=== PATIENT | female | born 2000 | race Caucasian/White ===

== ENCOUNTER 2022-07-30 12:46 | Outpatient (CLI) | payer OTHER, SELFPAY ==
--- OUTSIDE RECORDS SUMMARY | 2022-08-12 09:07 | XMS_ITS | Encounter Summary ---
:2002 Author Organization [facility] Address [address] [place] [address] Care Team Providers Name Role Phone Addis Kirk PA-C Primary Care Provider Reason for Visit Reason Onset Date Comments Phone Visit Med check Phone Visit 01/27/2022 Encounter Details Date Type Department Care Team Description 01/27/2022 Phone Visit [place] Addis Kirk, Acne vulgaris; Medicine PA-Tae Oral contraceptive pill surveillance; [address] bertha without aura and without status migrainosus, not intractable [place] [address] [place], [place] [phone] [address] Social History Tobacco Use Types Packs/Day Years Used Date Smoking Tobacco: Never Smokeless Tobacco: Never Alcohol Use Standard Drinks/Week Comments Never 0 (1 standard drink = 0.6 oz pure alcoho l) Alcohol Habits Answer Date Recorded How often do you have a drink containing alcohol? Never 11/17/2020 How many drinks containing alcohol do you have on a typical Not asked day when you are drinking? How often do you have six or more drinks on one occasion? No t asked Comment: Not asked Sex Assigned at Date Recorded Not on file documented as of this encounter Last Filed Vital Signs Vital Sign Reading Time Taken Comments Blood Pressure - - Pulse - - Temperature 36.7 ??C (98 ??F) 01/27/2022 12:58 PM patient re ported CDT Respiratory Rate - - Oxygen Saturation - - Inhaled Oxygen Concentration - - Weight 62.6 kg (138 lb) 01/27/2022 12:58 PM patient rep orted CDT Height 175.3 cm (5' 9) 01/27/2022 12:58 PM patient rep orted CDT Body Mass Index 20.38 01/27/2022 12:58 PM CDT documented in this encounter Progress Notes Addis Kirk PA-C - 01/27/2022 1:00 PM CDT Subjective: Today's visit with Sunni was conducted as a scheduled telephone visit for a medication check. Currently taking Ortho-Cyclen OCP consistently everyday, no missed doses, has helped to improve her skincomplexion/acne since starting, and her headaches related to her menstrual cycle have also become less frequent. Sexually active with her boyfriend of 1 year, also uses condoms. Never a regular smoker.Her menstrual cycle has improved, regular, not overly heavy or painful. Patient's last menstrual period was 01/11/2022 (approximate). No current concerns. Objective: Health Maintenance Due Topic Date Due ??? HIV Screening (Preventive Services) Never done ??? COVID-19 Vaccine (3 - Booster for Moderna series) 08/23/2021 BP Readings from Last 1 Encounters: 06/29/21 133/77 Vital Signs: Reviewed. Temp 98 ??F (36.7 ??C) Comment: patient reported Ht 5' 9 (1.753 m) Comment: patient reported Wt 138 lb (62.6 kg) Comment: patient reported LMP 01/11/2022 (Approximate) BMI 20.38 kg/m?? Assessment/Plan: ICD-10-CM 1. Acne vulgaris L70.0 clindamycin-benzoyl peroxide (BENZACLIN) 1-5 % gel Norgestimate-Eth Estradiol (ORTHO-CYCLEN) 0.25-35 MG-MCG tablet 2. Oral contraceptive pill surveillance Z30.41 Norgestimate-Eth Estradiol (ORTHO-CYCLEN) 0.25-35 MG-MCG tablet 3. Migraine without aura and without status migrainosus, not intractable G43.009 SUMAtriptan (IMITREX) 50 MG tablet Refilled medications at their current doses, see above/EMR for more details. Follow-up in 1 year for her annual preventative exam or sooner with any concerns/changes. Clinician located at the clinic Patient located at home Billing based on complexity Total time for the visit was 11 minutes including, but not limited to, gaw-tpgt-rl-face time spent reviewing records, counseling, and coordination of care. Addis Kirk PA-C documented in this encounter Plan of Treatment Not on filedocumented as of this encounter Visit Diagnoses Diagnosis Acne vulgaris Other acne Oral contraceptive pill surveillance Surveillance of previously prescribed co ntraceptive pill Migraine without aura and without status migrainosus, not intractable Migraine without aura, without mention o f intractable migraine without mention of status migrainosus documented in this encounter Care Teams Communications Officer Relationship Specialty Start Date End Date Addis Kirk PA-C PCP - General Physician Microfilm Clerk 06/29/21 [address] [place] [address] documented as of this encounter
--- OUTSIDE RECORDS SUMMARY | 2022-08-12 09:07 | XMS_ITS | Encounter Summary ---
:2002 Author Organization [email or web address] Address [address], [place] [address] Care Team Providers Name Role Phone Marlena Choudhury MD Primary Care Provider Encounter Details Date Type Department Care Team Description 06/18/2020 Lab Visit [facility] Routine screening for STI [address] ([place] [address] infection) [phone] Social History Tobacco Use Types Packs/Day Years [...] on file documented as of this encounter Plan of Treatment Not on filedocumented as of this encounter Procedures Procedure Name Priority Date/Time Associated Diagnosis Comme nts CHLAMYDIA/NEISSERIA Routine 06/18/2020 10:53 Routine screening Results for this GONORRHOEAE RNA, AM CDT for STI (sexually proced ure are in TMA, UROGENITAL transmitted the results infection) section. CHLAMYDIA & GC, Routine 06/18/2020 10:53 Routine screening Res ults for this URINE (14 YEARS AND AM CDT for STI (sexually pro cedure are in OLDER) transmitted the results infection) section. documented in this encounter Results Chlamydia/Neisseria gonorrhoeae RNA, TMA, Urogenital (06/18/2020 10:53 AM CDT) [facility] Method Time Signature Chlamydia NOT NOT 06/20/2020 [facility] Trachomat[facility] DETECTED DETECTED 7:00 PM CDT DIAGNOSTICS - RNA, TMA, NIKKY HAAS Urogenital Neisseria NOT NOT 06/20/2020 [facility] gonorrhoeae DETECTED DETECTED 7:00 PM CDT DIAGNOSTICS - RNA, TMA, NIKKY HAAS Urogenital [facility] See Note SEE NOTE 06/20/2020 [facility] 7:00 PM CDT DIAGNOSTICS - NIKKY HAAS Comment: The analytical performance characteristi cs of this assay, when used to test SurePath(TM) sp ecimens have been determined by [facility]. The mod ifications have not been cleared or approved by the FDA. This assay has been validated pursuant to the CLIA regu lations and is used for clinical purposes. For additional information, please refer to https://education.OSOYOU.com.BALALIKEA/f [email or web address]/HVM786 (This link is being provided for informa tion/ educational purposes only.) [place], [place] [address], [address], VASHTI CELIS MD Specimen Anatomical Collection Method Collection Time Receive d Time (Source) Location / / Volume Laterality Urine STD (Urine Non-blood 06/18/2020 10:53 020 for STD) Collection / AM CDT 10:53 AM CDT Unknown Addis Kirk PA-C LAB_1 Performing Organization Address City/State/ZIP Code Phon e Number [place] [facility] [address] [facility]. [place], [place] [address] Chlamydia & GC, Urine (14 Years and Older) (06/18/2020 10:53 AM CDT) Component Value Ref Test Analysis Performed At [facility] Method Time Signature Chlamydia Due to current 06/18/2020 [facility] Trachomatis laboratory 6:25 PM CDT [facility] and N. situations gonorrhoeae this test is (Sendout) temporarily being sent out. See the new test in chart review. Specimen Anatomical Collection Method Collection Time Receive d Time (Source) Location / / Volume Laterality Urine STD (Urine Non-blood 06/18/2020 10:53 020 for STD) Collection / AM CDT 10:53 AM CDT Unknown Addis Kirk PA-C LAB_1 Performing Organization Address City/State/ZIP Code Phon e Number [facility] [address] [place] [address] documented in this encounter Visit Diagnoses Diagnosis Routine screening for STI (sexually garcía smitted infection) Screening examination for venereal disea se documented in this encounter Care Teams [employer] Targeting Supervisor Relationship Specialty Start Date End Date Marlena Choudhury MD PCP - General 02/13/11 06/28/21 [address] [address] [place] [address] documented as of this encounter
--- OUTSIDE RECORDS SUMMARY | 2022-08-12 09:07 | XMS_ITS | Encounter Summary ---
:2002 Author Organization [facility] Address [address] [place] [address] Care Team Providers Name Role Phone Addis Kirk PA-C Primary Care Provider Reason for Visit Reason Comments Video Visit Sleep issues Encounter Details Date Type Department Care Team Description 07/21/2022 Telemedicine [place] [facility] Addis Kirk, Sleep disturbances (Primary Dx); Medicine MARY Anxiety [address] [place] [address] [place], [place] [phone] [address] Social History Tobacco Use Types Packs/Day Years [...] on file documented as of this encounter Progress Notes Addis Kirk, MARY - 07/21/2022 12:30 PM CDT Subjective: Today's visit with Sunni was conducted as a scheduled video visit for sleep disturbance concerns.Reports my anxiety keeps me up at night seems to worsen when away at college. Lays in bed for hours due to mind racing and can't seem to quiet her mind down. Has tried melatonin in the past. Would prefer not to start on a daily anti-anxiety med at this time as she seems to be doing well throughout the day. Will be restarting school at [employer] next week, plays basketball. Additional concerns: None Patient's medications, allergies, past medical, surgical, social and family histories were reviewed and updated as appropriate. Objective: BP Readings from Last 1 Encounters: 06/29/21 133/77 PHQ-9 07/21/2022 06/29/2021 05/12/2020 PHQ-9 Score Total - 1 - Q1: Loss of Int/Pleas 0 0 0 Q2: Depressed mood 0 0 0 Q3: Sleep problems - 1 - Q4: Tired/Low Energy - 0 - Q5: Appetite change - 0 - Q6: Feelings of failure - 0 - Q7: Concentration Prob - 0 - Q8: Slow or Restless - 0 - Q9: Thought Self Harm - 0 - Date PHQ9 was completed - 06/29/2021 - LAST GAD7 SCORE DATE 07/21/2022 FAHAD-7 TOTAL SCORE 7 Some recent data might be hidden General: Alert, well and comfortable -appearing female, NAD. Psych: Alert and orientated. Maintains good eye contact. Does not appear overtly depressed, not tearful. Does not appear overtly anxious, appropriately talkative, open to sharing her feelings. No pressured speech or jittery movements. Denies having thoughts of hurting herself or others. Assessment/Plan: Sunni was seen today for video visit. Diagnoses and all orders for this visit: Sleep disturbances - hydrOXYzine HCl (ATARAX) 25 MG tablet; Take 1 Tablet (25 mg) by mouth at bedtime as needed. Anxiety (HRC) - hydrOXYzine HCl (ATARAX) 25 MG tablet; Take 1 Tablet (25 mg) by mouth at bedtime as needed. Rx: Hydroxyzine 25 mg taken before bedtime. Reviewed medication profile. Supportive measures were discussed including good sleep hygiene techniques. Follow-up in about 3-4 weeks for a recheck, sooner with any changes/concerns. Clinician located at home office Patient located at home Billing based on complexity Addis Kirk PA-C documented in this encounter Plan of Treatment Not on filedocumented as of this encounter Visit Diagnoses Diagnosis Sleep disturbances - Primary Sleep disturbance, unspecified Anxiety (HRC) Anxiety state, unspecified documented in this encounter Care Teams Structural Analyst Relationship Specialty Start Date End Date Addis Kirk PA-C PCP - General Physician Drive Man 06/29/21 [address] [place] [address] documented as of this encounter
--- OUTSIDE RECORDS SUMMARY | 2022-08-12 09:07 | XMS_ITS | Encounter Summary ---
:2002 Author Organization [facility] Address [address] [place] [address] Care Team Providers Name Role Phone Yovana iKrk-C Primary Care Provider Reason for Visit Reason Comments Refill DUY 0.25-35 MG-MCG tablet [ Pharmacy Med Name: DUY TABLETS 28S] Encounter Details Date Type Department Care Team Description 01/24/2022 Refill [facility] Yovana Kirk, Shelia l (DUY 0.25-35 Medicine PA-C MG-MCG tablet [Ph[address] Med Name: [address] [place] [address] [place], [place] [id number] (Wo rk) Social History Tobacco Use Types Packs/Day Years [...] on file documented as of this encounter Nursing Notes Interface, Out Surescripts Prov Query - 01/24/2022 8:32 PM CDT DUY 0.25-35 MG-MCG tablet [Pharmacy Med Name: DUY TABLETS 28S] Medication started: 11/17/2020 Last ordered by YOVANA KIRK N: 06/29/2021 (209 days ago) QTY: 84, Refills: 3, Sig: take 1 tablet by mouth daily. (changed but equivalent) -> The patient is requesting refills too soon, the current prescription is due to run out on 05/31/2022. -> Refill x 6 months, qty: 90, refills: 1 (until due for an office visit) Last qualifying visit: 06/29/2021 (with YOVANA KIRK) Next scheduled visit: None Powered by [employer], Reference: [id number], 01/24/2022 8:32:37 PM CDT, Pool:EMERY WEBSTER ([id number]) documented in this encounter Plan of Treatment Not on filedocumented as of this encounter Visit Diagnoses Diagnosis Oral contraceptive pill surveillance Surveillance of previously prescribed co ntraceptive pill Acne vulgaris Other acne Migraine without aura and without status migrainosus, not intractable Migraine without aura, without mention o f intractable migraine without mention of status migrainosus documented in this encounter Care Teams Lead Customer Service Representative Relationship Specialty Start Date End Date Yovana Kirk PA-C PCP - General Physician Screw Cutter 06/29/21 [address] [place] [address] documented as of this encounter
--- OUTSIDE RECORDS SUMMARY | 2022-08-12 09:07 | XMS_ITS | Clinical Summary ---
:2002 Author Organization [facility] Address [address] [place] [address] Care Team Providers Name Role Phone Addis Krik PA-C Primary Care Provider Source Comments You are receiving this document as you are listed as the primary care provider,follow-up provider, or the patient has been referred to you for consultation.This is in compliance with the Medicare and Medicaid EHR Incentive Program,which states Providers who transition their patient to another setting of careor provider of care or refers their patient to another provider of care shouldprovide summarycare record for each transition of care or referral. [facility] Allergies No known active allergies Medications Medication Sig Dispensed Refills Start Date End Date Status Multiple Vitamin Take by mouth. 0 12/03/2012 Active (MULTI-VITAMIN OR) clindamycin-benzoyl Apply topically 50 g 3 01/27/2022 Active peroxide (BENZACLIN) two times a day. 1-5 % gelIndications: Acne vulgaris Norgestimate-Eth Take 1 Tablet by 84 Tablet 3 01/27/202201/27 Active Estradiol mouth daily. (ORTHO-CYCLEN) 0.25-35 MG-MCG tabletIndications: Acne vulgaris, Oral contraceptive pill surveillance SUMAtriptan (IMITREX) Take 0.5-1 27 Tablet 3 01/27/2022 Active 50 MG Tablets (25-50 tabletIndications: mg) by mouth as Migraine without aura needed for and without status Migraine. at migrainosus, not onset of intractable headache; may repeat one time in 2 hours if headache recurs. hydrOXYzine HCl Take 1 Tablet (25 30 Tablet 3 07/21/2022 Active (ATARAX) 25 MG mg) by mouth at tabletIndications: bedtime as Sleep disturbances, needed. Anxiety (HRC) Active Problems Problem Noted Date Acne vulgaris 05/12/2020 Migraine without aura and without status migrainosus, not intractable 05/12/2020 Resolved Problems Problem Noted Date Resolved Date Vision impairment 07/13/2012 05/12/2020 Viral warts 12/07/2011 07/13/2012 Overview: Viral warts, unspecified Encounters Date Type Specialty Care Team Description 07/21/2022 Telemedicine Family Medicine Addis Kirk Sleep d isturbances (Primary Dx); PATylreC Anxiety from Last 3 Months Immunizations Name Administration Dates Next Due 4vHPV (Gardasil) 11/26/2014, 07/02/2014, 05/21/2014 DTaP 05/09/2007, 2002, 2002, 2002 DTaP/Hib 05/29/2003 Flu Vac Preserv Free (3+yrs) 08/31/2011, 08/25/2010, 009, 08/27/2008, 09/10/2007, 09/06/2006, 10/07/2005, 09/06/2005 L1P4-[id number] 10/23/2009 H1n1 Miv Sanofi 3+ Yr (Injected) 09/12/2009 HepA Ped/Adol (1-18 yrs) 11/07/2007, 05/09/2007 HepB Ped/Adol (0-18 yrs) 03/12/2003 HepB, Unspecified Formulation 2002, 2002 Hib (ActHIB) 2002, 2002, 2002 IPV (Polio) 05/09/2007, 2002, 2002, 2002 Influenza IIV4 (Quadrivalent) 0.5mL 09/13/2019, 07/28/2018, 09/02/2016, ([id number]) 09/23/2015, 08/27/2013 Influenza LAIV (Nasal, 2-49 yrs) 07/13/2012 Influenza Vaccine Q/LAIV Intranasal 10/08/2014 2-49 yrs ([facility]) MCV4 (Menactra) 05/21/2014 MCV4 (Menveo) 06/18/2020 MMR 03/12/2003 MMRV (ProQuad) 05/09/2007 Moderna (Spikevax) COVID-19, 12+ Yrs 03/23/2021, 02/25/2021 Pneumococcal 7, PED 05/29/2003, 2002, 2002, 2002 TDAP (BOOSTRIX) 05/21/2014 Varicella 03/12/2003 Family History Medical History Relation Name Comments Migraines Mother Migraines Maternal Aunt Cataract Maternal Grandfather Relation Name Status Comments Father Alive Mother Alive Maternal Aunt Alive Maternal Grandfather Sister 1 Blanca-Twin Alive Sister 2 Alive Social History Tobacco Use Types Packs/Day Years [...] Assigned at Date Recorded Not on file Last Filed Vital Signs Vital Sign Reading Time Taken Comments Blood Pressure 133/77 06/29/2021 10:55 AM CDT Pulse 65 06/29/2021 10:55 AM CDT Temperature 36.7 ??C (98 ??F) 01/27/2022 12:58 PM patient re ported CDT Respiratory Rate 16 11/04/2019 1:22 PM SWITCHBOARD WIRER Oxygen Saturation 100% 09/27/2019 8:45 AM SWITCHBOARD WIRER Inhaled Oxygen Concentration - - Weight 62.6 kg (138 lb) 01/27/2022 12:58 PM patient rep orted CDT Height 175.3 cm (5' 9) 01/27/2022 12:58 PM patient rep orted CDT Body Mass Index 20.38 01/27/2022 12:58 PM CDT Plan of Treatment Health Maintenance Due Date Last Done Comments Hep C Screening (Preventive 2002 Services) HIV Screening (Preventive 2018 Services) COVID-19 Vaccine (3 - 05/18/2021 03/23/2021, 02/25/2021 Booster for Moderna series) Adult Preventive Visit 06/29/2022 06/29/2021, 06/18/2020, 06/23/2017 Chlamydia 06/29/2022 06/29/2021, 06/18/2020 Influenza (#1) 2022 08/24/2021, 09/13/2019, 07/28/2018, Additional history exists DTaP/Tdap/Td (7 - Tdap) 05/21/2024 05/21/2014, 05/09/2007, 05/29/2003, Additional history exists Zoster/Shingles (1 of 2) 02/28/2052 HepB Completed 03/12/2003, 2002, 2002 Hib Completed 05/29/2003, 2002, 2002, Additional history exists Pneumococcal Aged Out 05/29/2003, 2002, No longe r eligible 2002, Additional based on patient's age history exists to complete this topic IPV (Polio) Completed 05/09/2007, 2002, 2002, Additional history exists Varicella Completed 05/09/2007, 03/12/2003 HepA Completed 11/07/2007, 05/09/2007 HPV Vaccine Completed 11/26/2014, 07/02/2014, 05/21/2014 MCV4 Completed 06/18/2020, 05/21/2014 Insurance Payer Benefit Plan / Subscriber ID Effective Phone Address T ype Group Dates PREFERREDONE PREFERREDONE [id number] 2020-Pres [phone] OPEN ACCESS ent [id number] [place] [phone] Autumn Serna Personal/Famil Self 06/16/1969 [id number] (Home) [place] [phone] [place], [place] (Work) [address] Care Teams Transportation Lead Relationship Specialty Start Date End Date Addis Kirk PA-C PCP - General Physician Strike Planning Applications 06/29/[address] [place] [address]
--- OUTSIDE RECORDS SUMMARY | 2022-08-12 09:07 | XMS_ITS | Encounter Summary ---
:2002 Author Organization [facility] Address [address], [place] [address] Care Team Providers Name Role Phone Addis Kirk PA-C Primary Care Provider Encounter Details Date Type Department Care Team Description 06/29/2021 Lab Visit [place] [facility] Routine screening for STI [address] ([place] [address] infection) [phone] Social History Tobacco Use Types Packs/Day Years [...] as of this encounter Progress Notes Addis Kirk PA-C - 06/29/2021 11:30 AM CDT Your STD screening for gonorrhea and chlamydia are both negative. documented in this encounter Plan of Treatment Not on filedocumented as of this encounter Procedures Procedure Name Priority Date/Time Associated Diagnosis Comme nts CHLAMYDIA & GC, Routine 06/29/2021 11:25 AM Routine screening Results for this URINE (14 YEARS AND CDT for STI (sexually pro cedure are in OLDER) transmitted the results infection) section. documented in this encounter Results Chlamydia & GC, Urine (14 Years and Older) (06/29/2021 11:25 AM CDT) [facility] gist Method Time Signature Chlamydia Not Not 06/30/2021 [facility] Trachomatis Detected Detected 12:57 AM [facility] STD CDT N. gonorrhoeae Not Not 06/30/2021 [facility] STD Detected Detected 12:57 AM [facility] CDT Specimen Anatomical Collection Method Collection Time Receive d Time (Source) Location / / Volume Laterality Urine STD (Urine Non-blood 06/29/2021 11:25 021 for STD) Collection / AM CDT 11:25 AM CDT Unknown Narrative [facility] - 06/30/2021 12:57 AM CDT Test performed by Manager Pe Mediated Amplification (TMA). Addis Kirk PA-C LAB_1 Performing Organization Address City/State/ZIP Code Phon e Number [facility] [address] [phone] documented in this encounter Visit Diagnoses Diagnosis Routine screening for STI (sexually garcía smitted infection) Screening examination for venereal disea se documented in this encounter Care Teams Loader Technician Relationship Specialty Start Date End Date Addis Kirk PA-C PCP - General Physician Geology Associate 06/29/21 [address] [place] [address] documented as of this encounter
--- OUTSIDE RECORDS SUMMARY | 2022-08-12 09:07 | XMS_ITS | Encounter Summary ---
:2002 Author Organization [facility] Address [address] [place] [address] Care Team Providers Name Role Phone Addis Kirk PA-C Primary Care Provider Reason for Visit Reason Comments Annual Exam Encounter Details Date Type Department Care Team Description 06/29/2021 Office Visit [place] [facility] Addis Kirk, Bobby stoddard physical examination (Primary Dx); Medicine PA-Tae Oral contraceptive pill surveillance; [address] Acn e vulgaris; [address] Migraine without aura and without status migrainosus, not intractable; [place] [address] [place], [place] Routine screening for STI (s exually transmitted infection) [phone] [id number] Social History Tobacco Use Types Packs/Day Years [...] Pulse 65 06/29/2021 10:55 AM CDT Temperature - - Respiratory Rate - - Oxygen Saturation - - Inhaled Oxygen Concentration - - Weight 63 kg (139 lb) 06/29/2021 10:55 AM CDT Height 170.2 cm (5' 7) 06/29/2021 10:55 AM CDT Body Mass Index 21.77 06/29/2021 10:55 AM CDT documented in this encounter Progress Notes Addis Kirk PA-C - 06/29/2021 11:00 AM CDT Preventive Exam SUBJECTIVE: Sunni is a 21 y.o. female who is presenting to clinic for a routine preventive physical exam. Patient voices no concerns. Past Medical History: Diagnosis Date ??? Acne vulgaris 05/12/2020 ??? Migraine without aura and without status migrainosus, not intractable 05/12/2020 Past Surgical History: Procedure Laterality Date ??? ADENOIDECTOMY 2005 [place] ??? 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 Para: 0. Pap History: She has never had a pap smear. Menstrual History: Patient's last menstrual period was 06/06/2021 (within days). Regular cycles, notoverly heavy or painful. Type of Contraception: Ortho-Cyclen OCp, satisfied with current method. STD History: No Hx of STDs. No current concerns. Would like G/C screening. Outpatient Medications Prior to Visit Medication Sig Dispense Refill ??? Multiple Vitamin (MULTI-VITAMIN OR) Take by mouth. ??? SUMAtriptan (IMITREX) 50 MG tablet TAKE 1 TABLET BY MOUTH NEEDED FOR MIGRAINE, MAY REPEAT AFTER 2 HOURS NEEDED*MAX 4 TABLETS IN 24 HOURS AND 9 DAYS PER MONTH 27 Tablet 2 ??? clindamycin-benzoyl peroxide (BENZACLIN) 1-5 % gel Apply topically two times a day. 50 g 3 ??? fluticasone propionate (FLONASE) 50 MCG/ACT nasal solution Place 2 Sprays into both nostrils daily. (Patient not taking: Reported on 06/29/2021) 16 g 11 ??? Norgestimate-Eth Estradiol (ORTHO-CYCLEN) 0.25-35 MG-MCG tablet Take 1 Tablet by mouth daily. (Patient not taking: Reported on 06/29/2021) 84 Tablet 3 No facility-administered medications prior to visit. No Known Allergies Family History Problem Relation Age of Onset ??? Cataract Maternal Grandfather ??? Migraines Mother ??? Migraines Maternal Aunt Social History Socioeconomic History ??? Marital status: Single Spouse name: Not on file ??? Number of children: 0 ??? Years of education: Not on file ??? Highest education level: Not on file Occupational History ??? 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 Occupation: Works Comment: [employer] Tobacco Use ??? Smoking status: Never Smoker ??? Smokeless tobacco: Never Used Vaping Use ??? Vaping Use: Never used Substance and Sexual Activity ??? Alcohol use: Never ??? Drug use: Never ??? Sexual activity: Yes Partners: Male control/protection: OCP Other Topics Concern ??? Bike Helmet No ??? City Water No ??? Exercise Not Asked ??? Guns in home No Comment: locekd ??? Seat Belt No ??? Special Diet Not Asked ??? Weight Concern Not Asked Social History Narrative Lives with mother, father, twin sister-Blanca (2001), and younger sister (2005). 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 Boyfriend, he lives in [place]. Social Determinants of Health Financial Resource Strain: ??? Difficulty of Paying Living Expenses: Food Insecurity: ??? Worried About Running Out of Food in the Last Year: ??? Ran Out of Food in the Last Year: Transportation Needs: ??? Lack of Transportation (Medical): ??? Lack of Transportation (Non-Medical): Physical Activity: ??? Days of Exercise per Week: ??? Minutes of Exercise per Session: Intimate Partner Violence: ??? Fear of Current or Ex-Partner: ??? Emotionally Abused: ??? Physically Abused: ??? Sexually Abused: Preventive Health Assessment: Does perform monthly breast self-exams. Regular dilated eye exams and dental exams. Diet & calcium intake adequate. Exercise adequate. Lipid & glucose screen is not needed. Tetanus immunization is up to date. OBJECTIVE: Vital Signs: Reviewed. BP 133/77 (BP Location: Right Arm, BP Cuff Size: Regular) Pulse 65 Ht 5' 7 (1.702 m) Wt 139 lb (63 kg) LMP 06/06/2021 (Within Days) BMI 21.77 kg/m?? General: Alert, pleasant female, in NAD. HEENT: PERRL, EOMI. Bilateral TM's, external canals, oropharynx normal. Neck: Supple, without thyromegaly or mass. Normal swallow. Upper extremities: FROM with good strength, no lesions or deformities. CV: RRR without murmurs, rubs or gallops. Resp: Clear to auscultation without crackles, wheezes or distress. Abdomen: Soft, non-tender, without hepatosplenomegaly, masses, or hernias. Breasts: Nontender, without masses, nipple discharge, erythema, or axillary adenopathy. Lymphatic: No neck, supraclavicular, or axillary lymphadenopathy. Lower extremities: FROM, normal gait without edema, lesions, or deformity. Skin: No rashes or lesions. Neuro: CN II-XII, motor & sensory function all intact. 2+ symmetric patellar reflexes. Psychiatric: Alert & oriented with normal affect and insight, does not appear depressed or anxious. No SI or HI. PHQ-9: 1. FAHAD-7: 2. ASSESSMENT: ICD-10-CM 1. Routine physical examination Z00.00 2. Oral contraceptive pill surveillance Z30.41 Norgestimate-Eth Estradiol (ORTHO-CYCLEN) 0.25-35 MG-MCG tablet 3. Acne vulgaris L70.0 Norgestimate-Eth Estradiol (ORTHO-CYCLEN) 0.25-35 MG-MCG tablet clindamycin-benzoyl peroxide (BENZACLIN) 1-5 % gel 4. Migraine without aura and without status migrainosus, not intractable G43.009 Norgestimate-Eth Estradiol (ORTHO-CYCLEN) 0.25-35 MG-MCG tablet 5. Routine screening for STI (sexually transmitted infection) Z11.3 Chlamydia & GC, Urine (14 Years and Older) PLAN: Follow-up in 1 year. No pap smear. Low risk. Reviewed current ACOG guidelines. Will begin at age 21. G/C (urine) screen. Will post results to [facility] when available. Refilled medications, see above/EMR for more details. Immunizations reviewed and patient's immunizations are up-to-date. Last Tdap: 05/21/14. Already completed COVID-19 vaccine series. Discussed with patient: Instructed on breast self-exam. Recommended adequate diet and calcium intake/osteoporosis prevention. Benefits of regular exercise. documented in this encounter Plan of Treatment Not on filedocumented as of this encounter Results Chlamydia & GC, Urine (14 Years and Older) (06/29/2021 11:25 AM CDT) [facility] gist Method Time Signature Chlamydia Not Not 06/30/2021 [facility] Trachomatis Detected Detected 12:57 AM CENTRAL LAB STD CDT N. gonorrhoeae Not Not 06/30/2021 [facility] STD Detected Detected 12:57 AM CENTRAL LAB CDT Specimen Anatomical Collection Method Collection Time Receive d Time (Source) Location / / Volume Laterality Urine STD (Urine Non-blood 06/29/2021 11:25 021 for STD) Collection / AM CDT 11:25 AM CDT Unknown Narrative [facility] C[facility]AL [facility] - 06/30/2021 12:57 AM CDT Test performed by Technical Advisor Mediated Amplification (TMA). Addis Kirk PA-C LAB_1 Performing Organization Address City/State/ZIP Code Phon e Number [facility]AL [facility] [address] [address] documented in this encounter Visit Diagnoses Diagnosis Routine physical examination - Primary Routine general medical examination at a health care facility Oral contraceptive pill surveillance Surveillance of previously prescribed co ntraceptive pill Acne vulgaris Other acne Migraine without aura and without status migrainosus, not intractable Migraine without aura, without mention o f intractable migraine without mention of status migrainosus Routine screening for STI (sexually garcía smitted infection) Screening examination for venereal disea se documented in this encounter Care Teams Oxygraph Operator Relationship Specialty Start Date End Date Addis Kirk PA-C PCP - General Physician Kiln Maintenance 06/29/21 [address] [place] [address] documented as of this encounter
--- OUTSIDE RECORDS SUMMARY | 2022-08-12 09:07 | XMS_ITS | Encounter Summary ---
:2002 Author Organization [facility] Address [address], [place] [address] Care Team Providers Name Role Phone Addis Kirk PA-C Primary Care Provider Encounter Details Date Type Department Care Team Description 03/04/2022 Telemedicine [facility] Josep Lara APRN, Ivette lynn sports Medicine ORGAN INSTALLER physical exam (Primary [address] [facility] [address] [place] [address] [phone] Social History Tobacco Use Types Packs/Day Years [...] documented as of this encounter Progress Notes Josep Lara APRN, ORGAN INSTALLER - 03/04/2022 10:00 AM CDT Scheduled Video Appointment Subjective The patient is a 22 y.o. female who is evaluated via a scheduled video appointment for a return to sports physical. 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 She tested positive for COVID on 01/25/2022.Symptoms started several day prior. Symptoms were that of a common cold: infrequent cough, runny nose, fatigue. No shortness or breath, chest pain, and fever s/p immediate diagnosis of COVID. Today shefeels 100% back to her normal self. Has been sprinting. Objective Physical Exam Constitutional: Appearance: Normal appearance. Neurological: General: No focal deficit present. Mental Status: She is alert and oriented to person, place, and time. Psychiatric: Mood and Affect: Mood normal. Behavior: Behavior normal. Pt asked to perform jumping jacks for 1 min. She was able to without difficulty, chest pain, or normal shortness a breath related to physical activity. Assessment/Plan Diagnoses and all orders for this visit: Routine sports physical exam Cleared to return to sport. Forms faxed over to patient and college. Josep Lara DNP, CERTIFIED HEARING INSTRUMENT DISPENSER, CRYSTAL GAZER-C documented in this encounter Plan of Treatment Not on filedocumented as of this encounter Visit Diagnoses Diagnosis Routine sports physical exam - Primary Other general medical examination for ad ministrative purposes documented in this encounter Care Teams Financial Services Director Relationship Specialty Start Date End Date Addis Kirk PA-C PCP - General Physician Pocket And Pulley Machine Operator 06/29/21 [address] [place] [address] documented as of this encounter
--- OUTSIDE RECORDS SUMMARY | 2022-08-12 09:07 | XMS_ITS | Encounter Summary ---
:2002 Author Organization [facility] Address [address] [place] [address] Care Team Providers Name Role Phone Addis Kirk PA-C Primary Care Provider Reason for Visit Reason Comments Forms Encounter Details Date Type Department Care Team Description 02/28/2022 Telephone [facility] Addis Quintero PA-C Forms [address] [place] [address] [place], [place] [id number] (Wo rk) Social History Tobacco Use Types [...] file documented as of this encounter Nursing Majo Edge - 03/04/2022 10:45 AM CDT Faxed to [facility], and notified patient that it was done. Josep Lara APRN, CNP - 03/04/2022 10:32 AM CDT The forms are filled out and can be faxed over. Majo Cueva - 03/03/2022 10:18 AM CDT Forms & Letters What form/letter are you requesting? Letter/Other What form/letter are you requesting? 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 Fax Return to: Patient Return method: labor utilization superintendent (daytime phone #) [phone] If other than the patient, who may pickler helper this form? Additional comments (related to the above concern): Form is in green folder at nurse station. Is it okay to leave a detailed message on your voicemail? Yes Umberto Green - 02/28/2022 1:16 PM CDT Forms & Letters What form/letter are you requesting? Letter/Other What form/letter are you requesting? The patient needs to have a form completed stating that she is fit to return to basketball practice after having COVID19 around 01/28/2022. The patient will fax the form to the clinic. This form/letter is needed from: Addis Kirk PA-C How will you be submitting this form/letter to us? FAX: patient was given fax number Return to: Patient Return method: Instructions on form for fax Additional comments (related to the above concern): Is it okay to leave a detailed message on your voicemail? Yes documented in this encounter Plan of Treatment Not on filedocumented as of this encounter Visit Diagnoses Not on filedocumented in this encounter Care Teams Cpo Relationship Specialty Start Date End Date Addis Kirk PA-C PCP - General Physician Sky Line Yarder 06/29/21 [address] [place] [address] documented as of this encounter
--- OUTSIDE RECORDS SUMMARY | 2022-08-12 09:07 | XMS_ITS | Encounter Summary ---
:2002 Author Organization [facility] Address [address] [place] [address] Care Team Providers Name Role Phone Marlena Choudhury MD Primary Care Provider Reason for Visit Reason Comments Refill SUMAtriptan (IMITREX) 50 MG tablet [Pharmacy Med Name: SUMATRIPTAN 50MG TABLETS] Encounter Details Date Type Department Care Team Description 04/28/2021 Refill Yovana Lewis, Refill (SUMAtriptan Medicine PA-C (IMITREX) 50 MG tablet [address] [Pharmacy Med Name: [facility]al[facility] [address] SUMATRIPTAN 50MG [phone] [place], [place] [address] TABLETS]) [phone] (Wo rk) Social History Tobacco Use Types [...] documented as of this encounter Nursing Notes Nicole Sneed, RN - 05/01/2021 4:34 PM CDT Renewed medication per medication refill protocol. Requested Prescriptions Pending Prescriptions Disp Refills ??? SUMAtriptan (IMITREX) 50 MG tablet [Pharmacy Med Name: SUMATRIPTAN 50MG TABLETS] 27 Tablet 2 Sig: TAKE 1 TABLET BY MOUTH NEEDED FOR MIGRAINE, MAY REPEAT AFTER 2 HOURS NEEDED*MAX 4 TABLETS IN 24 HOURS AND 9 DAYS PER MONTH Interface, Out Surescripts Prov Query - 04/28/2021 4:10 PM CDT SUMAtriptan (IMITREX) 50 MG tablet [Pharmacy Med Name: SUMATRIPTAN 50MG TABLETS] Medication started: 09/13/2019 Last ordered by YOVANA LEWIS N: 05/12/2020 (351 days ago) QTY: 9, Refills: 3, Sig: take 1 tablet by mouth as needed for migraine. may repeat one tablet after 2 hours if needed. maximum 4 tabs/24 hours and 9 days/month (changed) -> Unable to determine if sig has changed, review required. -> Refill x 9 months (until due for an office visit) -> Calculate the quantity and number of refills manually. Last qualifying visit: 11/17/2020 (with YOVANA LEWIS) Next scheduled visit: None Powered by [employer], Reference: [id number], 04/28/2021 4:10:06 PM CDT, Pool:LANA WEBSTER ([id number]) documented in this encounter Plan of Treatment Not on filedocumented as of this encounter Visit Diagnoses Diagnosis Migraine without aura and without status migrainosus, not intractable Migraine without aura, without mention o f intractable migraine without mention of status migrainosus documented in this encounter Care Teams Instructor Substitute Cosmetology Relationship Specialty Start Date End Date Marlena Choudhury MD PCP - General 02/13/11 06/28/[address] [place] [address] documented as of this encounter
--- OUTSIDE RECORDS SUMMARY | 2022-08-12 09:07 | XMS_ITS | Clinical Summary ---
:2002 Author Organization [facility] [place] [address] Care Team Providers Name Role Phone Marlena Choudhury MD Primary Care Provider Allergies No known active allergies Medications Medication Sig Dispensed Refills Start Date End Date Status clindamycin-benzoyl JEAN-CLAUDE EXT AA BID 0 09/07/2020 Active peroxide 1-5 % glwp DUY 0.25-35 mg-mcg Take 1 tablet by 0 11/17/2020 Active tablet mouth once daily. SUMAtriptan (IMITREX) 0 11/07/2020 Active 50 mg tablet Active Problems No known active problems Social History Tobacco Use Types Packs/Day Years Used Date Never Smoker Smokeless Tobacco: Never Used Tobacco Cessation: Counseling Given: Yes Alcohol Use Standard Drinks/Week Comments Not Currently 0 (1 standard drink = 0.6 oz pure alcoho l) Sex Assigned at Date Recorded Not on file Obstetrics History Last Filed Vital Signs Vital Sign Reading Time Taken Comments Blood Pressure 130/68 12/03/2021 2:00 PM FISH TENDER manual Pulse 60 12/03/2021 2:00 PM FISH TENDER Temperature 36.3 ??C (97.3 ??F) 12/03/2021 2:00 PM FISH TENDER Respiratory Rate 20 10/08/2010 12:54 PM FISH TENDER Oxygen Saturation 99% 12/03/2021 2:00 PM FISH TENDER Inhaled Oxygen Concentration - - Weight 64 kg (141 lb) 12/03/2021 2:00 PM FISH TENDER Height 171 cm (5' 7.32) 12/24/2020 3:51 PM FISH TENDER Body Mass Index - - Plan of Treatment Health Maintenance Due Date Last Done Comments Well Child Check for age 3-20 01/27/2005 HPV series for age 9-26 (1 - 2013 2-dose series) Tdap 2013 Depression screening for age 0402/27/2014 12+ Chlamydia for age 16-24 2018 Hepatitis C screening for age 0402/28/2020 18-79 BMI (ht and wt on same day) 12/24/2021 12/24/2020 for age 18+ Tetanus booster 2022 Influenza for age 9-49 07/14/2022 COVID-19 vaccine series Completed 10/08/2021, 03/23/2021, 02/25/2021 Meningococcal series for age Aged Out No longer eligible based 10-03 on patient's age to complete this to pic Results Not on filefrom Last 3 Months Insurance Payer Benefit Plan / Subscriber ID Effective Dates Phone Addre ss Type Group PREFERRED ONE PREFERRED ONE [id number] 2020-Present [address] [place] [address] PREFERRED ONE PREFERRED ONE [id number] 2020-Present [address] [place] [address] Care Teams Category Development Analyst Relationship Specialty Start Date End Date Marlena Choudhury MD PCP - General 10/08/10
--- OUTSIDE RECORDS SUMMARY | 2022-08-12 09:07 | XMS_ITS | Encounter Summary ---
:2002 Author Organization [facility] Address [address] [place] [address] Care Team Providers Name Role Phone Marlena Choudhury MD Primary Care Provider Reason for Visit Reason Comments MEDICATION CHECK contraception Encounter Details Date Type Department Care Team Description 11/17/2020 Telemedicine [facility] Addis Kirk, Oral contraceptive pill surveillance (Primary Dx); Medicine PA-C Acne vulgaris; [address] Vaughn bertha without aura and without status migrainosus, not intractable [place] [address] [place], [place] [phone] Social History Tobacco Use Types Packs/Day Years [...] Pressure - - Pulse - - Temperature - - Respiratory Rate - - Oxygen Saturation - - Inhaled Oxygen Concentration - - Weight 61.2 kg (135 lb) 11/17/2020 1:24 PM HEMSTITCHER pt repor alonzo Height - - Body Mass Index 20.53 06/18/2020 9:35 AM CDT Body Mass Index Percentile 37.44 % 11/17/2020 1:24 PM CS T Growth Chart: [facility] (Girls, 2-20 Years) documented in this encounter Progress Notes Addis Kirk PA-C - 11/17/2020 1:30 PM CST Subjective: Today's visit with Sunni was conducted as a scheduled video visit for a medication check. She wasstarted on Alesse OCP in June 2020 to help with her headaches realated to her menstrual cycle and reports she no longer experiences headaches since starting on this OCP. She was hoping it would help improve her skin complexion in regards to facial acne which is hasn't, feels her acne along her jawline and around her mouth is worse-may be attributed to mask-wearing. Also over the last 5-6 months shehas noticed that she is more emotional, cries easily, and is more irritable/angry. Sexually active, also uses condoms. Never a regular smoker. Her menstrual cycle has improved, it is regular, cycles last 5 days on average (this past cycle lasted 10 days), light in flow and not overly painful. Patient's last menstrual period was 11/02/2020 (approximate). Objective: Vital Signs: Reviewed. Wt 135 lb (61.2 kg) Comment: pt reported LMP 11/02/2020 (Approximate) BMI20.53 kg/m?? General Appearance: Well-appearing, alert, pleasant female, NAD. Psych: Alert and orientated. Does not appear depressed or anxious. Assessment/Plan: ICD-10-CM 1. Oral contraceptive pill surveillance Z30.41 Norgestimate-Eth Estradiol (ORTHO-CYCLEN) 0.25-35 MG-MCG tablet 2. Acne vulgaris L70.0 Norgestimate-Eth Estradiol (ORTHO-CYCLEN) 0.25-35 MG-MCG tablet 3. Migraine without aura and without status migrainosus, not intractable G43.009 Norgestimate-Eth Estradiol (ORTHO-CYCLEN) 0.25-35 MG-MCG tablet Discontinue current Alesse OCP. Rx: Initiated different OCP Ortho-Cyclen. Reviewed medication profile including potential side effects. Use back-up contraception for the next 30 days. Safe sex encouraged. Follow-up in 3-4 months if no significant improvement, sooner with any concerns. Clinician located at the clinic Patient located at home Billing based on complexity Addis Kirk PA-C TITCHER documented in this encounter Plan of Treatment Not on filedocumented as of this encounter Visit Diagnoses Diagnosis Oral contraceptive pill surveillance - P rimary Surveillance of previously prescribed co ntraceptive pill Acne vulgaris Other acne Migraine without aura and without status migrainosus, not intractable Migraine without aura, without mention o f intractable migraine without mention of status migrainosus documented in this encounter Care Teams Wildlife Control Agent Relationship Specialty Start Date End Date Marlena Choudhury MD PCP - General 02/13/11 06/28/21 [address] [place] [id number] documented as of this encounter
--- OUTSIDE RECORDS SUMMARY | 2022-08-12 09:07 | XMS_ITS | Encounter Summary ---
:2000 Author Organization [facility] Address [address] [place] [address] Care Team Providers Name Role Phone Marlena Choudhury MD Primary Care Provider Reason for Visit Reason Comments Annual Exam Encounter Details Date Type Department Care Team Description 06/18/2020 Office Visit [facility] [address] Addis Kirk, Routine physical examination (Primary Dx); Family Medicine PA-C Routine sports physical exam; [address] [place] Oral contraceptive pill surv eillance; [facility] Menorrhagia with regular cycle; [id number] [place], [place] Acne vulgaris; [phone] [id number] Routine screening for STI (sexually garcía smitted infection) Social History Tobacco Use Types Packs/Day Years [...] Sign Reading Time Taken Comments Blood Pressure 127/71 06/18/2020 9:35 AM CDT Pulse 79 06/18/2020 9:35 AM CDT Temperature - - Respiratory Rate - - Oxygen Saturation - - Inhaled Oxygen Concentration - - Weight 58.4 kg (128 lb 11.2 oz) 06/18/2020 9:35 AM CDT Height 172.7 cm (5' 8) 06/18/2020 9:35 AM CDT Body Mass Index 19.57 06/18/2020 9:35 AM CDT Body Mass Index Percentile 25.55 % 06/18/2020 9:35 AM CD T Growth Chart: CDC (Girls, 2-20 Years) documented in this encounter Patient Instructions Patient InstructionsPooja Araujo, BENNIE - 06/18/2020 9:20 AM CDT 18 to 21 Years: Well Exam for Young Adults Guidelines for healthy growth and development For help after hours: ??? [facility] patients contact the Nurse Line at [phone]. ??? [facility] and [facility] patients should contact the Careline at [phone] or [phone]. Xths-aam-hvziijl medicine Aspirin: DO NOT USE Acetaminophen (Tylenol or Tempra) dose: Please see approved dosing tables or confirm dose with your clinic. Ibuprofen (Advil or Motrin) dose: Please see approved dosing tables or confirm dose with your clinic. Measurements Weight: Height: Blood Pressure: Blood pressure percentiles are not available for patients who are 18 years or older. Body Mass Index: Estimated body mass index is 18.38 kg/m?? as calculated from the following: Height as of 11/01/19: 5' 7.75 (172.1 cm). Weight as of 11/04/19: 120 lb (97750 g). Nutrition ??? Eat 3 nutritious meals a day, including breakfast. Healthy food choices include low-fat or skim (fat free) milk, yogurt, fruits, vegetables, whole grains, lean meats and beans. ??? Choose water instead of soda, sports drinks or coffee. ??? Limit foods high in fat or sugar, such as candy, chips and soda. Physical activity ??? Get at least 60 minutes of physical activity a day. You do not have to do the 60 minutes of activity all at once. Break activity up into several shorter times throughout the day. ??? Drink plenty of water during physical activity to help prevent cramps, exhaustion and heat stroke. ??? Limit screen time to no more than 2 hours a day, including TV, DVDs, video games, texting and computer time other than for work or school. Social and emotional health ??? Staying connected with family is important. Family can help you solve problems and support you during difficult situations. ??? If you feel depressed or alone, or are having difficulty solving a problem, reach out for help and support. ??? Making and maintaining friendships is an important life skill. Knowing when a friendship is no longer good for you also is important. As you leave high school and pursue new goals and interests, you may interact less with some friends. Changing friendships is a normal part of growing up and becoming an adult. ??? Support friends who choose not to use tobacco, alcohol, drugs, steroids or diet pills. Avoid situations where drugs or alcohol are available. ??? Stay involved in activities that allow you to express yourself and to learn--to be you and enjoylife. ??? Experiencing alternating periods of good and bad times, or feeling up and down in daily life, isnormal as you get older and take on more responsibility. Identify positive coping skills to deal with stress. ??? Find nonviolent ways to handle your anger or fear. Walk away if necessary. Fighting and carryingweapons can be dangerous. School performance ??? Get 9 hours of sleep every night. Not getting enough sleep can affect your ability to learn, listen, concentrate and solve problems. ?? Go to bed and get up at the same time each day, even on weekends. ?? Turn off cell phones and other electronic devices at least an hour before bed. ?? Use the bedroom only for sleep. Keep your room quiet and dark. ??? Set a regular time and place to do homework. The room should be quiet and free from distractions, such as TV, cell phones, music or videos. ??? Take responsibility for getting to a job or school and getting your homework done on time. Regular attendance at school is important. ??? Start sharing and discussing your future plans and goals for college and work with your family, teachers and school guidance counselor. Sexuality ??? Abstaining from vaginal, anal and oral sex is the safest way to prevent and sexually transmitted diseases (STD). ?? If sexually active, reduce the risk of infection with an STD by using a condom with vaginal, analand oral sex every time. ?? Using a condom and another type of prescription control with sexual intercourse is important to prevent . Talk to your clinician. ??? Healthy dating relationships are built on respect, concern and enjoying activities together. ??? When dating, or in any sexual situations, ???No?? means NO. Listen to and respect what another person is telling you. Saying ???No?? is OK. ??? Plan how you can avoid risky places and relationships. For example, using drugs or alcohol can raise the risk of unwanted sex or other risky behaviors. Safety ??? Make healthy decision about sex, tobacco, alcohol and other drugs. ??? Take a self-defense class to learn how to protect yourself. ??? Do not get in a car with someone you do not know or who has been drinking alcohol or using drugs. ??? Have a plan for how to get help if you are feeling unsafe. Call for help if a situation gets dangerous. ??? If you drink alcohol, do not drink when driving, swimming, boating, riding a bike or motorcycle or when responsible for younger children. ??? Do not text or talk on a cell phone while driving. ?? Silence your phone and put it where you cannot reach or see it to avoid using while driving. ?? If you need to use your phone, drive to a safe place and come to a complete stop first. ??? Wear protective gear and use safety equipment when playing sports, including a mouth guard. ??? Always wear a helmet when skateboarding, snowboarding, skiing and riding a bike, motorcycle or ATV. ??? Always wear your seat belt. ??? Wear earplugs or other ear protection when you are exposed to loud noises, such as music concerts, lawn equipment or other loud working conditions. ??? Put on sunscreen with SPF 30 or higher 30 minutes before you go outside. Reapply sunscreen every2 to 4 hours or after you have been in the water or sweating. Dental health ??? Hess[place] your teeth 2 times a day and floss at least 1 time a day. ??? Visit the dentist every 6 months. Healthcare decisions ??? You have the right to have all medical information kept private, including from your parents, unless you are in a special guardianship. You will need to give your doctor and healthcare team permission to talk to your parents, even about making appointments. ??? Take responsibility with your healthcare. ?? Schedule your own appointments. ?? Talk honestly and openly with your clinician about your symptoms, medical history and lifestyle. ?? Understand your medical condition, if you have one. ?? Know what medications you need to take and how to get prescriptions refilled. ?? Understand your healthcare insurance benefits. Websites ??? [employer] [place]: www.[employer] ??? [employer]: [employer] ??? [facility]: www.Meetings.[facility], incEnsogo.[place] [employer] ??? [place] [employer]: www.healthychildren.org [facility] Participates in the [place] Vaccines for Children Program (MsVFC) Children 18 years of age and younger are eligible for free vaccines through the MsVFC program if they: 1. Are enrolled in a [place] Healthcare Program ([place] Medical Assistance, [facility], or a prepaid Medical Assistance program) 2. Do not have health insurance 3. Are of or [place] heritage The [facility] program covers the cost of routine vaccines. There is a fee to cover the cost of giving the vaccine. If you have insurance through a [place] Healthcare Program, you are not billed for this fee. Other patients are billed for it. If you receive a bill for the cost of the vaccine or if you are unable to pay the administration fee, please contact Customer Service at: ??? Joyce Costa: [phone] ??? [employer]: [phone] ??? [employer]: [phone] Children who have health insurance but the insurance does not pay for immunizations can get low costimmunizations at [facility]. For more information, see Can My Child Get Free or Low Cost Shots? On the [facility]'s web site. For next Well Child Check, return in 1 year. documented in this encounter Progress Notes Addis Kirk PA-C - 06/18/2020 9:20 AM CDT Subjective: Sunni Serna is a 20 y.o. female presenting for a well adult visit and sports physical exam. Shewill be playing basketball at [employer] and is requesting forms to be completed. Concerns: None. Nutrition: Nutrition: Well balanced diet appropriate for age Sleep: No sleep concerns Activity: Activity: Appropriate physical activity Objective: Vitals: BP 127/71 (BP Location: Left Arm, BP Cuff Size: Regular) Pulse 79 Ht 5' 8 (1.727 m) Wt 128 lb 11.2 oz (58.4 kg) LMP 06/03/2020 (Exact Date) BMI 19.57 kg/m?? General: General Appearance: alert, well appearing, in no apparent distress HEENT: lids normal, sclera clear and conjunctiva normal and oropharynx clear, ear canals clear and TMs normal Neck: no lymphadenopathy and no thyromegaly or nodules Heart: regular rate and rhythm and no murmurs, gallops or rubs Lungs: clear to ausculation and no wheezes, rales or rhonchi Abdomen: soft, nondistended, nontender, no palpable masses and no organomegaly Back: no tenderness or deformities Breast: Deferred Pelvic (Female): Deferred Genitourinary (Male): N/A Extremities: no edema Musculoskeletal: Extremities normal Assessment: Sunni was seen today for annual exam. Diagnoses and all orders for this visit: Routine physical examination - TOMERO (MCV4) - PHQ-9: Brief Emotional/Behav Assmt - Visual Acuity - Scr Test Visual Acuity Gigi Bharath - Hearing - Pure Tone Hearing Test, Air Routine sports physical exam Oral contraceptive pill surveillance Menorrhagia with regular cycle - levonorgestrel-ethinyl estrad (ALESSE) 0.1-20 MG-MCG tablet; Take 1 Tablet by mouth daily. Acne vulgaris - levonorgestrel-ethinyl estrad (ALESSE) 0.1-20 MG-MCG tablet; Take 1 Tablet by mouth daily. Routine screening for STI (sexually transmitted infection) - Chlamydia & GC, Urine (14 Years and Older); Future Completed requested college sports participation forms, no restrictions Nutrition counseling provided, Activity counseling provided Social and environmental risks assessed and concerns addressed. PHQ-9 results: Normal, concerns addressed Immunizations: Immunizations up to date Dental: Dental hygiene discussed and verbal referral for dental visit provided. Teen Questionnaire reviewed and discussed as appropriate. Routine anticipatory guidance discussed with caregiver and concerns addressed. documented in this encounter Plan of Treatment Not on filedocumented as of this encounter Results Chlamydia & GC, Urine (14 Years and Older) (06/18/2020 10:53 AM CDT) Component Value Ref Test Analysis [facility] Range Method Time Signature Chlamydia Due to current 06/18/2020 [facility] 6:25 PM CDT C[facility]TRAL [facility] [...] Organization Address City/State/ZIP Code Phon e Number [facility] [address] [address] documented in this encounter Visit Diagnoses Diagnosis Routine physical examination - Primary Routine general medical examination at a health care facility Routine sports physical exam Other general medical examination for ad ministrative purposes Oral contraceptive pill surveillance Surveillance of previously prescribed co ntraceptive pill Menorrhagia with regular cycle Excessive or frequent menstruation Acne vulgaris Other acne Routine screening for STI (sexually garcía smitted infection) Screening examination for venereal disea se documented in this encounter Care Teams Grocery Bagger Relationship Specialty Start Date End Date Marlena Choudhury MD PCP - General 02/13/11 06/28/21 [address] [address] [place] [address] documented as of this encounter
--- OUTSIDE RECORDS SUMMARY | 2022-08-12 09:07 | XMS_ITS | Encounter Summary ---
:2000 Author Organization [facility] [facility] Address [address] [address] Care Team Providers Name Role Phone Addis Kirk PA-C Primary Care Provider Reason for Visit Reason Comments Concussion DOI: 11/27/21 Encounter Details Date Type Department Care Team Description 11/28/2021 Office Visit [facility] Tyrone Rodriguez MD Concussion without Urgent Care [address] loss of [address] [place], [place] consciousness, [place], [place] [id number] initial encounter [phone] (Wo rk) (Primary Dx) Social History Tobacco Use Types Packs/Day Years [...] Pressure - - Pulse - - Temperature 36.6 ??C (97.8 ??F) 11/28/2021 4:45 PM STORE C[facility]IER Respiratory Rate - - Oxygen Saturation - - Inhaled Oxygen Concentration - - Weight 61.2 kg (135 lb) 11/28/2021 4:45 PM STORE C[facility]IER Height 175.3 cm (5' 9) 11/28/2021 4:45 PM STORE CASHIER Body Mass Index 19.94 11/28/2021 4:45 PM STORE CASHIER documented in this encounter Patient Instructions Patient InstructionsChelsea Austin ATC - 11/28/2021 4:[address] Tyrone Rodriguez MD Sports & Orthopaedic Medicine [facility] Nurse Line: [phone] Please contact Orthopedic Urgent Care line for all requests and questions. Medication Requests: Prescriptions are not filled on Weekends or on Weekdays after 3:00PM For all medication refills: Request a refill using MyChart or contact your Pharmacy To schedule appointments: [phone] Paperwork Requests: FMLA or disability paperwork can be faxed to: [phone] Medical records: [phone] (option 4) [employer] E-mail Address: [email or web address] Follow up in concussion clinic/ Dr. Melara Rest No sports Return to school as tolerated E CASHIER documented in this encounter Progress Notes Tyrone Rodriguez MD - 11/28/2021 12:00 AM CST NAME: SUNNI SERNA CSN: [id number] CLINIC NOTE DATE OF SERVICE: 11/28/2021 : 2002 The patient is a 21-year-old here from the [place] who yesterday was playing basketball and collided with another player's shoulder and hit her head very hard. She had pain and discomfort in her head with a headache and some mild jaw pain as well as dizziness and multiple other concussion symptoms. Due to the fact that she has continued to have headaches and some mild nausea, she wanted to come in for further evaluation and treatment option. She feels like she is having trouble processing information at this point as well. PHYSICAL EXAM: The SCAT5 test shows cognitively she is doing reasonably well with 5/5, 15/15, and 2/4 and she had delayed recall today of 5. She had 18 balance exam errors. She had no visual abnormalities. Her symptom evaluation showed a significant amount of some findings of 18/22 symptom severity score and 57/132 score as well. His Romberg's test was positive as well as pupils responsive to light and accommodation. There are no abnormalities with nystagmus testing. She is afebrile. She will do a full squat with no significant pain other than some regular mild chronic back pain that she has been having in the past. ASSESSMENT AND PLAN: Acute concussion with no loss of consciousness at this time. I gave her handoutfor her school and her report for her monkey trainer. She is going to follow up with concussion clinic hereor with the [facility] physician to work on the concussion as well. She is not to do basketball or other activities until cleared. She may go to school as symptoms allow. I gave her a handouton concussions as well. TYRONE RODRIGUEZ MD Staff: TYRONE RODRIGUEZ MD RTJ/AQS /[id number] E CASHIER documented in this encounter Plan of Treatment Not on filedocumented as of this encounter Visit Diagnoses Diagnosis Concussion without loss of consciousness , initial encounter - Primary documented in this encounter Care Teams Hiv/Aids Care Nurse Relationship Specialty Start Date End Date Addis Kirk PA-C PCP - General Physician Group President 06/29/21 [address] [place] [address] documented as of this encounter
--- OUTSIDE RECORDS SUMMARY | 2022-08-12 09:07 | XMS_ITS | Encounter Summary ---
:2000 Author [facility] Address [address] [place] [address] Care Team Providers Name Role Phone Marlena Choudhury MD Primary Care Provider Reason for Visit Reason Comments IMMUNIZATION QUESTIONS Encounter Details Date Type Department Care Team Description 06/09/2020 Telephone [facility] Marlena Choudhury, IMMUNIZATION QUESTIONS [address] [facility] [place] [address] [facility] [phone] [place] [address] (Wo rk) Social History Tobacco Use Types [...] documented as of this encounter Nursing Notes Promise Torrez LPN - 06/09/2020 2:04 PM CDT Spoke with mom and stated both patient & twin sister are due for their second menveo vaccine andboth are due for their physical but it's up to them when they would like to do this. Mom did schedule an appt. at [facility] for their vaccine update but I did tell mom that I only sibling scheduled and not patient. Advised to call back at the clinic to make sure they schedule patient with sibling. Mom verbalized understanding. Charisma Rios - 06/09/2020 12:30 PM CDT Immunizations/Vaccines Questions: Which immunization do you have a question about? Mom requesting to speak to a nurse regarding daughter's immunizations. Is it okay to leave a detailed message on your voicemail? Yes (Advise caller that the PN call back number will end with [phone] or unknown) Please route to: [place] Nurse Padilla documented in this encounter Plan of Treatment Not on filedocumented as of this encounter Visit Diagnoses Not on filedocumented in this encounter Care Teams Lathe Operator Relationship Specialty Start Date End Date Marlena Choudhury MD PCP - General 02/13/11 06/28/21 [address] [address] [place] [address] documented as of this encounter
--- OUTSIDE RECORDS SUMMARY | 2022-08-12 09:08 | XMS_ITS | Encounter Summary ---
:2000 Author Organization [facility] Address [address] [address] Care Team Providers Name Role Phone Marlena Choudhury MD Primary Care Provider Reason for Visit Procedure/Equipment (Routine) - Incomplete Specialty Diagnoses / Procedures Referred By Contact Refer red To Contact Diagnoses Upper abdominal pain Maria Isabel Thompson MD Procedures US Abd RUQ Organs [address] [place], [place] [address] Referral ID Status Reason Start Date Expiration Date Visits V isits Requested Authorized [id number] Incomplete 04/03/2018 07/03/2019 1 1 Encounter Details Date Type Department Care Team Description 04/03/2018 [facility] [address] [place], [place] [id number] Social History Tobacco Use Types Packs/Day Years Used Date Smoking Tobacco: Never Smokeless Tobacco: Never Alcohol Habits Answer Date Recorded How often [...] Name Priority Date/Time Associated Diagnosis Comme nts US ABD RUQ ORGANS Routine 04/03/2018 8:08 PM Upper abdominal p ain Results for this CDT procedure are i n the results section. documented in this encounter Results US Abd RUQ Organs (04/03/2018 8:08 PM CDT) Anatomical Region Laterality Modality Abdomen Ultrasound Specimen (Source) Anatomical Collection Method Collection Time Re ceived Time Location / / Volume Laterality 04/03/2018 7:48 PM CDT Impressions 04/03/2018 8:14 PM CDT IMPRESSION: Unremarkable right upper evelio drant ultrasound. Narrative 04/03/2018 8:14 PM CDT COMPARISON: ??None. FINDINGS: ?? Pancreas: Partially obscured by bowel ga s; visualized portions WNL. Liver: Contour appears unremarkable. Par enchyma appears unremarkable. Gallbladder: No stones, sludge, or peric holecystic fluid. Sonographic Grimes's Sign: No. CBD: 0.3 cm. Right Kidney: Measures 12.5 x 3.1 x 5.7 cm. Appears unremarkable. Ascites: None. Procedure Note Dony Bernstein MD - 04/03/2018Fo rmatting of this note might be different from the original. COMPARISON: None. FINDINGS: Pancreas: Partially obscured by bowel ga s; visualized portions WNL. Liver: Contour appears unremarkable. Par enchyma appears unremarkable. Gallbladder: No stones, sludge, or peric holecystic fluid. Sonographic Grimes's Sign: No. CBD: 0.3 cm. Right Kidney: Measures 12.5 x 3.1 x 5.7 cm. Appears unremarkable. Ascites: None. IMPRESSION IMPRESSION: Unremarkable right upper evelio drant ultrasound. Maria Isabel Thompson MD RAD US documented in this encounter Visit Diagnoses Not on filedocumented in this encounter Care Teams Admin Dir Relationship Specialty Start Date End Date Marlena Choudhury MD PCP - General 02/13/11 06/28/21 [address] [place] [address] documented as of this encounter
--- OUTSIDE RECORDS SUMMARY | 2022-08-12 09:08 | XMS_ITS | Encounter Summary ---
:2002 Author Organization [facility] Address [address] [place] [address] Care Team Providers Name Role Phone Marlena Choudhury MD Primary Care Provider Reason for Visit Reason Comments WELL CHILD EXAM Encounter Details Date Type Department Care Team Description 05/21/2014 Office Visit Marlena Bishop Routine chi ld health exam (Primary Dx); Pediatrics MD Sandi Need for HPV vaccination; [address] [address] [facility] Need for meningococcus vaccine; [place] [address] [place], [place] Need for Tdap vaccination; [phone] Screening for other and unspecified defi ciency anemia; [phone] Screening for l ipoid disorders; (Work) Screening for developmental handicaps in core stacker; Examinati on of eyes and vision; Other examinati on of ears and hearing Social History Tobacco Use Types Packs/Day Years Used Date Smoking Tobacco: Never Assessed Alcohol Habits Answer Date Recorded How often [...] Sign Reading Time Taken Comments Blood Pressure 114/64 05/21/2014 1:10 PM CDT Pulse - - Temperature - - Respiratory Rate - - Oxygen Saturation - - Inhaled Oxygen Concentration - - Weight 48.6 kg (107 lb 4 oz) 05/21/2014 1:10 PM CDT Height 164.5 cm (5' 4.75) 05/21/2014 1:10 PM CDT Body Mass Index 17.99 05/21/2014 1:10 PM CDT Body Mass Index Percentile 46.56 % 05/21/2014 1:10 PM CD T Growth Chart: CDC (Girls, 2-20 Years) documented in this encounter Patient Instructions Patient InstructionsJanice García LPN - 05/21/2014 1:13 PM CDT 11 to 14 Years: Well-Child Exam Guidelines for healthy growth and development For help after clinic hours, call your clinic and ask for pediatric urgent care or a nurse. Jfvi-bkc-zvcbwbl medicine Aspirin: DO NOT USE Acetaminophen (Tylenol or Tempra) dose: Please see approved dosing tables or confirm dose with your clinic. Ibuprofen (Advil or Motrin) dose: Please see approved dosing tables or confirm dose with your clinic. Measurements Weight: 107 lb 4 oz (06802 g) (73.22 %) Height: 5' 4.75 (164.5 cm) (94.83 %) Blood Pressure: 114/64 66.4% systolic and 46.7% diastolic of BP percentile by age, sex, and height. Body Mass Index: Body mass index is 17.98 kg/(m^2). Nutrition ??? Join your family for meals together as often as possible. ??? Eat healthy snacks between meals. Snacks should include at least 2 food groups. Enjoy low-fat milk, yogurt, fruits, vegetables, whole grains, lean meats and beans. ??? Limit foods high in fat or sugar, such as candy, chips and soda. ??? Eat breakfast every day. Physical activity ??? Get at least 60 [...] to no more than 2 hours a day. Screen time includes watching TV or DVDs, playing video games, talking on the phone, texting and using the computer for activities other than homework. Social and emotional health ??? Be proud of yourself when you do something well. ??? Stay connected with your mom or dad. You might not always agree on everything, but your mom or dad can help you solve problems and support you during difficult situations. ??? If you feel depressed or alone, or are having difficulty solving a problem, reach out for help and support. Ideally, turn to a parent or an adult you trust. Talking about your troubles with a trusted adult can help you feel better and find the support and appropriate resources you may need to dealwith a problem. ??? Support friends who choose not to use tobacco, alcohol, drugs, steroids or diet pills. Avoid situations where drugs or alcohol are available. ??? Explore different activities that interest you, such as art, drama, volunteering, gardening and individual and team sports. ??? Consider learning skills to help friends, family and community, such as first aid, lifesaving, CPR (cardiopulmonary resuscitation) or peer mentoring. ??? Be sensitive to others. Do not accept behavior that is hurtful or harmful to others. Trustworthyfriends will respect you and your choices. ??? If you are being bullied, harassed or teased in a hurtful way--or know someone who is--tell a trusted adult. Reporting a bully can be scary or feel embarrassing. But bullying is not acceptable. ??? Feeling good about yourself comes with self-respect, self-care and self- acceptance. Developing strong self-esteem comes from within, not by meeting others??? expectations about how you should look. ??? Identify positive coping skills to deal with stress. For example, if you need help on something,ask a trusted adult. ?? Get a good night???s sleep. ?? Learn to relax. ?? Be positive. ?? Be realistic. Start with small goals and then go from there. ??? Find nonviolent ways to handle your anger or fear. Walk away if necessary. Fighting and carryingweapons can be dangerous. School performance ??? Get 9 hours of sleep every night. Not getting enough sleep can affect your ability to learn, listen, concentrate and solve problems, make you irritable, cause acne or lead to weight gain. Follow bedtime guidelines: ?? Go to bed and get up [...] and free from distractions, such as TV, music, videos or cell phones. ??? Take responsibility for getting to school and getting your homework done on time. Regular attendance at school is important. Sexuality ??? Changes in how your body looks and works are a normal part of growing up. Everyone develops differently and at different times. Stop comparing. Comparing yourself can create competition, not connection, with others, especially friends. ??? You may feel embarrassed, uncomfortable or anxious when talking about sex, menstruation, wet dreams and sexual feelings and responses. However, having all the right information is important. Talk to your mom, dad or another trusted adult and get all your questions answered. ??? Abstaining from vaginal, anal and oral [...] is telling you. Saying ???No?? is OK. Safety ??? Follow family rules and city and state laws, such as for curfews and riding in a car. Do not getin a car with someone you do not know or who has been drinking alcohol or using drugs. ??? Give your mom or dad a chance to meet your friends and their families. ??? Have a plan for how to get help if you are feeling unsafe. Call for help if a situation gets dangerous. ??? Wear protective gear and use safety equipment when playing sports, including a mouth guard. ??? Always wear a helmet when riding a bike, rollerblading, skateboarding, snowboarding, skiing and riding a scooter. ??? Always wear your seatbelt. If you are 4 feet 9 inches tall, you can use the vehicle seat belt alone. All children under 5 feet and 100 pounds should sit in the rear seats of vehicles. ??? Avoid playing outdoors during dusk. If you do go outside at dusk, wear light-colored clothing toprevent mosquito bites. Use insect repellents with 30 percent or less DEET. Avoid using on your faceand hands. ??? Put sunscreen with SPF 30 or higher on 30 minutes before you go outside. Reapply sunscreen every2 to 4 hours or after you have been in the water or sweating. Dental health ??? [place] your teeth 2 times a day and floss at least 1 time a day. ??? Visit the dentist every 6 months. Websites ??? [facility]: Www.TM/pediatrics ??? [place] [employer]: www.healthychildren.org documented in this encounter Progress Notes Marlena Choudhury MD - 06/05/2014 2:00 AM CDT Sunni Serna is a 14 y.o. female who is here for physical exam. She has been doing well. Just got her first period two weeks ago. Complete 10 system review of systems is negative. Medications reviewed and updated. Review of patient's allergies indicates no known allergies. tobacco exposure : None Is aware of bike and car safety Vision: right 20/20 left 20/20 Hearing: passed Objective: BP 114/64 Ht 5' 4.75 (164.5 cm) Wt 107 lb 4 oz (20122 g) BMI 17.98 kg/m2 Body mass index is 17.98 kg/(m^2). Alert well-hydrated in no acute distress. HEENT: Atraumatic, normocephalic. TMs clear and mobile bilaterally. PERRLA extraocular movement is intact. Nasomucosal surface clear. Posterior oropharynx is clear Neck: The neck was supple, without masses, lymphadenopathy or tenderness. Respiratory: Normal respiratory effort. Lungs are clear with good breath sounds. Heart: RR S1S2 without murmurs, rubs, or gallops. Abdomen: The abdomen was flat, soft and nontender without guarding rebound or masses. Genitalia : Normal female genitalia. Danny stage 3 Extremities: Full ROM without limitation, deformity or edema. Neuro: Normal Spine staight. Neuro; normal Skin:Normal Assessment: [age] year-old with normal growth and development Plan: Risks and benefits of immunizations discussed. TdaP, MCV4 and HPV #1 given. Counseling completed for all immunization components that were given to the patient today. Immunization History Administered Date(s) Administered ??? DTaP 2002, 2002, 2002, 05/09/2007 ??? DTaP-HiB 05/29/2003 ??? H1N1 Influenza Virus 0.5ml 09/12/2009 ??? HPV 05/21/2014 ??? Hep A Ped/adol (1-18 yrs) 05/09/2007, 11/07/2007 ??? Hep B ped/adol vaccine 10mcg 03/12/2003 ??? Hepatitis B Virus Vacc Recom/Medic Con 2002, 2002 ??? Hib (ActHIB) 2002, 2002, 2002 ??? IPV 2002, 2002, 2002, 05/09/2007 ??? Influenza LAIV (2-49 yrs) 07/13/2012 ??? Influenza TIV 0.5ml (36+ mos) 09/06/2005, 10/07/2005, 09/06/2006, 09/10/2007, 08/27/2008, 08/27/2009, 08/25/2010 ??? Influenza TIV 36+ mos 08/31/2011 ??? MCV4 (Menactra) 05/21/2014 ??? MMR 03/12/2003 ??? MMRV (ProQuad) 05/09/2007 ??? PCV7 2002, 2002, 2002, 05/29/2003 ??? Tdap (Boostrix) 05/21/2014 ??? Varicella 03/12/2003 Hemoglobin, cholesterol, are pending. Anticipatory guidance given. Preventative health, dental recommendations and developmental issues discussed. Next physical in one to two years. documented in this encounter Plan of Treatment Not on filedocumented as of this encounter Visit Diagnoses Diagnosis Screening for other and unspecified defi ciency anemia Need for HPV vaccination Need for prophylactic vaccination and in oculation against other viral diseases Need for meningococcus vaccine Need for other specified prophylactic va ccination against single bacterial disease Need for Tdap vaccination Need for prophylactic vaccination with c ombined vdhasbdhky-sudizuy-qsqoiaabh (DTP) vaccine Screening for lipoid disorders Screening for developmental handicaps in core stacker Examination of eyes and vision Other examination of ears and hearing documented in this encounter Care Teams Barrelhead Inspector Relationship Specialty Start Date End Date Marlena Choudhury MD PCP - General 02/13/11 06/28/21 [address] [place] [id number] documented as of this encounter
--- OUTSIDE RECORDS SUMMARY | 2022-08-12 09:08 | XMS_ITS | Encounter Summary ---
:2002 [facility] Address [address], [place] [address] Care Team Providers Name Role Phone Marlena Choudhury MD Primary Care Provider Reason for Visit Procedure/Equipment (Routine) - Incomplete Specialty Diagnoses / Procedures Referred By Contact Refer red To Contact Diagnoses Upper abdominal pain Maria Isabel Thompson MD Procedures XR Abd Flat And Upright [address] [place], [place] [address] Referral ID Status Reason Start Date Expiration Date Visits V isits Requested Authorized [id number] Incomplete 04/03/2018 07/03/2019 1 1 Encounter Details Date Type Department Care Team Description 04/03/2018 Imaging [facility] [address] [place], [place] [address] Social History Tobacco Use Types Packs/Day Years [...] Name Priority Date/Time Associated Diagnosis Comme nts XR ABD FLAT AND Routine 04/03/2018 6:37 PM Upper abdominal giorgio n Results for this UPRIGHT CDT procedure are i n the results section. documented in this encounter Results XR Abd Flat And Upright (04/03/2018 6:37 PM CDT) Anatomical Region Laterality Modality Abdomen Computed Radiography Specimen (Source) Anatomical Collection Method Collection Time Re ceived Time Location / / Volume Laterality 04/03/2018 6:37 PM CDT Narrative 04/03/2018 6:44 PM CDT COMPARISON: ??12/01/2010 FINDINGS: ??Two views were obtained. ??A bdominal gas pattern is unremarkable. ??No suspicious calcifications are identified. ??No gross free intraabdominal gas is seen. ??There are no abnormal gas-fluid levels. ??No abnormal soft tissue mass or organomegaly is noted. Procedure Note Toni Franklin MD - 04/03/2018Forma tting of this note might be different from the original. COMPARISON: 12/01/2010 FINDINGS: Two views were obtained. Abdom inal gas pattern is unremarkable. No suspicious calcifications are identified. No gross free intraabdominal gas is seen. There are no abnormal gas-fluid levels. No abnormal soft tissue mass or organomegal y is noted. Maria Isabel Thompson MD RAD GD documented in this encounter Visit Diagnoses Not on filedocumented in this encounter Care Teams Photovoltaic Installer Relationship Specialty Start Date End Date Marlena Choudhury MD PCP - General 02/13/11 06/28/21 [address] [place] [id number] documented as of this encounter
--- OUTSIDE RECORDS SUMMARY | 2022-08-12 09:08 | XMS_ITS | Encounter Summary ---
:2002 Author Organization [facility] Address [address], [place] [address] Care Team Providers Name Role Phone Marlena Choudhury MD Primary Care Provider Reason for Visit Reason Comments Annual Exam Encounter Details Date Type Department Care Team Description 12/03/2012 Office Visit Wes Henderson Examinati on of eyes and vision; Ophthalmology OD Hyperopia; [address] STEIN (ocular hypertension) [place] [address] [place], [place] [phone] (Wo rk) Social History Tobacco Use Types [...] on file documented as of this encounter Patient Instructions Patient InstructionsWes Wallace, OD - 12/03/2012 11:31 AM CST No significant refractive error requiring eyeglass prescription for objects 20 feet away or further.+1.00 or +0.75 OTC readers adequate for near visual demands. In general, watch for and report any changes in your vision. Routine comprehensive eye exam every 2 years recommended, or sooner should conditions change. 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 Higher than average corneal thickness in each eye has been demonstrated to potentially reduce the risk of developing glaucoma. Otherwise normal appearance to disc, cup, and nerve fiber layer. Watch ~ Normal eye health overall, both eyes. Discussed findings with patient. Routine comprehensive eye exam recommended ~ Mildly significant refractive error of hyperopia. Correction for distance actually demonstrated reduced acuity. Due to symptoms, a low power reading glasses seems prudent. OTC readers acceptable: +1.00 or +0.75 recommended. 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 Reading at the end of the day can get blurry. Current eye medications - no Significant Ocular History - no E BUYER documented in this encounter Plan of Treatment Not on filedocumented as of this encounter Visit Diagnoses Diagnosis Examination of eyes and vision Hyperopia Hypermetropia OHT (ocular hypertension) Borderline glaucoma with ocular hyperten christ documented in this encounter Care Teams Floor Trader Relationship Specialty Start Date End Date Marlena Choudhury MD PCP - General 02/13/11 06/28/21 [address] [address] [place] [id number] documented as of this encounter
--- OUTSIDE RECORDS SUMMARY | 2022-08-12 09:08 | XMS_ITS | Encounter Summary ---
:2002 Author Organization [facility] Address [address], [place] [address] Care Team Providers Name Role Phone Marlena Choudhury MD Primary Care Provider Encounter Details Date Type Department Care Team Description 06/23/2017 Lab Visit [facility] Screening for deficiency ane lazaro; [address] [facility] Encounter for vitamin [place] [address] Social History Tobacco Use Types Packs/Day Years [...] encounter Procedures Procedure Name Priority Date/Time Associated Comments Diagnosis VITAMIN D 25-HYDROXY, Routine 06/23/2017 10:58 Encounter for R esults for this TOTAL AM CDT vitamin deficiency procedure are in screening the results section. COMPLETE BLOOD Routine 06/23/2017 10:58 Screening for Results for this COUNT-W/DIFF AM CDT deficiency anemia procedure are in the results section. DIFFERENTIAL Routine 06/23/2017 10:58 Results for this AM CDT procedure are i n the results section. IRON PROFILE Routine 06/23/2017 10:58 Screening for Results fo r this (IRON,TIBC,%SAT.(CALC AM CDT deficiency anemia p rocedure are in )) the results section. documented in this encounter Results Differential (06/23/2017 10:58 AM CDT) athologist Signature Absolute 3.2 1.8 - 8.0 PN SOFT Neutrophils k/cmm Absolute 2.4 1.1 - 4.0 PN SOFT Lymphocytes k/cmm Absolute 0.3 0.2 - 0.8 PN SOFT Monocytes k/cmm Absolute 0.0 0.0 - 0.5 PN SOFT Eosinophils k/cmm Absolute 0.1 0.0 - 0.2 PN SOFT Basophils k/cmm Immature 0.2 0.0 - 0.5 PN SOFT Granulocytes % Specimen Anatomical Collection Method Collection Time Receive d Time (Source) Location / / Volume Laterality 06/23/2017 10:58 06/23/2017 AM CDT 10:57 AM CDT Narrative PN SOFT - 06/23/2017 11:12 AM CDT Performed at [facility], [address] [place] [address] CLIA number [id number] Marlena Choudhury MD LAB_1 Performing Organization Address [facility] Phon e Number PN SOFT [address] [place] [address] Vitamin D (In house) (06/23/2017 10:58 AM CDT) athologist Signature Vitamin D 25 Oh 32 20 - 80 PN SOFT ng/mL Comment: Deficiency = <20 Adequate ??= 20-29 Preferred = 30-50 Uncertain safety = 51-80 High = >80 Specimen Anatomical Collection Method Collection Time Receive d Time (Source) Location / / Volume Laterality 06/23/2017 10:58 06/23/2017 3:36 AM CDT PM CDT Narrative PN SOFT - 06/23/2017 5:04 PM CDT Performed at [facility] [address] [place] [address] CLIA number [id number] Marlena Choudhury MD LAB_1 Performing Organization Address [facility] Phon e Number PN SOFT [address] [place] [address] Total Iron and Iron Binding Capacity (06/23/2017 10:58 AM CDT) athologist Signature Iron, Serum 109 50 - 170 PN SOFT ug/dL Transferrin 323 180 - 382 PN SOFT mg/dL Iron Binding 404 250 - 450 PN SOFT Capacity, ug/dL Calculated Iron Saturation 27 20 - 55 % PN SOFT Specimen Anatomical Collection Method Collection Time Receive d Time (Source) Location / / Volume Laterality 06/23/2017 10:58 06/23/2017 3:40 AM CDT PM CDT Narrative PN SOFT - 06/23/2017 4:19 PM CDT Performed at [facility] [address] [place] [address] CLIA number [id number] Marlena Choudhury MD LAB_1 Performing Organization Address [facility] Phon e Number PN SOFT [address] [place] [address] CBC - Complete Blood Count W/Diff (06/23/2017 10:58 AM CDT) athologist Signature White Blood Cell 6.0 4.5 - 13.0 PN SOFT Count k/cmm Red Blood Cell 4.50 4.10 - PN SOFT Count 5.10 m/cmm Hemoglobin 13.5 12.0 - PN SOFT 16.0 g/dL Hematocrit 41.0 36.0 - PN SOFT 46.0 % Mean Corpuscular 91.1 78.0 - PN SOFT Volume 100.0 fL RDW 12.1 11.0 - PN SOFT 15.0 % Platelet Count 256 150 - 450 PN SOFT k/cmm Specimen Anatomical Collection Method Collection Time Receive d Time (Source) Location / / Volume Laterality 06/23/2017 10:58 06/23/2017 AM CDT 10:57 AM CDT Narrative PN SOFT - 06/23/2017 11:12 AM CDT Performed at [facility], [address] [place] [address] CLIA number [id number] Marlena Choudhury MD LAB_1 Performing Organization Address [facility] Phon e Number PN SOFT [address] [place] [address] [phone] documented in this encounter Visit Diagnoses Diagnosis Screening for deficiency anemia Screening for other and unspecified defi ciency anemia Encounter for vitamin deficiency screeni ng documented in this encounter Care Teams Spinneret Cleaner Relationship Specialty Start Date End Date Mralena Choudhury MD PCP - General 02/13/11 06/28/21 [address] [place] [address] documented as of this encounter
--- OUTSIDE RECORDS SUMMARY | 2022-08-12 09:08 | XMS_ITS | Encounter Summary ---
:2000 Author Organization [facility] Address [address], [place] [address] Care Team Providers Name Role Phone Marlena Choudhury MD Primary Care Provider Reason for Referral Procedure/Equipment (Routine) - Incomplete Specialty Diagnoses / Procedures Referred By Contact Refer red To Contact Diagnoses Upper abdominal pain Maria Isabel Thompson MD Procedures US Abd RUQ Organs [address] [place], [place] [address] Referral ID Status Reason Start Date Expiration Date Visits V isits Requested Authorized [id number] Incomplete 04/03/2018 07/03/2019 1 1 Procedure/Equipment (Routine) - Incomplete Specialty Diagnoses / Procedures Referred By Contact Refer red To Contact Diagnoses Upper abdominal pain Maria Isabel Thompson MD Procedures XR Abd Flat And Upright [address] [place], [place] [address] Referral ID Status Reason Start Date Expiration Date Visits V isits Requested Authorized [id number] Incomplete 04/03/2018 07/03/2019 1 1 Reason for Visit Reason Comments Abdominal Pain Encounter Details Date Type Department Care Team Description 04/03/2018 Hospital Encounter [facility] Maria Isabel Thompson, Upper abdominal pain Care [id number] [facility] [place] [address] [phone] Social History Tobacco Use Types Packs/Day Years [...] Sign Reading Time Taken Comments Blood Pressure 129/69 04/03/2018 5:56 PM CDT Pulse 73 04/03/2018 5:56 PM CDT Temperature 37.1 ??C (98.7 ??F) 04/03/2018 5:56 PM CDT Respiratory Rate 16 04/03/2018 5:56 PM CDT Oxygen Saturation 100% 04/03/2018 5:56 PM CDT Inhaled Oxygen Concentration - - Weight - - Height - - Body Mass Index - - documented in this encounter Discharge Instructions Discharge InstructionsMaria Isabel Thompson MD - 04/03/2018 8:12 PM CDT Images from the original note were not included. Abdominal Pain in Children: Care Instructions Your Care Instructions Abdominal pain has many possible causes. Some are not serious and get better on their own in a few days. Others need more testing and treatment. If your child's belly pain continues or gets worse, he or she may need more tests to find out what is wrong. Most cases of abdominal pain in children are caused by minor problems, such as stomach flu or constipation. Home treatment often is all that is needed to relieve them. Your doctor may have recommended a follow-up visit in the next 8 to 12 hours. Do not ignore new symptoms, such as fever, nausea and vomiting, urination problems, or pain that gets worse. These may be signs of a more serious problem. The doctor has checked your child carefully, but problems can develop later. If you notice any problems or new symptoms, get medical treatment right away. Follow-up care is a wilson part of your child's treatment and safety. Be sure to make and go to all appointments, and call your doctor if your child is having problems. It's also a good idea to know your child's test results and keep a list of the medicines your child takes. How can you care for your child at home? ?? Your child should rest until he or she feels better. ?? Give your child lots of fluids, enough so that the urine is light yellow or clear like water. This is very important if your child is vomiting or has diarrhea. Give your child sips of water or drinks such as Pedialyte or Infalyte. These drinks contain a mix of salt, sugar, and minerals. You can buythem at drugstores or grocery stores. Give these drinks as long as your child is throwing up or has diarrhea. Do not use them as the only source of liquids or food for more than 12 to 24 hours. ?? Feed your child mild foods, such as rice, dry toast or crackers, bananas, and applesauce. Try feeding your child several small meals instead of 2 or 3 large ones. ?? Do not give your child spicy foods, fruits other than bananas or applesauce, or drinks that contain caffeine until 48 hours after all your child's symptoms have gone away. ?? Do not feed your child foods that are high in fat. ?? Have your child take medicines exactly as directed. Call your doctor if you think your child is having a problem with his or her medicine. ?? Do not give your child aspirin, ibuprofen (Advil, Motrin), or naproxen (Aleve). These can cause stomach upset. When should you call for help? Call 911 anytime you think your child may need emergency care. For example, call if: ? ?? Your child passes out (loses consciousness). ? ?? Your child vomits blood or what looks like coffee grounds. ? ?? Your child's stools are maroon or very bloody. ?Call your doctor now or seek immediate medical care if: ? ?? Your child has new belly pain or his or her pain gets worse. ? ?? Your child's pain becomes focused in one area of his or her belly. ? ?? Your child has a new or higher fever. ? ?? Your child's stools are black and look like tar or have streaks of blood. ? ?? Your child has new or worse diarrhea or vomiting. ? ?? Your child has symptoms of a urinary tract infection. These may include: ? Pain when he or she urinates. ? Urinating more often than usual. ? Blood in his or her urine. ?Watch closely for changes in your child's health, and be sure to contact your doctor if: ? ?? Your child does not get better as expected. Where can you learn more? 1. Go to [employer] or [employer]. 2. Enter Q757 in the search box. Current as of: October 02, 2017 Content Version: 11.6 ?? [id number] De[employer], Leonar[employer]Do. documented in this encounter Medications at Time of Discharge Medication Sig Dispensed Refills Start Date End Date Multiple Vitamin (MULTI-VITAMIN Take by mouth. 0 12/03/2012 OR) documented as of this encounter ED Notes Maria Isabel Thompson MD - 04/03/2018 6:01 PM CDT Images from the original note were not included. Subjective: Patient ID: Sunni Serna is an 18 y.o. female. Chief Complaint: HPI Comments: 18 year old female presents with upper abdominal pain. She first noticed the pain in her RUQ 5 days ago after a track meet. The pain has been coming and going since then and is now located across her upper abdomen. It started after she ran the 100 meters dash today. She also had similar pain last winter off and on. States it feels like a running cramp and starts when she is working out but she was able to play basketball without difficulty a few days ago. It does not radiate to her back or shoulder. It is worse with breathing, coughing and sneezing. She has no associated nausea or vomiting. She has been taking Advil for it which partially relieves her pain. Appetite is good. She has no history of any abdominal surgeries. Patient is a 18 y.o. female presenting with abdominal pain. History provided by: Patient and parent Abdominal Pain Associated symptoms: no chest pain, no chills, no constipation, no cough, no diarrhea, no dysuria, no fever, no hematuria, no nausea, no shortness of breath, no sore throat and no vomiting Review of Systems Constitutional: Negative for appetite change, chills and fever. HENT: Negative for congestion and sore throat. Respiratory: Negative for cough and shortness of breath. Cardiovascular: Negative for chest pain and leg swelling. Gastrointestinal: Positive for abdominal pain. Negative for constipation, diarrhea, nausea and vomiting. Genitourinary: Negative for difficulty urinating, dysuria, frequency and hematuria. Musculoskeletal: Negative for back pain. Skin: Negative for color change, pallor and rash. Objective: BP 129/69 (BP Location: Right Arm, BP Cuff Size: Pediatric/Small Adult) Pulse 73 Temp 37.1 ??C (98.7 ??F) (Oral) Resp 16 LMP 03/31/2018 SpO2 100% Physical Exam Constitutional: She appears well-developed and well-nourished. No distress. HENT: Head: Normocephalic and atraumatic. Mouth/Throat: Oropharynx is clear and moist. Eyes: Conjunctivae are normal. No scleral icterus. Cardiovascular: Normal rate, regular rhythm and normal heart sounds. Exam reveals no gallop and no friction rub. No murmur heard. Pulmonary/Chest: Effort normal and breath sounds normal. Abdominal: Soft. Normal appearance and bowel sounds are normal. She exhibits no distension. There isno hepatosplenomegaly. There is tenderness in the epigastric area. There is no rigidity, no guarding, no CVA tenderness, no tenderness at McBurney's point and negative Grimes's sign. Mild epigastric tenderness is present without rebound or guarding. Musculoskeletal: Normal range of motion. She exhibits no edema. Neurological: She is alert. Skin: Skin is warm and dry. No rash noted. She is not diaphoretic. No erythema. No pallor. Nursing note and vitals reviewed. Procedures Laboratory: Results for orders placed or performed during the hospital encounter of 04/03/18 Complete Blood Count W/Diff (CBC) Result Value Ref Range White Blood Cell Count 9.3 3.8 - 11.0 k/cmm Red Blood Cell Count 4.59 4.10 - 5.10 m/cmm Hemoglobin 13.7 12.0 - 16.0 g/dL Hematocrit 41.7 36.0 - 46.0 % Mean Corpuscular Volume 90.8 78.0 - 100.0 fL RDW 12.0 11.0 - 15.0 % Platelet Count 273 140 - 450 k/cmm Comp Metabolic Panel Result Value Ref Range Aspartate Aminotransferase 25 10 - 40 U/L Lab Glucose 102 (H) 70 - 100 mg/dL Bilirubin Total 0.3 0.2 - 1.2 mg/dL Calcium 9.9 8.4 - 10.4 mg/dL Sodium 144 136 - 145 mmol/L Potassium 4.1 3.5 - 5.2 mmol/L Blood Urea Nitrogen <10 9 - 26 mg/dL Albumin 4.6 3.4 - 5.0 g/dL Chloride 107 98 - 109 mmol/L Alk Phos 86 40 - 150 U/L Protein Total, Serum 8.1 6.4 - 8.3 g/dL Creatinine Serum 0.70 0.55 - 1.02 mg/dL Est GFR Am see below >60 mL/min/1.73m2 Est GFR Non-Afr Am see below >60 mL/min/1.73m2 Alanine Aminotransferase 16 9 - 55 U/L CO2 25 22 - 31 mmol/L Lipase (LIPAS) Result Value Ref Range Lipase 13 8 - 78 U/L Differential Result Value Ref Range Absolute Neutrophils 4.8 1.8 - 8.0 k/cmm Absolute Lymphocytes 3.6 1.1 - 4.0 k/cmm Absolute Monocytes 0.6 0.2 - 0.8 k/cmm Absolute Eosinophils 0.2 0.0 - 0.5 k/cmm Absolute Basophils 0.1 0.0 - 0.2 k/cmm Immature Granulocytes 0.2 0.0 - 0.5 % Radiology: Us Abd Ruq Organs Result Date: 04/03/2018 COMPARISON: None. FINDINGS: Pancreas: Partially obscured by bowel gas; visualized portions WNL. Liver: Contour appears unremarkable. Parenchyma appears unremarkable. Gallbladder: No stones, sludge, or pericholecystic fluid. Sonographic Grimes's Sign: No. CBD: 0.3 cm. Right Kidney: Measures 12.5 x 3.1 x 5.7 cm. Appears unremarkable. Ascites: None. IMPRESSION: Unremarkable right upper quadrant ultrasound. Xr Abd Flat And Upright Result Date: 04/03/2018 COMPARISON: 12/01/2010 FINDINGS: Two views were obtained. Abdominal gas pattern is unremarkable. No suspicious calcifications are identified. No gross free intraabdominal gas is seen. There are no abnormal gas-fluid levels. No abnormal soft tissue mass or organomegaly is noted. Assessment: The encounter diagnosis was Upper abdominal pain. MDM Plan: 18 year old female presents with intermittent upper abdominal pain for 5 days. Pain is described as a cramping pain and seems to be associated with her track activities. She has mild epigastric tenderness on exam. Workup including CBC, CMP and lipase are normal. X-rays and RUQ US are normal as well. Her pain is likely musculoskeletal in origin given its association with activity and negative workuptoday. I suspect she is suffering from exercised related transient abdominal pain and recommended she avoid eating for 2 hours prior to exercise, warm up slowly and consider physical therapy to strengthen her core muscles. She can continue to use Ibuprofen as needed for her symptoms. She is to follow up as needed for any new or worsening symptoms. documented in this encounter Plan of Treatment Not on filedocumented as of this encounter Procedures Procedure Name Priority Date/Time Associated Comments Diagnosis US ABD RUQ ORGANS Routine 04/03/2018 8:08 PM Upper abdominal R esults for this CDT pain procedure are i n the results section. XR ABD FLAT AND Routine 04/03/2018 6:37 PM Upper abdominal Res ults for this UPRIGHT CDT pain procedure are i n the results section. COMPLETE BLOOD STAT 04/03/2018 6:26 PM Upper abdominal Resu lts for this COUNT-W/DIFF CDT pain procedure are i n the results section. COMP METABOLIC PANEL STAT 04/03/2018 6:26 PM Upper abdomina l Results for this CDT pain procedure are i n the results section. DIFFERENTIAL STAT 04/03/2018 6:26 PM Results f or this CDT procedure are i n the results section. LIPASE STAT 04/03/2018 6:26 PM Upper abdominal Result s for this CDT pain procedure are i n the results section. [...] ultrasound. Maria Isabel Thompson MD RAD US XR Abd Flat And Upright (04/03/2018 6:37 [...] noted. Maria Isabel Thompson MD RAD GD Differential (04/03/2018 6:26 PM CDT) athologist Signature Absolute 4.8 1.8 - 8.0 PN SOFT Neutrophils k/cmm Absolute 3.6 1.1 - 4.0 PN SOFT Lymphocytes k/cmm Absolute 0.6 0.2 - 0.8 PN SOFT Monocytes k/cmm Absolute 0.2 0.0 - 0.5 PN SOFT Eosinophils k/cmm Absolute 0.1 0.0 - 0.2 PN SOFT Basophils k/cmm Immature 0.2 0.0 - 0.5 PN SOFT Granulocytes % Specimen Anatomical Collection Method Collection Time Receive d Time (Source) Location / / Volume Laterality 04/03/2018 6:26 PM 8 6:26 CDT PM CDT Narrative PN SOFT - 04/03/2018 6:32 PM CDT Performed at [facility], [facility] [address] [place] [address] CLIA number [id number] Maria Isabel Thompson MD LAB_1 Performing Organization Address City/[facility] Code Phon e Number PN SOFT [address] [place] [address] Lipase (LIPAS) (04/03/2018 6:26 PM CDT) athologist Signature Lipase 13 8 - 78 U/L PN SOFT Specimen Anatomical Collection Method Collection Time Receive d Time (Source) Location / / Volume Laterality 04/03/2018 6:26 PM 8 6:26 CDT PM CDT Narrative PN SOFT - 04/03/2018 6:48 PM CDT Performed at [facility], [address] [place] [address] CLIA number [id number] Maria Isabel Thompson MD LAB_1 Performing Organization Address City/[facility]/ZIP Code Phon e Number PN SOFT [address] [place] [address] (ABNORMAL) Comp Metabolic Panel (04/03/2018 6:26 PM CDT) [facility] gist Method Time Signature Aspartate 25 10 - 40 PN SOFT Aminotransferase U/L Lab Glucose 102 (H) 70 - 100 PN SOFT mg/dL Comment: The stated glucose range is for the fast ing state. Non-fasting glucose range is 70-180 mg/d L Bilirubin Total 0.3 0.2 - 1.2 mg/dL PN SOFT Calcium 9.9 8.4 - 10.4 mg/dL PN SOFT Sodium 144 136 - 145 mmol/L PN SOFT Potassium 4.1 3.5 - 5.2 mmol/L PN SOFT Blood Urea Nitrogen <10 9 - 26 mg/dL PN SOFT Albumin 4.6 3.4 - 5.0 g/dL PN SOFT Chloride 107 98 - 109 mmol/L PN SOFT Alk Phos 86 40 - 150 U/L PN SOFT Protein Total, Serum 8.1 6.4 - 8.3 g/dL PN S OFT Creatinine Serum 0.70 0.55 - 1.02 mg/dL PN SO FT Est GFR Am see below >60 mL/min/1.73m2 PN SOFT Comment: The CKD-EPI GFR formula is alexis d only for adults over 18. Est GFR Non-Afr Am see below >60 mL/min/1.73m2 PN SOFT Comment: The CKD-EPI GFR formula is valid only fo r adults over 18. Normal>60, moderate decrease 30 - 59, se andres decrease 15 - 29, renal failure <15 mL/min/1.73 m2 NOTE: ??Choose the eGFR result above debbie ropriate for the race of the patient. Alanine Aminotransferase 16 9 - 55 U/L PN S OFT CO2 25 22 - 31 mmol/L PN SOFT Specimen Anatomical Collection Method Collection Time Receive d Time (Source) Location / / Volume Laterality 04/03/2018 6:26 PM 8 6:26 CDT PM CDT Narrative PN SOFT - 04/03/2018 6:48 PM CDT Performed at [facility], [address] [id number] CLIA number [id number] Maria Isabel Thompson MD LAB_1 Performing Organization Address City/State/ZIP Code Phon e Number PN SOFT [address] [place], [place] [address] Complete Blood Count W/Diff (CBC) (04/03/2018 6:26 PM CDT) P athologist Signature White Blood Cell 9.3 3.8 - 11.0 PN SOFT Count k/cmm Red Blood Cell 4.59 4.10 - PN SOFT Count 5.10 m/cmm Hemoglobin 13.7 12.0 - PN SOFT 16.0 g/dL Hematocrit 41.7 36.0 - PN SOFT 46.0 % Mean Corpuscular 90.8 78.0 - PN SOFT Volume 100.0 fL RDW 12.0 11.0 - PN SOFT 15.0 % Platelet Count 273 140 - 450 PN SOFT k/cmm Specimen Anatomical Collection Method Collection Time Receive d Time (Source) Location / / Volume Laterality 04/03/2018 6:26 PM 8 6:26 CDT PM CDT Narrative PN SOFT - 04/03/2018 6:32 PM CDT Performed at [facility], [address] [place] [address] CLIA number [id number] Maria Isabel Thompson MD LAB_1 Performing Organization Address City/State/ZIP Code Phon e Number PN SOFT [address] [place] [address] [phone] documented in this encounter Visit Diagnoses Diagnosis Upper abdominal pain Abdominal pain, other specified site Triage Assessment Note - Sara Moulton, RN - 04/03/2018 5:52 PM CDT Upper to mid abdominal pain onset 5 days. Worse during and after her workouts. Pain is always there.Pain described as cramping. Pain started after a tournament she has last week. documented in this encounter Care Teams Squeegee Finisher Relationship Specialty Start Date End Date Marlena Choudhury MD PCP - General 02/13/11 06/28/[address] [place] [address] documented as of this encounter
--- OUTSIDE RECORDS SUMMARY | 2022-08-12 09:08 | XMS_ITS | Encounter Summary ---
:2000 Author Organization [facility] Address [address] [address] Care Team Providers Name Role Phone Marlena Choudhury MD Primary Care Provider Encounter Details Date Type Department Care Team Description 09/23/2015 Immunization [facility] C Need for influenza [address] [place] [facility]. vacc ination (Primary Dx) [place], [place] [address] Social History Tobacco Use Types Packs/Day Years [...] as of this encounter Visit Diagnoses Diagnosis Need for influenza vaccination - Primary Need for prophylactic vaccination and in oculation against influenza documented in this encounter Care Teams Equip Tech Relationship Specialty Start Date End Date Marlena Choudhury MD PCP - General 02/13/11 06/28/21 [address] [place] [place] [address] documented as of this encounter
--- OUTSIDE RECORDS SUMMARY | 2022-08-12 09:08 | XMS_ITS | Encounter Summary ---
:2000 Author Organization [facility] Address [address], [place] [address] Care Team Providers Name Role Phone Marlena Choudhury MD Primary Care Provider Reason for Visit Reason Onset Date Comments Forms 06/30/2017 Encounter Details Date Type Department Care Team Description 06/30/2017 Telephone [facility] Marlena Choudhury MD Forms [address] [place] [address] [place] [address] [phone] (Wo rk) Social History Tobacco Use Types [...] documented as of this encounter Nursing Notes Bonita Greenberg - 06/30/2017 10:16 AM CDT Sunni was in the office for a physical recently. Dr. Choudhury completed the sports form. Left message that a copy of the completed sports form is at peds bookkeeper receptionist desk for case picker. Copy to media. documented in this encounter Plan of Treatment Not on filedocumented as of this encounter Visit Diagnoses Not on filedocumented in this encounter Care Teams Dermatology Physician Relationship Specialty Start Date End Date Marlena Choudhury MD PCP - General 02/13/11 06/28/21 [address] [place] [address] documented as of this encounter
--- OUTSIDE RECORDS SUMMARY | 2022-08-12 09:08 | XMS_ITS | Encounter Summary ---
:2000 Author Organization [facility] Address [address] [place] [address] Care Team Providers Name Role Phone Marlena Choudhury MD Primary Care Provider Reason for Visit Procedure/Equipment (Routine) - Incomplete Specialty Diagnoses / Procedures Referred By Contact Refer red To Contact Diagnoses Fever, unspecified fever cause Tay-Buabeng, Eric, Procedures XR Chest 2 Views [facility] [address] [place] [address] Referral ID Status Reason Start Date Expiration Date Visits V isits Requested Authorized [id number] Incomplete 09/27/2019 12/26/2020 1 1 Encounter Details Date Type Department Care Team Description 09/27/2019 Ancillary [place] Tay-Buabeng, Fever, unspe cified Procedure Radiology Eric, [facility] fever cause [address] [place] [address] [phone] Social History Tobacco Use Types Packs/Day Years [...] Priority Date/Time Associated Diagnosis Comme nts XR CHEST 2 VIEWS Routine 09/27/2019 9:33 AM Fever, unspecified Results for this [facility] [facility] [employer]CH[employer]ER fever cause procedure are i n the results section. documented in this encounter Results XR Chest 2 Views (09/27/2019 9:33 AM [facility] ARCHAEOLOG[employer] LECTURER) Anatomical Region Laterality Modality Chest, Lung Digital Radiography Specimen (Source) Anatomical Collection Method Collection Time Re ceived Time Location / / Volume Laterality 09/27/2019 9:28 AM [facility]CH[employer] [employer]ER Impressions 09/27/2019 9:38 AM [facility] ARCHAE[employer]ER COMPARISON: ??None. FINDINGS: ??Two views were obtained. ??T he lungs and costophrenic angles are clear. ??Heart size and pulmonary vascularity are within normal limits. ??There is no evidence of pneumothorax or pleural effusion. Appears to be some mild scoliosis. Procedure Note Erick Chow MD - 09/27/2019Format ting of this note might be different from the original. IMPRESSION COMPARISON: None. FINDINGS: Two views were obtained. The l ungs and costophrenic angles are clear. Heart size and pulmonary vascularity are within normal limits. There is no evidence of pneumothorax or pleural effusion. Appears to be some mild scoliosis. Eric ElizabethnteErin [facility] RAD GD documented in this encounter Visit Diagnoses Diagnosis Fever, unspecified fever cause documented in this encounter Care Teams Felt Finishing Supervisor Relationship Specialty Start Date End Date Marlena Choudhury MD PCP - General 02/13/11 06/28/21 [address] [place] [address] documented as of this encounter
--- OUTSIDE RECORDS SUMMARY | 2022-08-12 09:08 | XMS_ITS | Encounter Summary ---
:2002 Author Organization [facility] Address [address], [place] [address] Care Team Providers Name Role Phone Marlena Choudhury MD Primary Care Provider Reason for Visit Procedure/Equipment (Routine) - Incomplete Specialty Diagnoses / Procedures Referred By Contact Refer red To Contact Diagnoses LAD (lymphadenopathy) of right cervical region Addis Kirk PA-C Procedures CT Neck Soft Tissue W IV Cont [address] [place] [address] Referral ID Status Reason Start Date Expiration Date Visits V isits Requested Authorized [id number] Incomplete 09/13/2019 12/12/2020 1 1 Encounter Details Date Type Department Care Team Description 10/09/[address] [address] Scan Addis Kirk LAD Procedure [address] [address] HERNANDEZ (lymphadenopathy) of Drive [address] [place], [place] [address] region [address] [place], [place] [phone] Social History Tobacco Use Types Packs/Day [...] Name Priority Date/Time Associated Diagnosis Comme nts CT NECK SOFT TISSUE Routine 10/09/2019 5:46 PM LAD Re sults for this W IV CONT SOFTWARE ARCHITECT (lymphadenopathy) of procedu re are in right cervical the results region section. documented in this encounter Results CT Neck Soft Tissue W IV Cont (10/09/2019 5:46 PM SOFTWARE ARCHITECT) Anatomical Region Laterality Modality Neck, C-Spine, Spine, Vascular Computed Tomography Specimen (Source) Anatomical Collection Method Collection Time Re ceived Time Location / / Volume Laterality 10/09/2019 5:22 PM SOFTWARE ARCHITECT Impressions 10/09/2019 8:04 PM SOFTWARE ARCHITECT INDICATION: Right-side cervical LAD x 3 months; ; ?? COMPARISON: ??None. TECHNIQUE: ??Images of the neck were obt ained following the administration of 75 mL IOPAMIDOL 61 % IV SOLN. Findings: Marker was placed by the techn ologist over the lateral infrahyoid neck posterior to the sternocleidomastoid mastoid muscle. Few nonenlarged lymph nodes are seen within the vicinity of the nilsa er placed by the technologist. No defini te enlarged lymph nodes within the neck. Adenoids appear enlarged. Parotid glands, submandibular glands, muscles of mastication, pharynx, larynx and thyroid appea r unremarkable. Mild lingual torus jeanine bularis of the symphysis noted. Nasal septum deviated to the left with small spurs contacting the inferior and middle turbinates. Portions of the paranasal sinuse s and mastoid air cells included on this study appear unopacified. IMPRESSION: 1. No definite enlarged lymph nodes with in the neck. 2. Enlarged adenoids. Procedure Note Paola Del Rosario MD - 10/09/2019 IMPRESSION INDICATION: Right-side cervical LAD x 3 months; ; COMPARISON: None. TECHNIQUE: Images of the neck were obtai gomez following the administration of 75 mL IOPAMIDOL 61 % IV SOLN. Findings: Marker was placed by the techn ologist over the lateral infrahyoid neck posterior to the sternocleidomastoid mastoid muscle. Few nonenlarged lymph nodes are seen within the vicinity of the marker placed by the technologist. No definite enlarge d lymph nodes within the neck. Adenoids appear enlarged. Parotid glands, submandibular glands, muscles of mastication, pharynx, larynx and thyroid appear unremarkable. Mild lingual torus mandibularis of the symphysis note d. Nasal septum deviated to the left with small spurs contacting the inferior and middle turbinates. Portions of the paranasal sinuses and mastoid air cells included on this study appear unopacified. IMPRESSION: 1. No definite enlarged lymph nodes with in the neck. 2. Enlarged adenoids. Addis Kirk PA-C RAD CT documented in this encounter Visit Diagnoses Diagnosis LAD (lymphadenopathy) of right cervical region documented in this encounter Administered Medications Inactive Administered Medications - up to 3 most recent administrations Medication Order MAR Action Action Date Dose Rate Site 0.9% sodium chloride bolus 100 mL Started 10/09/2019 6:15 PM SOFTWARE ARCHITECT 70 mL 100 mL, Intravenous, Administer over 1 Hours, ONCE, On Mon10/09/19 at 1815, For 1 dose iopamidol (ISOVUE-300) 61 % injection 75 mL Given 10/09/2019 6:15 PM SOFTWARE ARCHITECT 75 mL 75 mL, Intravenous, ONCE, On Mon10/09/19 at 1815, For 1 dose sodium chloride 0.9% injection 10 mL Given 10/09/2019 6:15 PM SOFTWARE ARCHITECT 10 mL 10 mL, Intravenous, ONCE, On Mon10/09/19 at 1815, For 1 dose documented in this encounter Care Teams Sales Engineer Account Manager Relationship Specialty Start Date End Date Marlena Choudhury MD PCP - General 02/13/11 06/28/21 [address] [place]AN [place] [id number] documented as of this encounter
--- OUTSIDE RECORDS SUMMARY | 2022-08-12 09:08 | XMS_ITS | Encounter Summary ---
:2002 Author Organization [facility] Address [address], [place] [address] Care Team Providers Name Role Phone Marlena Choudhury MD Primary Care Provider Encounter Details Date Type Department Care Team Description 05/11/2015 Lab Visit [place] [facility] Dizziness [address] [place], [place] [id number] Social History Tobacco Use Types Packs/Day Years [...] Procedure Name Priority Date/Time Associated Comments Diagnosis IRON BINDING CAPACITY Routine 05/11/2015 5:23 PM Dizziness Results for this (INCL IRON) CDT procedure are i n the results section. COMPLETE BLOOD Routine 05/11/2015 5:23 PM Dizziness Results for this COUNT-W/DIFF CDT procedure are i n the results section. BASIC METABOLIC PANEL Routine 05/11/2015 5:23 PM Dizziness Results for this CDT procedure are i n the results section. DIFFERENTIAL Routine 05/11/2015 5:23 PM Results f or this CDT procedure are i n the results section. FERRITIN Routine 05/11/2015 5:23 PM Dizziness Results f or this CDT procedure are i n the results section. documented in this encounter Results Differential (05/11/2015 5:23 PM CDT) athologist Signature Absolute 3.8 1.8 - 8.0 HP CONVERSION Neutrophils k/cmm Absolute 2.9 1.1 - 4.0 HP CONVERSION Lymphocytes k/cmm Absolute 0.6 0.2 - 0.8 HP CONVERSION Monocytes k/cmm Absolute 0.2 0.0 - 0.5 HP CONVERSION Eosinophils k/cmm Absolute 0.1 0.0 - 0.2 HP CONVERSION Basophils k/cmm Specimen Anatomical Collection Method Collection Time Receive d Time (Source) Location / / Volume Laterality 05/11/2015 5:23 PM 5 5:23 CDT PM CDT Narrative HP CONVERSION - 05/11/2015 5:28 PM CDT Performed at [facility], [address] [place] [address] Erica Bolivar DO LAB_1 Performing Organization Address City/State/ZIP Code Phon e Number HP CONVERSION Basic Metabolic Panel (05/11/2015 5:23 PM CDT) athologist Signature Creatinine Serum 0.7 0.4 - 1.3 HP CONVERSION mg/dL Lab Glucose 97 60 - 100 HP CONVERSION mg/dL Bicarbonate 28 23 - 33 HP CONVERSION mmol/L Chloride 103 98 - 110 HP CONVERSION mEq/L Potassium 3.9 3.5 - 5.2 HP CONVERSION mEq/L Sodium 139 137 - 147 HP CONVERSION mEq/L Blood Urea 14 5 - 26 HP CONVERSION Nitrogen mg/dL Calcium 9.8 8.5 - 10.5 HP CONVERSION mg/dL Est GFR >60 >60 HP CONVERSION Am mL/min/1.7 3m2 Est GFR Non-Afr >60 >60 HP CONVERSION Am mL/min/1.7 3m2 Comment: Normal>60, moderate decrease 30 - 59, se andres decrease 15 - 29, renal failure <15 mL/min/1.73 m2 NOTE: ??Choose the eGFR result above debbie ropriate for the race of the patient. Specimen Anatomical Collection Method Collection Time Receive d Time (Source) Location / / Volume Laterality 05/11/2015 5:23 PM 5 9:13 CDT PM CDT Narrative HP CONVERSION - 05/11/2015 9:34 PM CDT Performed at [facility], [address] [place] [address] Erica Bolivar DO LAB_1 Performing Organization Address City/[facility]/ZIP Code Phon e Number HP CONVERSION Ferritin (05/11/2015 5:23 PM CDT) athologist Signature Ferritin Serum 19 10 - 291 HP CONVERSION ng/mL Specimen Anatomical Collection Method Collection Time Receive d Time (Source) Location / / Volume Laterality 05/11/2015 5:23 PM 5 CDT 10:10 PM CDT Narrative HP CONVERSION - 05/11/2015 10:41 PM [place] [address] Erica Bolivar DO LAB_1 Performing Organization Address [facility] Phon e Number HP CONVERSION (ABNORMAL) IRON BINDING CAPACITY (INCL IRON) (05/11/2015 5:23 PM CDT) athologist [facility] Iron, Serum 67 37 - 170 HP CONVERSION ug/dL Iron Binding 404 250 - 450 HP CONVERSION Capacity ug/dL Iron Saturation 17 (L) 20 - 55 % HP CONVERSION Specimen Anatomical Collection Method Collection Time Receive d Time (Source) Location / / Volume Laterality 05/11/2015 5:23 PM 5 CDT 10:10 PM CDT Narrative HP CONVERSION - 05/11/2015 10:41 PM [place] [address] Erica Bolivar DO LAB_1 Performing Organization Address [facility] Phon e Number HP CONVERSION Complete Blood Count W/Diff (05/11/2015 5:23 PM CDT) athologist Signature White Blood Cell 7.4 4.5 - 13.5 HP CONVERSIO N Count k/cmm Red Blood Cell 4.54 4.10 - HP CONVERSION Count 5.10 m/cmm Hemoglobin 14.0 12.0 - HP CONVERSION 16.0 g/dL Hematocrit 40.9 36.0 - HP CONVERSION 46.0 % Mean Corpuscular 90.1 78.0 - HP CONVERSION Volume 100.0 fL RDW 12.2 11.0 - HP CONVERSION 15.0 % Platelet Count 242 150 - 450 HP CONVERSION k/cmm Specimen Anatomical Collection Method Collection Time Receive d Time (Source) Location / / Volume Laterality 05/11/2015 5:23 PM 5 5:23 CDT PM CDT Narrative HP CONVERSION - 05/11/2015 5:28 PM CDT Performed at [facility], [address] [facility], [place] [address] Erica Bolivar DO LAB_1 Performing Organization Address City/State/ZIP Code Phon e Number HP CONVERSION documented in this encounter Visit Diagnoses Diagnosis Dizziness Dizziness and giddiness documented in this encounter Care Teams Forestry Aid Technician Relationship Specialty Start Date End Date Marlena Choudhury MD PCP - General 02/13/11 06/28/21 [address] [address] CHAN [place] [id number] documented as of this encounter
--- OUTSIDE RECORDS SUMMARY | 2022-08-12 09:08 | XMS_ITS | Encounter Summary ---
:2002 Author Organization [facility] Address [address], [place] [address] Care Team Providers Name Role Phone Marlena Choudhury MD Primary Care Provider Reason for Visit Reason Onset Date Comments COVID Questions 03/23/2020 Encounter Details Date Type Department Care Team Description 03/23/[address] [facility], Drive-Up Screening examination [address] [facility] [place] [address] (Primary Dx) [phone] Social History Tobacco Use Types Packs/Day Years [...] on filedocumented as of this encounter Results Symptomatic - 2019 Novel Coronavirus (COVID-19) (03/23/2020 11:48 AM CDT) [facility] Method Time Signature SARS-CoV-2 NOT DETECTED NOT DETECTED 03/30/2020 [facility] 10:00 PM DIAGNOSTICS - CDT NIKKY HAAS Comment: A Not Detected (negative) test result fo r this test means that SARS- CoV-2 RNA was not prese nt in the specimen above the limit of detection. A negative result does not rule out the possibility of COVID-19 and should not be used as the sole basis for treatment or patient management decisions. ??If COVID-19 is still suspec alonzo, based on exposure history together with other cli nical findings, re-testing should be considered in consu ltation with public health authorities. Laboratory te st results should always be considered in the context of c linical observations and epidemiological data in making a final diagnosis and patient management decisio ns. ?? Please review the Fact Sheets and FDA authorized labeling available for health care provi ders and patients using the following websites: https://www.[employer]/home/Co vid-19/HCP/[facility]/fact- sheet.html https://www.[employer]/home/Co vid-19/Patients/ [facility]/fact-sheet.html This test has been authorized by the FDA under an Emergency Use Authorization (EUA) for us e by authorized laboratories. Due to the current public health emergen cy, [facility] is receiving a high volume o f samples from a wide variety of swabs and media for CO VID-19 testing. In order to serve patients during this p ublic health crisis, samples from appropriate clinica l sources are being tested. Negative test results deri marlyn from specimens received in non-commercially m anufactured viral collection and transport media, or in media and sample collection kits not yet authorize d by FDA for COVID-19 testing should be cautiously ev aluated and the patient potentially subjected to extra p recautions such as additional clinical monitoring, inclu ding collection of an additional specimen. Methodology: ??Nucleic Acid Amplificatio n Test (NAAT) includes PCR or TMA ?? Additional information about COVID-19 ca n be found at the [facility] website: www.[employer]/Covid19. SHERI, [employer] [place], [address] [address] [facility], SHERI CASEY, [phone], KAELYN ARNOLD DO,MPH Specimen Anatomical Collection Method Collection Time Receive d Time (Source) Location / / Volume Laterality Swab (Source Non-blood 03/23/2020 11:48 03/23/2020 6:05 Required) Collection / AM CDT PM CDT Unknown Michael Christiansen MD LAB_1 Performing Organization Address City/State/ZIP Code Phon e Number [facility] [address] [facility]. [place], [place] [address] documented in this encounter Visit Diagnoses Diagnosis Screening examination for infectious dis ease - Primary Screening examination for unspecified in fectious disease documented in this encounter Additional Health Concerns Infection Onset Date Last Indicated Resolved Time R/O COVID19 03/23/2020 03/23/2020 03/30/2020 10:53 PM CDT documented as of this encounter Care Teams Fig Caprifier Relationship Specialty Start Date End Date Marlena Choudhury MD PCP - General 02/13/11 06/28/21 [address] [place] CHAN [place] [address] documented as of this encounter
--- OUTSIDE RECORDS SUMMARY | 2022-08-12 09:08 | XMS_ITS | Encounter Summary ---
:2002 Author Organization [facility] Address [address], [place] [address] Care Team Providers Name Role Phone Marlena Choudhury MD Primary Care Provider Reason for Referral Consult/Transfer Care (Routine) - Closed Specialty Diagnoses / Procedures Referred By Contact Refer red To Contact Diagnoses Adenoid enlargement Addis Kirk PA-C [address] [place] [address] Referral ID Status Reason Start Date Expiration Date Visits Requ ested Visits Authorized [id number] Closed 10/11/2019 01/09/2021 1 1 Scheduling Instructions Your provider has recommended an appoint ment with [facility] (ENT) - Head & Neck Surgery. You may call to schedule your appointment. If you do not schedule an appointment within next 1 to 3 business days, we will call you to help arrange your appointment. We sug gest you call your health insurance company about your coverage and benefits for thi s appointment. COB PIPE MANUFACTURING SUPERVISOR Reason for Visit Reason Comments FOLLOW-UP, TEST RESULTS Encounter Details Date Type Department Care Team Description 10/11/2019 Telephone [facility] Addis Kirk FOLLO W-UP, TEST Medicine MARY RESULTS [address] [place] [address] [facility] [place] [address] [phone] (Wo rk) Social History Tobacco Use Types [...] documented as of this encounter Nursing Notes Addis Kirk PA-C - 10/11/2019 12:20 PM CST I spoke to the patient's mother and we discussed her recent neck CT results, no worrisome enlarged lymph nodes, did discuss enlargement adenoids, mom reports she does snore loudly and is interested in a referral to ENT to discuss possible tonsilloadenoidectomy. A referral was placed, mom will call to schedule an ENT consultation appointment. COB PIPE MANUFACTURING SUPERVISOR documented in this encounter Plan of Treatment Scheduled Referrals Name Type Priority Associated Diagnoses Order [facility] Consult Referral Routine Adenoid enlargemen t Ordered: 10/11/2019 Adult/Peds documented as of this encounter Visit Diagnoses Diagnosis Adenoid enlargement - Primary Hypertrophy of adenoids alone documented in this encounter Care Teams Corn Detasseler Relationship Specialty Start Date End Date Marlena Choudhury MD PCP - General 02/13/11 06/28/21 [address] [place] CHAN [place] [address] documented as of this encounter
--- OUTSIDE RECORDS SUMMARY | 2022-08-12 09:08 | XMS_ITS | Encounter Summary ---
:2002 Author Organization [facility] Address [address] [place] [address] Care Team Providers Name Role Phone Marlena Choudhury MD Primary Care Provider Reason for Visit Reason Comments COVID Screening Encounter Details Date Type Department Care Team Description 03/23/2020 Telephone [facility] Marlena Medley MD COVID Screening [address] [address] [place] [address] [place], [place] [phone] (Wo rk) Social History Tobacco Use Types [...] documented as of this encounter Nursing Notes Carlita Carmichael - 03/23/2020 11:23 AM CDT Initial Screening: Patient information Best number to contact patient: [phone] Reason for Visit: Requesting COVID testing In the last 14 days have you had close contact with a person known to have COVID-19 or been instructed to self-isolate? No Are symptoms urgent/emergent? No Do you have any of these symptoms (fever greater than 100, cough, shortness of breath or difficulty breathing, sore throat, new loss of smell, or new loss of taste)?Yes Do you have any of these risk factors? Risk Factors: None Do you fall into any of these groups? : All other patients eligible for testing Do you have shortness of breath or difficulty breathing? No Do you have a sore throat? No Other Covid Symptoms: Other sore throat, fever, and body aches Disposition: Patient going for drive-up testing. [Inform patient: - Test results are typically delivered within 2-3 days. The fastest way to get your test results is through your online account. If you don???t already have an account, refer to quick link in your testing appointment confirmation email to sign up (you can also go to [email or web address]).You will need your ID number from your insurance card to get started. - If your child has been tested, you can also set up proxy access to get test results via your online account. You need to have an account set up for yourself in order to do this. - You must schedule an appointment for drive-up testing:] Scheduling Drive up Testing: Scheduling Number: [phone] (warm transfer if able) Scheduling Hours: Monday through Monday 8:00am to 6:00pm, Monday and Monday 8:00am to 5:00pm Testing site hours: Monday through Monday 9:00am-6:00pm, Monday and Monday 9:00am-1:00pm When you arrive at your scheduled appointment, please let drive up team know that you have been screened. Carlita Carmichael Please warm transfer to [phone]; if after hours, give patient number to call to schedule duringopen hours. [If patient has other concern/reason for call, follow regular process for handling call.] documented in this encounter Plan of Treatment Not on filedocumented as of this encounter Visit Diagnoses Not on filedocumented in this encounter Additional Health Concerns Infection Onset Date Last Indicated Resolved Time R/O COVID19 03/23/2020 03/23/2020 03/30/2020 10:53 PM CDT documented as of this encounter Care Teams Gravel Hauler Relationship Specialty Start Date End Date Marlena Choudhury MD PCP - General 02/13/11 06/28/21 [address] [address] [place] [id number] documented as of this encounter
--- OUTSIDE RECORDS SUMMARY | 2022-08-12 09:08 | XMS_ITS | Encounter Summary ---
:2002 Author Organization [facility] Address [address] [place] [address] Care Team Providers Name Role Phone Marlena Choudhury MD Primary Care Provider Reason for Visit Reason Comments MASS Encounter Details Date Type Department Care Team Description 11/11/2015 Office Visit [facility] Erica Bolivar, Cyst of skin (Primary Medicine DO Dx) [address] [place] [address] [place], [place] [phone] (Wo rk) Social History Tobacco Use Types [...] Sign Reading Time Taken Comments Blood Pressure 112/66 11/11/2015 10:18 AM SPORTS ADMINISTRATOR Pulse 84 11/11/2015 10:18 AM SPORTS ADMINISTRATOR Temperature - - Respiratory Rate - - Oxygen Saturation - - Inhaled Oxygen Concentration - - Weight 54.1 kg (119 lb 4.8 oz) 11/11/2015 10:18 AM SPORTS ADMINISTRATOR Height 169.5 cm (5' 6.75) 11/11/2015 10:18 AM SPORTS ADMINISTRATOR Body Mass Index 18.83 11/11/2015 10:18 AM SPORTS ADMINISTRATOR Body Mass Index Percentile 45.53 % 11/11/2015 10:[address] Growth Chart: [facility] (Girls, 2-20 Years) documented in this encounter Progress Notes Erica Bolivar DO - 11/11/2015 1:17 PM CST Images from the original note were not included. Subjective: Patient ID: Sunni Serna is a 15 y.o. female. Chief Complaint: HPI Sunni Serna is here today for lumps on R earlobe. She says they have been there for a few months. They do not bother her much. She feels like they are getting bigger. No known injuries. Reviewed patient Past medical history, medications, allergies and Social/Family history. Updated in Epic. Review of Systems Constitutional: Negative for fever, appetite change and fatigue. HENT: Negative for ear discharge and ear pain. Respiratory: Negative for shortness of breath. Cardiovascular: Negative for chest pain. Skin: Negative for rash and wound. Neurological: Negative for headaches. Psychiatric/Behavioral: The patient is not nervous/anxious. BP 112/66 mmHg Pulse 84 Ht 5' 6.75 (1.695 m) Wt 119 lb 4.8 oz (54.114 kg) BMI 18.84 kg/m2 Objective: Physical Exam Constitutional: She is oriented to person, place, and time. She appears well- developed and well-nourished. No distress. HENT: Head: Normocephalic and atraumatic. Ears: Eyes: Conjunctivae and EOM are normal. Pupils are equal, round, and reactive to light. Pulmonary/Chest: Effort normal. Neurological: She is alert and oriented to person, place, and time. Skin: She is not diaphoretic. Psychiatric: She has a normal mood and affect. Her behavior is normal. Nursing note and vitals reviewed. Assessment: Diagnosis and Associated Orders ICD-10-CM ICD-9-CM 1. Cyst of skin L72.9 706.2 Plan: Reassured that it was a cyst. Cont to monitor and if it gets bigger or bothersome I would advise possible referral to plastics for removal. Erica Bolivar DO TS ADMINISTRATOR documented in this encounter Plan of Treatment Not on filedocumented as of this encounter Visit Diagnoses Diagnosis Cyst of skin - Primary Sebaceous cyst documented in this encounter Care Teams Content Engineer Relationship Specialty Start Date End Date Marlena Choudhury MD PCP - General 02/13/11 06/28/21 [address] [place] CHAN [place] [address] documented as of this encounter
--- OUTSIDE RECORDS SUMMARY | 2022-08-12 09:08 | XMS_ITS | Encounter Summary ---
:2002 Author Organization [email or web address] Address [address] [place] [address] Care Team Providers Name Role Phone Marlena Choudhury MD Primary Care Provider Reason for Visit Reason Onset Date Comments Refill 02/14/2020 SUMAtriptan (IMITREX ) 25 MG tablet Encounter Details Date Type Department Care Team Description 02/14/2020 Refill [facility] Neldae, Yovana N, Refil l (SUMAtriptan Medicine PA-C (IMITREX) 25 MG tablet) [address] [place] [address] [place] [address] [phone] (Wo rk) Social History Tobacco Use Types [...] documented as of this encounter Nursing Notes Katt De Guzman RN - 02/14/2020 3:27 PM CDT Further Assistance Needed on Refill from Clinician RN reviewed. Medication newly ordered in last 12 months. Please advise if regional intermodal truck driver supply is appropriate Last qualifying visit: 09/13/2019 (with YOVANA KIRK) (A more recent visit (in Family Practice ? with XAVIER ESPARZA) was found) ? Next scheduled visit: None ? Review pended order for accuracy and sign if appropriate, Document if appointment is needed for further refills and route to care team to notify patient if needed. Requested Prescriptions Pending Prescriptions Disp Refills ??? SUMAtriptan (IMITREX) 25 MG tablet 9 Tablet 2 Sig: Take 1 Tablet by mouth as needed for Migraine. May repeat one tablet after 2 hours if needed. Maximum 8 tabs/24 hours and 9 days/month Interface, Out Surescripts Prov Query - 02/14/2020 2:06 PM CDT SUMAtriptan (IMITREX) 25 MG tablet Medication started: 09/13/2019 Last ordered by YOVANA KIRK N: 09/13/2019 (154 days ago) QTY: 9, Refills: 2, Sig: take 1 tablet by mouth as needed for migraine. may repeat one tablet after 2 hours if needed. maximum 8 tabs/24 hours and 9 days/month (unchanged) -> Unable to determine if patient is due for a renewal, please review. -> Refill x 9 months (until due for an office visit) -> Calculate the quantity and number of refills manually. Last qualifying visit: 09/13/2019 (with YOVANA KIRK) (A more recent visit (in Family Practice with XAVIER ESPARZA) was found) Next scheduled visit: None SBP: 120 mm Hg on 11/04/2019 DBP: 67 mm Hg on 11/04/2019 Powered by [employer], Reference: [id number], 02/14/2020 2:06:30 PM CDT, Pool: PN REFILL WIZARD ADMIN ([id number]) Erica Rubalcava - 02/14/2020 2:05 PM CDT Medications - Refill Request (able to re-order) Name of prescribing clinician: Yovana Kirk PA-C Additional comments (related to the above concern): Pt is out of medication. Please advise. For this refill, patient would like it filled at the pharmacy listed in Meds & Orders. (Verify the pharmacy patient would like to use for this request is highlighted in blue in Pharmacy Selection under Meds & Orders) If there are questions regarding your request, is it okay to leave a detailed message on your voicemail? Yes (Advise caller that the PN call back number will end with [phone] or unknown) (Advise caller of turn around time is 2 business days for standard refills and 2 to 5 business days for controlled refills) Please route to: Refill Pool (P [id number]) [facility] Pool [place] Patients ONLY (P [id number]) [facility] [place] ONLY (P [id number]) documented in this encounter Plan of Treatment Not on filedocumented as of this encounter Visit Diagnoses Diagnosis Migraine without aura and without status migrainosus, not intractable Migraine without aura, without mention o f intractable migraine without mention of status migrainosus documented in this encounter Care Teams Blueprint Processor Relationship Specialty Start Date End Date Marlena Choudhury MD PCP - General 02/13/11 06/28/21 [address] [place] [address] documented as of this encounter
--- OUTSIDE RECORDS SUMMARY | 2022-08-12 09:08 | XMS_ITS | Encounter Summary ---
:2002 Author Organization [employer] Address [address] [facility] [place] [address] Care Team Providers Name Role Phone Marlena Choudhury MD Primary Care Provider Reason for Visit Reason Comments Headache DIZZINESS Encounter Details Date Type Department Care Team Description 05/11/2015 Office Visit [facility] Erica Bolivar, BPPV (benign paroxysmal positional vertigo), unspecified laterality (Primary Dx); Medicine DO Dizziness [address] [place] [address] [place], [place] [phone] (Wo rk) Social History Tobacco Use Types [...] Sign Reading Time Taken Comments Blood Pressure 118/56 05/11/2015 5:00 PM CDT Pulse 84 05/11/2015 5:00 PM CDT Temperature - - Respiratory Rate - - Oxygen Saturation - - Inhaled Oxygen Concentration - - Weight 53.2 kg (117 lb 3.2 oz) 05/11/2015 5:00 PM CDT Height - - Body Mass Index - - documented in this encounter Patient Instructions Patient InstructionsAvaErica johansen Barbara, DO - 05/11/2015 5:14 PM CDT Images from the original note were not included. Dizziness: After Your Child's Visit Your Care Instructions Dizziness is a feeling of fuzziness in the head. It is not the same as having vertigo. That is a feeling that the room is spinning or that you are moving or falling. And it's not the same as feeling lightheaded. That is the feeling that you are about to faint. It can be hard to know what causes dizziness. Having a fever, the flu, or another illness can make your child feel dizzy. Not getting enough liquids (dehydration) can also cause it. Some rare conditions, such as heart problems, can make a child feel dizzy. Many medicines can cause dizziness. This includes the kind your child may take for ADHD (attention deficit hyperactivity disorder). If a medicine causes your child's symptoms, the doctor may have you stop or change it. If there is no clear reason for your child's symptoms, the doctor may suggest watching and waiting. This means waiting for a while to see if the problem goes away on its own. Follow-up care is a wilson part of your child's treatment and safety. Be sure to make and go to all appointments, and call your doctor if your child is having problems. It's also a good idea to know your child's test results and keep a list of the medicines your child takes. How can you care for your child at home? ?? If your doctor suggests or prescribes medicine, give it exactly as directed. Call your doctor if you think your child is having a problem with his or her medicine. ?? If your child can drive, do not let him or her drive while dizzy. When should you call for help? Call 911 anytime you think your child may need emergency care. For example, call if: ?? Your child passes out (loses consciousness). Call your doctor now or seek immediate medical care if: ?? Your child feels dizzy and has a fever, headache, or ringing in the ears. ?? Your child has new or increased nausea and vomiting. ?? The dizziness does not go away or comes back. Watch closely for changes in your child's health, and be sure to contact your doctor if: ?? Your child does not get better as expected. Where can you learn more? Go to [employer]/Interse and enter U483 in the search box. Current as of: September 26, 2014 Content Version: 10.4 ?? [id number] [employer]. documented in this encounter Progress Notes Erica Bolivar DO - 05/12/2015 6:36 PM CDT Subjective: Patient ID: Sunni Serna is a 15 y.o. female. Chief Complaint: Headache Associated symptoms include dizziness and nausea. Pertinent negatives include no abdominal pain, diarrhea, fever, rhinorrhea, sore throat, vomiting or weakness. Sunni Serna is here today for headaches and dizziness. She says it has been going on for about 7-8 months. She is getting nausea, BLOCK, dizziness. Feels like her brain is shaking in her head Has complained of BLOCK for 2 years on and off. Sometimes would be after basketball. Yesterday she was crying from the pain. No vomiting This past episodes has lasted 4 days. She [facility]. Had basketball camp last week. Mom has BLOCK. Rare caffeine. Eats well balances. Has water with her often. Reviewed patient Past medical history, medications, allergies and Social/Family history. Updated in [employer]. Review of Systems Constitutional: Negative for fever, activity change, appetite change and fatigue. HENT: Negative for congestion, postnasal drip, rhinorrhea and sore throat. Respiratory: Negative for shortness of breath. Cardiovascular: Negative for chest pain and palpitations. Gastrointestinal: Positive for nausea. Negative for vomiting, abdominal pain, diarrhea and constipation. Genitourinary: Negative for difficulty urinating. Neurological: Positive for dizziness, light-headedness and headaches. Negative for syncope and weakness. Psychiatric/Behavioral: The patient is not nervous/anxious. BP 118/56 Pulse 84 Wt 117 lb 3.2 oz (53.162 kg) Objective: Physical Exam Nursing note and vitals reviewed. Constitutional: Oriented to person, place, and time. Appears well-developed and well-nourished. No distress. HENT: Head: Normocephalic and atraumatic. Nose: Nose normal. Mouth/Throat: Oropharynx is clear and moist. Eyes: EOM are normal. Pupils are equal, round, and reactive to light. Neck: Normal range of motion. Neck supple. No thyromegaly present. Cardiovascular: Normal rate, regular rhythm, normal heart sounds and intact distal pulses. Pulmonary/Chest: Effort normal and breath sounds normal. Abdominal: Soft. Bowel sounds are normal. No distension. There is no tenderness. Musculoskeletal: Normal range of motion. Lymphadenopathy:No cervical adenopathy. Neurological: Alert and oriented to person, place, and time. Has normal reflexes. No cranial nerve deficit. Alexus Halpike positive R>L Skin: Skin is warm and dry. Not diaphoretic. Psychiatric: Normal mood and affect. Behavior is normal. Assessment: Diagnosis (ICD9) and Associated Orders ICD-9-CM ICD-10-CM 1. BPPV (benign paroxysmal positional vertigo), unspecified laterality 386.11 H81.10 ondansetron (ZOFRAN-ODT) 4 mg disintegrating tablet 2. Dizziness 780.4 R42 Complete Blood Count W/Diff Iron Binding Capacity (Incl Iron) Ferritin Basic Metabolic Panel Plan: Discussed that i do feel she likely has BPPV causing her symptoms. Possible triggered from [place]. Given zofran to help with symptoms. Will check some labs to make sure no other cause. They will treat conservatively for now. If not getting better then I recommend PT. They have high deductible and would like to wait a bit on this. Erica Bolivar DO documented in this encounter Plan of Treatment Not on filedocumented as of this encounter Visit Diagnoses Diagnosis BPPV (benign paroxysmal positional verti go), unspecified laterality - Primary Dizziness Dizziness and giddiness documented in this encounter Care Teams Acid Extractor Relationship Specialty Start Date End Date Marlena Choudhury MD PCP - General 02/13/11 06/28/21 [address] [place] [address] documented as of this encounter
--- OUTSIDE RECORDS SUMMARY | 2022-08-12 09:08 | XMS_ITS | Encounter Summary ---
:2002 [facility] Address [address] [place] [address] Care Team Providers Name Role Phone Marlena Choudhury MD Primary Care Provider Encounter Details Date Type Department Care Team Description 05/23/2014 Lab Visit [facility] Screening for other and unsp ecified deficiency anemia; [address] [facility] Screening [place] [address] Social History Tobacco Use Types [...] Name Priority Date/Time Associated Diagnosis Comme nts HEMOGLOBIN, BLOOD Routine 05/23/2014 11:39 Screening for other Results for this AM CDT and unspecified procedure ar e in deficiency anemia the result s section. CHOLESTEROL (TOTAL) Routine 05/23/2014 11:39 Screening for lip oid Results for this AM CDT disorders procedure are i n the results section. documented in this encounter Results (ABNORMAL) Cholesterol (Total) (05/23/2014 11:39 AM CDT) P athologist Signature Cholesterol 171 (H) 0 - 170 HP CONVERSION mg/dL Specimen Anatomical Collection Method Collection Time Receive d Time (Source) Location / / Volume Laterality 05/23/2014 11:39 05/23/2014 AM CDT 11:39 AM CDT Narrative HP CONVERSION - 05/23/2014 12:39 PM CDT Performed at [facility], [address] [place], [place] [id number] Marlena Choudhury MD LAB_1 Performing Organization Address [facility] Phon e Number HP CONVERSION Hemoglobin, Blood (05/23/2014 11:39 AM CDT) athologist Signature Hemoglobin 13.6 12.0 - 16.0 HP CONVERSION g/dL Specimen Anatomical Collection Method Collection Time Receive d Time (Source) Location / / Volume Laterality 05/23/2014 11:39 05/23/2014 AM CDT 11:39 AM CDT Narrative HP CONVERSION - 05/23/2014 12:30 PM CDT Performed at [facility], [address] [place] [address] Marlena Choudhury MD LAB_1 Performing Organization Address [facility] Phon e Number HP CONVERSION documented in this encounter Visit Diagnoses Diagnosis Screening for other and unspecified defi ciency anemia Screening for lipoid disorders documented in this encounter Care Teams Culinary Artist Relationship Specialty Start Date End Date Marlena Choudhury MD PCP - General 02/13/11 06/28/[address] [place] [address] [place] [address] documented as of this encounter
--- OUTSIDE RECORDS SUMMARY | 2022-08-12 09:08 | XMS_ITS | Encounter Summary ---
:2002 Author Organization [facility] Address [address] [place] [address] Care Team Providers Name Role Phone Marlena Choudhury MD Primary Care Provider Encounter Details Date Type Department Care Team Description 03/23/2020 Notes/Orders [address] Michael Christiansen Screening examination [address] Benja [place] [address] [phone] [place], [place] [id number] Social History Tobacco Use Types Packs/Day Years [...] Name Priority Date/Time Associated Diagnosis Comme nts 2019 NOVEL Routine 03/23/2020 11:48 Screening Results for this CORONAVIRUS AM CDT examination for procedure ar e in infectious disease the resul ts section. documented in this encounter Results Symptomatic - 2019 Novel Coronavirus (COVID-19) (03/23/2020 11:48 AM CDT) [facility] Method Time Signature SARS-CoV-2 NOT DETECTED [...] ders and patients using the following websites: https://www.[employer]intent[employer]/home/Co vid-19/HCP/[facility]/fact- sheet.html https://www.[employer]intent.[facility]/home/Co vid-19/Patients/ Quest[facility]D/fact-sheet.html This test has been authorized by the FDA under an Emergency Use Authorization (EUA) for us e by authorized laboratories. Due to the current public health emergen cy, [employer] is receiving a high volume o f [...] COVID-19 ca n be found at the [employer] website: www.[employer]OOK[employer].[facility]/Covid19. SHERI [employer] CARMELA, [address] [facility], [place], [address], KAELYN ARNOLD DO,MPH Specimen Anatomical Collection Method Collection Time Receive d Time (Source) Location / / Volume Laterality Swab (Source Non-blood 03/23/2020 11:48 03/23/2020 6:05 Required) Collection / AM CDT PM CDT Unknown Michael Christiansen MD LAB_1 Performing Organization Address City/State/[facility] Code Phon e Number [employer] [facility] [address] [facility]. [place], [place] [address] documented in this encounter Visit Diagnoses Diagnosis Screening examination for infectious dis ease Screening examination for unspecified in fectious disease documented in this encounter Additional Health Concerns Infection Onset Date Last Indicated Resolved Time R/O COVID19 03/23/2020 03/23/2020 03/30/2020 10:53 PM CDT documented as of this encounter Care Teams New Car Salesperson Relationship Specialty Start Date End Date Marlena Choudhury MD PCP - General 02/13/11 06/28/21 [address] [place] [address] documented as of this encounter
--- OUTSIDE RECORDS SUMMARY | 2022-08-12 09:08 | XMS_ITS | Encounter Summary ---
:2000 Author Organization [facility] Address [address], [place] [address] Care Team Providers Name Role Phone Marlena Choudhury MD Primary Care Provider Reason for Visit Reason Comments Illness laryngitis all week. and now fever, headache and body aches x 2 days Encounter Details Date Type Department Care Team Description 11/04/2019 Office Visit [facility] Mehdi Echavarria, Viral URI with cough (Primary Dx); Medicine MD Dysfunction of both eustachian tubes [address] [address] [place] [address] [phone] Social History Tobacco Use Types Packs/Day Years [...] Sign Reading Time Taken Comments Blood Pressure 120/67 11/04/2019 1:22 PM MOPPER Pulse 72 11/04/2019 1:22 PM MOPPER Temperature 37.1 ??C (98.8 ??F) 11/04/2019 1:22 PM MOPPER Respiratory Rate 16 11/04/2019 1:22 PM MOPPER Oxygen Saturation - - Inhaled Oxygen Concentration - - Weight 54.4 kg (120 lb) 11/04/2019 1:22 PM MOPPER Height - - Body Mass Index 18.38 11/01/2019 8:15 AM MOPPER Body Mass Index Percentile 13.04 % 11/04/2019 1:22 PM CS T Growth Chart: [facility] (Girls, 2-20 Years) documented in this encounter Patient Instructions Patient InstructionsMehdi Echavarria MD - 11/04/2019 1:20 PM CST Images from the original note were not included. Treatment Options for Eustachian Tube Dysfunction ??? Sudafed (Pseudoephedrine - Ask Pharmacist) 30-60 mg every 4-6 hours as tolerated. This can increase blood pressure and cause insomnia. ??? Afrin (Oxymetazoline) nasal spray, 2 sprays each nostril twice daily. ONLY FOR 3 DAYS, STOP FOR ONE WEEK, THEN RESUME FOR 3 DAYS. This medication can cause rebound nasal congestion if used continuously, so only use as directed ??? Nasal Steroid Tobias (Flonase/fluticasone) 2 sprays each nostril daily. Aim spray tip outwards and sniff in gently after spraying. Must be used routinely for at least 2 weeks. ??? Nasal saline irrigations once or twice daily. Rinses thick mucus away that can plug the eustachian tubes. ??? Pop ears gently. Coping with Colds: Viral upper respiratory infections The common cold, or viral upper respiratory infection, is uncomfortable, but usually just annoying. Rarely does a cold require a visit to the doctor. Often the best treatment to start with is self-caresteps at home. Self-care steps help prevent unnecessary visits to the doctor. Antibiotics do not work for a viral infection. Antibiotics are only effective for treating bacterialinfections. Using antibiotics when unnecessary increases the chances of developing infections resistant to treatment. This handout describes common symptoms of viral upper respiratory infections, ways to care for your cold, recommendations for when to call or see your doctor and tips for preventing colds. Also included are considerations especially for children. Children have colds more frequently than adults, often 5 to 8 colds yearly. How do you catch a cold? The easiest way to catch a cold is from other people, particularly by: ?? Nasal congestion ?? Runny nose ?? Mucus in the throat ?? Fever of 101??F (38??C) or higher ?? Cough ?? Sore throat ?? Loss of appetite ?? Fatigue ?? Difficulty sleeping Colored nasal discharge, sinus congestion and headaches also frequently accompany colds. But these symptoms do not necessarily indicate you have a serious infection. How long do colds usually last? A fever often occurs at the beginning of the cold. A mild cough may last 2 to 3 weeks after other symptoms improve. A cold will usually go away in 7 to 14 days, regardless of what you do. How can I manage my cold? What self-care steps are helpful? You can take several steps to minimize cold symptoms as you or your child wait for the cold to pass. Raise the humidity Sit in the bathroom with the hot shower running or use a humidifier or vaporizer (preferably with a cool mist). Empty and clean a humidifier daily following the police detention attendant???s instructions. Drink extra fluids Warm fluids are especially soothing for sore throats. Sleep with your head raised Raising your head on pillows helps ease nasal congestion. Gargle with salt water Gargling with homemade salt water (mix 1/4 teaspoon of salt in 8 ounces of warm water) helps relievea sore throat. Gnyk-qeq-dybehcp products also are available. To gargle, swish the salt water around in your mouth and then spit it out. Do not swallow it. Suck hard candy Hard candy is as effective for sore throats as cough drops. Only adults and teens should use hard candy to relieve a sore throat. Stay active Extra rest may be helpful. But generally you will feel better by remaining up and about. What pewm-gad-ydwnbpk medicines are helpful? Kbbo-pos-hzlnkjn medicines will not cure your cold or make it go away faster. Some zuma-jru-arnyyft medicines may decrease your discomfort. Decongestants, pain relievers and cough suppressants may provide temporary relief of sore throats, runny noses, coughing or minor aches. Follow the recommended dosage and precautions on the label. Check with your doctor before using klzl-rkc-yfbuyfb medicines if you are or have: ?? High blood pressure ?? Diabetes ?? Coronary artery disease ?? Thyroid disease Doctors generally do not recommend ukmy-jmq-miwaaqv medicines for children younger than 6 years old.Children younger than 2 years old should not take cold medicine. Salt water nasal spray (Emmons) helps keep sinuses clear. Pseudoephedrine (Sudafed) helps with nasal congestion and mucus in the throat. Use only during the daytime. Zinc gluconate (Cold-EEZE) taken within 24 hours of when cold symptoms begin is an kqyl-cbj-whekreq medicine that may decrease the length of a cold. Zinc gluconate may cause nausea and a bad taste in your mouth. Children, women and individuals who have chronic kidney or liver disease should not use zinc. Aspirin-containing medicine should not be used to treat cold symptoms in anyone younger than 21 years old. How can colds be prevented? To prevent the spread of viral upper respiratory infections: ?? Keep your distance from people who are coughing and sneezing ?? Wash your hands frequently ?? Cough or sneeze into a tissue, or into your clothing or elbow by bending your arm If you want more information on any medical topic, please contact the [employer]. A medical record clerk can help you. Website: [employer] Email: [email or web address] [address] (01/2018) ??[facility] documented in this encounter Progress Notes Mehdi Echavarria MD - 11/04/2019 1:20 PM CST Subjective Chief Complaint Patient presents with ??? Illness laryngitis all week. and now fever, headache and body aches x 2 days Sunni Serna is a 19 y.o. female who presents for evaluation of laryngitis, fever, and headache.The patient presents with her mother and together they report that she has had some laryngitis for the past week, but has otherwise been feeling fine. Last night, the patient developed a fever which persisted into this morning with a maximum temperature of 102?? F. She has also had a runny nose and congestion today along with headaches, body aches, and a mild cough. She has not had any chest pain or shortness of breath. She has no household sick contacts. She did get her flu shot on 09/13/2019. She takes NyQuil last night, but did not have any noticeable improvement. Her fever did improve this morning with the use of ibuprofen. Review of Systems A complete review of systems was negative except for above as mentioned in the HPI. Objective BP 120/67 (BP Location: Left Arm, BP Cuff Size: Regular) Pulse 72 Temp 98.8 ??F (37.1 ??C) (Oral) Resp 16 Wt 120 lb (54.4 kg) BMI 18.38 kg/m?? Physical Exam Constitutional: She is well-developed, well-nourished, and in no distress. HENT: Head: Normocephalic and atraumatic. Right Ear: External ear normal. Left Ear: External ear normal. Mouth/Throat: No oropharyngeal exudate. Bilateral serous effusions. Otherwise bilateral tympanic membranes are translucent, nonerythematous,and and light reflex is intact. Eyes: Conjunctivae are normal. Cardiovascular: Normal rate, regular rhythm and normal heart sounds. No murmur heard. Pulmonary/Chest: Effort normal and breath sounds normal. No respiratory distress. She has no wheezes. She has no rales. Lymphadenopathy: She has no cervical adenopathy. Neurological: She is alert. Skin: Skin is warm and dry. Psychiatric: Affect normal. Vitals reviewed. Assessment/Plan Sunni was seen today for illness. Diagnoses and all orders for this visit: Viral URI with cough Dysfunction of both eustachian tubes Upper respiratory infection - Likely viral in etiology. She has not had any significant cough and her lung sounds are normal. I did consider influenza, but feel this is less likely given her lack of significant respiratory symptoms. If she has any worsening or develops he is, she should let us know at which time Tamiflu would beconsidered. - Encouraged increased hydration to keep secretions thin and frequent hand washing - May use humidifier, OTC medications such as Vicks Vapor Rub, honey, cough suppressants for sleep aid including Dextromethorphan - Tylenol and/or Ibuprofen as needed for pain and fever control - Adequate rest Eustachian tube dysfunction - History is consistent with eustachian tube dysfunction. Exam also showed serous effusion. - I have recommended an OTC allergy medication such as Flonase and an OTC decongestant such as Sudafed. Mehdi Echavarria MD 11/04/2019 ER documented in this encounter Plan of Treatment Not on filedocumented as of this encounter Visit Diagnoses Diagnosis Viral URI with cough - Primary Acute upper respiratory infections of un specified site Dysfunction of both eustachian tubes Dysfunction of Eustachian tube documented in this encounter Care Teams Epic Ambulatory Specialists Relationship Specialty Start Date End Date Marlena Choudhury MD PCP - General 02/13/11 06/28/21 [address] [place] [address] documented as of this encounter
--- OUTSIDE RECORDS SUMMARY | 2022-08-12 09:08 | XMS_ITS | Encounter Summary ---
:2000 [facility] Address [address] [address] Care Team Providers Name Role Phone Marlena Choudhury MD Primary Care Provider Encounter Details Date Type Department Care Team Description 09/27/2019 Lab Visit [facility] [facility] Fever, unspecified fever [address] [place], [place] [id number] Social History Tobacco Use Types Packs/Day Years [...] Name Priority Date/Time Associated Diagnosis Comme nts CBC AND DIFFERENTIAL Routine 09/27/2019 9:45 AM Fever, unspeci fied Results for this PANEL SUPERVISOR/PORT DIRECTOR fever cause procedure are i n the results section. COMPLETE BLOOD Routine 09/27/2019 9:45 AM Fever, unspecified R esults for this COUNT-W/DIFF SUPERVISOR/PORT DIRECTOR fever cause procedure are i n the results section. documented in this encounter Results (ABNORMAL) Complete Blood Count-W/Diff (09/27/2019 9:45 AM SUPERVISOR/PORT DIRECTOR) Analysis Performed At Patho logist Time Signature WBC 3.8 3.5 - 10.5 09/27/2019 [facility] x10(9)/L 9:49 AM SUPERVISOR/PORT DIRECTOR LABORATORY RBC 4.71 3.90 - 09/27/2019 [facility] 5.03 9:49 AM SUPERVISOR/PORT DIRECTOR LABORATORY x10(12)/L Hemoglobin 14.3 12.0 - 09/27/2019 [facility] 15.5 g/dL 9:49 AM SUPERVISOR/PORT DIRECTOR LABORATORY HCT 43.4 34.9 - 09/27/2019 [facility] 44.5 % 9:49 AM SUPERVISOR/PORT DIRECTOR LABORATORY MCV 92.1 80.0 - 09/27/2019 [facility] 100.0 fL 9:49 AM SUPERVISOR/PORT DIRECTOR LABORATORY MCH 30.4 27.6 - 09/27/2019 [facility] 33.3 pg 9:49 AM SUPERVISOR/PORT DIRECTOR LABORATORY MCHC 32.9 31.5 - 09/27/2019 [facility] 35.2 g/dL 9:49 AM SUPERVISOR/PORT DIRECTOR LABORATORY RDW 12.6 11.9 - 09/27/2019 [facility] 15.5 % 9:49 AM SUPERVISOR/PORT DIRECTOR LABORATORY Platelets 131 (L) 150 - 450 09/27/2019 [facility] x10(9)/L 9:49 AM SUPERVISOR/PORT DIRECTOR LABORATORY Neutrophil 2.1 1.7 - 7.0 09/27/2019 [facility] Absolute 10(9)/L 9:49 AM SUPERVISOR/PORT DIRECTOR LABORATORY Lymphocyte 1.1 1.0 - 4.8 09/27/2019 [facility] Absolute 10(9)/L 9:49 AM SUPERVISOR/PORT DIRECTOR LABORATORY Monocytes 0.6 0.2 - 0.9 09/27/2019 [facility] Absolute 10(9)/L 9:49 AM SUPERVISOR/PORT DIRECTOR LABORATORY Eosinophil 0.1 0.0 - 0.5 09/27/2019 [facility] Absolute 10(9)/L 9:49 AM SUPERVISOR/PORT DIRECTOR LABORATORY Basophil 0.1 0.0 - 0.3 09/27/2019 [facility] Absolute 10(9)/L 9:49 AM SUPERVISOR/PORT DIRECTOR LABORATORY Specimen Anatomical Collection Method / Collection Time Recei marlyn Time (Source) Location / Volume Laterality Blood Venipuncture / 09/27/2019 9:45 09/27/2019 9:46 Unknown AM SUPERVISOR/PORT DIRECTOR AM SUPERVISOR/PORT DIRECTOR Eric Andrae [facility] LAB_1 Performing Organization Address City/State/ZIP Code Phon e Number [facility] [address] [facility] [place], [place] [address] documented in this encounter Visit Diagnoses Diagnosis Fever, unspecified fever cause documented in this encounter Care Teams Stacker Operator Relationship Specialty Start Date End Date Marlena Choudhury MD PCP - General 02/13/11 06/28/[address] [place] [address] documented as of this encounter
--- OUTSIDE RECORDS SUMMARY | 2022-08-12 09:08 | XMS_ITS | Encounter Summary ---
:2002 Author Organization [facility] Address [address] [address] Care Team Providers Name Role Phone Marlena Choudhury MD Primary Care Provider Reason for Visit Reason Comments IMMUNIZATIONS Encounter Details Date Type Department Care Team Description 07/02/2014 Nursing Visit [facility] NurseRoxanna Need for HPV [address] [facility] vaccination ([place] [address] Dx) [phone] Social History Tobacco Use Types Packs/Day Years [...] this encounter Visit Diagnoses Diagnosis Need for HPV vaccination - Primary Need for prophylactic vaccination and in oculation against other viral diseases documented in this encounter Care Teams Soda Flaker Relationship Specialty Start Date End Date Marlena Choudhury MD PCP - General 02/13/11 06/28/21 [address] [place] [id number] documented as of this encounter
--- OUTSIDE RECORDS SUMMARY | 2022-08-12 09:08 | XMS_ITS | Encounter Summary ---
:2000 [email or web address] Address [address] [address] Care Team Providers Name Role Phone Marlena Choudhury MD Primary Care Provider Reason for Visit Reason Comments CONSULT Enlarged adenoids Consult/Transfer Care (Routine) - Closed Specialty Diagnoses / Procedures Referred By Contact Refer red To Contact Diagnoses Adenoid enlargement Addis Kirk, PATylerC [address] [place] [address] Referral ID Status Reason Start Date Expiration Date Visits Requ ested Visits Authorized [id number] Closed 10/11/2019 01/09/2021 1 1 Encounter Details Date Type Department Care Team Description 11/01/2019 Office Visit [facility]ose, Tayla Pemberton, Nasal obstruction (Primary Dx); and Throat Snoring; [address] [facility] [address] Nasal congestion; [place] [address] Blvd Acute laryngitis [phone] [place], [place] [address] (Wo rk) Social History Tobacco Use Types [...] - Inhaled Oxygen Concentration - - Weight 54.7 kg (120 lb 8 oz) 11/01/2019 8:15 AM DIAGNOSTIC TECHNOLOGIST Height 172.1 cm (5' 7.75) 11/01/2019 8:15 AM DIAGNOSTIC TECHNOLOGIST Body Mass Index 18.46 11/01/2019 8:15 AM DIAGNOSTIC TECHNOLOGIST Body Mass Index Percentile 13.95 % 11/01/2019 8:15 AM CS T Growth Chart: [facility] (Girls, 2-20 Years) documented in this encounter Patient Instructions Patient InstructionsTayla Pemberton MD - 11/01/2019 8:[address] Tayla Pemberton Practice Locations: ARIANNA Franco [phone] [facility] Surgery Coordinator: [phone] [facility] - [address] [facility] [address] Appointment [phone] [place] [address] [facility] [address] Sunni, these are a few of the recommendations I have made for you today. Drink 8-10 glasses of water per day. Use Saline irrigations intranasally twice a day. Keep the head of the bed up at night (4 inch blocks or wedge under mattress). Facial steaming as needed. Mucinex 1200 mg in the morning and in the evening. Fruit Breezers Lozenges, made by [employer] for sore throat or cough. Avoid throat clearing. If using a steroid nasal spray, use this daily (2 sprays each side of the nose). Warm tea with honey. NOSTIC TECHNOLOGIST documented in this encounter Progress Notes Tayla Pemberton MD - 11/01/2019 8:00 AM CST Patient is here for evaluation of adenoid hypertrophy, snoring, and a chronic sense that she cannot breathe through her nose. She plays basketball and is in good physical condition. 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 History provided by patient and parents. Patient has not had food intolerance. Also has not had recurrent infections. Patient has had very loud snoring, without apnea. Restless sleep; no. Is a chronic mouth breather yes. No unexplained weight loss or night sweats. No FH of lymphomas, cancers. Maternal aunt with thyroid issues. Had adenoidectomy and tubes [place] [address] Baugh. She did have improvement for a period of time after that but doesn't recall exactly how long. No allergy symptoms and no switching from side to side. No asthma. Sense of smell seems normal when she can get air in. Generally in her normal state of health. A CT neck was done for adenopathy in the neck but no unusual sized lymphadenopathy was noted. Does feel fatigued a lot and does not feel she sleepswell, her dad adds that she is so busy she has a very stressful life and doesn't get enough rest. Patient has no respiratory, cardiovascular, endocrine, hematologic, dermatologic, gastrointestinal, genitourinary, musculoskeletal, neuro- psychiatric, or general/constitutional complaints of unexplained weight loss or fatigue. PMH, SH, and FH have been reviewed and updated in the medical record. Contributory findings include no bleeding issues or anesthesia issues for patient or family. No meds, no asthma. No chronic conditions. Exam: Body habitus is normal- quite thin but fit. Patient appears well and healthy and in no apparent distress. Breathing pattern is negative for stertor. She is mouth breathing. Vocal quality is hoarse- got a recent laryngitis. Head and face is normal in appearance with normal facial movement and occular motility. Ears, TM's and canals are normal with no evidence of retraction or middle ear fluid. External nasal exam is normal. Intranasal exam reveals congestion of the turbinates- topical decongestant is atomized on each side to reveal fairly good response. Lips, teeth, gums, oral cavity, and oralpharynx exam reveals no significant tonsil hypertrophy and normal appearing palate. Mandible is is not retrognathic. Neck, salivary glands and thyroid are normal to palpation and inspection with no masses or asymmetries- she has a few scattered lymph nodes that are not abnormally enlarged. Patient is grossly neurologically normal, with normal mood and affect and normal gait. Cooperative and developmen tally normal. CT neck is reviewed. There does appear to be adenoid tissue present. After verbal consent was obtained, Xylocaine/Neosynephrine spray was applied topically to each nasalpassage. Flexible nasopharyngolaryngoscopy was then done via the right and left nasal passage. Findings include; no obstructive adenoid tissue. There is some present but it is not obstructive in any significant way. Also there is a left septal deviation and large turbinate hypertrophy. No mucopus or polyps. The larynx reveals normal motion and some redness and edema of the vocal cords presently. A/P: Nasal obstruction/snoring Family/patient agree and understand, would like to proceed with conservative recommendations first; Flonase daily- prescribed, saline, head of bed up and humidity. CT of sinuses and return visit in [address] is clear and meds do not help we will order a sleep study. NOSTIC TECHNOLOGIST documented in this encounter Plan of Treatment Not on filedocumented as of this encounter Visit Diagnoses Diagnosis Nasal obstruction - Primary Other diseases of nasal cavity and sinus es Snoring Other dyspnea and respiratory abnormalit y Nasal congestion Other diseases of nasal cavity and sinus es Acute laryngitis Acute laryngitis, without mention of obs truction documented in this encounter Care Teams Historical Archeologist Relationship Specialty Start Date End Date Marlena Choudhury MD PCP - General 02/13/11 06/28/21 [address] [place] [place] [address] documented as of this encounter
--- OUTSIDE RECORDS SUMMARY | 2022-08-12 09:08 | XMS_ITS | Encounter Summary ---
:2000 Author Organization [facility] Address [address] [place] [address] Care Team Providers Name Role Phone Marlena Choudhury MD Primary Care Provider Reason for Referral Procedure/Equipment (Routine) - Incomplete Specialty Diagnoses / Procedures Referred By Contact Refer red To Contact Diagnoses Fever, unspecified fever cause Eric Abebe, Procedures XR Chest 2 Views [facility] [address] [place] [address] Referral ID Status Reason Start Date Expiration Date Visits V isits Requested Authorized [id number] Incomplete 09/27/2019 12/26/2020 1 1 ING UNIT MANAGER Reason for Visit Reason Comments Fever x 1 day BODY ACHES NIGHT SWEATS and chills Encounter Details Date Type Department Care Team Description 09/27/2019 Office Visit [place] [facility], Fever, unspecified fever cause (Primary Dx); Liz Jones Screening for streptococcal infection; [address] for screening for infections with a predominantly sexual mode of transmission; [address] [place] [address] [place], [place] [phone] Social History Tobacco Use Types Packs/Day Years [...] Sign Reading Time Taken Comments Blood Pressure 120/80 09/27/2019 8:45 AM NURSING UNIT MANAGER Pulse 80 09/27/2019 8:45 AM NURSING UNIT MANAGER Temperature 37.2 ??C (99 ??F) 09/27/2019 8:45 AM NURSING UNIT MANAGER Respiratory Rate - - Oxygen Saturation 100% 09/27/2019 8:45 AM NURSING UNIT MANAGER Inhaled Oxygen Concentration - - Weight 56.1 kg (123 lb 9.6 oz) 09/27/2019 8:45 AM NURSING UNIT MANAGER Height - - Body Mass Index - - documented in this encounter Progress Notes Eric Abebe, [facility] - 09/27/2019 8:40 AM CST Chief Complaint Patient presents with ??? Fever x 1 day ??? BODY ACHES ??? NIGHT SWEATS and chills Subjective: The patient is a 19-year-old female is here with her mother with concerns about fever, body aches and night sweats. Patient also notes chills and a mild cough. Maximum fever was greater than 101. Denies any shortness of breath wheezing. She is drinking well. Patient denies any sick contacts. Had her flu shot about a week ago. PMH: Patient Active Problem List Diagnosis ??? Vision impairment , Past Surgical History: Procedure Laterality Date ??? TYMPANOSTOMY TUBE PLACEMENT Medications: Current Outpatient Medications Medication Sig Dispense Refill ??? clindamycin-benzoyl peroxide (BENZACLIN) 1-5 % gel Apply topically two times a day. 50 g 11 ??? Multiple Vitamin (MULTI-VITAMIN OR) Take by mouth. ??? SUMAtriptan (IMITREX) 25 MG tablet Take 1 Tablet by mouth as needed for Migraine. May repeat onetablet after 2 hours if needed. Maximum 8 tabs/24 hours and 9 days/month 9 Tablet 2 No current facility-administered medications for this visit. Allergies: No Known Allergies Social Hx: Social History Socioeconomic History ??? Marital status: Single Spouse name: Not on file ??? Number of children: Not on file ??? Years of education: Not on file ??? Highest education level: Not on file Occupational History ??? Not on file Social Needs ??? Financial resource strain: Not on file ??? Food insecurity: Worry: Not on file Inability: Not on file ??? Transportation needs: Medical: Not on file Non-medical: Not on file Tobacco Use ??? Smoking status: Never Smoker ??? Smokeless tobacco: Never Used Substance and Sexual Activity ??? Alcohol use: Not on file ??? Drug use: Not on file ??? Sexual activity: Not on file Lifestyle ??? Physical activity: Days per week: Not on file Minutes per session: Not on file ??? Stress: Not on file Relationships ??? Social connections: Talks on phone: Not on file Gets together: Not on file Attends roman catholic service: Not on file Active member of club or organization: Not on file Attends meetings of clubs or organizations: Not on file Relationship status: Not on file ??? Intimate partner violence: Fear of current or ex partner: Not on file Emotionally abused: Not on file Physically abused: Not on file Forced sexual activity: Not on file Other Topics Concern ??? Bike Helmet No ??? City Water No ??? Exercise Not Asked ??? Guns in home No Comment: [email or web address] ??? Seat Belt No ??? Special Diet Not Asked ??? Weight Concern Not Asked Social History Narrative Lives with mother, father, twin sister (Blanca), and 6 year old sister. She is in 5th grade and playssoccer and basketball. No tobacco exposure. Family Hx: Family History Problem Relation Age of Onset ??? Cataract Maternal Grandfather ??? Migraines Mother ??? Migraines Maternal Aunt Review of Systems Pertinent items are noted in HPI. Objective: Physical Exam: BP 120/80 (BP Location: Right Arm, BP Cuff Size: Regular) Pulse 80 Temp 99 ??F (37.2 ??C) (Oral) Wt 123 lb 9.6 oz (56.1 kg) SpO2 100% General appearance: alert, cooperative, no distress, appears stated age HEAD: Normocephalic, without obvious abnormality, atraumatic, sinuses nontender to percussion EARS: normal TM's and external ear canals AU THROAT: lips, mucosa, and tongue normal; teeth and gums normal NECK: nontender, no nuchal rigidity, no masses CHEST: Normal chest wall and respirations. Clear to auscultation. HEART: Normal S1 and S2. Regular rhythm. No murmurs, gallops, or rubs. ABDOMEN: abdomen is soft without significant tenderness, masses, organomegaly or guarding NEURO: alert, oriented x3, affect appropriate, no focal neurological deficits, moves all extremitieswell EXTREMITY: Extremities warm to touch and pink Assessment: ICD-10-CM 1. Fever, unspecified fever cause R50.9 Complete Blood Count -W/Diff XR Chest 2 Views 2. Screening for streptococcal infection Z11.2 Rapid Strep Group A Waived 3. Encounter for screening for infections with a predominantly sexual mode of transmission Z11.3 4. Flu-like symptoms R68.89 Influenza Rapid Antigen (Peds only) Plan: Influenza a and B tests were negative. CBC and chest x-ray pending. Rapid strep test was negative. Symptoms likely viral. Symptomatic cares advised. I recommend rest, push fluids, Tylenol Motrin as needed for pain and or fever. Follow up at the clinic p.r.n. *This note was created using voice recognition software and may contain some research manager errors* ING UNIT MANAGER documented in this encounter Plan of Treatment Not on filedocumented as of this encounter Procedures Procedure Name Priority Date/Time Associated Diagnosis Comme nts INFLUENZA VIRUS STAT 09/27/2019 9:02 AM Flu-like symptoms R esults for this RAPID ANTIGEN NURSING UNIT MANAGER procedure are in the results section. GROUP A STREP Routine 09/27/2019 9:00 AM Screening for Results for this RESPIRATORY CULTURE NURSING UNIT MANAGER streptococcal procedu re are in infection the results section. GROUP A STREP Routine 09/27/2019 9:00 AM Screening for Results for this ANTIGEN SCREEN NURSING UNIT MANAGER streptococcal procedure ar e in infection the results section. documented in this encounter Results XR Chest 2 Views (09/27/2019 9:33 AM NURSING UNIT MANAGER) Anatomical Region Laterality Modality Chest, Lung Digital Radiography Specimen (Source) Anatomical Collection Method Collection Time Re ceived Time Location / / Volume Laterality 09/27/2019 9:28 AM NURSING UNIT MANAGER Impressions 09/27/2019 9:38 AM NURSING UNIT MANAGER COMPARISON: ??None. FINDINGS: ??Two views were obtained. [...] effusion. Appears to be some mild scoliosis. [facility] RAD GD Influenza Rapid Antigen (Peds only) (09/27/2019 9:02 AM NURSING UNIT MANAGER) Analysis Performed At Path logist Time Signature Influenza A Negative Negative 09/27/2019 [facility] Antigen 9:20 AM NURSING UNIT MANAGER LABORATORY Influenza B Negative Negative 09/27/2019 [facility] Antigen 9:20 AM NURSING UNIT MANAGER LABORATORY Specimen Anatomical Location Collection Method Collection Time Received Time (Source) / Laterality / Volume Swab (Source ENTIRE NASOPHARYNX Non-blood 09/27/2019 9:02 2018 9:07 Required) / Unknown Collection / AM NURSING UNIT MANAGER AM NURSING UNIT MANAGER Unknown Narrative [facility] - 09/27/2019 9:20 AM NURSING UNIT MANAGER A negative test is presumptive and it is recommended that the results be confirmed by viral culture or an FDA-cleared influenza A and B molecular assay. [facility] LAB_1 Performing Organization Address City/State/ZIP Code Phon e Number [facility] [address] [place], [place] [address] Group A Strep Respiratory Culture (09/27/2019 9:00 AM NURSING UNIT MANAGER) Patholo gist Method Time Signature Beta Strep No Group A 09/29/2019 [facility] Resp Cult Streptococcus 6:12 AM NURSING UNIT MANAGER HOSPITAL Isolated Specimen Anatomical Collection Method Collection Time Receive d Time (Source) Location / / Volume Laterality Swab (Source THROAT SWAB / Non-blood 09/27/2019 9:00 AM 09/27/20 Required) Unknown Collection / NURSING UNIT MANAGER 12:58 PM NURSING UNIT MANAGER Unknown Eric Abebe [facility] LAB_1 Performing Organization Address City/State/ZIP Code Phon e Number [address] [address] Rapid Strep Group A Waived (09/27/2019 9:00 AM NURSING UNIT MANAGER) Analysis Performed At Patho logist Time Signature Group A Rapid Negative Negative 09/27/2019 [facility] Screen 12:58 PM NURSING UNIT MANAGER LABORATORY Comment: [id number] Specimen Anatomical Collection Method Collection Time Receive d Time (Source) Location / / Volume Laterality Swab (Source THROAT SWAB / Non-blood 09/27/2019 9:00 AM 09/27/20 Required) Unknown Collection / NURSING UNIT MANAGER 12:55 PM NURSING UNIT MANAGER Unknown Eric Abebe [facility] LAB_1 Performing Organization Address City/[facility]/ZIP Code Phon e Number [facility] [address] [place], [place] [address] documented in this encounter Visit Diagnoses Diagnosis Fever, unspecified fever cause - Primary Screening for streptococcal infection Screening examination for other specifie d bacterial and spirochetal diseases Encounter for screening for infections w ith a predominantly sexual mode of transmission Flu-like symptoms Influenza with other respiratory manifes tations Fever, unspecified fever cause documented in this encounter Care Teams Glass Tube Bender Relationship Specialty Start Date End Date Marlena Choudhury MD PCP - General 02/13/11 06/28/21 [id number] [address] [address] documented as of this encounter
--- OUTSIDE RECORDS SUMMARY | 2022-08-12 09:08 | XMS_ITS | Encounter Summary ---
:2000 [facility] Address [address], [place] [address] Care Team Providers Name Role Phone Marlena Choudhury MD Primary Care Provider Reason for Referral Dental (Routine) - Incomplete Specialty Diagnoses / Procedures Referred By Contact Refer red To Contact Diagnoses Visit for [place] [address] [place] [address] Referral ID Status Reason Start Date Expiration Date Visits V isits Requested Authorized [id number] Incomplete 06/23/2017 12/20/2017 1 1 Scheduling Instructions If scheduling assistance is needed, neymar acuña inquire with the medical office staff upon exiting your appointment or contact the ordering clinic for recommended locations. This recommended service/s may not be co leticia by your insurance coverage. To find out your specific benefit coverage, please c all the number on your insurance card. Reason for Visit Reason Comments WELL CHILD EXAM Encounter Details Date Type Department Care Team Description 06/23/2017 Office Visit Marlena Bishop Encounter f or routine child health examination without abnormal findings (Primary Dx); Pediatrics MD Sandi Screening for developmental handicaps in resource economist; [address] [address] [address] Examination of ears and hearing[place] [address] [place], [place] Visit for dental examination ; [phone] Encounter for vitamin deficiency screeni ng; [phone] Screening for d eficiency anemia (Work) Social History Tobacco Use Types Packs/Day Years [...] Sign Reading Time Taken Comments Blood Pressure 110/66 06/23/2017 9:27 AM CDT Pulse - - Temperature - - Respiratory Rate - - Oxygen Saturation - - Inhaled Oxygen Concentration - - Weight 55.3 kg (122 lb) 06/23/2017 9:27 AM CDT Height 170.8 cm (5' 7.25) 06/23/2017 9:27 AM CDT Body Mass Index 18.97 06/23/2017 9:27 AM CDT Body Mass Index Percentile 34.38 % 06/23/2017 9:27 AM CD T Growth Chart: [facility] (Girls, 2-20 Years) documented in this encounter Progress Notes Marlena Choudhury MD - 06/23/2017 9:40 AM CDT Sunni Serna is a 17 y.o. female who is here for physical exam. Here with mother and twin sister. She has been doing well. Regular periods. Active in basketball and track at [employer]. Complete 10 system review of systems is negative. Doing well in school. Will be in 10th grade . Medications reviewed and updated. Review of patient's allergies indicates no known allergies. tobacco exposure : None Aware of bike and car safety. Vision: per ophthalmology Hearing:passed Objective: BP 110/66 Ht 5' 7.25 (170.8 cm) Wt 122 lb (98580 g) BMI 18.97 kg/m2 BMI@ Alert well-hydrated in no acute distress. HEENT: Atraumatic, normocephalic. TMs clear and mobile bilaterally. PERRLA extraocular movement is intact. Nasomucosal surface clear. Posterior oropharynx is clear Neck: The neck was supple, without masses, lymphadenopathy or tenderness. Respiratory: Normal respiratory effort. Lungs are clear with good breath sounds. Breasts: Normal breast exam, taught patient how to do monthly exam Heart: RR S1S2 without murmurs, rubs, or gallops. Abdomen: The abdomen was flat, soft and nontender without guarding rebound or masses. Genitalia : Normalfemale genitalia. Danny stage 4 Extremities: Full ROM without limitation, deformity or edema. Neuro: Normal Spine staight. Skin:Normal Assessment: 17 y.o. year-old with normal growth and development Plan: Immunizations up to date. Immunization History Administered Date(s) Administered ??? 4vHPV (Gardasil) 05/21/2014, 07/02/2014, 11/26/2014 ??? DTaP 2002, 2002, 2002, 05/09/2007 ??? DTaP/Hib 05/29/2003 ??? Flu Vac Preserv Free (3+yrs) 09/06/2005, 10/07/2005, 09/06/2006, 09/10/2007, 08/27/2008, 08/27/2009, 08/25/2010, 08/31/2011 ??? H1n1 Miv Sanofi 3+ Yr (Injected) 09/12/2009 ??? HepA Ped/Adol (1-18 yrs) 05/09/2007, 11/07/2007 ??? HepB Ped/Adol (0-19 yrs) 03/12/2003 ??? Hepatitis B-historical 2002, 2002 ??? Hib (ActHIB) 2002, 2002, 2002 ??? IPV (Polio) 2002, 2002, 2002, 05/09/2007 ??? Influenza (Fluarix or Fluzone 0.5, 3+ yrs) 09/23/2015, 09/02/2016 ??? Influenza LAIV (Nasal, 2-49 yrs) 07/13/2012 ??? Influenza Vaccine Q/LAIV Intranasal 2-49 yrs ([facility]) 10/08/2014 ??? MCV4 (Menactra) 05/21/2014 ??? MMR 03/12/2003 ??? MMRV (ProQuad) 05/09/2007 ??? Pneumococcal 7, PED 2002, 2002, 2002, 05/29/2003 ??? TDAP (BOOSTRIX) 05/21/2014 ??? Varicella 03/12/2003 CBC, iron and vit D pending Anticipatory guidance given. Preventative health, developmental issues discussed. Next physical in one to two years. documented in this encounter Plan of Treatment Scheduled Referrals Name Type Priority Associated Diagnoses Order S chedule DENTAL Referral Routine Visit for dental Ordered: CONSULTADULT-PEDS examination documented as of this encounter Results Vitamin D (In house) (06/23/2017 10:58 AM [...] - 06/23/2017 5:04 PM CDT Performed at [facility] [address] [place] [address] CLIA number [id number] Marlena Choudhury MD LAB_1 Performing Organization Address City/State/ZIP Code Phon e Number [facility] [address] [place] [address] Total Iron and Iron Binding Capacity (06/23/2017 [...] - 06/23/2017 4:19 PM CDT Performed at [facility] [address] [place] [address] CLIA number [id number] Marlena Choudhury MD LAB_1 Performing Organization Address [facility] Phon e Number [facility] [address] [place] [address] CBC - Complete Blood Count W/Diff (06/23/2017 10:58 AM CDT) P athologist Signature White Blood Cell 6.0 4.5 [...] - 06/23/2017 11:12 AM CDT Performed at [facility], [address] [place] [address] CLIA number [id number] Marlena Choudhury MD LAB_1 Performing Organization Address [facility] Phon e Number [facility] [address] [place] [address] documented in this encounter Visit Diagnoses Diagnosis Encounter for routine child health exami nation without abnormal findings - Primary Routine or child health check Screening for developmental handicaps in resource economist Examination of ears and hearing Other examination of ears and hearing Visit for dental examination Dental examination Encounter for vitamin deficiency screeni ng Screening for deficiency anemia Screening for other and unspecified defi ciency anemia Screening for deficiency anemia Screening for other and unspecified defi ciency anemia Encounter for vitamin deficiency screeni ng documented in this encounter Care Teams Charge Weigher Relationship Specialty Start Date End Date Marlena Choudhury MD PCP - General 02/13/11 06/28/[address] [place] [address] documented as of this encounter
--- OUTSIDE RECORDS SUMMARY | 2022-08-12 09:08 | XMS_ITS | Encounter Summary ---
:2002 Author Organization [facility] Address [address] [place] [address] Care Team Providers Name Role Phone Marlena Choudhury MD Primary Care Provider Reason for Referral Procedure/Equipment (Routine) - Incomplete Specialty Diagnoses / Procedures Referred By Contact Refer red To Contact Diagnoses LAD (lymphadenopathy) of right cervical region Addis Kirk PA-C Procedures CT Neck Soft Tissue W IV Cont [address] [place] [address] Referral ID Status Reason Start Date Expiration Date Visits V isits Requested Authorized [id number] Incomplete 09/13/2019 12/12/2020 1 1 Reason for Visit Reason Comments Headache ongoing problem w/ headaches for years; has brought up 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 Need for immunization [place] [address] PRIOR [place] [phone] [id number] Social History Tobacco Use Types Packs/Day Years [...] Sign Reading Time Taken Comments Blood Pressure 127/70 09/13/2019 4:03 PM CDT Pulse 60 09/13/2019 4:03 PM CDT Temperature - - Respiratory Rate - - Oxygen Saturation - - Inhaled Oxygen Concentration - - Weight 55.5 kg (122 lb 6.4 oz) 09/13/2019 4:03 PM CDT Height - - Body Mass Index - - documented in this encounter Progress Notes Addis Kirk PA-C - 09/13/2019 4:00 PM CDT SUBJECTIVE: Sunni is a 19 y.o. female presenting to clinic for multiple concerns. Noticed a lump on the right side of her neck this past summer-a few months ago. This area has seemed to gone down insize but is still prevalent if she pushes on the area. It is not tender. Has not noticed any overlying skin changes. No recent URI symptoms such as cough or sore throat, and no recent fever. Has been having ongoing issues with headaches for years. OTC medications have not been effective over recent months. Has a family history of migraine headaches. She describes her headaches are typically located behind an eye, does not currently have a headache. Often associated with fleeting nausea without emesis. Loud noises and bright lights do exacerbate her discomfort. Denies any preceding aura, visual disturbances, chest pain, difficulties breathing, confusion, vomiting, or abdominal discomfort. Has also been struggling with facial acne for years, is interested in trying a topical prescription medication to see if this may help. Past Medical History: Diagnosis Date ??? Viral warts, unspecified 12/07/2011 Outpatient Medications Prior to Visit Medication Sig Dispense Refill ??? Multiple Vitamin (MULTI-VITAMIN OR) Take by mouth. No facility-administered medications prior to visit. No [...] file Gets together: Not on file Attends sabianist service: Not on file Active member of [...] and playssoccer and basketball. No tobacco exposure. OBJECTIVE: Vital Signs: Reviewed. BP 127/70 (BP Location: Right Arm, BP Cuff Size: Regular) Pulse 60 Wt 122lb 6.4 oz (55.5 kg) General Appearance: Well-appearing, pleasant female, NAD. Head: No external abnormality noted, cranium nontender to palpation, no cervical point tenderness. Eyes: External exam is normal bilaterally. PERRL, EOM intact. Ears: Bilateral pinnae, canals and TMs normal. No evidence of underlying infection. Nose/Sinuses: No rhinorrhea or nasal congestion. Maxillary and frontal sinuses are nontender to palpation. Oropharynx/Mouth: Normal, mucous membranes moist. Posterior oropharynx is mildly injected without tonsillar enlargement, without redness or exudates. No PND. Patent airway. Neck: Supple without tenderness or thyromegaly. Noted a shotty right-side cervical LAD that is non-ttp, mobile and fleshy. No remaining LAD along neck area. Normal swallow. Respiratory: Lung sounds clear to auscultation without respiratory distress. Good breath sounds throughout. Cardiac: RRR without murmur. Skin: No rashes. Facial skin is mildly oily. Scattered, mixed comedonal and papularpustular acneiform lesions most notably in the T-zone, over the malar region, nose, and forehead. A few blackheads noted over the nose. No acne scars noted on the face. No acne lesions seen over upper arms, chest or back. Remainder of skin was normal. Neuro: CN II-XII, motor & sensory function all grossly intact. Normal gait. Normal strength and sensation. 2+ symmetric patellar reflexes. Labs/Imaging: Lab Visit on 09/13/2019 Component Date Value Ref Range Status ??? Mononucleosis Screen 09/13/2019 Negative Negative Final ??? HCG, Urine 09/13/2019 Negative Negative Final ??? WBC 09/13/2019 11.2* 3.5 - 10.5 x10(9)/L Final ??? RBC 09/13/2019 4.42 3.90 - 5.03 x10(12)/L Final ??? Hemoglobin 09/13/2019 13.2 12.0 - 15.5 g/dL Final ??? HCT 09/13/2019 41.0 34.9 - 44.5 % Final ??? MCV 09/13/2019 92.8 80.0 - 100.0 fL Final ??? MCH 09/13/2019 29.9 27.6 - 33.3 pg Final ??? MCHC 09/13/2019 32.2 31.5 - 35.2 g/dL Final ??? RDW 09/13/2019 12.6 11.9 - 15.5 % Final ??? Platelets 09/13/2019 287 150 - 450 x10(9)/L Final ??? Neutrophil Absolute 09/13/2019 6.7 1.7 - 7.0 10(9)/L Final ??? Lymphocyte Absolute 09/13/2019 3.2 1.0 - 4.8 10(9)/L Final ??? Monocytes Absolute 09/13/2019 0.7 0.2 - 0.9 10(9)/L Final ??? Eosinophil Absolute 09/13/2019 0.5 0.0 - 0.5 10(9)/L Final ??? Basophil Absolute 09/13/2019 0.1 0.0 - 0.3 10(9)/L Final ASSESSMENT: ICD-10-CM 1. LAD (lymphadenopathy) of right cervical region R59.0 Complete Blood Count W/Diff Mononucleosis Screen CT Neck Soft Tissue W IV Cont Test (Urine) 2. Migraine without aura and without status migrainosus, not intractable G43.009 SUMAtriptan (IMITREX) 25 MG tablet 3. Acne vulgaris L70.0 clindamycin-benzoyl peroxide (BENZACLIN) 1-5 % gel 4. Need for immunization against influenza Z23 Influenza IIV4 (Quadrivalent) 0.5 mL (10244) PLAN: 1. Lab and imaging results are pending. Results will determine further plan. 2. Rx: Initiated sumatriptan 25 mg, take as directed, for abortive headache measures. Reviewed medication profile. Supportive measures. 3. Rx: Clindamycin/benzoyl peroxide 1.5% gel apply BID to clean and dry skin. Risks, benefits, and alternatives of treatments discussed with the patient. Discussed using ifm-klclyjx-yvduewdaqi facial washes and moisturizers such as OTC Cetaphil or SeraVe. Encouraged to use sunblock while exposed to sunlight. Discussed the importance of adhering to the above program and not to pick/excoriate at current lesions. Also informed patient that her acne lesions may temporarily get worse/become more abundant before it improves. 4. Given influenza vaccine in clinic. Counseling completed for all immunization components that weregiven to the patient today. RTC as needed or if symptoms worsen/change/are not gradually improving. /SSBN ASSISTANT NAVIGATOR documented in this encounter Plan of Treatment Not on filedocumented as of this encounter Results CT Neck Soft Tissue W IV Cont (10/09/2019 5:46 PM SSN/SSBN ASSISTANT NAVIGATOR) Anatomical Region Laterality Modality Neck, C-Spine, Spine, Vascular Computed Tomography Specimen (Source) Anatomical Collection Method Collection Time Re ceived Time Location / / Volume Laterality 10/09/2019 5:22 PM SSN/SSBN ASSISTANT NAVIGATOR Impressions 10/09/2019 8:04 PM SSN/SSBN ASSISTANT NAVIGATOR INDICATION: Right-side cervical LAD x 3 months; [...] Enlarged adenoids. Addis Kirk PA-C RAD CT Test (Urine) (09/13/2019 5:03 PM CDT) P athologist Signature HCG, Urine Negative Negative 09/13/2019 PRIOR GARCIA 5:06 PM CDT LABORATORY Specimen Anatomical Collection Method Collection Time Receive d Time (Source) Location / / Volume Laterality Urine URINE SPECIMEN Non-blood 09/13/2019 5:03 PM 019 5:03 COLLECTION, CLEAN Collection / CDT PM CDT CATCH / Unknown Unknown Addis Kirk PA-C LAB_1 Performing Organization Address City/[facility]/[place]IP [facility] [place] Number [facility] [address] [place], [place] [address] Mononucleosis Screen (09/13/2019 4:58 PM CDT) Patholo gist Method Time Signature Mononucleosis Negative Negative 09/13/2019 [place] Screen 5:05 PM CDT LABORATORY Specimen Anatomical Collection Method / Collection Time Recei marlyn Time (Source) Location / Volume Laterality Blood Venipuncture / 09/13/2019 4:58 09/13/2019 4:58 Unknown PM CDT PM CDT Addis Kirk PA-C LAB_1 Performing Organization Address City/[facility]/ZIP [facility] Number [facility] [address] [place], [place] [address] documented in this encounter Visit Diagnoses Diagnosis LAD (lymphadenopathy) of right cervical region - Primary Migraine without aura and without status migrainosus, not intractable Migraine without aura, without mention o f intractable migraine without mention of status migrainosus Acne vulgaris Other acne Need for immunization against influenza Need for prophylactic vaccination and in oculation against influenza LAD (lymphadenopathy) of right cervical region documented in this encounter Care Teams Conditioning Room Worker Relationship Specialty Start Date End Date Marlena Choudhury MD PCP - General 02/13/11 06/28/21 [address] [place] [id number] documented as of this encounter
--- OUTSIDE RECORDS SUMMARY | 2022-08-12 09:08 | XMS_ITS | Encounter Summary ---
:2002 Author Organization [facility] Address [address] [place] [address] Care Team Providers Name Role Phone Marlena Choudhury MD Primary Care Provider Encounter Details Date Type Department Care Team Description 09/02/2016 Immunization [facility] Need for prophylactic [address] vacc [address] and [place] [address] influenza (Primary Dx) [phone] Social History Tobacco Use Types Packs/Day Years Used Date Smoking Tobacco: Never Alcohol Habits Answer Date Recorded [...] this encounter Visit Diagnoses Diagnosis Need for prophylactic vaccination and in oculation against influenza - Primary documented in this encounter Care Teams Overhead Worker Relationship Specialty Start Date End Date Marlena Choudhury MD PCP - General 02/13/11 06/28/21 [address] [place] [address] documented as of this encounter
--- OUTSIDE RECORDS SUMMARY | 2022-08-12 09:08 | XMS_ITS | Encounter Summary ---
:2002 [facility] Address [address] [place] [address] Care Team Providers Name Role Phone Marlena Choudhury MD Primary Care Provider Reason for Visit Reason Comments IMMUNIZATIONS Encounter Details Date Type Department Care Team Description 11/26/2014 Nursing Visit [facility]p Need fo r HPV Medicine vaccination (Primary [address] [place], [place] [id number] Social History Tobacco Use Types Packs/Day Years [...] diseases documented in this encounter Care Teams Supervisor Engine Repair Relationship Specialty Start Date End Date Marlena Choudhury MD PCP - General 02/13/11 06/28/21 [address] [place] [address] documented as of this encounter
--- OUTSIDE RECORDS SUMMARY | 2022-08-12 09:08 | XMS_ITS | Encounter Summary ---
:2002 Author Organization [facility] Address [address] [place] [address] Care Team Providers Name Role Phone Marlena Choudhury MD Primary Care Provider Encounter Details Date Type Department Care Team Description 10/08/2014 Immunization [facility] Need for influenza [address] [facility]. vacc ination (Primary Dx) [address] [place], [place] [address] Social History Tobacco Use Types Packs/Day Years [...] influenza documented in this encounter Care Teams Sock Boarder Relationship Specialty Start Date End Date Marlena Choudhury MD PCP - General 02/13/11 06/28/21 [address] [place] [address] documented as of this encounter
--- OUTSIDE RECORDS SUMMARY | 2022-08-12 09:08 | XMS_ITS | Encounter Summary ---
:2002 Author Organization [facility] Address [address] [place] [address] Care Team Providers Name Role Phone Marlena Choudhury MD Primary Care Provider Reason for Visit Reason Comments Video Visit migraine headache med check Encounter Details Date Type Department Care Team Description 05/12/2020 Telemedicine [facility] Addis Kirk, Migrain e without aura and without status migrainosus, not intractable (Primary Dx); Medicine PAFabio Menorrhagia with regular cycle; [address] [place] [address] [address] [phone] [place] [address] (Wo rk) Social History Tobacco Use Types [...] encounter Progress Notes Addis Kirk, MARY - 05/12/2020 10:00 AM CDT Subjective: Sunni is a 20 y.o. female, with known history of migraine headaches, presenting for a scheduled video visit for migraine headaches that has been intermittent over the last couple weeks. Reports letty will typically will get a migraine a couple days before her menstrual period, therefore once a month. Over the last couple months has had a migraine 2-3 times a month. Takes sumatriptan 25 mg, often has to repeat her dose which does improve her overall discomfort but does not fully abort her migraine. She would like to try hormonal OCP to see if this will help decrease frequency of her migraines associated with her menstrual cycle and help to improve her skin-acne. She has never been on an OCP in the past. Recently menstrual periods have been lasting 1 full week, can be heavy at times and crampy, regular occurring every 28-30 days. Has been sexually active in the past-last 6 months ago, not currently sexually active. Never a regular smoker. Denies any preceding aura, visual disturbances, chest pain/tightness, difficulties breathing, confusion, vomiting, or abdominal discomfort. Past Medical History: Diagnosis Date ??? Acne vulgaris 05/12/2020 ??? Migraine without aura and without status migrainosus, not intractable 05/12/2020 Outpatient Medications Prior to Visit Medication Sig Dispense Refill ??? clindamycin-benzoyl peroxide (BENZACLIN) 1-5 % gel Apply topically two times a day. 50 g 11 ??? fluticasone propionate (FLONASE) 50 MCG/ACT nasal solution Place 2 Sprays into both nostrils daily. 16 g 11 ??? Multiple Vitamin (MULTI-VITAMIN OR) Take by mouth. ??? SUMAtriptan (IMITREX) 25 MG tablet Take 1 Tablet by mouth as needed for Migraine. May repeat onetablet after 2 hours if needed. Maximum 8 tabs/24 hours and 9 days/month 9 Tablet 2 No facility-administered medications prior to visit. No [...] ??? 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 Occupation: Works Comment: [employer] Social Needs ??? Financial resource strain: Not on file ??? Food insecurity Worry: Not on file Inability: Not on file ??? Transportation needs Medical: Not on file Non-medical: Not on file Tobacco Use ??? Smoking status: Never Smoker ??? Smokeless tobacco: Never Used Substance and Sexual Activity ??? Alcohol use: Never Frequency: Never ??? Drug use: Not on file ??? Sexual activity: Not on file Lifestyle ??? Physical activity Days per week: Not on file Minutes per session: Not on file ??? Stress: Not on file Relationships ??? Social connections Talks on phone: Not on file Gets together: Not on file Attends jainism service: Not on file Active member of club or organization: Not on file Attends meetings of clubs or organizations: Not on file Relationship status: Not on file ??? Intimate partner violence Fear of current or ex partner: Not [...] with mother, father, twin sister (Blanca), and younger sister. Objective: General Appearance: Alert, well and comfortable-appearing, pleasant female, answers examiner's questions appropriately, NAD. Eyes: External exam is normal bilaterally-no conjunctival injection or I tearing bilaterally. Nose: No rhinorrhea present. Neck: No anterior neck swelling consistent with goiter. Normal swallow. Respiratory: Easy effort of breathing without respiratory distress. No audible wheeze. No active cough. No visible retractions. Skin: No rashes. Facial skin is mildly oily. Scattered, mixed comedonal and papularpustular acneiform lesions most notably in the T-zone, over the malar region, nose, and forehead. No acne lesions seenover upper arms, chest or back. Remainder of the surrounding skin is normal. Neuro: Alert and oriented. CN II-XII, motor & sensory function are all grossly intact. Normal gait-No instability noted. Psych: Well groomed and appropriately dressed. Does not appear overtly depressed or anxious. Assessment/Plan: ICD-10-CM 1. Migraine without aura and without status migrainosus, not intractable G43.009 SUMAtriptan (IMITREX) 50 MG tablet 2. Menorrhagia with regular cycle N92.0 levonorgestrel-ethinyl estrad (ALESSE) 0.1-20 MG-MCG tablet 3. Acne vulgaris L70.0 levonorgestrel-ethinyl estrad (ALESSE) 0.1-20 MG-MCG tablet Rx: Increased sumatriptan dose from 25 mg up to 50 mg to be taken as directed for abortive headache measures. Reviewed medication profile. Supportive measures. Rx: Iniated low-dose Alesse OCP for management of menstrual cycle and will monitor for symptomatic improvement of cyclical migraines in associated with onset menses. Reviewed medication profile, potential side effects and how to take effectively. Encouraged to contact the clinic if her frequency or severity of migraine headaches increase, otherwise provide an update via [employer] in a few months. Reviewed potentially worrisome signs/symptoms and was instructed to seek immediate medical attentionif these develop. Patient understood and agreed to above plan. Clinician located at home Patient located at home Billing based on: Maryann Kirk PA-C documented in this encounter Plan of Treatment Not on filedocumented as of this encounter Visit Diagnoses Diagnosis Migraine without aura and without status migrainosus, not intractable - Primary Migraine without aura, without mention o f intractable migraine without mention of status migrainosus Menorrhagia with regular cycle Excessive or frequent menstruation Acne vulgaris Other acne documented in this encounter Care Teams Sap Trainer Relationship Specialty Start Date End Date Marlena Choudhury MD PCP - General 02/13/11 06/28/21 [address] [place] [address] documented as of this encounter
--- OUTSIDE RECORDS SUMMARY | 2022-08-12 09:08 | XMS_ITS | Encounter Summary ---
:2002 Author Organization [facility] Address [address] [place] [address] Care Team Providers Name Role Phone Marlena Choudhury MD Primary Care Provider Reason for Visit Reason Comments Eye Exam Encounter Details Date Type Department Care Team Description 01/20/2017 Office Visit Aide Negro, OD Examination of eyes and vision (Primary Dx); Ophthalmology [address] [facility] Hyperopia, bilateral; [address] [facility] Refraction/accommodation disorder [address] [place], [place] [address] [phone] (Wo rk) Social History Tobacco Use Types [...] documented as of this encounter Progress Notes Aide Ayers, OD - 01/20/2017 2:30 PM CST Patient is alert and feels well. Medical history, current medications, and allergies reviewed. Routine eye exam. Assessment: ICD-10-CM 1. Examination of eyes and vision Z01.00 Refractive State, Determination Of - Bilateral 2. Hyperopia, bilateral H52.03 Refractive State, Determination Of - Bilateral 3. 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 Discussed findings with patient and patient's mother. Rx given for new glasses for prolonged near work. RTC 1 year or sooner as needed. ER CULLER documented in this encounter Plan of Treatment Not on filedocumented as of this encounter Visit Diagnoses Diagnosis Examination of eyes and vision - Primary Hyperopia, bilateral Refraction/accommodation disorder Unspecified disorder of refraction and a ccommodation documented in this encounter Care Teams Ship Fitter Relationship Specialty Start Date End Date Marlena Choudhury MD PCP - General 02/13/11 06/28/21 [address] [place] [address] documented as of this encounter
--- OUTSIDE RECORDS SUMMARY | 2022-08-12 09:08 | XMS_ITS | Encounter Summary ---
:2002 [address] [facility] Address [address] [place] [address] Care Team Providers Name Role Phone Marlena Choudhury MD Primary Care Provider Reason for Visit Reason Comments Test Results Encounter Details Date Type Department Care Team Description 09/27/2019 Telephone [facility] Eric De Jesus, Test Results [address] [place] [address] [address] [phone] [address] [place], [place] [address] (Wo rk) Social History Tobacco Use Types [...] documented as of this encounter Nursing Notes Le Luther LPN - 09/27/2019 10:31 AM CST Nurse spoke with Dr. Abebe, Blood work and chest X-ray came back normal. Pt's mother notified via . DDING MACHINE TENDER documented in this encounter Plan of Treatment Not on filedocumented as of this encounter Visit Diagnoses Not on filedocumented in this encounter Care Teams Radio Mechanic Apprentice Relationship Specialty Start Date End Date Marlena Choudhury MD PCP - General 02/13/11 06/28/21 [address] [place] [address] documented as of this encounter
--- OUTSIDE RECORDS SUMMARY | 2022-08-12 09:08 | XMS_ITS | Encounter Summary ---
:2002 Author Organization [facility] Address [address] [address] Care Team Providers Name Role Phone Marlena Choudhury MD Primary Care Provider Encounter Details Date Type Department Care Team Description 09/13/2019 Lab Visit [facility] LAD (lymphadenopathy) of [address] right cervical region [place], [place] [id number] Social History Tobacco Use Types Packs/Day Years [...] Procedure Name Priority Date/Time Associated Comments Diagnosis TEST STAT 09/13/2019 5:03 PM LAD Results for this (URINE) CDT (lymphadenopathy) procedure are in of right cervical the result s region section. CBC AND DIFFERENTIAL Routine 09/13/2019 4:58 PM LAD R esults for this PANEL CDT (lymphadenopathy) procedure are in of right cervical the result s region section. COMPLETE BLOOD Routine 09/13/2019 4:58 PM LAD Results for this COUNT-W/DIFF CDT (lymphadenopathy) procedure are in of right cervical the result s region section. MONO TEST Routine 09/13/2019 4:58 PM LAD Results f or this CDT (lymphadenopathy) procedure are in of right cervical the result s region section. documented in this encounter Results Test (Urine) (09/13/2019 5:03 PM CDT) P [...] Address City/State/ZIP Code Phon e Number [facility] [address] [place], [place] [address] (ABNORMAL) Complete Blood Count-W/Diff (09/13/2019 4:58 PM CDT) Patholo gist Method Time Signature WBC 11.2 (H) 3.5 - 10.5 09/13/2019 [facility] x10(9)/L 5:00 PM CDT LABORATORY RBC 4.42 3.90 - 09/13/2019 [facility] 5.03 5:00 PM CDT LABORATORY x10(12)/L Hemoglobin 13.2 12.0 - 09/13/2019 [facility] 15.5 g/dL 5:00 PM CDT LABORATORY HCT 41.0 34.9 - 09/13/2019 [facility] 44.5 % 5:00 PM CDT LABORATORY MCV 92.8 80.0 - 09/13/2019 [facility] 100.0 fL 5:00 PM CDT LABORATORY MCH 29.9 27.6 - 09/13/2019 [facility] 33.3 pg 5:00 PM CDT LABORATORY MCHC 32.2 31.5 - 09/13/2019 [facility] 35.2 g/dL 5:00 PM CDT LABORATORY RDW 12.6 11.9 - 09/13/2019 [facility] 15.5 % 5:00 PM CDT LABORATORY Platelets 287 150 - 450 09/13/2019 [facility] x10(9)/L 5:00 PM CDT LABORATORY Neutrophil 6.7 1.7 - 7.0 09/13/2019 [facility] Absolute 10(9)/L 5:00 PM CDT LABORATORY Lymphocyte 3.2 1.0 - 4.8 09/13/2019 [facility] Absolute 10(9)/L 5:00 PM CDT LABORATORY Monocytes 0.7 0.2 - 0.9 09/13/2019 [facility] Absolute 10(9)/L 5:00 PM CDT LABORATORY Eosinophil 0.5 0.0 - 0.5 09/13/2019 [facility] Absolute 10(9)/L 5:00 PM CDT LABORATORY Basophil 0.1 0.0 - 0.3 09/13/2019 [facility] Absolute 10(9)/L 5:00 PM CDT LABORATORY Specimen Anatomical Collection Method / Collection Time Recei marlyn Time (Source) Location / Volume Laterality Blood Venipuncture / 09/13/2019 4:58 09/13/2019 4:58 Unknown PM CDT PM CDT Addis Kirk PA-C LAB_1 Performing Organization Address City/[facility]/ZIP [facility] Phon e Number [facility] [address] [place] [address] Mononucleosis Screen (09/13/2019 4:58 PM CDT) [facility] gist Method Time Signature Mononucleosis Negative Negative 09/13/2019 [facility] Screen 5:05 PM CDT LABORATORY Specimen Anatomical Collection Method / Collection Time Recei marlyn Time (Source) Location / Volume Laterality Blood Venipuncture / 09/13/2019 4:58 09/13/2019 4:58 Unknown PM CDT PM CDT Addis Kirk PA-C LAB_1 Performing Organization Address City/[facility] Phon e Number [facility] [address] [place] [address] documented in this encounter Visit Diagnoses Diagnosis LAD (lymphadenopathy) of right cervical region documented in this encounter Care Teams Dumpster Operator Relationship Specialty Start Date End Date Marlena Choudhury MD PCP - General 02/13/11 06/28/21 [address] [place] [address] documented as of this encounter
--- OUTSIDE RECORDS SUMMARY | 2022-08-12 09:09 | XMS_ITS | Encounter Summary ---
:2002 Author Organization [facility] Address [address] [place] [address] Care Team Providers Name Role Phone Marlena Choudhury MD Primary Care Provider Encounter Details Date Type Department Care Team Description 05/12/2010 [facility] [place] [address] [address] [place] [address] [place], [place] [phone] (Wo rk) Social History Tobacco Use Types [...] Sign Reading Time Taken Comments Blood Pressure 106/64 05/12/2010 10:09 AM CDT Pulse - - Temperature - - Respiratory Rate - - Oxygen Saturation - - Inhaled Oxygen Concentration - - Weight 28.1 kg (61 lb 15.9 oz) 05/12/2010 10:09 AM C: 2 8.1kg CDT Height 137.2 cm (4' 6) 05/12/2010 10:09 AM C: 137.2cm CDT Body Mass Index 14.95 05/12/2010 10:09 AM CDT Body Mass Index Percentile 28.79 % 05/12/2010 10:09 AM CDT Growth Chart: CDC (Girls, 2-20 Years) documented in this encounter Progress Notes Marlena Choudhury MD - 05/12/2010 12:01 AM CDT Progress Notes signed by Marlena Choudhury MD at 05/20/10 1751 Author: Marlena Choudhury MD Service: (none) Author Type: Physician Filed: 03/05/11 3047 Note Time: 05/12/10 0001 Status: Signed Cloth Finishing Range Operator: Marlena Choudhury MD (Physician) Sunni is an 10 year old who is here for physical exam. She's been doing extremely well. Complete 10 system review of systems is negative. Medications : No scheduled medications. Medications reviewed and updated on [facility] med list. Drug Allergies :No known allergies. Latex Sensitivities : No latex sensitivities No tobacco exposure. Uses bike helmet and seat belt regularly.. Vision:normal Objective Vitals: Height 54 inches, 95th percentile, weight 62 pounds, 75th percentile, BMI 14.9, blood pressure 106/64 Alert well-hydrated in no acute distress. HEENT : Atraumatic, normocephalic. TMs clear and mobile bilaterally. [...] rebound or masses. Genitalia : Normal female prepubertal genitalia. Extremities: Full ROM without limitation, deformity or edema. Neuro: Normal Spine staight. Neuro; normal Skin :Normal Assessment : 10 year-old with normal growth and development Plan : Immunizations up-to-date. Anticipatory guidance given. Preventative health, developmental issues discussed. Next physical in one to two years. documented in this encounter Plan of Treatment Not on filedocumented as of this encounter Visit Diagnoses Not on filedocumented in this encounter Care Teams Integrated Marketing Specialist Relationship Specialty Start Date End Date Marlena Choudhury MD PCP - General 02/13/11 06/28/21 [address] [place] [address] documented as of this encounter
--- OUTSIDE RECORDS SUMMARY | 2022-08-12 09:09 | XMS_ITS | Encounter Summary ---
:2002 Author Organization [facility] Address [address] [address] Care Team Providers Name Role Phone Marlena Choudhury MD Primary Care Provider Encounter Details Date Type Department Care Team Description 11/21/2008 PN Conversion Only [facility] CONVERSIO N Raul éPrez, [address] [place] [address] [address] [place] [address] Social History Tobacco Use Types Packs/Day Years [...] Name Priority Date/Time Associated Diagnosis Comme nts STREP GROUP A Routine 11/21/2008 2:32 PM Results for this ANTIGEN TEST PSYCHOLOGIST PERSONNEL procedure are i n the results section. documented in this encounter Results Strep Group A Antigen Test (11/21/2008 2:32 PM PSYCHOLOGIST PERSONNEL) Analysis Performed At [facility] Time Signature Strep Group A Positive Negative [facility] CONVERSION Antigen Test Specimen (Source) Anatomical Collection Method Collection Time Re ceived Time Location / / Volume Laterality 11/21/2008 2:32 PM PSYCHOLOGIST PERSONNEL Raul Pérez MD LAB_1 Performing Organization Address City/State/ZIP Code Phon e Number [facility] CONVERSION documented in this encounter Visit Diagnoses Not on filedocumented in this encounter Care Teams Static Balancer Relationship Specialty Start Date End Date Marlena Choudhury MD PCP - General 02/13/11 06/28/21 [address] [place] [id number] documented as of this encounter
--- OUTSIDE RECORDS SUMMARY | 2022-08-12 09:09 | XMS_ITS | Encounter Summary ---
:2002 Author Organization [facility] Address [address] [address] Care Team Providers Name Role Phone Marlena Choudhury MD Primary Care Provider Encounter Details Date Type Department Care Team Description 08/26/2009 PN Conversion Only TIOGA CONVERSIO N [address] [place] [address] Social History Tobacco Use Types Packs/Day Years [...] on filedocumented in this encounter Care Teams Charrer Relationship Specialty Start Date End Date Marlena Choudhury MD PCP - General 02/13/11 06/28/21 [address] [place] [place] [address] documented as of this encounter
--- OUTSIDE RECORDS SUMMARY | 2022-08-12 09:09 | XMS_ITS | Encounter Summary ---
:[address] [facility] [address] Address [address] [place] [address] Care Team Providers Name Role Phone Marlena Choudhury MD Primary Care Provider Reason for Visit Reason Comments SKIN PROBLEM Encounter Details Date Type Department Care Team Description 12/07/2011 Office Visit [facility] Demar Hernandez warts, [facility] MD Kathi unspecified (Primary [address] [facility] [address] [facility] [place] [address] [address] [place], [place] [phone] Social History Tobacco Use Types Packs/Day Years [...] documented as of this encounter Progress Notes Demar Hernandez MD - 12/07/2011 2:36 PM CST Procedure Note: Skin Lesion Destruction CHIEF COMPLAINT: Skin wart(s) History: 11 y.o. female here for evaluation/treatment of warts. Warts have been treated before: yes - Cryotherapy [address] Burrell Has been present for 6+ months. Location: finger - right 3rd, left 1st and 4th, foot - left and chin (3) Description: verrucous papule consistent with a benign wart. Number of Lesions Treated @ This Site: 8 Size of largest lesion: 3 mm. ASSESSMENT: Wart(s) (078.10) PROCEDURE NOTE: Hyperkeratotic tissue of wart(s) was pared with a scalpel blade. Liquid nitrogen applied to freeze the entire lesion(s) including a narrow margin of surrounding skin. Lesions on chin only lightly frozen PLAN: Return to clinic in 3 weeks, sooner PRN problems or concerns. *SH~PC~SLD ~Shorthand Note completed on: 07/06/2011 2:43 PM documented in this encounter Plan of Treatment Not on filedocumented as of this encounter Visit Diagnoses Diagnosis Viral warts, unspecified - Primary documented in this encounter Care Teams Electronics Manufacturer Relationship Specialty Start Date End Date Marlena Choudhury MD PCP - General 02/13/11 06/28/21 [address] [place] [address] documented as of this encounter
--- OUTSIDE RECORDS SUMMARY | 2022-08-12 09:09 | XMS_ITS | Encounter Summary ---
:2002 Author Organization [facility] Address [address] [address] Care Team Providers Name Role Phone Marlena Choudhury MD Primary Care Provider Reason for Visit Reason Comments WELL CHILD EXAM Encounter Details Date Type Department Care Team Description 07/13/2012 Office Visit [facility] Lupe Day, Routine child health exam (P rimary Dx); [address] Vian[address] Nunez MD Need for influenza vaccination; [place] [address] Vian[address] Lopez Examination of eyes and vision; [phone] [place], [place] Other examina tion of ears and hearing [address] (Wo rk) Social History Tobacco Use [...] Sign Reading Time Taken Comments Blood Pressure 100/60 07/13/2012 3:06 PM CDT Pulse - - Temperature - - Respiratory Rate - - Oxygen Saturation - - Inhaled Oxygen Concentration - - Weight 34.5 kg (76 lb) 07/13/2012 3:06 PM CDT Height 149.9 cm (4' 11) 07/13/2012 3:06 PM CDT Body Mass Index 15.35 07/13/2012 3:06 PM CDT Body Mass Index Percentile 19.82 % 07/13/2012 3:06 PM CD T Growth Chart: [facility] (Girls, 2-20 Years) documented in this encounter Progress Notes Lupe Day MD - 07/13/2012 3:50 PM CDT Subjective: Sunni Serna is a 12 y.o. female who was brought in by her mother for this well child visit. Interval History: No significant illness or injury. Problem list reviewed and updated. Concerns: Current parental concerns include: none. Current patient concerns include: none Review of Nutrition: adequate dairy, skim milk, varied table foods including iron and picky eater Review of Systems: Hearing/Vision: No concerns. 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 She was seen by Ophtho about 2 years ago due to some headaches and eye strain.She does not wear corrective lenses. Elimination: soft and regular Sleep: generally restful sleep Dental Care: brushing at least daily and regular dental visits Menstruation: none A complete review of systems was negative except as mentioned otherwise. Habits and Concerns: Patient's habits and concerns section was reviewed and updated as appropriate. Behavioral and Development Screens and Surveillance: Tool: PSC Result:wnl for age The screening tool is scanned into the EMR. Past Medical History Diagnosis Date ??? Viral warts, unspecified 12/07/2011 Past Surgical History Procedure Date ??? Tympanostomy tube placement No family history on file. Medications: Current Medications: Reviewed and updated as necessary in EMR. Family and Social History: History Social History Narrative Lives with mother, father, twin sister (Blanca), and 6 year old sister. She is in 5th grade and playssoccer and basketball. No tobacco exposure. Safety: She is properly restrained when riding in an automobile. She does always use bike helmet. Mood: denies mood disturbance. Past Medical History, Problem List, Family History, Social History, Medications, Allergies, and Immunizations reviewed from EMR. EMR has been updated. Objective: Growth parameters are noted and are appropriate for age. BP 100/60 Ht 4' 11 (149.9 cm) Wt 76 lb (83745 g) BMI 15.35 kg/m2 General: active, alert, no distress and interacts appropriately for age Head: normal shape and size Eyes: Conjunctivae normal, pupils equal and reactive and EOMI ENT: Ears: no deformity, normal TM's, Nose: normal, no obstruction and Mouth: oropharynx normal without lesion Neck: normal, full range of motion, no mass Chest: normal respiratory effort, lungs clear to auscultation, normal shape, normal breathing pattern Heart: regular rate and rhythm, normal heart sounds, no murmurs lying sitting or standing. Abdomen: normal appearance, soft, non-tender, without organ enlargements, no masses Genitourinary: normal female. Danny stage 3 Musculoskeletal: No scoliosis. Normal duck walk, quick standing, and tiptoe walking without pain. Skin: no abnormal rash or lesions Neurologic: non focal, normal strength, normal tone, age-appropriate responsiveness and reflexes, symmetric movements Vision: 20/20 right 20/25 left Hearin db at 1000 Hz for the left ear, otherwise normal. Assessment/Plan: Healthy 12 y.o. 4 m.o. female. Patient Active Problem List Diagnoses Code ??? Vision impairment I recommend that she return to Ophthalmology for further assessment. Health Maintenance Plan: 1. Anticipatory Guidance: Questions and concerns discussed, standard AVS handout given Healthy habits discussed. Gave CRS handout on well-child issues at this age, Specific topics reviewed:, importance of varied diet, the process of puberty, importance of regular dental care, seat belts, bicycle helmets, importance of regular exercise 2. Vaccinations and Other orders: discussed and given per protocol Flu mist given Counseling completed for all immunization components that were given to the patient today: yes 3. Follow-up visit in 1 year for next well child visit, or sooner as needed. documented in this encounter Plan of Treatment Not on filedocumented as of this encounter Visit Diagnoses Diagnosis Need for influenza vaccination Need for prophylactic vaccination and in oculation against influenza Examination of eyes and vision Other examination of ears and hearing documented in this encounter Care Teams Cloth Wire Weaver Relationship Specialty Start Date End Date Marlena Choudhury MD PCP - General 02/13/11 06/28/21 [address] [place] [address] documented as of this encounter
--- OUTSIDE RECORDS SUMMARY | 2022-08-12 09:09 | XMS_ITS | Encounter Summary ---
:2002 Author Organization [facility] Address [address], [place] [address] Care Team Providers Name Role Phone Marlena Choudhury MD Primary Care Provider Encounter Details Date Type Department Care Team Description 12/01/2010 PN Conversion Only [facility] [address] [address] [place] [address] Social History Tobacco Use Types Packs/Day Years [...] on filedocumented in this encounter Care Teams Commissary Manager Relationship Specialty Start Date End Date Marlena Choudhury MD PCP - General 02/13/11 06/28/21 [address] [place] CHAN [place] [id number] documented as of this encounter
--- OUTSIDE RECORDS SUMMARY | 2022-08-12 09:09 | XMS_ITS | Encounter Summary ---
:2002 Author Organization [email or web address] Address [address] [place] [address] Care Team Providers Name Role Phone Marlena Choudhury MD Primary Care Provider Reason for Visit Reason Comments SYDNEE WADSWORTH Encounter Details Date Type Department Care Team Description 11/10/2011 Office Visit [facility] s Lupe Day, Viral warts, unspecified (Pr imary Dx); [address] [address] Nunez [place] [address] Vianey Lopez [phone] [place], [place] [phone] (Wo rk) Social History Tobacco Use Types [...] Pressure - - Pulse - - Temperature 36.1 ??C (97 ??F) 11/10/2011 1:48 PM BROADBAND TECHNICIAN Respiratory Rate - - Oxygen Saturation - - Inhaled Oxygen Concentration - - Weight 34 kg (75 lb) 11/10/2011 1:48 PM BROADBAND TECHNICIAN Height - - Body Mass Index - - documented in this encounter Patient Instructions Patient InstructionsLupe Day MD - 11/10/2011 2:00 PM CST [facility] [address] - Dr. Hernandez in [facility]. DBAND TECHNICIAN documented in this encounter Progress Notes Lupe Day MD - 11/10/2011 2:49 PM CST S: The patient complains of warts on her hands and left foot present for the past 9 months. The family has tried several OTC treatments (Compound W, Freeze off) without any improvement. She also has a few bumps on her chin that have been there for a while. O: Temp 97 ??F (36.1 ??C) Wt 75 lb (32560 g) Exam discloses typical warts on the left ventral wrist on the radial side, lateral to the left thumbnail bed, left distal fourth finger, the base of the left thumb, the right base of the 3rd finger onthe ventral aspect, and at the tip of the left 2nd toe. She also has ? molluscum vs wart over the PIP of the left 4th finger. Three umbilicated pearly papules just to the right of the chin. A: Viral warts Molluscum contagiosum P: The treatments, side effects and failure rates are discussed. Liquid nitrogen was applied to eachwart. 4 freeze thaw cycles were completed on each. The possible skin reactions including erythema, pain, scabbing, blistering and hypopigmented scar formation were discussed. I discussed probable need for further treatment. I recommend she be seen by Skin Clinic to discuss treatment options of Molluscum. I explained to mother that molluscum will eventually go away on its own, but it has the tendency to spread. documented in this encounter Plan of Treatment Not on filedocumented as of this encounter Visit Diagnoses Diagnosis Viral warts, unspecified - Primary Molluscum contagiosum documented in this encounter Care Teams Violin Restorer Relationship Specialty Start Date End Date Marlena Choudhury MD PCP - General 02/13/11 06/28/21 [address] [place] [address] documented as of this encounter
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
--- OUTSIDE RECORDS SUMMARY | 2022-08-12 09:09 | XMS_ITS | Encounter Summary ---
:2002 Author Organization [facility] Address [address] [place] [address] Care Team Providers Name Role Phone Marlena Choudhury MD Primary Care Provider Encounter Details Date Type Department Care Team Description 12/01/2010 PN Conversion Only [place] [address] [facility] [place] [address] [address] [place] [address] Social History Tobacco Use Types Packs/Day Years [...] Procedure Name Priority Date/Time Associated Comments Diagnosis COMPLETE BLOOD Routine 12/01/2010 11:01 Results f or this COUNT-W/DIFF AM SCIENCE CONSULTANT procedure are i n the results section. DIFFERENTIAL Routine 12/01/2010 11:01 Results for this AM SCIENCE CONSULTANT procedure are i n the results section. AMYLASE Routine 12/01/2010 11:01 Results for this AM SCIENCE CONSULTANT procedure are i n the results section. C-REACTIVE PROTEIN Routine 12/01/2010 11:01 Resul ts for this AM SCIENCE CONSULTANT procedure are i n the results section. AST Routine 12/01/2010 11:01 Results for this AM SCIENCE CONSULTANT procedure are i n the results section. documented in this encounter Results Differential (12/01/2010 11:01 AM SCIENCE CONSULTANT) P athologist Signature Absolute 2.8 1.5 - 8.5 HP CONVERSION Neutrophils k/cmm Absolute 2.7 1.0 - 4.0 HP CONVERSION Lymphocytes k/cmm Absolute 0.4 0.2 - 1.0 HP CONVERSION Monocytes k/cmm Absolute 0.1 0.0 - 0.5 HP CONVERSION Eosinophils k/cmm Absolute 0.1 0.0 - 0.2 HP CONVERSION Basophils k/cmm Specimen (Source) Anatomical Collection Method Collection Time Re ceived Time Location / / Volume Laterality 12/01/2010 11:01 AM SCIENCE CONSULTANT Turner Ghosh MD LAB_1 Performing Organization Address City/State/ZIP Code Phon e Number HP CONVERSION Hemogram/Plts/Diff (12/01/2010 11:01 AM SCIENCE CONSULTANT) athologist Signature White Blood Cell 6.1 5.0 - 14.5 HP CONVERSIO N Count k/cmm Red Blood Cell 4.88 3.80 - HP CONVERSION Count 5.20 m/cmm Hemoglobin 14.1 11.5 - HP CONVERSION 15.0 g/dL Hematocrit 42.1 33.0 - HP CONVERSION 43.0 % Mean Corpuscular 86.3 77.0 - HP CONVERSION Volume 95.0 fL RDW 11.1 11.0 - HP CONVERSION 15.0 % Platelet Count 252 150 - 450 HP CONVERSION k/cmm Specimen (Source) Anatomical Collection Method Collection Time Re ceived Time Location / / Volume Laterality 12/01/2010 11:01 AM SCIENCE CONSULTANT Turner Ghosh MD LAB_1 Performing Organization Address City/State/ZIP Code Phon e Number HP CONVERSION C-Reactive Protein (12/01/2010 11:01 AM SCIENCE CONSULTANT) athologist Signature CRP <0.1 0.0 - 0.9 HP CONVERSION mg/dL Specimen (Source) Anatomical Collection Method Collection Time Re ceived Time Location / / Volume Laterality 12/01/2010 11:01 AM SCIENCE CONSULTANT Turner Ghosh MD LAB_1 Performing Organization Address City/State/ZIP Code Phon e Number HP CONVERSION AST (12/01/2010 11:01 AM SCIENCE CONSULTANT) Patholo gist Method Time Signature Aspartate 32 0 - 45 HP CONVERSION Aminotransferase U/L Specimen (Source) Anatomical Collection Method Collection Time Re ceived Time Location / / Volume Laterality 12/01/2010 11:01 AM SCIENCE CONSULTANT Turner Ghosh MD LAB_1 Performing Organization Address City/State/ZIP Code Phon e Number HP CONVERSION Amylase (12/01/2010 11:01 AM SCIENCE CONSULTANT) P athologist Signature Amylase Serum 67 25 - 115 HP CONVERSION U/L Specimen (Source) Anatomical Collection Method Collection Time Re ceived Time Location / / Volume Laterality 12/01/2010 11:01 AM SCIENCE CONSULTANT Turner Ghosh MD LAB_1 Performing Organization Address City/State/ZIP Code Phon e Number HP CONVERSION documented in this encounter Visit Diagnoses Not on filedocumented in this encounter Care Teams Strength And Conditioning Coach Relationship Specialty Start Date End Date Marlena Choudhury MD PCP - General 02/13/11 06/28/21 [address] [place] [address] documented as of this encounter
--- OUTSIDE RECORDS SUMMARY | 2022-08-12 09:09 | XMS_ITS | Encounter Summary ---
:2002 Author Organization [facility] Address [address] [place] [address] Care Team Providers Name Role Phone Marlena Choudhury MD Primary Care Provider Reason for Visit Reason Comments MASS Encounter Details Date Type Department Care Team Description 11/14/2012 Office Visit [facility] s Lupe Day, Palpable lymph node [address] Vianey Nunez MD (Primary Dx) [place] [address] Vianey Lopez [phone] [place] [address] (Wo rk) Social History Tobacco [...] Taken Comments Blood Pressure - - Pulse 74 11/14/2012 3:36 PM AUXILIARY EQUIPMENT TENDER Temperature 37 ??C (98.6 ??F) 11/14/2012 3:36 PM AUXILIARY EQUIPMENT TENDER Respiratory Rate - - Oxygen Saturation - - Inhaled Oxygen Concentration - - Weight 38.1 kg (84 lb) 11/14/2012 3:36 PM AUXILIARY EQUIPMENT TENDER Height - - Body Mass Index - - documented in this encounter Progress Notes Lupe Day MD - 11/14/2012 6:25 PM CST Subjective: Sunni Serna is here today with her mother with complaints of a small lump in her left cheek that she noticed about 1 month ago. The lump has not changed in size, is not painful, is mobile. She denies any preceding illness. She denies any recent malaise, weight loss, sore throat, dental problems/mouth sores, or fevers. Problem List, medical history, medications, and allergies were reviewed and updated as necessary in the EMR. Objective: PHYSICAL EXAM: Pulse 74 Temp(Src) 98.6 ??F (37 ??C) (Oral) Wt 84 lb (25809 g) General: NAD, interactive, well appearing Lymph: small (<0.5 cm) palpable mobile round mass a few cm inferiolateral to the left commissure of the lips. Non tender to palpation, no overlying erythema. No cervical LAD. Oropharynx: No oral lesions, no tonsillar exudates or erythema. Neck: Supple, no masses. No cervical lymphadenopathy. Skin: No rashes or lesions. Assessment: Palpable facial lymph node. Plan: Reassured patient and mother. This appears to be a normal lymph node. Follow up in 2 months for reassessment. documented in this encounter Plan of Treatment Not on filedocumented as of this encounter Visit Diagnoses Diagnosis Palpable lymph node - Primary Enlargement of lymph nodes documented in this encounter Care Teams Sterile Instrument Technician Relationship Specialty Start Date End Date Marlena Choudhury MD PCP - General 02/13/11 06/28/21 [address] [place] [address] documented as of this encounter
--- OUTSIDE RECORDS SUMMARY | 2022-08-12 09:09 | XMS_ITS | Encounter Summary ---
:2002 Author Organization [facility] Address [address] [place] [address] Care Team Providers Name Role Phone Marlena Choudhury MD Primary Care Provider Encounter Details Date Type Department Care Team Description 12/21/2009 Office Visit [facility] [place] [address] [address] [place] [address] [place], [place] [id number] Social History Tobacco Use Types Packs/Day Years [...] Taken Comments Blood Pressure - - Pulse 70 12/21/2009 10:06 AM DOUBLE END PRODUCTION GRINDER Temperature 36.6 ??C (97.9 ??F) 12/21/2009 10:06 AM C: 36.6 C DOUBLE END PRODUCTION GRINDER Respiratory Rate 18 12/21/2009 10:06 AM DOUBLE END PRODUCTION GRINDER Oxygen Saturation - - Inhaled Oxygen Concentration - - Weight 23.6 kg (51 lb 15.8 oz) 12/21/2009 10:06 AM C: 2 3.6kg DOUBLE END PRODUCTION GRINDER Height - - Body Mass Index - - documented in this encounter Plan of Treatment Not on filedocumented as of this encounter Visit Diagnoses Not on filedocumented in this encounter Care Teams Tax Clerk Relationship Specialty Start Date End Date Marlena Choudhury MD PCP - General 02/13/11 06/28/21 [address] [place] [address] documented as of this encounter
--- OUTSIDE RECORDS SUMMARY | 2022-08-12 09:09 | XMS_ITS | Encounter Summary ---
:2002 Author Organization [facility] Address [address] [place] [address] Care Team Providers Name Role Phone Marlena Choudhury MD Primary Care Provider Encounter Details Date Type Department Care Team Description 08/27/2009 [facility] Eric Abebe , [facility] [address] [place] [place] [address] [place] [address] [phone] (Wo rk) Social History Tobacco Use Types [...] on filedocumented in this encounter Care Teams Rail Crew Member Relationship Specialty Start Date End Date Marlena Choudhury MD PCP - General 02/13/11 06/28/21 [address] [place] [address] documented as of this encounter
--- OUTSIDE RECORDS SUMMARY | 2022-08-12 09:09 | XMS_ITS | Encounter Summary ---
:2002 Author Organization [facility] Address [address] [address] Care Team Providers Name Role Phone Marlena Choudhury MD Primary Care Provider Encounter Details Date Type Department Care Team Description 03/13/2011 PN Conversion Only [place] [address] [place] [address] Social History Tobacco Use Types Packs/Day Years [...] on filedocumented in this encounter Care Teams Mold Yard Crane Operator Relationship Specialty Start Date End Date Marlena Choudhury MD PCP - General 02/13/11 06/28/21 [address] [place] [address] documented as of this encounter
--- OUTSIDE RECORDS SUMMARY | 2022-08-12 09:09 | XMS_ITS | Encounter Summary ---
:2002 Author Organization [employer] [employer] [facility] Address [address] [place] [address] Care Team Providers Name Role Phone Marlena Choudhury MD Primary Care Provider Reason for Visit Reason Comments Pharyngitis Encounter Details Date Type Department Care Team Description 09/22/2011 Hospital Encounter [facility] Priti Perdomo, [place] pharyngitis Care PA-C [address] [place] [address] [facility] [phone] [place] [address] Social History Tobacco Use Types [...] Taken Comments Blood Pressure - - Pulse 96 09/22/2011 7:10 PM EMPLOYMENT SPECIALIST Temperature 36.8 ??C (98.2 ??F) 09/22/2011 7:10 PM EMPLOYMENT SPECIALIST Respiratory Rate 16 09/22/2011 7:10 PM EMPLOYMENT SPECIALIST Oxygen Saturation - - Inhaled Oxygen Concentration - - Weight 34 kg (75 lb) 09/22/2011 7:10 PM EMPLOYMENT SPECIALIST Height - - Body Mass Index - - documented in this encounter Medications at Time of Discharge Medication Sig Dispensed Refills Start Date End Date UNKNOWN MEDICATION Indications: PN: 0 12/01/2010 11/10/2011 UNKNOWN MEDICATION Indications: PN: 0 05/19/2005 11/10/2011 documented as of this encounter ED Notes Priti Perdomo PA-C - 09/22/2011 7:25 PM CST SUBJECTIVE: Sunni Serna is a 11 y.o. female who presents with Mom for evaluation of sore throat. Symptoms began 5 days ago. She is prone to strep per mom's report. Last strep was 1 year ago. Rates pain 8/10. Pain worsens with swallowing. Patient has tried Tylenol with mild improvement in symptoms. Recent sickcontacts: none. Patient has had other URI symptoms including: none. Fevers: none PMH: History reviewed. No pertinent past medical history. Allergies: No Known Allergies Medications: Reviewed in EMR ROS: No abdominal pain, nausea, or vomiting. No rashes. review of systems was negative OBJECTIVE: Filed Vitals: 09/22/11 1910 Pulse: 96 Temp: 36.8 ??C (98.3 ??F) TempSrc: Oral Resp: 16 Weight: 34.02 kg (75 lb) General: Patient does not appear acutely ill. Eyes: Full EOM, PERRLA, without lesions or injection. Ears: Canals and TM's normal without lesions. Nose: no obvious congestion Sinus:nontender Pharynx: No oral lesions. Moist mucosa. Minimal posterior pharyngeal erythema with a small amount ofcobblestoning noted. does not have injection. Tonsils are 2+ bilaterally. No tonsillar exudate. Uvula is midline. Airway is intact with normal phonation Neck: Supple, without tender lymphadenopathy. Respiratory: Normal respiratory effort. Lungs are clear with good breath sounds. Heart: RR without murmurs, rubs, or gallops. Abdomen: Nontender. No hepatosplenomegaly. Lab: Rapid strep is negative. Strep culture is pending. ASSESSMENT: 1. Pharyngitis PLAN: Suspect underlying viral etiology. The clinic will call if overnight throat culture returns positive. Discussed treatment of viral illnesses, and lack of indication for antibiotics. Encourage nutritious liquids. Use Tylenol/ ibuprofen for fever or pain. Encouraged throat lozenges and salt water gargles. Rest at home as needed until symptoms are improving. RTC p.r.n. if not gradually improving. The patient was discharged ambulatory and in stable condition.All questions were answered. OYMENT SPECIALIST documented in this encounter Plan of Treatment Not on filedocumented as of this encounter Procedures Procedure Name Priority Date/Time Associated Diagnosis Comme nts BETA STREP FOLLOWUP Routine 09/22/2011 7:49 PM Re sults for this EMPLOYMENT SPECIALIST procedure are i n the results section. RAPID STREP SCREEN STAT 09/22/2011 7:18 PM Acute pharyngiti s Results for this WAIVED EMPLOYMENT SPECIALIST procedure are i n the results section. documented in this encounter Results Beta Strep Followup (09/22/2011 7:49 PM EMPLOYMENT SPECIALIST) [facility] Method Time Signature Strep Screen No beta HP CONVERSION hemolytic Strep Group A isolated. Comment: ? ORDERED BY: PRITI PERDOMO SOURCE: Throat ? COLLECTED: ??09/22/11 19:49 ? PLATED: ? 09/22/11 19:49 Culture Strep, Follow up from Rapid Test ?? FINAL ? 09/23/11 08:16 No beta hemolytic Strep Group A isolate d. Specimen (Source) Anatomical Collection Method Collection Time Re ceived Time Location / / Volume Laterality Throat: 09/22/2011 7:49 PM EMPLOYMENT SPECIALIST Priti Perdomo PA-C LAB_1 Performing Organization Address City/State/ZIP Code Phon e Number HP CONVERSION Rapid Strep Screen Waived (09/22/2011 7:18 PM EMPLOYMENT SPECIALIST) Component Value Ref Test Analysis Performed At [facility] Kiddy Range Method Time Signature Rapid Strep Test performed HP CONVERSIO N Screen Waived by:chesng Rapid Strep Negative for HP CONVERSION Screen Waived Streptococcus group A Comment: ? ORDERED BY: PRITI PERDOMO SOURCE: Throat ? COLLECTED: ??09/22/11 19:18 ? PLATED: ? 09/22/11 19:49 Rapid Strep Screen Waived ?FINAL ? 09/22/11 19:50 ??Test performed by:nadine ? Negative for Streptococcus group A Specimen (Source) Anatomical Collection Method Collection Time Re ceived Time Location / / Volume Laterality Throat: 09/22/2011 7:18 PM EMPLOYMENT SPECIALIST Narrative HP CONVERSION - 09/22/2011 7:50 PM EMPLOYMENT SPECIALIST Performed at [facility], [address] [place] [address] Priti Perdomo PA-C LAB_1 Performing Organization Address City/State/[facility] Code Phon e Number HP CONVERSION documented in this encounter Visit Diagnoses Diagnosis Acute pharyngitis documented in this encounter Care Teams Bowling Alley Operator Relationship Specialty Start Date End Date Marlena Choudhury MD PCP - General 02/13/11 06/28/21 [address] [place] [address] documented as of this encounter
--- OUTSIDE RECORDS SUMMARY | 2022-08-12 09:09 | XMS_ITS | Encounter Summary ---
:2002 Author Organization [facility] Address [address], [place] [address] Care Team Providers Name Role Phone Marlena Choudhury MD Primary Care Provider Encounter Details Date Type Department Care Team Description 09/12/2009 Nursing Visit Mounika Spencer [address] [facility] [place] [address] [address] [facility] [phone] [address] [place], [place] [id number] (Wo rk) Social History Tobacco Use Types [...] on filedocumented in this encounter Care Teams Registered Mail Clerk Relationship Specialty Start Date End Date Marlena Choudhury MD PCP - General 02/13/11 06/28/21 [address] [place] [address] documented as of this encounter
--- OUTSIDE RECORDS SUMMARY | 2022-08-12 09:09 | XMS_ITS | Encounter Summary ---
:2002 Author Organization [facility] Address [address], [place] [address] Care Team Providers Name Role Phone Marlena Choudhury MD Primary Care Provider Encounter Details Date Type Department Care Team Description 07/14/2010 Office Visit [facility] [place] [address] [address] [place], [place] [phone] (Wo rk) Social History Tobacco Use Types [...] on filedocumented in this encounter Care Teams Photography Sales Associate Relationship Specialty Start Date End Date Marlena Choudhury MD PCP - General 02/13/11 06/28/21 [address] [place] [address] documented as of this encounter
--- OUTSIDE RECORDS SUMMARY | 2022-08-12 09:09 | XMS_ITS | Encounter Summary ---
:2002 Author Organization [email or web address] Address [address] [facility] [place] [address] Care Team Providers Name Role Phone Marlena Choudhury MD Primary Care Provider Encounter Details Date Type Department Care Team Description 12/01/2010 Office Visit [facility] [place] [address] [place] [address] [address] [facility] [phone] [place] [address] Social History Tobacco Use Types Packs/Day Years [...] Taken Comments Blood Pressure - - Pulse 108 12/01/2010 10:18 AM SOLAR ENERGY SYSTEMS ENGINEER Temperature 36.7 ??C (98.1 ??F) 12/01/2010 10:18 AM SOLAR ENERGY SYSTEMS ENGINEER C: 3 6.7 C Respiratory Rate - - Oxygen Saturation - - Inhaled Oxygen Concentration - - Weight 30.4 kg (67 lb) 12/01/2010 10:18 AM SOLAR ENERGY SYSTEMS ENGINEER C: 30.4k g Height - - Body Mass Index - - documented in this encounter Progress Notes Turner Ghosh MD - 12/01/2010 12:01 AM CST NAME: SUNNI SERNA MR#: [id number] ACCT: [id number] VISIT: [id number] DICTATING CLINICIAN: Turner Ghosh MD CONFIRM #: [id number] LOC: 503 CLINIC PROGRESS NOTE DATE OF VISIT: 12/01/2010 : 2002 Sunni comes in because she has had abdominal pain for about 8 days now. She went home from school on November 23 with nausea. She was back at school the next day and then had nausea with a stomachache the day after that that continued over the next 3 days, and then 3 days before her visit, she started having diarrhea. Has continued to have some diarrhea, stomachaches off and on. Parents bring her in because they are concerned how the symptoms are persisting. She has not had a history of abdominal problems in the past. PE: Temperature 98 degrees, weight 67 pounds, pulse 108. Head is normal. Mouth and pharynx are normal. Mouth is moist. LUNGS: Clear. HEART: No murmur. Rhythm is normal. ABDOMEN: Soft. No guarding. No masses. No rebound or referred tenderness. EXTREMITIES: Normal. Gait is normal. Patient can hop on each foot with no abdominal discomfort. PLAN: Obtained a CBC which was normal. White count of 6100 with a normal differential. AST, amylase and C-reactive protein were all normal. Also obtained an abdominal x-ray which was normal except for some moderate amount of stool. PLAN: Discussed the fact that I felt this was probably gastroenteritis, and that is just going to take time for it to settle down, that we will observe. If she develops new symptoms, will see her back sooner. IMPRESSION: Abdominal pain, probable gastroenteritis. DIALYSIS BIOMED TECHNICIAN:MEDQ C: CONFIRM #: [id number] R ENERGY SYSTEMS ENGINEER documented in this encounter Plan of Treatment Not on filedocumented as of this encounter Procedures Procedure Name Priority Date/Time Associated Diagnosis Comme nts XR ABD FLAT/KUB 1 Routine 12/01/2010 11:21 AM Res ults for this VIEW SOLAR ENERGY SYSTEMS ENGINEER procedure are i n the results section. documented in this encounter Results XR Abd Flat/KUB 1 View (12/01/2010 11:21 AM SOLAR ENERGY SYSTEMS ENGINEER) Anatomical Region Laterality Modality Abdomen Other Specimen (Source) Anatomical Location Collection Method / Collectio n Time Received Time / Laterality Volume Impressions 12/01/2010 11:21 AM SOLAR ENERGY SYSTEMS ENGINEER : There is a moderate amount of stool throughout much of the colon. ??No evidence for bowel obstr uction. ??No abnormal soft tissue masses or calcifications are appr eciated. Dictating LINETTE NELSON Radiologist Narrative 12/01/2010 11:21 AM SOLAR ENERGY SYSTEMS ENGINEER COMPARISON: 05/26/2008. Procedure Note Linette Coto MD - 04/28/2016Formattin g of this note might be different from the original. COMPARISON: 05/26/2008. IMPRESSION : There is a moderate amount of stool th roughout much of the colon. No evidence for bowel obstruc tion. No abnormal soft tissue masses or calcifications are appr eciated. Dictating LINETTE NELSON Radiologist Turner Ghosh MD RAD GD documented in this encounter Visit Diagnoses Not on filedocumented in this encounter Care Teams Sports Book Server Relationship Specialty Start Date End Date Marlena Choudhury MD PCP - General 02/13/11 06/28/21 [address] [place] [address] documented as of this encounter
--- OUTSIDE RECORDS SUMMARY | 2022-08-12 09:09 | XMS_ITS | Encounter Summary ---
:2002 Author Organization [facility] Address [address] [place] [address] Care Team Providers Name Role Phone Marlena Choudhury MD Primary Care Provider Reason for Visit Reason Comments Follow-up Encounter Details Date Type Department Care Team Description 01/04/2012 Office Visit [place] [facility] Austen Hernandez, [facility] MD Kathi unspecified (Primary [address] [facility] [address] [facility] [place], [place] [address] [place], [place] [phone] [address] Social History Tobacco Use Types Packs/Day [...] documented as of this encounter Progress Notes Austen Hernandez MD - 01/04/2012 2:44 PM CST Primary Care Skin Services/Pediatrics Visit This patient is accompanied in the office by her mother. Chief Complaint: Chief Complaint Patient presents with ??? Follow-up wart SUBJECTIVE: 11 y.o. female f/u wart treatment - had warts treated with Cryo by md 12/07 - finger - right 3rd, [id number] and 4th, foot - left and chin (3) ADR: Review of patient's allergies indicates no known allergies. Medications: No outpatient prescriptions have been marked as taking for the 01/04/12 encounter (Office Visit) withAUSTEN HERNANDEZ Past Medical History, Family History, Problems and Medications reviewed and updated, where necessary, on Health Profile. Past Medical History Diagnosis Date ??? Viral warts, unspecified 12/07/2011 OBJECTIVE: Vital Signs: There were no vitals taken for this visit. General: 11 y.o. female in no distress. Skin: exam of hands, feet, chin clear Laboratory: None ASSESSMENT: No diagnosis found. Verrucae vulgares - resolved PLAN: Medications: No orders of the defined types were placed in this encounter. RTC prn Austen Hernandez MD This note was in part generated by using Partly speech recognition and may contain meeting/event planner errors *SH~DNS~SOAP documented in this encounter Plan of Treatment Not on filedocumented as of this encounter Visit Diagnoses Diagnosis Viral warts, unspecified - Primary documented in this encounter Care Teams Hr Assistant Relationship Specialty Start Date End Date Marlena Choudhury MD PCP - General 02/13/11 06/28/21 [address] [place] [address] documented as of this encounter
--- OUTSIDE RECORDS SUMMARY | 2022-08-12 09:09 | XMS_ITS | Encounter Summary ---
:2002 Author Organization [facility] Address [address] [place] [address] Care Team Providers Name Role Phone Marlena Choudhury MD Primary Care Provider Encounter Details Date Type Department Care Team Description 08/31/2011 Immunization [facility] Need for prophylactic [address] [place] [address] inoculation against [phone] influenza (Prim odin Dx) Social History Tobacco Use Types Packs/Day [...] Primary documented in this encounter Care Teams Clinical Tech Relationship Specialty Start Date End Date Marlena Choudhury MD PCP - General 02/13/11 06/28/21 [address] [place] [address] documented as of this encounter
--- OUTSIDE RECORDS SUMMARY | 2022-08-12 09:09 | XMS_ITS | Encounter Summary ---
:2002 Author Organization formerly [facility] Address [address], [place] [address] Care Team Providers Name Role Phone Marlena Choudhury MD Primary Care Provider Encounter Details Date Type Department Care Team Description 08/25/2010 Nursing Visit [facility] [place] [facility] Ildefonso Wolf MD [address] [place], [place] [id number] Social History Tobacco Use Types Packs/Day Years [...] on filedocumented in this encounter Care Teams Permastone Applicator Relationship Specialty Start Date End Date Marlena Choudhury MD PCP - General 02/13/11 06/28/21 [address] [place] CHAN Goldstein [id number] documented as of this encounter
--- OUTSIDE RECORDS SUMMARY | 2022-08-12 09:10 | XMS_ITS | Encounter Summary ---
:2002 Author Organization [facility] Address [address] [place] [address] Care Team Providers Name Role Phone Marlena Choudhury MD Primary Care Provider Encounter Details Date Type Department Care Team Description 05/17/2006 PN Conversion Only [facility] [place] [address] [address] [place] [address] (Wo rk) Social History Tobacco Use [...] Associated Diagnosis Comme nts HEMOGLOBIN, BLOOD Routine 05/17/2006 11:07 AM Res ults for this CDT procedure are i n the results section. documented in this encounter Results Hemoglobin, Blood (05/17/2006 11:07 AM CDT) P athologist Signature Hemoglobin 12.2 11.0 - 14.5 HP CONVERSION gm/dL Specimen (Source) Anatomical Collection Method Collection Time Re ceived Time Location / / Volume Laterality 05/17/2006 11:07 AM CDT Mehdi Baugh MD LAB_1 Performing Organization Address City/State/ZIP Code Phon e Number HP CONVERSION documented in this encounter Visit Diagnoses Not on filedocumented in this encounter Care Teams Editing Computer Publisher Relationship Specialty Start Date End Date Marlena Choudhury MD PCP - General 02/13/11 06/28/21 [address] [place] [address] documented as of this encounter
--- OUTSIDE RECORDS SUMMARY | 2022-08-12 09:10 | XMS_ITS | Encounter Summary ---
:2002 Author Organization [facility] Address [address] [place] [address] Care Team Providers Name Role Phone Marlena Choudhury MD Primary Care Provider Encounter Details Date Type Department Care Team Description 06/15/2007 Office Visit [facility] 3800 Ear, Tayla Owens MD Nose, and Throat [address] [place] [address] [place], [place] [address] [phone] Social History Tobacco Use Types Packs/Day Years [...] documented as of this encounter Progress Notes Tayla Owens MD - 06/15/2007 12:01 AM CDT Progress Notes signed by Tayla Owens MD at 06/16/07 1007 Author: Tayla Owens MD Service: (none) Author Type: Physician Filed: 03/04/112047 Note Time: 06/15/07 0001 Status: Signed Academic Coordinator: Tayla Owens MD (Physician) NAME: SUNNI SERNA MR#: [id number] ACCT: [id number] VISIT: [id number] DICTATING CLINICIAN: TAYLA OWENS MD JOB: [id number] LOC: 428 CLINIC PROGRESS NOTE DATE OF VISIT: 06/15/2007 SUBJECTIVE: This is a 7-year-old who I am seeing at the request of Marlena Choudhury. Patient is here for a second opinion with regard to a left tympanic membrane perforation. She is a patient of Dr. Baugh. This little girl had tubes that did not extrude, and so removal of the tubes with paper patching was performed quite some time ago. The last time she was seen by Dr. 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 The parents have had some concerns about the extent of a type 1 tympanoplasty, and a second opinion was recommended by Dr. Choudhury to be done at [facility]; however, because of insurance changes, the patient apparently needed to follow up here. OBJECTIVE: Sunni is here with her mom today, and she is quite shy and soft-spoken. She is grossly neurologically normal. Her ear exam today reveals the right to be perfectly normal with no evidence even of a PE tube placement or a patching procedure. The left shows about a 5% inferior/anterior perforation, it is not quite along the margin, itself, and otherwise shows no inflammation or significant tympanosclerosis. 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 She has a very mild loss at 500 Hz. This is at the low end of the speech frequency, but throughout the rest of the speech frequency, going up to about 4000 Hz, she has completely normal and symmetric findings. She has a large volume tympanogram on the left consistent with her perforation, and a perfectly normal tympanogram on the right. She has 100% word recognition bilaterally with speech animal services officer thresholds in the normal range. ASSESSMENT: Left tympanic membrane perforation with some decrease in size. In agreement with Dr. Baugh's recommendation of a procedure to close this, we would probably consider a fat graft tympanoplasty versus using some tissue from behind the ear and filling the middle ear with Gelfoam and doing a bit of a modified underlay graft would be another possibility. These would give us similar results of success which are somewhat lower than a type 1 tympanoplasty. The success results for a type 1 tympanoplasty are 85% to 90%, as long as there is no postoperative infection, and is only slightly more invasive. The paper patching that was done initially has about a 50% success rate, but is the standard procedure after removal of a PE tube, and so the small perforation and fat grafting versus the other modified technique discussed with mom would be somewhat in between those 2 success rates. We have talked about these issues at length as the mom and dad have had significant concerns about this. Certainly, I think that the main risk is if there is failure of the graft, but other risks of doing damage are minimal, even with a type 1 tympanoplasty. I believe that mom's questions have been answered to her satisfaction. She will go home and talk about this with her , and they will get back to me about their decision of whether or not to proceed. Because the hearing loss is not communicationally significant, another option would be to wait this out and see if this continues to just close on its own, as it has made some progress in the meantime. PLAN: See assessment. CC: MD XAVIER WEBB MD SMS:[id number] C: 06/15/07 16:38 DOCUMENT: [id number] documented in this encounter Plan of Treatment Not on filedocumented as of this encounter Visit Diagnoses Not on filedocumented in this encounter Care Teams Box Office Manager Relationship Specialty Start Date End Date Marlena Choudhury MD PCP - General 02/13/11 06/28/21 [address] [place] [address] documented as of this encounter
--- OUTSIDE RECORDS SUMMARY | 2022-08-12 09:10 | XMS_ITS | Encounter Summary ---
:2002 Author Organization [facility] Address [address] [place] [address] Care Team Providers Name Role Phone Marlena Choudhury MD Primary Care Provider Reason for Visit Reason Comments Other Encounter Details Date Type Department Care Team Description 04/27/2007 Telephone [facility] s Elke Greenberg Other [address] [place] [address] Social History Tobacco Use Types [...] documented as of this encounter Progress Notes Center, Message - 04/27/2007 3:17 PM CDT Phone Note filed by SERVICEINFINITY at 03/01/112226 Author: SERVICEINFINITY Service: (none) Author Type: (none) Filed: 03/01/112226 Note Time: 04/27/071516 Status: Signed Travel Registered Nurse Oncology: SERVICEINFINITY MESSAGE TO CARE TEAM NAME OF CALLER:carissa NAME OF CLINICIAN:anna MESSAGE:needs written refl to dr jc, ent specialist, who dr hopkins had suggested. please call to discuss. would prefer to do today. she is aware that dr choudhury is not in the office. PHARMACY NAME:[facility] PHONE #:na CITY: CALL BACK PHONE OR CELL PHONE:[phone] BEST TIME TO CALL BACK:today if possible IS IT OK TO LEAVE A CONFIDENTIAL MESSAGE ON THIS VOICEMAIL?y Created on 27Apr2007 3:17pm by ONEIL BASSETT On 27Apr2007 4:06pm ELKE GREENBERG wrote: Called and spoke to mom (Carissa). Sunni has been seeing Dr. Baugh in ENT and it was recommended to have major surgery. Mom would like a second opinion. She spoke to Dr. Choudhury at another child's appt. back in January and Dr. Choudhury recommended getting a second opinion with a Dr. Jc ([phone]). Mom was not sure which clinic Dr. Jc is with. Appt. is scheduled for 05/02 at 9AM and mom just found out that her insurance is managed care and requires a referral. I did speak to Eli in managed care and with this patient's insurance she must stay within the system for a second opinion. If Dr. Choudhury would like Sunni to see Dr. Jc, she should contact Carlos Manuel Joseph, medical physics researcher, to get approval. Mom would like a call on the status of this referral on Mon. at [phone]. On 29Apr2007 11:19pm MARLENA CHOUDHURY wrote: It has been since Oct that anyone has even seen the ear. Please book her early on Monday to see if the hole has closed and we can and then discuss what Mom would like to do. I have no problems seeing her first thing as a double booking.Make sure Mom understands that. I know it's hard for her to miss work. Marlena Choudhury Acknowledged by MARLENA CHOUDHURY on 11:19pm On 30Apr2007 9:39am OZIEL MULLER wrote: left mom a message that Dr. Choudhury would like to see Sunni on . She should to set up an appt. On 30Apr2007 7:45pm KIMBERLY EVANS wrote: Mom called and was given judith to double book pt on 05/01/07 in the am. Pt was doubled booked at 7:30 am. Mom was told that pt is a double book at 7:30 am and mom verbalized back to NL the understanding of this. Mom states she needs to be in court at 10:[address] [facility] so will be in the peds clinic promptly at 7:30am. Acknowledged by ELKE GREENBERG on 8:15am MASTER/MISTRESS documented in this encounter Plan of Treatment Not on filedocumented as of this encounter Visit Diagnoses Not on filedocumented in this encounter Care Teams Poultry Dressing Worker Relationship Specialty Start Date End Date Marlena Choudhury MD PCP - General 02/13/11 06/28/21 [address] [place] [address] documented as of this encounter
--- OUTSIDE RECORDS SUMMARY | 2022-08-12 09:10 | XMS_ITS | Encounter Summary ---
:2002 Author Organization [facility] Address [address] [place] [address] Care Team Providers Name Role Phone Marlena Choudhury MD Primary Care Provider Encounter Details Date Type Department Care Team Description 05/26/2008 Office Visit [facility] [place] [address] [address] [place] [address] (Wo rk) Social History Tobacco [...] Taken Comments Blood Pressure - - Pulse 104 05/26/2008 7:32 PM CDT Temperature 36.8 ??C (98.2 ??F) 05/26/2008 7:32 PM CDT C: 36 .8 C Respiratory Rate 20 05/26/2008 7:32 PM CDT Oxygen Saturation - - Inhaled Oxygen Concentration - - Weight - - Height - - Body Mass Index - - documented in this encounter Progress Notes Shawn Medina MD - 05/26/2008 12:01 AM CDT Progress Notes signed by Shawn Medina MD at 07/17/08 1227 Author: Shawn Medina MD Service: (none) Author Type: Physician Filed: 03/05/11 0526 Note Time: 05/26/08 0001 Status: Signed Systems Designer: Shawn Medina MD (Physician) NAME: SUNNI SERNA MR#: [id number] ACCT: [id number] VISIT: [id number] DICTATING CLINICIAN: SHAWN MEDINA MD CONFIRM #: [id number] LOC: 520 CLINIC PROGRESS NOTE DATE OF VISIT: 05/26/2008 SUBJECTIVE: CHIEF COMPLAINT: Stomachache. HPI: This pleasant 8-year-old comes in today complaining of a stomachache. It has been going off and on for the past 3 days. Mom says the pain is worse today. She did have a bowel movement yesterday. No nausea or vomiting. No diarrhea. No fever at all. No burning upon urination or increased frequency of urination. Just has not been herself, been weepy. Does not have quite as much energy. PAST MEDICAL HISTORY: None. PAST SURGICAL HISTORY: PE tubes. MEDICATIONS: None. ADR/ALLERGIES: NO KNOWN DRUG ALLERGIES. OBJECTIVE: VS: T: 98.3. P: 104. R: 20. GENERAL: Alert and orientated, in no apparent distress. Is weepy, but certainly does not seem like she is in any pain. Tympanic membranes reveal no sign of infection. Oropharynx is pink and moist. Some mild erythema to the tonsils. Mild cervical lymphadenopathy. LUNGS: Clear to auscultation bilaterally. HEART: Regular without murmurs, rubs, or gallops. ABDOMEN: Mildly distended, and you can feel stool throughout the abdomen. EXTREMITIES: No rash or cyanosis. DIAGNOSTIC STUDIES: Strep screen is negative. White blood cell count is 6.8, hemoglobin 13, hematocrit 36.7, platelets 254. Urinalysis shows hazy turbidity, trace blood, small leukocyte esterase, few bacteria. Abdominal x-ray does show quite a bit of stool. ASSESSMENT: Constipation. PLAN: I did go over diet changes with the mother, as well as pear juice, MiraLAX, and a Glycerin suppository. Mom is going to try to clean the child out with several bowel movements. Certainly if symptoms persist or worsen, they need to follow up. I will do a urine culture just to make sure nothing grows out of there, and they will follow up with their primary care doctor. KMM:[id number] C: 05/27/08 12:56 CONFIRM #: [id number] documented in this encounter Plan of Treatment Not on filedocumented as of this encounter Procedures Procedure Name Priority Date/Time Associated Diagnosis Comme nts XR ABD FLAT Routine 05/26/2008 8:35 PM Results f or this (STANDARD) CDT procedure are i n the results section. documented in this encounter Results XR Abd Flat (Standard) (05/26/2008 8:35 PM CDT) Anatomical Region Laterality Modality Abdomen Other Specimen (Source) Anatomical Location Collection Method / Collectio n Time Received Time / Laterality Volume Impressions 05/26/2008 8:35 PM CDT : ??Normal supine abdomen study. [id number]/[facility] Dictating ASHA RODRIGUEZ RADIOLOGIST Narrative 05/26/2008 8:35 PM CDT There is a moderate amount of stool in the colon with no evidence of bowel obstruction and there is a normal gas pattern. ??No evidence of mass or abnormal calcification in the ab domen. Procedure Note Asha Gray - 01/19/2017Formattin g of this note might be different from the original. There is a moderate amount of stool in t he colon with no evidence of bowel obstruction and there is a normal gas pattern. No evidence of mass or abnormal calcification in the ab domen. IMPRESSION : Normal supine abdomen study. [facility] Dictating ASHA RODRIGUEZ RADIOLOGIST Shawn Medina MD RAD GD documented in this encounter Visit Diagnoses Not on filedocumented in this encounter Care Teams Maxillofacial Surgeon Relationship Specialty Start Date End Date Marlena Choudhury MD PCP - General 02/13/11 06/28/21 [address] [place] CHAN [place] [address] documented as of this encounter
--- OUTSIDE RECORDS SUMMARY | 2022-08-12 09:10 | XMS_ITS | Encounter Summary ---
:2002 Author Organization [facility] Address [address] [place] [address] Care Team Providers Name Role Phone Marlena Choudhury MD Primary Care Provider Encounter Details Date Type Department Care Team Description 08/27/2008 Nursing Visit [facility] Dena Martinez MD [address] [place] [address] [place] [address] [phone] (Wo rk) Social History Tobacco Use Types [...] on filedocumented in this encounter Care Teams Business Development Executive Relationship Specialty Start Date End Date Marlena Choudhury MD PCP - General 02/13/11 06/28/21 [address] [place] CHAN [place] [address] documented as of this encounter
--- OUTSIDE RECORDS SUMMARY | 2022-08-12 09:10 | XMS_ITS | Encounter Summary ---
:2002 Author Organization [facility] Address [address], [place] [address] Care Team Providers Name Role Phone Marlena Choudhury MD Primary Care Provider Encounter Details Date Type Department Care Team Description 05/18/2006 PN Conversion Only CONV EAR NOSE THROAT Mehdi Baugh MD [address] [facility] [address] [address] [place] [address] [address] [place], [place] [address] (Wo rk) Social History Tobacco Use Types [...] on filedocumented in this encounter Care Teams University Tutor Relationship Specialty Start Date End Date Marlena Choudhury MD PCP - General 02/13/11 06/28/21 [address] [place] CHAN [place] [address] documented as of this encounter
--- OUTSIDE RECORDS SUMMARY | 2022-08-12 09:10 | XMS_ITS | Encounter Summary ---
:2002 Author [facility] Address [address] [place] [address] Care Team Providers Name Role Phone Marlena Choudhury MD Primary Care Provider Encounter Details Date Type Department Care Team Description 05/14/2008 Office Visit [facility] [place] [address] [place] [address] [address] [place] [address] [place], [place] [phone] (Wo rk) Social History Tobacco Use Types [...] Sign Reading Time Taken Comments Blood Pressure 92/52 05/14/2008 10:25 AM CDT Pulse - - Temperature - - Respiratory Rate - - Oxygen Saturation - - Inhaled Oxygen Concentration - - Weight 21.8 kg (47 lb 15.9 oz) 05/14/2008 10:25 AM C: 2 1.8kg CDT Height 125.1 cm (4' 1.25) 05/14/2008 10:25 AM C: 125.1 cm CDT Body Mass Index 13.91 05/14/2008 10:25 AM CDT Body Mass Index Percentile 13.28 % 05/14/2008 10:25 AM CDT Growth Chart: CDC (Girls, 2-20 Years) documented in this encounter Progress Notes Marlena Choudhury MD - 05/14/2008 12:01 AM CDT Progress Notes signed by Marlena Choudhury MD at 06/02/08 2563 Author: Marlena Choudhury MD Service: (none) Author Type: Physician Filed: 03/05/11 0511 Note Time: 05/14/08 0001 Status: Signed Slot Router: Marlena Choudhury MD (Physician) Sunni is a 7 year old who is here for physical exam. She's been doing extremely well. Complete 10 system review of systems is negative. [place] Developmental Screen is appropriate for age. history of PE tubes, now having fallen out with residual perforations Medications : No scheduled medications. Medications reviewed and updated on [facility]eros list. Drug Allergies :No known allergies. Latex Sensitivities : No latex sensitivities No tobacco exposure. Not in daycare, and is in a car seat. Hearing: per ENT Vision:20/25 Objective Vitals: Height 49.25 inches, 97th percentile, weight 48 pounds, 75th percentile, BMI 13.9, blood pressure 92/52 Alert well-hydrated in no acute distress. HEENT [...] staight. Neuro; normal Skin :Normal Assessment : [age] year-old with normal growth and development, history of perforated TMs, although today he moves well on exam Plan : Risks and benefits of immunizations discussed. DTaP, IPV, MMRV given. Hemoglobin cholesterol and urine analysis pending. Anticipatory guidance given. Preventative health, developmental issues discussed. appears as if the perforations. The TMs are healing. Will have him follow-up with ENT Next physical in one to two years. documented in this encounter Plan of Treatment Not on filedocumented as of this encounter Visit Diagnoses Not on filedocumented in this encounter Care Teams Manager Solution Relationship Specialty Start Date End Date Marlena Choudhury MD PCP - General 02/13/11 06/28/21 [address] [place] CH[place] [address] documented as of this encounter
--- OUTSIDE RECORDS SUMMARY | 2022-08-12 09:10 | XMS_ITS | Encounter Summary ---
:2002 Author Organization [facility] Address [address], [place] [address] Care Team Providers Name Role Phone Marlena Choudhury MD Primary Care Provider Encounter Details Date Type Department Care Team Description 12/07/2007 PN Conversion Only [place] [place] [address] [address] [place] [address] (Wo rk) Social History Tobacco [...] Diagnosis Comme nts STREP GROUP A Routine 12/07/2007 8:59 PM Results for this ANTIGEN TEST CARTON STAMPER procedure are i n the results section. BETA STREP FOLLOWUP Routine 12/07/2007 8:59 PM Re sults for this CARTON STAMPER procedure are i n the results section. documented in this encounter Results Strep Group A Antigen Test (12/07/2007 8:59 PM CARTON STAMPER) Analysis Performed At Path logist Time Signature Strep Group A Negative Negative HP CONVERSION Antigen Test Comment: Culture to follow. Specimen (Source) Anatomical Collection Method Collection Time Re ceived Time Location / / Volume Laterality 12/07/2007 8:59 PM CARTON STAMPER Sari Medina MD LAB_1 Performing Organization Address [facility] Phon e Number HP CONVERSION (ABNORMAL) Beta Strep Followup (12/07/2007 8:59 PM CARTON STAMPER) Analysis Performed At [facility] Time Signature Strep Screen SEE TEXT HP CONVERSION (A) Comment: Patient: SUNNI SERNA Rapid Strep Follow up Culture ? Collected: ?2058 Source: Throat ?Processed: ?2058 Final Report ------ ?[id number] ??1331 Beta Strep Group A Present. ICSI Pharyngitis guideline recommends Penicillin V potassium (Pen VK) in nonal lergic patients. If < 50 lbs, 250 mg PenVK BID for 10 day s. >=50 lbs, 500 mg PenVK BID for 10 days. Specimen (Source) Anatomical Collection Method Collection Time Re ceived Time Location / / Volume Laterality 12/07/2007 8:59 PM CARTON STAMPER Sari Medina MD LAB_1 Performing Organization Address [facility] Phon e Number HP CONVERSION documented in this encounter Visit Diagnoses Not on filedocumented in this encounter Care Teams Line Department Supervisor Relationship Specialty Start Date End Date Marlena Choudhury MD PCP - General 02/13/11 06/28/21 [address] [place]AN [place] [address] documented as of this encounter
--- OUTSIDE RECORDS SUMMARY | 2022-08-12 09:10 | XMS_ITS | Encounter Summary ---
:2002 Author Organization [facility] Address [address], [place] [address] Care Team Providers Name Role Phone Marlena Choudhury MD Primary Care Provider Encounter Details Date Type Department Care Team Description 07/02/2006 PN Conversion Only [facility] N Miguel Angel Garcia, [address] [facility] [place] [id number] [place] [address] [place] [address] (Wo rk) Social History Tobacco Use Types [...] Diagnosis Comme nts STREP GROUP A Routine 07/02/2006 11:46 AM Results for this ANTIGEN TEST CDT procedure are i n the results section. documented in this encounter Results Strep Group A Antigen Test (07/02/2006 11:46 AM CDT) Analysis Performed At [facility] Time Signature Strep Group A Positive Negative HP CONVERSION Antigen Test Specimen (Source) Anatomical Collection Method Collection Time Re ceived Time Location / / Volume Laterality 07/02/2006 11:46 AM CDT Miguel Angel Garcia PA-C LAB_1 Performing Organization Address City/State/ZIP Code Phon e Number HP CONVERSION documented in this encounter Visit Diagnoses Not on filedocumented in this encounter Care Teams Director Of Cardiopulmonary Services Relationship Specialty Start Date End Date Marlena Choudhury MD PCP - General 02/13/11 06/28/21 [address] [place] CHAN [place] [address] documented as of this encounter
--- OUTSIDE RECORDS SUMMARY | 2022-08-12 09:10 | XMS_ITS | Encounter Summary ---
:2002 Author Organization [facility] Address [address], [place] [address] Care Team Providers Name Role Phone Marlena Choudhury MD Primary Care Provider Encounter Details Date Type Department Care Team Description 05/09/2007 PN Conversion Only [place] N Marlena Choudhury, [address] [facility] [place] [address] [facility] [address] [place] [phone] (Wo rk) Social History Tobacco [...] Procedure Name Priority Date/Time Associated Comments Diagnosis STREP GROUP A ANTIGEN Routine 05/09/2007 3:12 PM Results for this TEST CDT procedure are i n the results section. BETA STREP FOLLOWUP Routine 05/09/2007 3:12 PM Re sults for this CDT procedure are i n the results section. URINALYSIS Routine 05/09/2007 11:48 Results for this ROUTINE(MICRO IF POS) AM CDT proced ure are in the results section. URINALYSIS Routine 05/09/2007 11:48 Results for this MICROSCOPIC AM CDT procedure are i n the results section. HEMOGLOBIN, BLOOD Routine 05/09/2007 11:48 Result s for this AM CDT procedure are i n the results section. CHOLESTEROL (TOTAL) Routine 05/09/2007 11:48 Resu lts for this AM CDT procedure are i n the results section. documented in this encounter Results Strep Group A Antigen Test (05/09/2007 3:12 PM CDT) Analysis Performed At Patho logist Time Signature Strep Group A Negative Negative HP CONVERSION Antigen Test Comment: Culture to follow. Specimen (Source) Anatomical Collection Method Collection Time Re ceived Time Location / / Volume Laterality 05/09/2007 3:12 PM CDT Marlena Choudhury MD LAB_1 Performing Organization Address City/State/ZIP Code Phon e Number HP CONVERSION Beta Strep Followup (05/09/2007 3:12 PM CDT) P athologist Signature Strep Screen SEE TEXT HP CONVERSION Comment: Patient: SUNNI SERNA Rapid Strep Follow up Culture @ ? Collected: ??[id number] ??[id number] Source: Throat ?Processed: ??[id number] ??[id number] ? 1V Final Report ------ ?[id number] ??0720 No beta hemolytic Strep group A isolated . @ = Rapid F/U Cult Performed at ??[address] [place], [place] ?[address] Specimen (Source) Anatomical Collection Method Collection Time Re ceived Time Location / / Volume Laterality 05/09/2007 3:12 PM CDT Marlena Choudhury MD LAB_1 Performing Organization Address [facility] Phon e Number HP CONVERSION Cholesterol (Total) (05/09/2007 11:48 AM CDT) athologist Signature Cholesterol 156 <170 mg/dL HP CONVERSION Specimen (Source) Anatomical Collection Method Collection Time Re ceived Time Location / / Volume Laterality 05/09/2007 11:48 AM CDT Marlena Choudhury MD LAB_1 Performing Organization Address [facility] Phon e Number HP CONVERSION Hemoglobin, Blood (05/09/2007 11:48 AM CDT) athologist Signature Hemoglobin 13.8 11.0 - 14.5 HP CONVERSION gm/dL Specimen (Source) Anatomical Collection Method Collection Time Re ceived Time Location / / Volume Laterality 05/09/2007 11:48 AM CDT Marlena Choudhury MD LAB_1 Performing Organization Address [facility] Phon e Number HP CONVERSION Urinalysis Routine(Micro If Pos) (05/09/2007 11:48 AM CDT) [facility] gist Method Time Signature Turbidity Clear No normal HP CONVERSION range pH Urine 8.5 4.5 - 7.5 HP CONVERSION Protein Urine Negative Neg-Trac HP CONVERSION Glucose, Negative Neg-Trac HP CONVERSION Qualitative U Ketones Negative Negative HP CONVERSION U BILI Negative Negative HP CONVERSION Blood Urine Negative Negative HP CONVERSION Nitrite Urine Negative Negative HP CONVERSION Leukocyte Negative Negative HP CONVERSION Esterase Urine Urobilinogen Negative 0.2 - 1.0 HP CONVERSION Urine U Specific 1.020 1.005 - 25 HP CONVERSION [place] Specimen (Source) Anatomical Collection Method Collection Time Re ceived Time Location / / Volume Laterality 05/09/2007 11:48 AM CDT Marlena Choudhury MD LAB_1 Performing Organization Address [facility]/ZIP Code Phon e Number HP CONVERSION (ABNORMAL) Urinalysis Microscopic (05/09/2007 11:48 AM CDT) [facility] gist Method Time Signature White Blood 0-2/HPF 0 - 3 HP CONVERSION Cells Urine Red Blood Negative 0 - 2 HP CONVERSION Cells Urine Bacteria Occassnl (A) None HP CONVERSION Urine Specimen (Source) Anatomical Collection Method Collection Time Re ceived Time Location / / Volume Laterality 05/09/2007 11:48 AM CDT Marlena Choudhury MD LAB_1 Performing Organization Address City/State/ZIP Code Phon e Number HP CONVERSION documented in this encounter Visit Diagnoses Not on filedocumented in this encounter Care Teams Security Agent Relationship Specialty Start Date End Date Marlena Choudhury MD PCP - General 02/13/11 06/28/21 [id number] [place] [id number] documented as of this encounter
--- OUTSIDE RECORDS SUMMARY | 2022-08-12 09:10 | XMS_ITS | Encounter Summary ---
:2002 [facility] Address [address] [place] [address] Care Team Providers Name Role Phone Marlena Choudhury MD Primary Care Provider Encounter Details Date Type Department Care Team Description 07/02/2006 Office Visit [facility] Miguel Angel Garcia, MARY [address] [facility] [address] [place] [address] [place], [place] [phone] (Wo rk) Social History Tobacco Use Types [...] Taken Comments Blood Pressure - - Pulse 120 07/02/2006 11:05 AM CDT Temperature 36.6 ??C (97.9 ??F) 07/02/2006 11:05 AM CDT C: 3 6.6 C Respiratory Rate 18 07/02/2006 11:05 AM CDT Oxygen Saturation - - Inhaled Oxygen Concentration - - Weight - - Height - - Body Mass Index - - documented in this encounter Progress Notes Miguel Angel Garcia PA-C - 07/02/2006 12:01 AM CDT Progress Notes signed by Miguel Angel Garcia PA-C at 07/02/06 1211 Author: Miguel Angel Garcia PA-C Service: (none) Author Type: Physician Packing Room Supervisor Filed: 03/04/11 1353 Note Time: 07/02/06 0001 Status: Signed Production Proofreader: Miguel Angel Garcia PA-C (Physician Packing Room Supervisor) Acute Clinic Visit IMPRESSION: Acute Right Otitis Media. Strep pharyngitis. SUBJECTIVE: History of Present Illness: Accompanied By: Mother. Symptom(s): Fever. Difficulty sleeping. Fussiness. Activity level decreased. Ear pain. Sore throat. No cough. No emesis. rash on torso Fever: Duration: 3 days. Max. temp. 102 degrees F. In the past 12 hrs, max. fever 102 degrees F. Patient is having chills. Acute Medications Used / Exposures: Ibuprofen. No exposure to ill contacts. No exposure to strep. Past / Family History: Adverse drug reactions: No known adverse drug reactions. No chronic medications. Past History of: Recurrent ear infections: Last AOM was 1 month ago. OBJECTIVE: Vital Signs: Vital Signs recorded on paper shingle General: well appearing; alert and appropriate. Eyes: no injection or drainage. Ears: left canal normal, right tympanic membrane erythematous, Left TM perforation Nose: normal nares without drainage. Oropharynx: moist mucus membranes, tonsillar erythema Neck: supple with shotty cervical adenopathy Chest: clear to auscultation; normal effort. Cardiac: regular rate without murmur. Skin: exam normal. Labs/Studies Done Today Rapid Strep: positive. ASSESSMENT: Acute Right Otitis Media. Strep pharyngitis. Right TM Perforation PLAN: Amoxicillin 80-90 mg/kg/day divided BID for 10 days. Patient was given discharge instructions and was discharged in stable condition. *SH~PC~PAZ ~ Shorthand Note completed on: 07/02/2006 12:13 PM documented in this encounter Plan of Treatment Not on filedocumented as of this encounter Visit Diagnoses Not on filedocumented in this encounter Care Teams Funeral Assistant Relationship Specialty Start Date End Date Kei, Marlena M G, MD PCP - General 02/13/11 06/28/21 [address] [place] CHAN [place] [phone] documented as of this encounter
--- OUTSIDE RECORDS SUMMARY | 2022-08-12 09:10 | XMS_ITS | Encounter Summary ---
:2002 [facility] Address [address] [address] Care Team Providers Name Role Phone Marlena Choudhury MD Primary Care Provider Encounter Details Date Type Department Care Team Description 09/06/2006 Nursing Visit [facility] [place] [address] [facility] [address] [place] [address] [place], [place] [phone] Social History Tobacco Use Types Packs/Day Years [...] on filedocumented in this encounter Care Teams Inspectors And Regulatory Officers Relationship Specialty Start Date End Date Marlena Choudhury MD PCP - General 02/13/11 06/28/21 [address] [place] CHAN Goldstein [phone] documented as of this encounter
--- OUTSIDE RECORDS SUMMARY | 2022-08-12 09:10 | XMS_ITS | Encounter Summary ---
:2002 Author [facility] Address [address] [address] Care Team Providers Name Role Phone Unassigned, Provider Primary Care Provider Unavailable Encounter Details Date Type Department Care Team Description 05/18/2006 Hospital Encounter CONV METH ODS Mehdi Marinelli MD [address] [facility] [place] [phone] EX[address]EL[address] Mehdi Block MD [address] [facility] [place], [place] [phone] [place] [address] Social History Tobacco Use Types Packs/Day Years [...] on file documented as of this encounter Medications at Time of Discharge Medication Sig Dispensed Refills Start Date End Date UNKNOWN MEDICATION Indications: PN: 0 05/17/2006 12/01/2010 UNKNOWN MEDICATION Indications: PN: 0 05/17/2006 12/01/2010 UNKNOWN MEDICATION Indications: PN: 0 03/29/2006 12/01/2010 UNKNOWN MEDICATION Indications: PN: 0 01/23/2006 12/01/2010 UNKNOWN MEDICATION Indications: PN: 0 12/13/2005 12/01/2010 UNKNOWN MEDICATION Indications: PN: 0 09/06/2005 12/01/2010 UNKNOWN MEDICATION Indications: PN: 0 08/17/2005 12/01/2010 UNKNOWN MEDICATION Indications: PN: 0 05/19/2005 11/10/2011 UNKNOWN MEDICATION Indications: PN: 0 04/13/2005 12/01/2010 UNKNOWN MEDICATION Indications: PN: 0 09/29/2004 12/01/2010 documented as of this encounter Procedure Notes Mehdi Marinelli MD - 05/18/2006 12:01 AM CDT OR Surgeon signed by Mehdi Marinelli MD at 06/05/06 1342 Author: Mehdi Marinelli MD Service: (none) Author Type: Physician Filed: 03/04/11 1301 Note Time: 05/18/06 1030 Status: Signed Doll Maker: Mehdi Marinelli MD (Physician) NAME: SUNNI SERNA MR: [id number] ACCT: [id number] AUTHENTICATING CLINICIAN: MEHDI MARINELLI MD JOB: [id number] OPERATIVE REPORT DATE OF OPERATION: 05/18/06 INDICATIONS FOR PROCEDURE: Sunni is a 6-year-old female with a history of tubes in the past. She also has significant nasal obstruction and she has epistaxis, mostly from the left side of her nose. Her left tube is known to be out, lying in the canal. The status of the drum is not known because of poor visualization of the middle ear structures. The right tube is still in the drum and she is here today for the below procedure. PREOPERATIVE DIAGNOSIS: Retained right pressure equalization tube, possibly retained left pressure equalization tube, epistaxis, and nasal obstruction. POSTOPERATIVE DIAGNOSIS: Retained right pressure equalization tube, possibly retained left pressure equalization tube, epistaxis, and nasal obstruction. PROCEDURE PERFORMED: 1. Bilateral paper patch laryngoplasty with removal of pressure equalization tubes. 2. Nasal laryngoscopy. 3. Cauterization of left anterior septum. 4. Adenoidectomy. SURGEON: MEHDI MARINELLI MD FINDINGS: DESCRIPTION OF OPERATION: The patient is brought to the operating room today under general anesthesia with intubation. She is prepped and draped in the supine position for the above surgery. The nose is sprayed topically with Afrin. Attention is turned to the right ear first. Same site marking is confirmed. Under the microscope the tube is noted to be lying in the drum. It is removed without difficulty. The edges are gently freshened. The middle ear space is gently packed with Surgicel. A benzoin-impregnated paper patch is placed over the defect and air dried. Attention is then turned to the left ear. The tube is noted to be lying in the canal, with a substantial amount of wax. This is removed without difficulty. Upon removing the tube, there is notably a perforation in the anterior aspect of the TM. It is about a 20% anterior marginal perforation. A decision was made to patch this, as well. Surgicel was placed through the existing perforation and a benzoin-impregnated paper patch was then placed over the perforation, as well. Attention was then turned to the nose. The nose was irrigated with sterile saline and suctioned. The nose was then examined using the rigid 0 degree scope. Both right and left sides carefully examined, with no evidence for abnormality, other than some prominent vessels on the anterior septum. It appeared that the left vessels were possibly more prominent than the right. A photograph was taken. At this point, silver nitrate was used to paint the left anterior septum only. The nose was then irrigated with sterile saline once again. At this point, the adenoid was visualized with the rigid 0 degree scope, as well. It was moderately hypertrophied, with about 805 obstruction. Photograph was taken, as well. At the conclusion of this procedure, the bed was turned 90 degrees. The oral cavity was examined. The tonsils were 2 to 3+ bilaterally. The palate was symmetric. There was a hint of a submucous cleft, although no bifid uvula was noted. The palate was suspended with a red rubber catheter. The adenoid, again, was moderately obstructing. Using the Bovie suction cautery set at 30 lazo, the adenoid bed was ablated. Careful attention was taken not to injure the torus tubarius and a small area of Passavant's ridge was preserved due to the subtle submucous cleft. At this point, no further abnormality was appreciated. The nose was widely patent. The nose was irrigated and suctioned, with no further abnormality. The patient was then awakened and extubated in the operating room and transported to the recovery room in stable condition. ESTIMATED BLOOD LOSS: Minimal. IV FLUIDS: Approximately 100 mL of crystalloid. There are no complications and there were no specimens for pathology. [id number]:[id number] C: 05/18/06 12:29 DOCUMENT: [id number] documented in this encounter Miscellaneous Notes Miscellaneous - Mehdi Marinelli MD - 05/18/2006 12:01 AM CDT ICD-9-CM ICD-9-CM Narrative description Code ======== DIAGNOSES Principal: OTHER SPECIFIED AFTERCARE FOLLOWING SURGERY V58.49 Secondary: HYPERTROPHY ADENOIDS 474.12 NASAL & SINUS DIS NEC 478.1 EPISTAXIS 784.7 PERFORAT TYMPAN MEMB NOS 384.20 PROCEDURES Provider1 Date Principal: MYRINGOPLASTY MEHDI MARINELLI [id number] 19.4 Provider2: Provider3: PAOLO GOMEZ Secondary: MYRINGOPLASTY MEHDI MARINELLI [id number] 19.4 Provider2: Provider3: PAOLO GOMEZ ADENOIDECTOMY MEHDI MARINELLI [id number] 28.6 Provider2: Provider3: PAOLO GOMEZ documented in this encounter Plan of Treatment Not on filedocumented as of this encounter Visit Diagnoses Not on filedocumented in this encounter Care Teams Ambulance Dispatcher Relationship Specialty Start Date End Date Unassigned, Provider PCP - General 02 02/12/[address] [place] [address] documented as of this encounter
--- OUTSIDE RECORDS SUMMARY | 2022-08-12 09:10 | XMS_ITS | Encounter Summary ---
:2002 Author [facility] Address [address] [place] [address] Care Team Providers Name Role Phone Marlena Choudhury MD Primary Care Provider Encounter Details Date Type Department Care Team Description 11/21/2008 Office Visit [facility] [place] [address] [address] [place] [address] Social History Tobacco Use Types [...] Pressure - - Pulse - - Temperature 36.9 ??C (98.4 ??F) 11/21/2008 12:55 PM C: 36.9 C FLOORWORKER LASTING Respiratory Rate 16 11/21/2008 12:55 PM FLOORWORKER LASTING Oxygen Saturation - - Inhaled Oxygen Concentration - - Weight 23.6 kg (51 lb 15.8 oz) 11/21/2008 12:55 PM C: 2 3.6kg FLOORWORKER LASTING Height - - Body Mass Index - - documented in this encounter Progress Notes Raul Guillen MD - 11/21/2008 12:01 AM CST Progress Notes signed by Raul Guillen MD at 12/26/08 0841 Author: Raul Guillen MD Service: (none) Author Type: Physician Filed: 03/05/11 0948 Note Time: 11/21/08 0001 Status: Signed Space Studies Faculty Member: Raul Guillen MD (Physician) NAME: SUNNI SERNA MR#: [id number] ACCT: [id number] VISIT: [id number] DICTATING CLINICIAN: RAUL GUILLEN MD CONFIRM #: [id number] LOC: 520 CLINIC PROGRESS NOTE DATE OF VISIT: 11/21/2008 SUBJECTIVE: Patient is here, who last weekend, which is about a week ago, had developed a low grade fever and vomiting and diarrhea and was achy for about 3 days and then was fine completely for 3 days, until yesterday when she developed a sore throat. At this point she does not have vomiting or diarrhea or fever. Has not taken Tylenol today. SOCIAL HISTORY: She is in 1st grade. FAMILY HISTORY: Includes a twin sister being diagnosed with strep 3 days ago. MEDICATIONS: They deny current medicines. ADR/ALLERGIES: THEY DENY ALLERGIES TO MEDICATIONS. OBJECTIVE: VS: T: 98.4. P: On my exam, 88. R: 16. She is alert and smiling. Exam shows slightly red throat and slightly swollen anterior glands. Ears look normal. NECK: Moves well. LUNGS: Clear. ABDOMEN: Was also checked, which is nontender. SKIN: Shows no rashes. Strep screen was positive. ASSESSMENT: Strep pharyngitis. PLAN: We talked about treatment options and they wish to go with amoxicillin liquid, so will give 250/5 at 2 teaspoons b.i.d. for 10 days. Appropriate quarantine outlined and they will follow up if worsens or if not improving quickly and completely with everything. [id number] C: 11/21/08 21:41 CONFIRM #: [id number] RWORKER LASTING documented in this encounter Plan of Treatment Not on filedocumented as of this encounter Visit Diagnoses Not on filedocumented in this encounter Care Teams Paver Operator Relationship Specialty Start Date End Date Marlena Choudhury MD PCP - General 02/13/11 06/28/21 [address] [place] CHAN [place] [id number] documented as of this encounter
--- OUTSIDE RECORDS SUMMARY | 2022-08-12 09:10 | XMS_ITS | Encounter Summary ---
:2002 Author Organization [facility] Address [address] [place] [address] Care Team Providers Name Role Phone Marlena Choudhury MD Primary Care Provider Encounter Details Date Type Department Care Team Description 12/07/2007 Office Visit [facility] [place] [phone] [place] [address] (Wo rk) Social History Tobacco Use [...] Taken Comments Blood Pressure - - Pulse 113 12/07/2007 7:35 PM RATE REVIEWER Temperature 37.2 ??C (99 ??F) 12/07/2007 7:35 PM RATE REVIEWER C: 37.2 C Respiratory Rate 20 12/07/2007 7:35 PM RATE REVIEWER Oxygen Saturation - - Inhaled Oxygen Concentration - - Weight 22.7 kg (49 lb 15.7 oz) 12/07/2007 7:35 PM RATE REVIEWER C : 22.7kg Height - - Body Mass Index - - documented in this encounter Progress Notes Shawn Medina MD - 12/07/2007 12:01 AM CST Progress Notes signed by Shawn Medina MD at 01/10/082042 Author: Shawn Medina MD Service: (none) Author Type: Physician Filed: 03/05/11 0025 Note Time: 12/07/07 0001 Status: Signed Regional Facilities Manager: Shawn Medina MD (Physician) NAME: SUNNI SERNA MR#: [id number] ACCT: [id number] VISIT: [id number] DICTATING CLINICIAN: SHAWN MEDINA MD JOB: [id number] LOC: 520 CLINIC PROGRESS NOTE DATE OF VISIT: 12/07/2007 SUBJECTIVE: CHIEF COMPLAINT: Sore throat and a cough. HPI: This pleasant 7-year-old comes in today ??complaining of not?? feeling very well. She has been sick for over a week. Mom says she has had a sore throat and has been coughing. Coughing up greenish phlegm. Denies any ear pain or sinus congestion. Denies any shortness of breath. Her sister is here with clinical strep. Her sister's strep test was negative. Mom says they both are acting like when they have strep throat. They are twins. PAST MEDICAL HISTORY: None. PAST SURGICAL HISTORY: None. MEDICATIONS: None. ADR/ALLERGIES: NO KNOWN DRUG ALLERGIES. SOCIAL HISTORY: No smoking in the house. OBJECTIVE: VS: T: 98.9. P: 113. R: 20. GENERAL: Alert and oriented; in no apparent distress. Tympanic membranes show no sign of infection. Sinuses are nontender, but there is copious amount of drainage down the back of her throat. Tonsils are mildly enlarged. NECK: Reveals positive cervical lymphadenopathy. LUNGS: Clear to auscultation bilaterally. HEART: Regular without murmurs, rubs, or gallops. ABDOMEN: Soft and nontender. EXTREMITIES: No rashes or cyanosis. ASSESSMENT: 1. Sinusitis. 2. Tonsillitis. PLAN: Will treat with amoxicillin. Please LastWord for dosing. ? fluids, ibuprofen and Tylenol. Will call ? culture is positive. [id number] C: 12/08/07 20:35 DOCUMENT: [id number] REVIEWER documented in this encounter Plan of Treatment Not on filedocumented as of this encounter Visit Diagnoses Not on filedocumented in this encounter Care Teams Sales Project Manager Relationship Specialty Start Date End Date Marlena Choudhury MD PCP - General 02/13/11 06/28/21 [address] [place] CHAN [place] [id number] documented as of this encounter
--- OUTSIDE RECORDS SUMMARY | 2022-08-12 09:10 | XMS_ITS | Encounter Summary ---
:2002 Author Organization [facility] Address [address], [place] [address] Care Team Providers Name Role Phone Marlena Choudhury MD Primary Care Provider Encounter Details Date Type Department Care Team Description 12/07/2007 PN Conversion Only [place] [address] [address] [place] [address] Social History Tobacco Use Types Packs/Day Years [...] on filedocumented in this encounter Care Teams Aircraft Avionics Technician Relationship Specialty Start Date End Date Marlena Choudhury MD PCP - General 02/13/11 06/28/21 [address] [place] CHAN Goldstein [id number] documented as of this encounter
--- OUTSIDE RECORDS SUMMARY | 2022-08-12 09:10 | XMS_ITS | Encounter Summary ---
:2002 Author Organization [facility] Address [address], [place] [address] Care Team Providers Name Role Phone Marlena Choudhury MD Primary Care Provider Encounter Details Date Type Department Care Team Description 06/07/2006 Office Visit [facility] [address] Ear, Nose, Mehdi Marinelli MD and Throat [address] [place] [phone] (Wo rk) Social History Tobacco Use Types [...] documented as of this encounter Progress Notes Mehdi Marinelli MD - 06/07/2006 12:01 AM CDT Progress Notes signed by Mehdi Marinelli MD at 06/08/06 8643 Author: Mehdi Marinelli MD Service: (none) Author Type: Physician Filed: 03/04/11 1325 Note Time: 06/07/06 0001 Status: Signed Certified Orthotist Practice Manager: Mehdi Marinelli MD (Physician) NAME: SUNNI SERNA MR: [id number] ACCT: [id number] VISIT: [id number] DICTATING CLINICIAN: MEHDI MARINELLI MD JOB: [id number] CLINIC PROGRESS NOTE DATE OF VISIT: 06/07/2006 SUBJECTIVE: Sunni is a 6-year-old here for followup of nasal endoscopy, cautery of the left nasal septum, and bilateral paper patch myringoplasties. She did fairly well after surgery. Unfortunately, did get sick and sounds like she had an ear infection with drainage from the right ear. Since that time, her ears have not drained. Her nose bleeding, on the left side, has stopped completely, the right side she has had 2 nosebleeds recently. She was noted also, at the time of surgery, to have a submucous cleft. Mom did ask the child's cryptography teacher if there were any speech or language concerns, which the preschool replied that she did not feel that this was an issue. She is here today for a followup. OBJECTIVE: On exam today, the right TM actually appears fairly good, the paper patch is still partially adherent, however, it appears that the perforation has healed, the drum moves quite nicely. The left TM, however, does show a residual anterior perforation, perhaps 10%. The nose is clear. The oral cavity is clear. NECK: Negative. ASSESSMENT: Stable postop course. Right TM appears to have healed. Left TM shows residual perforation. 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 PLAN: Discussed the findings with Sunni's mom. At this point, I would recommend that we observe the left ear for a little bit longer. She appears to still be having ear infections. I would like them to come back in October or November of 2006. If there are no further ear infections occurring, then consider a formal left medial graft tympanoplasty perhaps in the spring. Also, consider cauterizing the right anterior septum at that time. Lastly, we discussed speech therapy. Mom is not particularly interested as she does not feel there are any significant speech or language issues. Will see them back in October or November. DWW:[id number] C: 06/08/06 08:48 DOCUMENT: [id number] documented in this encounter Plan of Treatment Not on filedocumented as of this encounter Visit Diagnoses Not on filedocumented in this encounter Care Teams Telephone Answering Service Operator Relationship Specialty Start Date End Date Marlena Choudhury MD PCP - General 02/13/11 06/28/21 [address] [address] [place] [address] documented as of this encounter
--- OUTSIDE RECORDS SUMMARY | 2022-08-12 09:10 | XMS_ITS | Encounter Summary ---
:2002 Author Organization [facility] Address [address] [place] [address] Care Team Providers Name Role Phone Marlena Choudhury MD Primary Care Provider Reason for Visit Reason Comments Other Encounter Details Date Type Department Care Team Description 04/17/2008 Telephone [facility], Message Other [address] [place] [address] Social History Tobacco Use Types [...] this encounter Progress Notes Center, Message - 04/17/2008 2:00 PM CDT Phone Note filed by [employer] at 03/02/112153 Author: [employer] Service: (none) Author Type: (none) Filed: 03/02/112153 Note Time: 04/17/08 1400 Status: Signed Building Service Worker: [employer] Front Line Sx Call Caller Name/Relationship: Maren Ferrer Primary Crester: Kei Symptom or request? Patient hurt her finger 2 weeks ago and is still in pain. Is appointment scheduled & when? no Shopping Centre Manager: Carissa, Mom Best call back number: [phone] Is it OK to leave a confidential message on this voicemail? yes *ECODE~PNSX2 Created on 17Apr2008 2:00pm by ELKE PEREZ On 17Apr2008 2:16pm MIKE ALMANZA wrote: CLINICIAN FOLLOW-UP: CHRISTIANO (note is complete) IMPRESSION: Trauma, Finger and Toe. SYMPTOMS: Mom of 8 yr old daughter is calling. About 2 weeks ago pt was on playground equipment and her left finger was run over by a 'lake type' slider. The cut and swelling have healed. But now she does have pain that persists when she is sitting around and has time to think about it. The finger is fully functional, it does have some numbness and prickling. Denies emergent symptoms PATIENT INFORMATION: Problem List: reviewed in [facility] CARE ADVICE: Referred to [facility] trauma guideline. Advised Mom bring child either to [facility] or to to get x-ray since Mom worried about finger being broken. Advised to call back if any of the following occur: symptoms worsen or persist, any other questions or concerns. PLAN: SCHEDULE APPOINTMENT WITHIN 48 HOURS Patient/Caller agrees with plan and denies additional questions. Reference(s) Used: Pediatric Telephone Protocols-- Trauma, Finger and Toe. Call Complete. *SH~PNNL~PEDSCHOLAR~ SPECIALIST documented in this encounter Plan of Treatment Not on filedocumented as of this encounter Visit Diagnoses Not on filedocumented in this encounter Care Teams Certified Performance Technologist Relationship Specialty Start Date End Date Marlena Choudhury MD PCP - General 02/13/11 06/28/21 [address] [place] [place] [address] documented as of this encounter
--- OUTSIDE RECORDS SUMMARY | 2022-08-12 09:10 | XMS_ITS | Encounter Summary ---
:2002 [facility] Address [address], [place] [address] Care Team Providers Name Role Phone Marlena Choudhury MD Primary Care Provider Encounter Details Date Type Department Care Team Description 10/11/2008 Office Visit [facility] [place] [address] [address] [place] [address] Social History Tobacco Use Types Packs/Day Years [...] Comments Blood Pressure - - Pulse 96 10/11/2008 12:17 PM B2B SALES REPRESENTATIVE Temperature 37 ??C (98.6 ??F) 10/11/2008 12:17 C: 37.0 C Sim ultaneous PM B2B SALES REPRESENTATIVE filing. User may not have seen previo us data. Respiratory Rate 18 10/11/2008 12:17 PM B2B SALES REPRESENTATIVE Oxygen Saturation - - Inhaled Oxygen - - Concentration Weight 22.7 kg (49 lb 15.7 10/11/2008 12:17 C: 22.7kg oz) PM B2B SALES REPRESENTATIVE Height - - Body Mass Index - - documented in this encounter Progress Notes Clint Reyes - 10/11/2008 12:01 AM CST Progress Notes signed by Clint Reyes MD at 10/14/082029 Author: Clint Reyes MD Service: (none) Author Type: Physician Filed: 03/05/11 0850 Note Time: 10/11/08 0001 Status: Signed Ncqa Specialist: Clint Reyes MD (Physician) NAME: SUNNI SERNA MR#: [id number] ACCT: [id number] VISIT: [id number] DICTATING CLINICIAN: CLINT REYES MD CONFIRM #: [id number] LOC: 520 CLINIC PROGRESS NOTE DATE OF VISIT: 10/11/2008 SUBJECTIVE: 8-year-old comes to urgent care because of a sore throat over the past day. There has been an an associated headache with fever to 102. The child developed a rash today. Child as been active and taking fluids well. Sore throat pain is moderately severe and sharp. There is no other modifying factors or associated symptoms. ADR/ALLERGIES: REVIEWED IN THE PHP OF [facility]. MEDICATIONS: Reviewed in the PHP of [facility]. PAST HISTORY: Patient has a history of strep. No recent illnesses or antibiotics. SOCIAL HISTORY: No passive smoke. REVIEW OF SYSTEMS: No wheezing or dyspnea. OBJECTIVE: VS: T: 98.6. P: 96. R: 18. Wt: 50 lb. CONSTITUTIONAL: Patient is nontoxic and alert. SKIN: Warm and dry. Eyes clear. ENT: TMs and sinuses unremarkable. The throat is quite erythematous with red spots and exudate. Patient swallows with pain. There is no trismus. NECK: Supple. LYMPHATIC: 2+ anterior cervical adenopathy present. LUNGS: Clear. Patient breathing easily. Good breath sounds. CARDIOVASCULAR: Regular sinus rhythm. MUSCULOSKELETAL: Patient ambulatory. No CVA tenderness. NEUROLOGIC: No lethargy. ASSESSMENT: Strep. PLAN: Strep test is positive. Antibiotic therapy given symptomatic measures discussed. Reassess as needed. FINAL DIAGNOSIS: Strep pharyngitis. 1 strep pharyngitis. DMR:[id number] C: 10/14/08 19:15 CONFIRM #: [id number] B2B SALES REPRESENTATIVE documented in this encounter Plan of Treatment Not on filedocumented as of this encounter Visit Diagnoses Not on filedocumented in this encounter Care Teams Assessment Director Relationship Specialty Start Date End Date Marlena Choudhury MD PCP - General 02/13/11 06/28/21 [address] [address] [place] [address] documented as of this encounter
--- OUTSIDE RECORDS SUMMARY | 2022-08-12 09:10 | XMS_ITS | Encounter Summary ---
:2002 Author Organization [employer] [facility] [employer] Address [address] [place] [address] Care Team Providers Name Role Phone Marlena Choudhury MD Primary Care Provider Encounter Details Date Type Department Care Team Description 05/01/2007 Office Visit [facility] [place] [address] [address] [place] [address] [place], [place] [phone] (Wo rk) Social History Tobacco Use Types [...] Pressure - - Pulse - - Temperature 36.3 ??C (97.3 ??F) 05/01/2007 7:55 AM ORAL C: 3 6.3 C CDT Respiratory Rate - - Oxygen Saturation - - Inhaled Oxygen Concentration - - Weight 19.6 kg (43 lb 2 oz) 05/01/2007 7:55 AM C: 19.6k g CDT Height - - Body Mass Index - - documented in this encounter Progress Notes Marlena Choudhury MD - 05/01/2007 12:01 AM CDT Progress Notes signed by Marlena Choudhury MD at 05/10/07 2646 Author: Marlena Choudhury MD Service: (none) Author Type: Physician Filed: 03/04/11 1957 Note Time: 05/01/07 0001 Status: Signed Trimmer And Borer Machine Operator: Marlena Choudhury MD (Physician) SUBJECTIVE: Sunni is a 7-year-old who is here for ear reevaluation. She was found to have a left perforated TM, which persisted after the PE tube fell out. Surgical correction was recommended in October, and they are here for reevaluation. Mom is wondering about getting a second opinion. She's been otherwise doing well. she is afebrile, active, energetic.Complete review of systems is otherwise negative Adverse Drug Reactions: none Medications: none Medications reviewed and updated on [facility] med list. OBJECTIVE: Vital Signs :weight 43.2 pounds, temp 97.4, respiratory rate 15 Reviewed; See Flowsheet Charting in [facility]. Head: Normocephalic. Eyes: PERRLA, full EOM. External and funduscopic exams normal. Ears: Normal pinnae, canals, and TM's clear and mobileonly on the right. The left TM does have a perforation present Nose: Patent, without deformity. Throat: Moist mucous membranes without lesions, erythema, or exudate. Posterior oropharynx is clear. Neck: The neck was supple, without masses, lymphadenopathy or tenderness. Respiratory: Normal respiratory effort. Lungs are clear with good breath sounds. Heart: RR without murmurs, rubs, or gallops. ASSESSMENT: persistent left tympanic membrane perforation PLAN:Referral back to the ENT department to alternate provider since mom would like a second opinion. The patient was discharged in stable condition. documented in this encounter Plan of Treatment Not on filedocumented as of this encounter Visit Diagnoses Not on filedocumented in this encounter Care Teams Production Statistical Clerk Relationship Specialty Start Date End Date Marlena Choudhury MD PCP - General 02/13/11 06/28/21 [address] [place] [address] [place] [address] documented as of this encounter
--- OUTSIDE RECORDS SUMMARY | 2022-08-12 09:10 | XMS_ITS | Encounter Summary ---
:2002 Author Organization [facility] Address [address] [place] [address] Care Team Providers Name Role Phone Marlena Choudhury MD Primary Care Provider Encounter Details Date Type Department Care Team Description 05/09/2007 Office Visit [facility] [place] [address] [address] [place] [address] [place], [place] [phone] (Wo rk) Social History Tobacco Use Types [...] Sign Reading Time Taken Comments Blood Pressure 94/48 05/09/2007 10:18 AM CDT Pulse - - Temperature - - Respiratory Rate - - Oxygen Saturation - - Inhaled Oxygen Concentration - - Weight 19.2 kg (42 lb 6.3 oz) 05/09/2007 10:18 AM C: 19 .2kg CDT Height 114.3 cm (3' 9) 05/09/2007 10:18 AM C: 114.3cm CDT Ewkyxm-tiq-Xqbcng Percentile 32.75 % 05/09/2007 10:18 AM CDT Growth Chart: [facility] (Girls, 2-20 Years) Body Mass Index 14.72 05/09/2007 10:18 AM CDT Body Mass Index Percentile 36.21 % 05/09/2007 10:18 AM C DT Growth Chart: [facility] (Girls, 2-20 Years) documented in this encounter Progress Notes Marlena Choudhury MD - 05/09/2007 12:01 AM CDT H&P signed by Marlena Choudhury MD at 05/09/07 1432 Author: Marlena Choudhury MD Service: (none) Author Type: Physician Filed: 03/04/112004 Note Time: 05/09/07 0001 Status: Signed Sheet Pile Hammer Operator: Marlena Choudhury MD (Physician) Sunni is a 7 year old who is here for physical exam. She's been doing extremely well. Complete 10 system review of systems is negative. [place] Developmental Screen is appropriate for age. Medications : No scheduled medications. Medications reviewed and updated on [employer] list. Drug Allergies :No known allergies. Latex Sensitivities : No latex sensitivities No tobacco exposure. Not in daycare, and is in a car seat. Hearing:normal Vision:normal Objective Vitals: Height 45 inches 80th percentile, weight 42.4, 60th percentile, BMI 14.7, BP 94/48 right arm standard cuff Alert well-hydrated in no acute distress. HEENT : Atraumatic, normocephalic.right TMs clear and mobile left TM is clear with perforation present. PERRLA extraocular movement is intact. Nasomucosal surface [...] [age] year-old with normal growth and development, perforated TM Plan : Risks and benefits of immunizations discussed. DTaP, IPV, MMRV given. Hemoglobin cholesterol and urine analysis pending. Anticipatory guidance given. Preventative health, developmental issues discussed. Next physical in one to two years. documented in this encounter Plan of Treatment Not on filedocumented as of this encounter Visit Diagnoses Not on filedocumented in this encounter Care Teams Farm Products Shipper Relationship Specialty Start Date End Date Marlena Choudhury MD PCP - General 02/13/11 06/28/[address] [place] [address] documented as of this encounter
--- OUTSIDE RECORDS SUMMARY | 2022-08-12 09:10 | XMS_ITS | Encounter Summary ---
:2002 Author Organization [facility] Address [address], [place] [address] Care Team Providers Name Role Phone Marlena Choudhury MD Primary Care Provider Encounter Details Date Type Department Care Team Description 06/15/2007 Office Visit [facility] [address] Fernandez, Audiology CCC-A [address] [place] [address] [place] [address] [phone] Social History Tobacco Use Types Packs/Day Years [...] on filedocumented in this encounter Care Teams Compliance Engineer Products Relationship Specialty Start Date End Date Marlena Choudhury MD PCP - General 02/13/11 06/28/21 [address] [place] [address] documented as of this encounter
--- OUTSIDE RECORDS SUMMARY | 2022-08-12 09:10 | XMS_ITS | Encounter Summary ---
:2002 [facility] Address [address] [place] [address] Care Team Providers Name Role Phone Marlena Choudhury MD Primary Care Provider Encounter Details Date Type Department Care Team Description 05/26/2008 PN Conversion Only [place] [address] [address] [place] [address] (Wo rk) Social History Tobacco [...] Procedure Name Priority Date/Time Associated Comments Diagnosis URINE CULTURE Routine 05/26/2008 8:51 PM Results for this CDT procedure are i n the results section. URINALYSIS Routine 05/26/2008 8:15 PM Results f or this ROUTINE(MICRO IF POS) CDT proced ure are in the results section. URINALYSIS Routine 05/26/2008 8:15 PM Results f or this MICROSCOPIC CDT procedure are i n the results section. COMPLETE BLOOD Routine 05/26/2008 8:15 PM Results for this COUNT-W/DIFF CDT procedure are i n the results section. STREP GROUP A ANTIGEN Routine 05/26/2008 8:14 PM Results for this TEST CDT procedure are i n the results section. BETA STREP FOLLOWUP Routine 05/26/2008 8:14 PM Re sults for this CDT procedure are i n the results section. documented in this encounter Results Urine Culture (05/26/2008 8:51 PM CDT) [facility] Signature Urine [facility] SEE TEXT HP CONVERSION Comment: Patient: SUNNI SERNA Culture, Urine ?Collected: ??[id number] ??2050 Source: Clean Ca ?Processed: ??[id number] ??2050 ? SENS, 1V Final Report ------ ?[id number] ??0901 <10,000 CFU/mL gram positive organism No further workup Specimen (Source) Anatomical Collection Method Collection Time Re ceived Time Location / / Volume Laterality 05/26/2008 8:51 PM CDT Sari Medina MD LAB_1 Performing Organization Address City/State/ZIP Code Phon e Number HP CONVERSION Complete Blood Count-W/Diff (05/26/2008 8:15 PM CDT) [facility] Method Time Signature White Blood Cell 6.8 5.0 - 14.5 HP CONVERSIO N Count K/cmm Red Blood Cell 4.41 3.80 - HP CONVERSION Count 5.20 m/cmm Hemoglobin 13.0 11.0 - HP CONVERSION 14.5 gm/dL Hematocrit 36.7 33.0 - HP CONVERSION 42.0 % Mean Corpuscular 83.2 75.0 - HP CONVERSION Volume 91.0 fl Mean Corpuscular 29.5 24.0 - HP CONVERSION Hemoglobin 34.0 pg Mean Corpuscular 35.4 32.0 - HP CONVERSION Hemoglobin Conc 36.5 gm/dL [place] RDW 11.6 11.0 - HP CONVERSION 15.0 % Platelet Count 254 150 - 450 HP CONVERSION k/cmm Differential Auto-Dif No normal HP CONVERSION Verify range Neutrophils 2.9 K/cmm HP CONVERSION Absolute Count Neutrophil 42.8 % HP CONVERSION Lymphocyte % 43.1 % HP CONVERSION Monocyte 8.9 % HP CONVERSION Eosinophil 4.1 % HP CONVERSION Basophil % 1.1 % HP CONVERSION Specimen (Source) Anatomical Collection Method Collection Time Re ceived Time Location / / Volume Laterality 05/26/2008 8:15 PM CDT Sari Medina MD LAB_1 Performing Organization Address City/State/ZIP Code Phon e Number HP CONVERSION (ABNORMAL) Urinalysis Routine(Micro If Pos) (05/26/2008 8:15 PM CDT) [facility] Method Time Signature Turbidity Hazy (A) No normal HP CONVERSION range pH Urine 7.0 4.5 - 7.5 HP CONVERSION Protein Urine Negative Neg-Trac HP CONVERSION Glucose, Negative Neg-Trac HP CONVERSION Qualitative U Ketones Negative Negative HP CONVERSION U BILI Negative Negative HP CONVERSION Blood Urine Trace (A) Negative HP CONVERSION Nitrite Urine Negative Negative HP CONVERSION Leukocyte Small (A) Negative HP CONVERSION Esterase Urine Urobilinogen Negative 0.2 - 1.0 HP CONVERSION Urine U Specific 1.015 1.005 - 25 HP CONVERSION [place] Specimen (Source) Anatomical Collection Method Collection Time Re ceived Time Location / / Volume Laterality 05/26/2008 8:15 PM CDT Sari Medina MD LAB_1 Performing Organization Address City/State/ZIP Code Phon e Number HP CONVERSION (ABNORMAL) Urinalysis Microscopic (05/26/2008 8:15 PM CDT) [facility] Time Signature White Blood 3-4/HPF 0 - 3 HP CONVERSION Cells Urine Red Blood Cells 0-2/HPF 0 - 2 HP CONVERSION Urine Bacteria Urine Few (A) None HP CONVERSION Epithelial Few Few /HPF HP CONVERSION Cells Crystals Amorph None HP CONVERSION Specimen (Source) Anatomical Collection Method Collection Time Re ceived Time Location / / Volume Laterality 05/26/2008 8:15 PM CDT Sari Medina MD LAB_1 Performing Organization Address [facility] Phon e Number HP CONVERSION Strep Group A Antigen Test (05/26/2008 8:14 PM CDT) Analysis Performed At [facility] Signature Strep Group A Negative Negative HP CONVERSION Antigen Test Comment: Culture to follow. Specimen (Source) Anatomical Collection Method Collection Time Re ceived Time Location / / Volume Laterality 05/26/2008 8:14 PM CDT Sari Medina MD LAB_1 Performing Organization Address [facility] Phon e Number HP CONVERSION Beta Strep Followup (05/26/2008 8:14 PM CDT) athologist Signature Strep Screen SEE TEXT HP CONVERSION Comment: Patient: SUNNI SERNA Rapid Strep Follow up Culture ? Collected: ??[id number] ??2013 Source: Throat ?Processed: ??[id number] ??2014 ? 1V Final Report ------ ?[id number] ??1201 No beta hemolytic Strep group A isolated . Specimen (Source) Anatomical Collection Method Collection Time Re ceived Time Location / / Volume Laterality 05/26/2008 8:14 PM CDT Sari Medina MD LAB_1 Performing Organization Address City/State/[facility] Code Phon e Number HP CONVERSION documented in this encounter Visit Diagnoses Not on filedocumented in this encounter Care Teams Supply Chain Business Analyst Relationship Specialty Start Date End Date Marlena Choudhury MD PCP - General 02/13/11 06/28/21 [address] [place] [address] documented as of this encounter
--- OUTSIDE RECORDS SUMMARY | 2022-08-12 09:10 | XMS_ITS | Encounter Summary ---
:2002 Author Organization [facility] Address [address] [place] [address] Care Team Providers Name Role Phone Marlena Choudhury MD Primary Care Provider Encounter Details Date Type Department Care Team Description 11/07/2007 Nursing Visit [place] Anna Crisostomo MD [facility] [address] [facility] [address] [place] [address] [place], [place] [address] Social History Tobacco Use Types Packs/Day Years [...] on filedocumented in this encounter Care Teams Wax Pumper Relationship Specialty Start Date End Date Marlena Choudhury MD PCP - General 02/13/11 06/28/21 [address] [place] [address] documented as of this encounter
--- OUTSIDE RECORDS SUMMARY | 2022-08-12 09:10 | XMS_ITS | Encounter Summary ---
:2002 Author Organization [facility] Address [address] [place] [address] Care Team Providers Name Role Phone Marlena Choudhury MD Primary Care Provider Encounter Details Date Type Department Care Team Description 09/10/2007 Nursing Visit [place] Anna Crisostomo MD [facility] [address] [facility] [address] [place] [address] [place], [place] [address] Social History Tobacco Use Types Packs/Day Years [...] on filedocumented in this encounter Care Teams Psychometric Examiner Relationship Specialty Start Date End Date Marlena Choudhury MD PCP - General 02/13/11 06/28/21 [address] [place] [address] documented as of this encounter
--- OUTSIDE RECORDS SUMMARY | 2022-08-12 09:10 | XMS_ITS | Encounter Summary ---
:2000 Author Organization [facility] Address [address], [place] [address] Care Team Providers Name Role Phone Marlena Choudhury MD Primary Care Provider Encounter Details Date Type Department Care Team Description 11/01/2006 Office Visit [place] 1515 Ear, Nose, Mehdi Marinelli MD and Throat 3800 [facility] 1515 [facility] [place] [phone] (Wo rk) Social History Tobacco Use Types [...] encounter Progress Notes Mehdi Marinelli MD - 11/01/2006 12:01 AM CST Progress Notes signed by Mehdi Marinelli MD at 12/04/06 1100 Author: Mehdi Marinelli MD Service: (none) Author Type: Physician Filed: 03/04/11 1619 Note Time: 11/01/06 0001 Status: Signed Application Development Intern: Mehdi Marinelli MD (Physician) NAME: SUNNI SERNA MR#: [id number] ACCT: [id number] VISIT: [id number] DICTATING CLINICIAN: MEHDI MARINELLI MD JOB: [id number] LOC: 3228 CLINIC PROGRESS NOTE DATE OF VISIT: 11/01/2006 SUBJECTIVE: Sunni is a 6-year-old here for follow-up of a left tympanic membrane perforation. She had bilateral paper patch myringoplasty, the right 1 did well, the left 1 unfortunately did not. She is here to see if the hole has closed. She has had no ear issues since her last visit. OBJECTIVE: On exam, the right TM is completely normal. The left TM still shows an anterior 10-15% perforation. ASSESSMENT: Persistent left TM perforation. PLAN: Recommend a tympanoplasty in the spring. It is possible that if the hole decreases in size we maybe able to do a fat graft myringoplasty. As such, would recommend that they follow-up with me at the end of January for reassessment and then planning for surgical closure at that time. DWW:[id number] C: 11/02/06 11:18 DOCUMENT: [id number] RANCE LOSS ADJUSTER documented in this encounter Plan of Treatment Not on filedocumented as of this encounter Visit Diagnoses Not on filedocumented in this encounter Care Teams Clothes Ironer Relationship Specialty Start Date End Date Marlena Choudhury MD PCP - General 02/13/11 06/28/21 [address] [place] [address] documented as of this encounter
--- OUTSIDE RECORDS SUMMARY | 2022-08-12 09:10 | XMS_ITS | Encounter Summary ---
:2000 Author Organization [facility] Address [address] [place] [address] Care Team Providers Name Role Phone Marlena Choudhury MD Primary Care Provider Reason for Visit Reason Comments Other Encounter Details Date Type Department Care Team Description 05/24/[address] [facility] 3800 Ear, Mehdi Marinelli MD Other Nose, and Throat [address] [place] [phone] (Wo rk) Social History Tobacco Use Types [...] documented as of this encounter Progress Notes Marizol Rivas RN - 05/24/2006 9:25 AM CDT Phone Note filed by Marizol Rivas RN at 03/01/11610 Author: Marizol Rivas RN Service: (none) Author Type: (none) Filed: 03/01/11610 Note Time: 05/24/06924 Status: Signed Paratransit Operator: Mya Conversion Mom Carissa mcknight stating Sunni had bilateral tubes removed with paper patches 05/18/[address] Marinelli. Had fever on and off over weekend. Last night bloody/brownish/reddish drainage from right ear. Wanting advise. Per Dr. Marinelli mom should start the prescribed eardrops today, 3 drops TID x 7 days, then stop. Keep scheduled f/u visit 06/07. Created on 24May2006 9:25am by MARIZOL RIVAS Acknowledged by MEHDI MARINELLI on 11:40am O MASK PROCESSOR documented in this encounter Plan of Treatment Not on filedocumented as of this encounter Visit Diagnoses Not on filedocumented in this encounter Care Teams Handicraft Or Hobby Shop Manager Relationship Specialty Start Date End Date Marlena Choudhury MD PCP - General 02/13/11 06/28/21 [address] [place] [address] documented as of this encounter
--- OUTSIDE RECORDS SUMMARY | 2022-08-12 09:10 | XMS_ITS | Encounter Summary ---
:2002 Author Organization [facility] Address [address] [place] [address] Care Team Providers Name Role Phone Marlena Choudhury MD Primary Care Provider Encounter Details Date Type Department Care Team Description 09/05/2008 Office Visit [facility] 3800 Ear, Tayla Owens MD Nose, and Throat [address] [place] [address] [place], [place] [address] [phone] Social History Tobacco Use Types Packs/Day Years [...] encounter Progress Notes Tayla Owens MD - 09/05/2008 12:01 AM CDT Progress Notes signed by Tayla Owens MD at 09/08/08 1255 Author: Tayla Owens MD Service: (none) Author Type: Physician Filed: 03/05/11 0755 Note Time: 09/05/08 0001 Status: Signed Dog Or Horse Racing Official: Tayla Owens MD (Physician) NAME: SUNNI SERNA MR#: [id number] ACCT: [id number] VISIT: [id number] DICTATING CLINICIAN: TAYLA OWENS MD CONFIRM #: [id number] LOC: 428 CLINIC PROGRESS NOTE DATE OF VISIT: 09/05/2008 SUBJECTIVE: This is a 8-year-old who is here for reevaluation of the left ear. She had a small perforation. Was seen by Dr. Baugh. When I saw her, it appeared that the perforation had decreased in size. OBJECTIVE: To my exam now there is no perforation remaining. Her primary doctor also saw her in April and May and felt as well that the tympanic membrane had healed. ASSESSMENT: PLAN: At this point my recommendation is for as-needed followup. Mom is reassured that the eardrum appears perfectly normal and healthy. She has not had any hearing concerns, and so a repeat audiogram is not done today. SMS:[id number] C: 09/05/08 14:54 CONFIRM #: [id number] documented in this encounter Plan of Treatment Not on filedocumented as of this encounter Visit Diagnoses Not on filedocumented in this encounter Care Teams Nutrition Helper Relationship Specialty Start Date End Date Marlena Choudhury MD PCP - General 02/13/11 06/28/21 [address] [place] [address] documented as of this encounter
--- OUTSIDE RECORDS SUMMARY | 2022-08-12 09:10 | XMS_ITS | Encounter Summary ---
:2002 Author Organization [facility] Address [address], [place] [address] Care Team Providers Name Role Phone Marlena Choudhury MD Primary Care Provider Encounter Details Date Type Department Care Team Description 10/11/2008 PN Conversion Only [place] [address] [address] [place] [address] Social History Tobacco Use Types [...] Diagnosis Comme nts STREP GROUP A Routine 10/11/2008 2:46 PM Results for this ANTIGEN TEST EROSION CONTROL SPECIALIST procedure are i n the results section. documented in this encounter Results Strep Group A Antigen Test (10/11/2008 2:46 PM EROSION CONTROL SPECIALIST) Analysis Performed At [facility] Time Signature Strep Group A Positive Negative HP CONVERSION Antigen Test Specimen (Source) Anatomical Collection Method Collection Time Re ceived Time Location / / Volume Laterality 10/11/2008 2:46 PM EROSION CONTROL SPECIALIST Elroy Reyes MD LAB_1 Performing Organization Address City/State/ZIP Code Phon e Number HP CONVERSION documented in this encounter Visit Diagnoses Not on filedocumented in this encounter Care Teams Vp Care Management Relationship Specialty Start Date End Date Marlena Choudhury MD PCP - General 02/13/11 06/28/21 [address] [place] [address] documented as of this encounter
--- OUTSIDE RECORDS SUMMARY | 2022-08-12 09:11 | XMS_ITS | Encounter Summary ---
:2002 Author Organization [facility] include 234 beds at the [facility] Address [address] [place] [address] Care Team Providers Name Role Phone Marlena Choudhury MD Primary Care Provider Encounter Details Date Type Department Care Team Description 03/29/2006 PN Conversion Only [facility] [address] CON[address] [place] [address] Social History Tobacco Use Types Packs/Day Years [...] on filedocumented in this encounter Care Teams Newspaper Photo Editor Relationship Specialty Start Date End Date Marlena Choudhury MD PCP - General 02/13/11 06/28/21 [address] [place] [address] documented as of this encounter
--- OUTSIDE RECORDS SUMMARY | 2022-08-12 09:11 | XMS_ITS | Encounter Summary ---
:2002 Author Organization [facility] Address [address], [place] [address] Care Team Providers Name Role Phone Marlena Choudhury MD Primary Care Provider Encounter Details Date Type Department Care Team Description 10/07/2005 Nursing Visit [facility] [place] [address] [address] [place] [address] [place] [address] [phone] (Wo rk) Social History Tobacco Use Types [...] on filedocumented in this encounter Care Teams Agency Operator Relationship Specialty Start Date End Date Marlena Choudhury MD PCP - General 02/13/11 06/28/21 [address] [place] [address] documented as of this encounter
--- OUTSIDE RECORDS SUMMARY | 2022-08-12 09:11 | XMS_ITS | Encounter Summary ---
:2002 [facility] Address [address] [address] Care Team Providers Name Role Phone Bettie Choudhury MD Primary Care Provider Encounter Details Date Type Department Care Team Description 05/17/2006 Office Visit [facility] [place] [address] [address] [place] [address] [place], [place] [phone] (Wo rk) Social History Tobacco Use Types [...] Comments Blood Pressure - - Pulse 104 05/17/2006 9:34 AM CDT Temperature 36.3 ??C (97.3 ??F) 05/17/2006 9:34 AM AXILLARY C: 36.3 C CDT Respiratory Rate 20 05/17/2006 9:34 AM CDT Oxygen Saturation - - Inhaled Oxygen - - Concentration Weight 16.6 kg (36 lb 9.5 05/17/2006 9:34 AM C: 16.6kg oz) CDT Height 108 cm (3' 6.5) 05/17/2006 9:34 AM C: 108.0cm CDT Oyeszs-vbi-Aewihf 19.86 % 05/17/2006 9:34 AM Percentile CDT Growth Chart: [facility] (Girls, 2-20 Years) Body Mass Index 14.24 05/17/2006 9:34 AM CDT Body Mass Index Percentile 16.62 % 05/17/2006 9:34 AM CD T Growth Chart: [facility] (Girls, 2-20 Years) documented in this encounter Progress Notes Bettie Choudhury MD - 05/17/2006 12:01 AM CDT Progress Notes signed by Bettie Choudhury MD at 05/18/06 0639 Author: Bettie Choudhury MD Service: (none) Author Type: Physician Filed: 03/04/11 1301 Note Time: 05/17/06 0001 Status: Signed Campaign Advisor: Bettie Choudhury MD (Physician) NAME: SUNNI SERNA MR: [id number] ACCT: [id number] VISIT: [id number] DICTATING CLINICIAN: BETTIE CHOUDHURY MD JOB: [id number] CLINIC PROGRESS NOTE DATE OF VISIT: 05/17/2006 SUBJECTIVE: Please see preop in ScanDoc. OBJECTIVE: ASSESSMENT: PLAN: [id number] C: 05/18/06 02:21 DOCUMENT: [id number] documented in this encounter Plan of Treatment Not on filedocumented as of this encounter Visit Diagnoses Not on filedocumented in this encounter Care Teams Marketing Senior Recruiter Relationship Specialty Start Date End Date Bettie Choudhury MD PCP - General 02/13/11 06/28/21 [address] [place] [address] documented as of this encounter
--- OUTSIDE RECORDS SUMMARY | 2022-08-12 09:11 | XMS_ITS | Encounter Summary ---
:2002 Author Organization [facility] Address [address] [address] Care Team Providers Name Role Phone Bettie Choudhury MD Primary Care Provider Encounter Details Date Type Department Care Team Description 12/09/2004 Office Visit [facility] [place] [address] [facility] [address] [place] [address] [place], [place] [phone] (Wo rk) Social History Tobacco Use Types [...] documented as of this encounter Progress Notes Bettie Choudhury MD - 12/09/2004 12:01 AM CST Progress Notes signed by Bettie Choudhury MD at 02/07/051954 Author: Bettie Choudhury MD Service: (none) Author Type: Physician Filed: 03/04/11 0250 Note Time: 12/09/04 0001 Status: Signed Knitter Wire Mesh: Bettie Choudhury MD (Physician) NAME: SUNNI SERNA MR: [id number] ACCT: [id number] VISIT: [id number] DICTATING CLINICIAN: BETTIE CHOUDHURY MD JOB: [id number] CLINIC PROGRESS NOTE DATE OF VISIT: 12/09/2004 SUBJECTIVE: : 2002. Sunni is a 4-year-old who is here because of a fever that has went to 103.9 rectally that started last night. She has had a barky cough. She has otherwise been drinking well and eating well, active, and energetic with no vomiting or diarrhea. REVIEW OF SYSTEMS: Otherwise negative. OBJECTIVE: VS: T: 97.6. P: 112. R: 24. Wt: 29 lb. GENERAL: She is alert, well-hydrated, in no acute distress. HEENT: Atraumatic, normocephalic. TMs are clear and mobile bilaterally. PERRLA. Extraocular movements intact. Nasal mucosa clear. Posterior oropharynx is clear. LUNGS: Have some occasional scattered rhonchi. HEART: Regular rate and rhythm, S1 and S2 without a murmur. ABDOMEN: Soft, positive bowel sounds, nondistended, nontender. Liver at the right costal margin, midclavicular line. Spleen not palpable. SKIN: Negative. NEURO: Negative. ASSESSMENT: Probable bronchitis. PLAN: Of note is that Yael was treated with Zithromax and did seem to respond considerably and Sunni now is trailing by just three days. For that reason, I will empirically go ahead and treat her with Zithromax, 200 mg per 5 mL, 4 mL p.o. per day on days 1-3. They are to follow up in one week at the latest. Signs of respiratory distress were reviewed. ED:[id number] C: 02/07/05 11:42 DOCUMENT: [id number] GER OF DISASTER RECOVERY documented in this encounter Plan of Treatment Not on filedocumented as of this encounter Visit Diagnoses Not on filedocumented in this encounter Care Teams Kst Operator Relationship Specialty Start Date End Date Bettie Choudhury MD PCP - General 02/13/11 06/28/[address] [place] [address] documented as of this encounter
--- OUTSIDE RECORDS SUMMARY | 2022-08-12 09:11 | XMS_ITS | Encounter Summary ---
:2002 Author Organization [facility] Address [address] [place] [address] Care Team Providers Name Role Phone Marlena Choudhury MD Primary Care Provider Encounter Details Date Type Department Care Team Description 04/13/2005 Office Visit [place] [address]15 [address] [place], 1515 [facility] [place] [address] [address] [facility] [phone] [place] [address] [address] Social History Tobacco Use Types Packs/Day [...] on filedocumented in this encounter Care Teams Piece Presser Relationship Specialty Start Date End Date Marlena Choudhury MD PCP - General 02/13/11 06/28/21 [address] [place] [address] documented as of this encounter
--- OUTSIDE RECORDS SUMMARY | 2022-08-12 09:11 | XMS_ITS | Encounter Summary ---
:2002 Author Organization [facility] Address [address] [place] [address] Care Team Providers Name Role Phone Bettie Choudhury MD Primary Care Provider Encounter Details Date Type Department Care Team Description 05/19/2005 Office Visit [facility] [place] [address] [address] [place] [address] [place], [place] [phone] (Wo rk) Social History Tobacco Use Types [...] Sign Reading Time Taken Comments Blood Pressure 98/60 05/19/2005 4:08 PM CDT Pulse - - Temperature 36.3 ??C (97.3 ??F) 05/19/2005 4:08 PM EAR C: 36 .3 C CDT Respiratory Rate - - Oxygen Saturation - - Inhaled Oxygen Concentration - - Weight 14.5 kg (31 lb 15.8 05/19/2005 4:08 PM C: 14.5kg oz) CDT Height - - Body Mass Index - - documented in this encounter Progress Notes Bettie Choudhury MD - 05/19/2005 12:01 AM CDT Progress Notes signed by Bettie Choudhury MD at 06/11/05 1739 Author: Bettie Choudhury MD Service: (none) Author Type: Physician Filed: 03/04/11 0556 Note Time: 05/19/05 0001 Status: Signed Mechanic Driver: Bettie Choudhury MD (Physician) NAME: SUNNI SERNA MR: [id number] ACCT: [id number] VISIT: [id number] DICTATING CLINICIAN: BETTIE CHOUDHURY MD JOB: [id number] CLINIC PROGRESS NOTE DATE OF VISIT: 05/19/2005 SUBJECTIVE: Sunni is a 5-year-old who is here for a physical exam. They are concerned because she has had several nose bleeds over the last 6 to 7 months, lasting as long as 30 minutes and having as often as 2 a week. They saw ENT who felt reluctant to do anything especially on someone her age. They perpetually come from the left naris and have been causing problems at daycare. MEDICATIONS: She is on no medications. IMMUNIZATIONS: Up-to-date. ADR/ALLERGIES: NO KNOWN ALLERGIES, LATEX SENSITIVITIES. No tobacco exposure. OBJECTIVE: VS: BP: 98/60, using pediatric cuff on the left arm. T: 97.4. Wt: 32 lb. She is alert, well-hydrated, in no acute distress. HEENT: Atraumatic/normocephalic. TMs clear and mobile bilaterally. PERRLA. Extraocular movements intact. Nasal mucosal is erythematous and scabbed, consistent with impetigo. Posterior oropharynx is not visible. LUNGS: Clear to auscultation. HEART: Regular rate and rhythm, S1, S2 without a murmur. ASSESSMENT: Impetigo of the naris. PLAN: Will treat with Augmentin ES 600 mg per 5 mL, 1 tsp p.o. b.i.d. times 10 days. If indeed the nose bleeds continue after she has been treated, then I would have them return to ENT for reevaluation. At this point, it is becoming a health hazard at daycare. Because of the blood exposure they are very reluctant to have her there, and unless there is some definitive management with cauterization, it is going to become a major issue in their lives. ED:[id number] C: 05/30/05 09:46 DOCUMENT: [id number] documented in this encounter Plan of Treatment Not on filedocumented as of this encounter Visit Diagnoses Not on filedocumented in this encounter Care Teams Net Maker Relationship Specialty Start Date End Date Bettie Choudhury MD PCP - General 02/13/11 06/28/21 [address] [place] [address] documented as of this encounter
--- OUTSIDE RECORDS SUMMARY | 2022-08-12 09:11 | XMS_ITS | Encounter Summary ---
:2002 Author Organization [facility] Address [address], [place] [address] Care Team Providers Name Role Phone Marlena Choudhury MD Primary Care Provider Encounter Details Date Type Department Care Team Description 09/29/2004 Office Visit [place] 1515 Ear, Nose, BaughMehdi MD and Throat 3800 [facility] [address] [place], [place] [address] [phone] (Wo rk) Social History Tobacco Use Types [...] on filedocumented in this encounter Care Teams Machine Assembler Relationship Specialty Start Date End Date Marlena Choudhury MD PCP - General 02/13/11 06/28/21 [address] [place] [address] documented as of this encounter
--- OUTSIDE RECORDS SUMMARY | 2022-08-12 09:11 | XMS_ITS | Encounter Summary ---
:2002 Author Organization [facility] Address [address] [place] [address] Care Team Providers Name Role Phone Marlena Choudhury MD Primary Care Provider Encounter Details Date Type Department Care Team Description 12/13/[address] [facility] [place] [place] [address] [place] [address] Social History Tobacco Use Types [...] Taken Comments Blood Pressure - - Pulse 110 12/13/2005 5:38 PM COIL TESTER Temperature 36.2 ??C (97.2 ??F) 12/13/2005 5:38 PM AXILLARY C: 36.2 C COIL TESTER Respiratory Rate 22 12/13/2005 5:38 PM COIL TESTER Oxygen Saturation - - Inhaled Oxygen - - Concentration Weight 15.9 kg (34 lb 15.8 12/13/2005 5:38 PM C: 15.9kg oz) COIL TESTER Height - - Body Mass Index - - documented in this encounter Progress Notes Janis Batista MD - 12/13/2005 12:01 AM CST Progress Notes signed by Janis Batista MD at 12/26/05 2108 Author: Janis Batista MD Service: (none) Author Type: Physician Filed: 03/04/11 0955 Note Time: 12/13/05 0001 Status: Signed Analytics Developer: Janis Batista MD (Physician) NAME: SUNNI SERNA MR: [id number] ACCT: [id number] VISIT: [id number] DICTATING CLINICIAN: JANIS BATISTA MD JOB: [id number] CLINIC PROGRESS NOTE DATE OF VISIT: 12/13/2005 SUBJECTIVE: : 2000. Chief Complaint: [place] eye. HPI: A 5-year-old here with parent. She has had 2 days of right eye drainage and pinkness of the conjunctivae. Has had a slight cold for a few days. No fever. Has been eating and acting normally. PMH: Negative. MEDS: None. ADR/ALLERGIES: NONE. OBJECTIVE: VS: T: 97.2 axillary. P: 110. R: 22. Wt: 35 lb. O2 sats: 98% on room air. Alert, cooperative. Nontoxic. Right eye does have some debris obvious on the lower lid. There is slight injection of the eye. Ears: Right TM is normal. Left has cerumen which is manually removed, then it shows a normal TM. Oral cavity is pink and moist. NECK: Supple. CV: Regular rate and rhythm. No murmur. LUNGS: Clear to auscultation without wheezing, rales or rhonchi. ASSESSMENT: 1. Right conjunctivitis. 2. Left ceruminosis. PLAN: Polytrim Ophthalmic t.i.d. times 7 days. Other symptomatic cares return p.r.n. SMG:[id number] C: 12/14/05 15:29 DOCUMENT: [id number] TESTER documented in this encounter Plan of Treatment Not on filedocumented as of this encounter Visit Diagnoses Not on filedocumented in this encounter Care Teams Glory Hole Tender Relationship Specialty Start Date End Date Marlena Choudhury MD PCP - General 02/13/11 06/28/[address] [place], [place] [address] documented as of this encounter
--- OUTSIDE RECORDS SUMMARY | 2022-08-12 09:11 | XMS_ITS | Encounter Summary ---
:2002 Author [facility] Address [address] [place] [address] Care Team Providers Name Role Phone Marlena Choudhury MD Primary Care Provider Reason for Visit Reason Comments Other Encounter Details Date Type Department Care Team Description 07/27/2004 Telephone [facility] Keena Huber RN Other [address] [place] [address] Social History Tobacco Use Types [...] documented as of this encounter Progress Notes Keena Huber RN - 07/27/2004 1:45 AM CDT Phone Note filed by Keena Huber RN at 02/28/11 9652 Author: Keena Huber RN Service: (none) Author Type: Registered Nurse Filed: 02/28/11 1413 Note Time: 07/27/043 Status: Signed Utility Worker Woolen Mill: Keena Huber RN (Registered Nurse) Mom calling, patient has a fever and has vomited x3 in the past 1 hour. Twin had similar sx's this past week. Mom is concerned that the patient's temp is 103.3 and won't come down.Patient is responsive. Was given Tylenol at 9:30 PM and again at 12:30 AM per rectal supp. Mom is concerned about the fever and would like to give her more Tylenol. Referenced information per Pediatric Telephone Protocols by Chivo Irby. Gave mom the information on Fevers. Mom says this information is totally opposite of the information given to her from the director of the ER at [facility]. Mom says this provider told her to treat the fever on her sibling very aggressively. Mom became upset with the information that this Nurseline always gives and said forget it we'll handle it ourselves. Mom ended call. Created on 27Jul2004 1:45am by KEENA HUBER documented in this encounter Plan of Treatment Not on filedocumented as of this encounter Visit Diagnoses Not on filedocumented in this encounter Care Teams Medical Aide Relationship Specialty Start Date End Date Marlena Choudhury MD PCP - General 02/13/11 06/28/21 [address] [place] [address] documented as of this encounter
--- OUTSIDE RECORDS SUMMARY | 2022-08-12 09:11 | XMS_ITS | Encounter Summary ---
:2000 [facility] Address [address], [place] [address] Care Team Providers Name Role Phone Marlena Choudhury MD Primary Care Provider Encounter Details Date Type Department Care Team Description 03/09/2004 PN Conversion Only [facility] s Marlena Choudhury, [address] [facility] [place] [address] [facility] [phone] [place], [place] [phone] (Wo rk) Social History Tobacco [...] documented as of this encounter Progress Notes Tyrone Salazar - 10/24/2003 12:01 AM CST Progress Notes signed by Tyrone Salazar MD at 10/26/03 0954 Author: Tyrone Salazar MD Service: (none) Author Type: (none) Filed: 03/03/11 1734 Note Time: 10/24/03 0001 Status: Signed Division Chief: Tyrone Salazar MD (Physician) NAME: SUNNI SERNA MR: [id number] ACCT: [id number] VISIT: [id number] DICTATING CLINICIAN: TYRONE SALAZAR MD JOB: [id number] CLINIC PROGRESS NOTE DATE OF VISIT: 10/24/2003 SUBJECTIVE: : 2000. Chief Complaint: Mattering of both eyes. Sunni is a [id number] child who has had a little bit of a cold the last few days, now today began with purulent discharge from both eyes. They do not seem to bother her otherwise. There has been no fever. No crying. No apparent pain. No real cough. ADR/ALLERGIES: NONE. MEDICATIONS: None. She has a history of ear tubes. OBJECTIVE: VS: T: 97.8. P: 120. She was crying at the time. R: About 12. There is bilateral purulent conjunctival injection, although not much in the way of injection, but a fair amount of drainage. Both ears were clear with no sign of inflammation. NECK: Supple. ASSESSMENT: Bilateral conjunctivitis. PLAN: Prescribed Tobramycin ophthalmic drops. Advice given. Recheck p.r.n. TT: CT: [id number] C: 10/24/03 13:11 DOCUMENT: [id number] documented in this encounter Plan of Treatment Not on filedocumented as of this encounter Visit Diagnoses Not on filedocumented in this encounter Care Teams Tubing Assembler Relationship Specialty Start Date End Date Marlena Choudhury MD PCP - General 02/13/11 06/28/21 [id number] [address] [place] [id number] documented as of this encounter
--- OUTSIDE RECORDS SUMMARY | 2022-08-12 09:11 | XMS_ITS | Encounter Summary ---
:2000 [facility] [address], [place] [address] Care Team Providers Name Role Phone Marlena Olson MD Primary Care Provider Encounter Details Date Type Department Care Team Description 08/14/2003 PN Conversion Only [facility] Marlena Olson, [address] [facility] [place] [address] [facility] [phone] [place], [place] [address] (Wo rk) Social History [...] documented as of this encounter Progress Notes Marlena Olson MD - 08/14/2003 12:01 AM CDT H&P signed by Marlena Olson MD at 07/04/04 9957 Author: Marlena Olson MD Service: (none) Author Type: Physician Filed: 03/03/11 1618 Note Time: 08/14/03 0001 Status: Signed Stem Dryer Maintainer: Marlena Olson MD (Physician) NAME: BLAYNE SIMON MR: [id number] ACCT: [id number] VISIT: [id number] DICTATING CLINICIAN: MARLENA OLSON MD JOB: [id number] CLINIC PHYSICAL DATE OF VISIT: 08/14/2003 SUBJECTIVE: : 2000. Blayne is a 67-afnuo-tjq who is here for two purposes. First of all, she is to have her 18-month physical, and, secondly, as a preop for bilateral myringotomy tubes. She has a well-rounded diet, drinks whole milk, sleeps through the night, has a vocabulary of 10 to 15 words which she speaks clearly, multiple that are poorly understood, and occasionally is combining words. [place] is appropriate for age. Hearing and vision are appropriate per observation. No tobacco exposure. REVIEW OF SYSTEMS: Otherwise negative. MEDICATIONS: She is on no medications. ADR/ALLERGIES: NO KNOWN DRUG ALLERGIES. She does have a resolving URI. OBJECTIVE: VS: T: 96.9. Ht: 32-1/4, at the 75th percentile. Wt: 23 lb 10 oz, at the 50th percentile. She is alert, well-hydrated, in no acute distress. HEENT: Atraumatic, normocephalic. The TMs are dull with decreased mobility. PERRLA. Extraocular movements intact. Nasal mucosa is clear, with clear rhinorrhea. Posterior oropharynx is clear. LUNGS: Clear to auscultation. HEART: Regular rhythm, S1, S2, without a murmur. ABDOMEN: Soft, positive bowel sounds, nondistended, nontender. Liver at the right costal margin, midclavicular line. Spleen not palpable. SKIN: Negative. NEURO: Negative. Normal genitalia. EXTREMITIES: Normal. SPINE: Straight. No hip click. ASSESSMENT: A 08-gsfsp-ojv, normal growth and development, with bilateral serous otitis and resolving upper respiratory infection. PLAN: Okay for surgery. Anticipatory guidance given. Immunizations up-to-date. Next physical at 4 years of age. TT: CT: ED:[id number] C: 08/14/03 16:59 DOCUMENT: [id number] Turner Ghosh MD - 07/28/2003 12:01 AM CDT Progress Notes signed by Turner Ghosh MD at 07/28/042015 Author: Turner Ghosh Md, MD Service: (none) Author Type: Physician Filed: 03/03/11 1559 Note Time: 07/28/03 0001 Status: Signed Stem Dryer Maintainer: Turner Ghosh Md, MD (Physician) NAME: BLYANE SIMON MR: [id number] ACCT: [id number] VISIT: [id number] DICTATING CLINICIAN: TURNER GHOSH MD JOB: [id number] CLINIC PROGRESS NOTE DATE OF VISIT: 07/28/2003 SUBJECTIVE: Blayne comes in because she developed a cough two nights ago with a runny nose. Developed a fever yesterday. She has had a history of ear infections. She is scheduled for PE tubes 08/06. The has had some mattery eyes also the last day or two. She is not on any medication other than for the fever. ADR/ALLERGIES: NO KNOWN ALLERGIES TO MEDICINES. OBJECTIVE: VS: T: 98.6 degrees. P: 100. Wt: 23 lb. 9 oz. Ears: Right and left are slightly retracted, but they are not reddened. Eyes are mattery. Nose is runny. Pharynx is not red. No exudate. Mouth is moist. No canker sores. NECK: Supple. No palpable cervical lymph nodes. LUNGS: Clear. No wheezing, crackles, or rhonchi. ASSESSMENT: Viral URI. PLAN: Treat symptomatically. Will observe. TT: CT: MUSIC PASTOR:[id number] C: 07/28/03 10:34 DOCUMENT: [id number] Phone Note, Clinician - 07/21/2003 12:01 AM CDT Phone Note filed by Clinician Phone Note at 03/01/11 1205 Author: Clinician Phone Note Service: (none) Author Type: Resource Filed: 03/01/11 1203 Note Time: 07/21/03 0001 Status: Signed Stem Dryer Maintainer: Clinician Phone Note (Resource) TO: MARLENA OLSON FROM: GAVIN CRUZ LPN [phone] * PROVIDER MESSAGE: ROUTINE * 07/21/03 03:46PM * *WITHIN 4 HOURS * MESSAGE: Mom calling stating child * HOME PHONE:[phone] * had another ear infection over * WORK PHONE:[phone] * Labor Day. Parents have decided to * CONTACT PHONE:[phone] * have tubes put in both girls. Mom * mother * has some questions for you. SUBJECTIVE: ALLERGIES/SENSITIVITIES... NKA 07/12/03 CURRENT MEDICATIONS... Amoxicillin-started yesterday; Advil earlier this morning 07/12/03 PERTINENT PAST HISTORY... Hx of constipation; Hx of OM; 07/12/03 WEIGHT: ASSESSMENT: Questions regarding PET's PLAN: DISPOSITION: NO DISPOSITION GIVEN CALL BY GAVIN CRUZ LPN 07/21/2003 03:43PM [phone] ADDENDUM: ITIONISTS Phone Note, Clinician - 07/12/2003 12:01 AM CDT Phone Note filed by Clinician Phone Note at 03/01/111199 Author: Clinician Phone Note Service: (none) Author Type: Resource Filed: 03/01/111199 Note Time: 07/12/03 0001 Status: Signed Stem Dryer Maintainer: Clinician Phone Note (Resource) SUBJECTIVE: PATIENT COMPLAINS OF... Fever, * HOME PHONE:[phone] * 103 rectal this * WORK PHONE:[phone] * morning,amoxicillin started yester day for OM. Mom concerned because in the past patient's temp came down as soon as abx started. Wondering if she should take patient MD again and/ or if she can alternate advil with tylenol. ALLERGIES/SENSITIVITIES... NKA 07/12/03 CURRENT MEDICATIONS... Amoxicillin-started yesterday; Advil earlier this morning 07/12/03 PERTINENT PAST HISTORY... Hx of constipation; Hx of OM; 07/12/03 ASSESSMENT: Fever-(3months to 3 years)-triage guideline DISPOSITION: HOME CARE PLAN: RECOMMENDED THE FOLLOWING... Referenced guideline Fever-(3months to 3 years)-triage guideline. -Give ibuprofen as directed told mom she can tylenol 3 hours after patient given advil,keep alternating that way. Monitor sx for another 24 hours at least,no need to take patient to MD today unless other sx develop. -Dress lightly -Encourage increased intake of clear liquids Caregiver to observe appearance and behavior and call back if child remains uncomfortable or if symptoms worsen. Patient information given per Fever nurse guideline. Verbalizes understanding and agrees with phone care recommendation INFORMED PATIENT TO CALLBACK IF... Reasons to call back reviewed- caller verbalizes understanding of the need to call back for the following reasons: -Serious symptoms develop -Any other questions or concerns CALL BY BARRETT YEPEZ RN 07/12/2003 10:03AM [phone] ADDENDUM: Nicky Mcgregor MD - 07/12/2003 12:01 AM CDT Progress Notes signed by Nicky Smith MD at 07/15/03 0808 Author: Nicky Smith MD Service: (none) Author Type: Physician Filed: 03/03/11 1547 Note Time: 07/12/032020 Status: Signed Stem Dryer Maintainer: Nicky Smith MD (Physician) NAME: BLAYNE SIMON MR: [id number] ACCT: [id number] VISIT: [id number] DICTATING CLINICIAN: NICKY SMITH MD JOB: [id number] CLINIC PROGRESS NOTE DATE OF VISIT: 07/12/2003 SUBJECTIVE: : 2000. The patient is a 11-mftvj-hoi female. She was here last night fairly late, was seen with a fever, and diagnosed with an ear infection, but overnight her temps were running fairly high about 102 overnight and then this morning went as high as almost 104. Mom was concerned because she felt that she should be getting back to normal temps by now. We talked about the fact that since she has not even been on the medication for 24 hours yet that it is a little bit early to expect the temps to have gone back, although with fairly high temp this morning it was concerning to her and so we will check it out. Mom had been giving her Tylenol and Advil, but it did not seem to be bringing the temps down adequately, although the fevers have dropped now. OBJECTIVE: VS: T: 99. P: 160. Wt: 23 lb. 6 oz. HEENT: Tympanic membranes: The right one was still red, but not bright-red, it was just minimally reddened with a little bit of fluid. The left one was normal. Her throat was normal. LUNGS: Clear. HEART: Normal. ABDOMEN: Soft and nontender. ASSESSMENT: Fever. PLAN: I suspect that the fever is still elevated on the basis of both the ear infection, but also she could have an underlying viral illness. We have been seeing a lot of kids over the last little while with very high fevers associated with the illnesses going around, so for the time being would just continue to treat the temperature aggressively trying to keep it down to at least 100. The ear does not look too bad at this point. I do not think changing the antibiotic would be needed. Recheck as needed. TT: CT: CJF:[id number] C: 07/13/03 20:12 DOCUMENT: [id number] Miguel Angel Garcia PA-C - 07/11/2003 12:01 AM CDT Progress Notes signed by Miguel Angel Garcia PA-C at 08/19/04 2235 Author: Miguel Angel Garcia PA-C Service: (none) Author Type: Physician Associate Biological Sales Filed: 03/03/11 1546 Note Time: 07/11/03 0001 Status: Signed Stem Dryer Maintainer: Miguel Angel Garcia PA-C (Physician Associate Biological Sales) NAME: BLAYNE SIMON MR: [id number] ACCT: [id number] VISIT: [id number] DICTATING CLINICIAN: BRENDA HAWKINS JOB: [id number] CLINIC PROGRESS NOTE DATE OF VISIT: 07/11/2003 SUBJECTIVE: See URI mirza. OBJECTIVE: See URI mirza. ASSESSMENT: Right acute otitis media. PLAN: Amoxil 9 cc t.i.d. over 10 days. She had a history of multiple bouts of otitis media. Will have a follow up with Dr. Marinelli in ENT. Return p.r.n. TT: CT: TJL:[id number] C: 07/12/03 14:28 DOCUMENT: [id number] Shawanda Boyer MD - 05/30/2003 12:01 AM CDT Progress Notes signed by Shawanda Boyer MD at 08/25/04 2130 Author: Shawanda Boyer MD Service: (none) Author Type: Physician Filed: 03/03/11 1507 Note Time: 05/30/03 0001 Status: Signed Stem Dryer Maintainer: Shawanda Boyer MD (Physician) NAME: BLAYNE SIMON MR: [id number] ACCT: [id number] VISIT: [id number] DICTATING CLINICIAN: SHAWANDA BOYER MD JOB: [id number] CLINIC PROGRESS NOTE DATE OF VISIT: 05/30/2003 SUBJECTIVE: A 45-getgk-neg white female brought in by her dad. She is one half of a set of twins. The patient was seen yesterday for 15 month exam and had immunizations. Today spiked a fever up to 101.9. They have had a lot of ear infections, but TMs looked good yesterday. I spoke with Dr. Olson, who saw the patient and was concerned about red throat. ADR/ALLERGIES: NONE. MEDICATIONS: None. OBJECTIVE: VS: T: 100.2, tympanic. P: 43. Unable to assess respiratory rate due to crying. Wt: 22 lb. I did not bother to do an ear exam, because I know the TMs will be red. There is a moderate amount of purulent erythema. Oropharynx is moist with 2+ erythema and 2+ tonsillar hypertrophy. Chest shows some transmitted upper airway noise. Rapid strep test is negative. ASSESSMENT: URI. PLAN: Amoxicillin 250 mg, 8 cc b.i.d. times 10 days. Follow up with her primary. TT: CT: SMO:[id number] C: 05/31/03 08:09 DOCUMENT: [id number] Marlena Olson MD - 05/29/2003 12:01 AM CDT H&P signed by Marlena Olson MD at 07/24/03 1810 Author: Marlena Olson MD Service: (none) Author Type: Physician Filed: 03/03/11 1507 Note Time: 05/29/03 0001 Status: Signed Stem Dryer Maintainer: Marlena Olson MD (Physician) NAME: BLAYNE SIMON MR: [id number] ACCT: [id number] VISIT: [id number] DICTATING CLINICIAN: MARLENA OLSON MD JOB: [id number] CLINIC PHYSICAL DATE OF VISIT: 05/29/2003 SUBJECTIVE: Blayne is a 89-zucxu-qjd who is here for a physical exam. She is also scheduled for PE tubes on 06/25. She eats a variety of foods, drinks whole milk. Stools daily. Sleeps through the night. [place] is appropriate per age. She has a vocabulary rate to ten words. She is already taking her first few steps independently, but an excellent crawler. Hearing and vision are appropriate per observation. She has no tobacco exposure. Entire review of systems otherwise negative. OBJECTIVE: VS: Ht: 31-3/8, 80th percentile. Wt: 22 lb 3 oz, 45th percentile. OFC: 18-3/4, 90th percentile. She is alert, well-hydrated, in no acute distress. HEENT: Atraumatic, normocephalic. TMs are clear and mobile bilaterally. PERRLA. Extraocular movements intact. Nasal mucosa clear. Posterior oropharynx is clear. LUNGS: Clear to auscultation. HEART: Rate regular rhythm. S1, S2 without a murmur. ABDOMEN: Soft, positive bowel sounds, nondistended, nontender. Liver at the right costal margin midclavicular line. Spleen not palpable. SKIN: Negative. EXTREMITIES: Negative. NEURO: Negative. HIPS: No clicks. GENITALIA: Normal. SPINE: Straight. ASSESSMENT: Lahwxar-zsqpq-gqg, normal growth and development. PLAN: 1. Of note is that her ears have looked the best they have ever looked at this point, with totally being clear and had excellent mobility. We did discuss possibly postponing the surgery to see if she would do well throughout the rest of the summer, but mom and dad will discuss that. I will totally support them in whatever decision they make. 2. Risks and benefits of immunizations discussed. DTaP/HIB and Prevnar given. Anticipatory guidance given. Next physical at [age] years of age. TT: CT: ED:[id number] C: 06/05/03 11:32 DOCUMENT: [id number] Mehdi Marinelli MD - 05/21/2003 12:01 AM CDT Progress Notes signed by Mehdi Marinelli MD at 06/09/03 1556 Author: Mehdi Marinelli MD Service: (none) Author Type: Physician Filed: 03/03/11 1458 Note Time: 05/21/03 0001 Status: Signed Stem Dryer Maintainer: Mehdi Marinelli MD (Physician) NAME: BLAYNE ISMON MR: [id number] ACCT: [id number] VISIT: [id number] DICTATING CLINICIAN: MEHDI MARINELLI MD JOB: [id number] CLINIC PROGRESS NOTE DATE OF VISIT: 05/21/2003 SUBJECTIVE: Blayne is a 3-wqyay-nzd female seen at the request of Dr. Marlena Olson for evaluation of recurrent acute otitis media. The child has had seven ear infections since 09/2002. She has a twin sister with the same problems. Began daycare in 08/2002. No smokers in the house. FAMILY HISTORY: Negative for ear infections. One dog present. Otherwise, born full term. MEDICATIONS: No medications. ADR/ALLERGIES: NONE. Audiogram was obtained today, and showing slightly diminished hearing in sound field testing with negative pressure tympanograms bilaterally. She actually has done really well since the second week of March, really has had no ear trouble for almost eight weeks, now. REVIEW OF SYSTEMS: Otherwise negative. OBJECTIVE: Blayne is a very pleasant 89-immrg-eeh female, very active and alert. She is in no obvious distress. Her tympanic membranes are examined. The right does, indeed, show an effusion today. The left shows some diminished mobility; however, I think that there is only negative pressure today. Her nose is clear. Her oral cavity is clear. Her neck is negative. ASSESSMENT: Recurrent acute otitis media, presently no symptoms for eight weeks. Has a right effusion with left retracted drum. PLAN: Discussed these findings with the mother and father in great detail. Discussed the treatment options, which include observation versus bilateral myringotomy with PE tube insertion. Her twin sister likewise has the same problem, and both of them are actually doing very well this summer. The mother and father would like to defer surgery at the moment to see how they do, and follow the effusion. Should the effusion persist for more then three months, or should there be recurrent infections, then recommendation would be for bilateral myringotomy with PE tube insertion. The risks, benefits, and alternatives to surgery were discussed in great detail, and all questions were answered to their satisfaction. They concur with the above treatment plan. They will call should they desire any further intervention; otherwise, they will follow up with me p.r.n. TT: CT: CC: MD DARI WEBBW:[id number] C: 05/22/03 07:23 DOCUMENT: [id number] Marlena Olson MD - 04/08/2003 12:01 AM CDT Progress Notes signed by Marlena Olson MD at 05/06/03 1906 Author: Marlena Olson MD Service: (none) Author Type: Physician Filed: 03/03/11 1417 Note Time: 04/08/03 0001 Status: Signed Stem Dryer Maintainer: Mralena Olson MD (Physician) NAME: BLAYNE SIMON MR: [id number] ACCT: [id number] VISIT: [id number] DICTATING CLINICIAN: MARLENA OLSON MD JOB: [id number] CLINIC PROGRESS NOTE DATE OF VISIT: 04/08/2003 SUBJECTIVE: Blayne is a 3-year-old who is here for her ear check. Of note is that she had had, according to mom, seven bouts of otitis in the past six months. MEDICATIONS: She is currently on no medications. ADR/ALLERGIES: NO KNOWN DRUG ALLERGIES. Review of systems is remarkable for her having a current URI and also tugging at her ears. She has been afebrile. No nausea. No vomiting. No diarrhea. OBJECTIVE: She is alert, well hydrated, in no acute distress. HEENT: Atraumatic, normocephalic. TMs are dull with decreased mobility. PERRLA. Extraocular movements: Intact. Nasal mucosa: Clear. Posterior pharynx is clear. LUNGS: Clear to auscultation. HEART: Rate: Regular rhythm. S1, S2 without a murmur. ASSESSMENT: URI with bilateral serous otitis. PLAN: She has now had continuous fluid for more than three months, by mom's information, and all the visits are available at this time, and chart is not available. Will refer to ENT for further evaluation for possible PE tubes. TT: CT: ED:[id number] C: 04/08/03 11:31 DOCUMENT: [id number] Phone Note, Clinician - 04/05/2003 12:01 AM CDT Phone Note filed by Clinician Phone Note at 03/01/111121 Author: Clinician Phone Note Service: (none) Author Type: Resource Filed: 03/01/11 1122 Note Time: 04/05/03 0001 Status: Signed Stem Dryer Maintainer: Clinician Phone Note (Resource) SUBJECTIVE: PATIENT COMPLAINS OF... * HOME PHONE:[phone] * Constipation, Dad calling, pt * WORK PHONE:[phone] * trying to have a BM tonight. Had a significant BM on 04/04 but today having small hard BM's. Pt sems to be trying to push the stool out with no success. Afebrile. Abdomen is soft and not distended. Have tried to hold and comfort the pt but have not tried home management. -Less than 5 days between bowel movements in older child ALLERGIES/SENSITIVITIES... NKA; 04/05/03 CURRENT MEDICATIONS... None; 04/05/03 PERTINENT PAST HISTORY... Healthy; hx of constipation; hx of OM; 04/05/03 ASSESSMENT: Constipation-(child > 4 months)-triage guideline DISPOSITION: HOME CARE PLAN: RECOMMENDED THE FOLLOWING... Referenced guideline Constipation-(child > 4 months)-triage guideline. -Decrease intake of constipating foods -Soak in a warm tub -Insert glycerin suppository rectally if constipation is acute and the child has the sensation of needing a BM -Increase fluids -Increase roughage -Decrease milk to 10 ounces/day -Encourage increased activity and regular exercise Patient information given per Constipation nurse guidelines. Verbalizes understanding and agrees with phone care recommendation INFORMED PATIENT TO CALLBACK IF... Reasons to call back reviewed- caller verbalizes understanding of the need to call back for the following reasons: -Symptoms persist or worsen -No improvement with home management -Any other questions or concerns CALL BY MERLYN DUEÑAS RN 04/05/2003 11:37PM [phone] ADDENDUM: ITIONISTS Miguel Angel Garcia PA-C - 03/23/2003 12:01 AM CDT Progress Notes signed by Miguel Angel Garcia PA-C at 08/06/04 7091 Author: Miguel Angel Garcia PA-C Service: (none) Author Type: Physician Associate Biological Sales Filed: 03/03/11 1403 Note Time: 03/23/03 0001 Status: Signed Stem Dryer Maintainer: Miguel Angel Garcia PA-C (Physician Associate Biological Sales) NAME: BLAYNE SIMON MR: [id number] ACCT: [id number] VISIT: [id number] DICTATING CLINICIAN: BRENDA HAWKINS JOB: [id number] CLINIC PROGRESS NOTE DATE OF VISIT: 03/23/2003 SUBJECTIVE: See URI mirza. OBJECTIVE: ASSESSMENT: 1. URI . 2. Bilateral acute otitis media. PLAN: Advil for discomfort. Ceftin 125/5, one-half teaspoon p.o. b.i.d. for 10 days. Follow up with primary in four weeks. Return as needed if questions develop or problems persists. TT: CT: TJL:[id number] C: 03/24/03 07:55 DOCUMENT: [id number] Starla López MD - 03/22/2003 12:01 AM CDT Progress Notes signed by Starla López MD at 08/04/04 0111 Author: Starla López MD Service: (none) Author Type: Physician Filed: 03/03/11 1403 Note Time: 03/22/03 0001 Status: Signed Stem Dryer Maintainer: Starla López MD (Physician) NAME: BLAYNE SIMON MR: [id number] ACCT: [id number] VISIT: [id number] DICTATING CLINICIAN: STARLA LÓPEZ MD JOB: [id number] CLINIC PROGRESS NOTE DATE OF VISIT: 03/22/2003 SUBJECTIVE: This 3-year-old is brought in because of concern that she might have an ear infection. Apparently the child has had a runny nose and cough for the past four or five days. Mother noticed an increased temperature up to 102 today. No diarrhea or vomiting. Has been taking p.o. well, but has been kind of wakeful. She does have a history of frequent otitis media, and they are talking about the possibility of tube placement. She is a twin, and her twin sister also gets ear infections whenever she gets cold symptoms and currently is being treated for an ear infection. PAST MEDICAL HISTORY: Otherwise negative. MEDICATIONS: None. ADR/ALLERGIES: NONE. OBJECTIVE: VS: T: 99.4. P: 136. R: 28. WT: 20 lb. Exam shows the patient looking great. She does not look sick at all. She is alert, interactive, but smiling. She does show some nasal discharge, crusted in nostrils. Throat looks normal. Both ears show normal TMs. NECK: Supple. No adenopathy is noted. LUNGS: Clear to auscultation. CARDIOVASCULAR: Regular rate and rhythm, normal S1 and S2. ASSESSMENT: 1. URI. 2. Fever. PLAN: Would hesitate to do antibiotic treatment as she has been treated very frequently for otitis media. Mother is in agreement with doing symptomatic treatment for now. The child should be rechecked if higher temperatures, any additional symptoms of concern develop. FINAL IMPRESSION: 1. URI. 2. Fever. TT: CT: FK:[id number] C: 03/23/03 17:41 DOCUMENT: [id number] Marlena Olson MD - 03/12/2003 12:01 AM CDT H&P signed by Marlena Olson MD at 05/06/03 1828 Author: Marlena Olson MD Service: (none) Author Type: Physician Filed: 03/03/11 3798 Note Time: 03/12/03 0001 Status: Signed Stem Dryer Maintainer: Marlena Olson MD (Physician) NAME: BLAYNE SIMON MR: [id number] ACCT: [id number] VISIT: [id number] DICTATING CLINICIAN: MARLENA OLSON MD JOB: [id number] CLINIC PHYSICAL DATE OF VISIT: 03/12/2003 SUBJECTIVE: Blayne is a fit 3-year-old who is here for an ear recheck. She has been doing extremely well. Is on a combination of formula and transitioning to whole milk. She stools daily, occasionally is constipated. [place] is appropriate per age. She is walking at this time with some assistance. She sleeps through the night. Hearing and vision are appropriate per observation. She is in a car seat. ADR/ALLERGIES: NO KNOWN DRUG ALLERGIES. No tobacco exposure. OBJECTIVE: VS: Ht: 30 (at 80th percentile). Wt: 20 lb 13 oz (at 40th percentile). OFC: 18-3/8 (at 88th percentile). She is alert, well hydrated, in no acute distress. HEENT: Atraumatic, normocephalic. TMs are now clear bilaterally. PERRLA. Extraocular movements intact. Nasal mucosa clear. Posterior oropharynx is clear. LUNGS: Clear to auscultation. HEART: Rate regular rhythm, S1 and S2, without a murmur. ABDOMEN: Soft. Positive bowel sounds. Nondistended, nontender. Liver at the right costal margin, midclavicular line. Spleen not palpable. SKIN: Negative. NEURO: Negative. Normal genitalia. No hip click. Extremities negative. SPINE: Straight. ASSESSMENT: Dre-pcaw-zhr, normal growth and development. PLAN: Risks and benefits of immunizations discussed. MMR, varicella, and hep B given. Anticipatory guidance given. Next physical at 15 months of age. TT: CT: ED:[id number] C: 04/10/03 16:52 DOCUMENT: [id number] Janice Argueta PA-C - 03/03/2003 12:01 AM CDT Progress Notes signed by Janice Argueta PA-C at 08/07/03 1213 Author: Janice Argueta PA-C Service: (none) Author Type: Resource Filed: 03/03/11 1343 Note Time: 03/03/03 0001 Status: Signed Stem Dryer Maintainer: Janice Argueta PA-C (Resource) NAME: BLAYNE SIMON MR: [id number] ACCT: [id number] VISIT: [id number] DICTATING CLINICIAN: BRENDA ALBERTO JOB: [id number] CLINIC PROGRESS NOTE DATE OF VISIT: 03/03/2003 SUBJECTIVE: A wbd-komv-lof child who is a fraternal twin comes in because at day care they noticed a rash starting on her legs. They also noticed it on her arms. The patient has recently been on Augmentin, which she started on 02/24/03 for double ear infection. She has taken Augmentin in the past and never had any allergic reaction. The patient has had no fever or chills. She has had a slightly runny nose. No cough. No other symptoms at this time. PAST MEDICAL HISTORY: Recurrent otitis media. MEDICATIONS: Augmentin. ADR/ALLERGIES: NONE. OBJECTIVE: VS: T: 97.1. P: 118. R: 30. WT: 21 lb 11 oz A well-developed child in no acute distress, alert and cooperative. SKIN EXAM: The patient has a slightly mottled appearing rash on her upper arms near her buttocks, as well as the inner aspects of her left leg. There are small satellite lesions with some well defined margin with central clearing on the left inner aspect of her left leg. This was also reviewed by dr. Barboza. LEFT EAR: The TM was still erythematous. Right ear was clear. ASSESSMENT: 1. Rash, possible tinea. 2. Left otitis media, unresolved. PLAN: The patient is to continue to take the Augmentin as directed. I did tell the mother that I feel that the slight raised well marginated rash could be tinea and advised her to take jfns-ggw-aqelpgi Lamisil Cream to apply to the area twice a day. If symptoms continue, the patient should then be reseen. TT: CT: [id number] C: 03/04/03 23:03 DOCUMENT: [id number] Phone Note, Clinician - 02/28/2003 12:01 AM CDT Phone Note signed by Neida Mcdermott MD at 03/05/03 2808 Author: Clinician Phone Note Service: (none) Author Type: Resource Filed: 08/14/03 0000 Note Time: 02/28/03 0001 Status: Signed Stem Dryer Maintainer: Clinician Phone Note (Resource) - TREATING PROVIDER: NEIDA SHASTA * HOME PHONE:[phone] * - PHARMACY: [phone] * WORK PHONE:[phone] * Di SUBJECTIVE: PATIENT COMPLAINS OF... ; Mom calling for another prescription of Augmentin. Child started medication on 02/24/03, for a bilateral ear infection. Left medication at Day Care and now is locked up so asking if another prescription can be called to the pharmacy? ALLERGIES/SENSITIVITIES... NKA; 02/28/03 CURRENT MEDICATIONS... Augmentin 600mg susp 3/4 tsp. every 12 hours X 10 days. PERTINENT PAST HISTORY... OM x 1 02/28/03 ASSESSMENT: Needs Augmentin DISPOSITION: CONTACTED GIFTY WEIGHT: 21 DATE WEIGHED: 02/28/2003 PLAN: RECOMMENDED THE FOLLOWING... Paged construction administrator. CALL BY JULIO DIAZ RN 02/28/2003 07:12PM [phone] ADDENDUM: <> 02/28/2003 07:23PM by JULIO DIAZ RN: Dr. Mcdermott calling back and asked to order another 10 days of Augmentin according to note of 02/24/03. Note said Augmentin ES 600mg 3/4 tsp q 12 hours with food X 10 days. said to only take enough for the 10 days and throw the rest away. Called above prescription to pharmacy voice mail at 7:29 PM. Called and told mom the above information. Shawanda Plaza MD - 02/24/2003 12:01 AM CDT Progress Notes signed by Shawanda Boyer MD at 07/22/04 1501 Author: Shawanda Boyer MD Service: (none) Author Type: Physician Filed: 03/03/11 1337 Note Time: 02/24/03 0001 Status: Signed Stem Dryer Maintainer: Shawanda Boyer MD (Physician) NAME: BLAYNE SIMON MR: [id number] ACCT: [id number] VISIT: [id number] DICTATING CLINICIAN: SHAWANDA BOYER MD JOB: [id number] CLINIC PROGRESS NOTE DATE OF VISIT: 02/24/2003 SUBJECTIVE: Almost 3-year-old white female brought in by her dad. She has been running a fever and her appetite has been down. Dad says these are typical signs of her ear infection. She has had five ear infections so far this year. She has a twin sister who has had four ear infections. Had been seen about three weeks ago for diarrhea and that has all resolved. She was given ibuprofen at the time of triage and she is looking much better now. ADR/ALLERGIES: NONE. MEDICATIONS: Ibuprofen. OBJECTIVE: VS: T: 101.4. P: 112. R: 56. WT: 21 lb. She has bilateral otitis media with 2 to 3+ erythema noted. Minimal amount of crusty rhinorrhea. A little bit of dried purulent matter on the right lashes, but the eyes themselves are clear. She has 1+ lymphadenopathy which I think is chronic. Does not seem to be tender. Her chest is clear. Heart is without murmur. ASSESSMENT: Otitis media. PLAN: We called patient's mother on the phone. She says Augmentin works the best, although it does tend to give her loose stool. Prescription for Augmentin ES 600 mg 3/4 teaspoon q.12h. with food x12 days. She has her [age] year exam coming up in a couple of weeks and will be seen at that time for recheck. Dad is wondering if she needs tubes. Discussed the fact that since she is in day care and has a twin sister she obviously has quite a bit of exposure. Now that summer is coming, hopefully her incidence of ear infections will decrease. I do not think anyone would wright to put in tubes at this point. TT: CT: [id number] C: 02/26/03 10:35 DOCUMENT: [id number] Rei Padilla MD - 02/04/2003 12:01 AM CST Progress Notes signed by Rei Padilla MD at 05/24/03 0943 Author: Rei Padilla MD Service: (none) Author Type: Physician Filed: 03/03/11 1318 Note Time: 02/04/03 0001 Status: Signed Stem Dryer Maintainer: Rei Padilla MD (Physician) NAME: BLAYNE SIMON MR: [id number] ACCT: [id number] VISIT: [id number] DICTATING CLINICIAN: Kitty PADILLA MD JOB: [id number] CLINIC PROGRESS NOTE DATE OF VISIT: 02/04/2003 SUBJECTIVE: : 2000. Here for followup of gastroenteritis. Blayne was seen yesterday, twice, once in the morning and once in the late afternoon, with vomiting and diarrhea. She remains afebrile. Is here with her dad today who said that she slept through the night without waking this time, for the first time, and has now kept down 12 ounces of Pedialyte since she woke up this morning and had a wet diaper this morning, which was very yellow. MEDICATIONS: She had not yet started her second antibiotic. She, yesterday, had been on Augmentin for otitis media. She is on no medications. She has had one loose bowel movement this morning so far and is feeling more perky, dad feels. ADR/ALLERGIES: NO KNOWN ALLERGIES. OBJECTIVE: VS: Wt: 19 lb. 12 oz., still is the same as yesterday evening. Appears rested and well hydrated, clinically. There is no rash. No tenting of skin. Diaper area is healing. Capillary refill immediate, in less than a second. Has saliva and bubbles in mouth. Ears are completely normal today. NOSE: Slightly congested. She is smiling and happy. No cervical adenopathy. LUNGS, HEART, AND ABDOMEN: Normal, without tenderness, organomegaly, or masses. Bowel sounds only slightly increased now. ASSESSMENT: A lot of gastroenteritis. PLAN: I wrote dad instructions recommending that she begin half-strength formula today, working up to full strength by tomorrow, and to introduce solids if interested as well but to expect some increase in diarrhea with advancing her diet but, unless severe, would continue to offer more selection. Also, can wean her off the Pedialyte as her diarrhea improves, but it could take a full week for the diarrhea to completely resolve, as an estimate. Did say that, with her ears looking so good today, that I felt confident that she did not need to go back on a second antibiotic to complete the 10 days, with dad in agreement. TT: CT: [id number] C: 02/06/03 04:12 DOCUMENT: [id number] ITIONISTS Rei Padilla MD - 02/03/2003 12:01 AM CST Progress Notes signed by Rei Padilla MD at 05/24/03 0940 Author: Rei Padilla MD Service: (none) Author Type: Physician Filed: 03/03/11 1316 Note Time: 02/03/03 0001 Status: Signed Stem Dryer Maintainer: Rei Padilla MD (Physician) NAME: BLAYNE SIMON MR: [id number] ACCT: [id number] VISIT: [id number] DICTATING CLINICIAN: Kitty PADILLA MD JOB: [id number] CLINIC PROGRESS NOTE DATE OF VISIT: 02/03/2003 SUBJECTIVE: : 2000. For vomiting and diarrhea. She has been fussy at times after eating and cried off and on last night, vomiting x3 and then took 8 ounces of formula full strength, Similac Advance just before coming in this morning. She has had low grade fevers to 100 degrees. There has been no blood in her stools. She has been on Augmentin for otitis media and is in a daycare where they have rotavirus recently. Blayne's twin, so far, has not had any stomach flu symptoms. Her last weight, mom recalls, was 20 pounds 6 ounces at a visit last week and just has had scant wet diapers, although it is hard to tell with her diarrhea. ADR/ALLERGIES: NO KNOWN ALLERGIES. No tobacco exposure. OBJECTIVE: VS: T: 96.7 by ear. Wt: 19 lb 6-1/2 oz, initially when seen at 11 o'clock in the morning with diaper on only. Her mouth was moist, but not wet. Eyes were slightly dry appearing, but not matted or red. Ears were fine, but fluid was still present, but not actively infected. Nose slightly congested. No cervical adenopathy. NECK: Supple. LUNGS: Clear. HEART: Regular without murmur. ABDOMEN: Soft, somewhat full with increased bowel sounds. No guarding or obvious tenderness. : Normal female with mild erythema at the labial areas and rectal areas. There was no rash otherwise. ASSESSMENT: Resolving otitis media and gastroenteritis, probably rotavirus. PLAN: Had mom start Pedialyte in the office which she had been refusing before, but now is taking well and took about 3 or 4 ounces before throwing it all up and asked mom to call me this afternoon and at that time, mom said she had gotten in another 12 ounces of Pedialyte which has all stayed down, the largest amount of 3 ounces one hour ago. She weighed then at 5 p.m., which would be about six hours later, 19 pounds 12-1/2 oz with diaper on only. Capillary refill is excellent, less than second and skin turgor is normal. Eyes are less sunken and more bright. She is happy, whistling and clapping her hands and smiling. There is some saliva present in her mouth and a little bit of tearing. Neck is supple, lungs were clear, heart regular, abdomen normal, still except for increased bowel sounds. FINAL IMPRESSION: Her gastritis is improving gradually and will continue with the Pedialyte, advancing her diet over the next 24 hours, do half strength juices and formula and various solid foods with a handout provided with a page and a half of information on diarrhea in toddlers. Mom will follow up tomorrow morning at 10 for a recheck, sooner p.r.n., but feels she is on the upswing now with her illness and mom will do careful handwashing to avoid spreading it to other family members, especially the twin. Mom was asked to stop the Augmentin and switch her over to Zithromax starting tomorrow morning 100 mg per teaspoon, to take 4 ml today, then 2 ml days two through five with a recheck as previously recommended. Follow up tomorrow morning. TT: CT: More than 40 minutes. EK:[id number] C: 02/04/03 16:38 DOCUMENT: [id number] ITIONISTS Phone Note, Clinician - 02/02/2003 12:01 AM CST Phone Note filed by Clinician Phone Note at 03/01/11 1054 Author: Clinician Phone Note Service: (none) Author Type: Resource Filed: 03/01/11 1056 Note Time: 02/02/03 0001 Status: Signed Stem Dryer Maintainer: Clinician Phone Note (Resource) SUBJECTIVE: PROBLEM 01: * HOME PHONE:[phone] * PATIENT COMPLAINS OF... Acute * WORK PHONE:[phone] * onset of diarrhea without symptoms of dehydration Mom calling says child having diarrhea for the past 2 days with ear Diaper change. The stools are inbetween watery and formed says not real liquid. The stools are about 6-7 daily. The buttocks area is clear and no skin breakdown. PROBLEM 02: PATIENT COMPLAINS OF... Vomiting, few isolated occurrences, MOm calling says child has vomitting last 2 times and today one time. Mouth is moist and wetting diapers. Eating and drinking fluids ALLERGIES/SENSITIVITIES... NKA; 02/02/03 CURRENT MEDICATIONS... None 02 02/02/03 PERTINENT PAST HISTORY... OM x 1-ear re/ck on 10/21 negative 02/02/03 ASSESSMENT: PROBLEM 01: Diarrhea-(0-2 years)-triage guideline DISPOSITION: HOME CARE PROBLEM 02: Vomiting-(infant to 2 years)-triage guideline DISPOSITION: HOME CARE PLAN: PROBLEM 01: RECOMMENDED THE FOLLOWING... Referenced guideline Diarrhea-(0-2 years)-triage guideline. -Encourage complex carbohydrates such as rice, wheat, potatoes, bread and cereal, lean meats, yogurt, bananas, applesauce and vegetables -Cow's milk/formula can be continued as usual, however, in some children it may make diarrhea worse -Offer additional fluid- avoid fruit juices Monitor for symptoms of dehydration Promote good skin care Verbalizes understanding and agrees with phone care recommendation INFORMED PATIENT TO CALLBACK IF... Reasons to call back reviewed- caller verbalizes understanding of the need to call back for the following reasons: -Symptoms of dehydration occur -Constant abdominal pain >2 hours -Intermittent abdominal pain >12 hours -Appearance of blood in stool -Mild diarrhea continues > 2 weeks -Symptoms worsen -Any other questions or concerns PROBLEM 02: RECOMMENDED THE FOLLOWING... Referenced guideline Vomiting-(infant to 2 years)-triage guideline. INFORMED PATIENT TO CALLBACK IF... Reasons to call back reviewed- caller verbalizes understanding of the need to call back for the following reasons: -Symptoms of dehydration -Appearance of blood or coffee-grounds in vomit -Constant abdominal pain >2 hours -Intermittent vomiting, no improvement after 48 hours -Symptoms worsen before appointment -Any other questions or concerns CALL BY JONO MALIK RN 02/02/2003 09:48AM [phone] ADDENDUM: ITIONISTS Sandra Guzman MD - 01/28/2003 12:01 AM CST Progress Notes signed by Sandra Guzman MD at 05/26/03 1543 Author: Sandra Guzman MD Service: (none) Author Type: Physician Filed: 03/03/11 1311 Note Time: 01/28/03 0001 Status: Signed Stem Dryer Maintainer: Sandra Guzman MD (Physician) NAME: BLAYNE SIMON MR: [id number] ACCT: [id number] VISIT: [id number] DICTATING CLINICIAN: ALAN GUZMAN MD JOB: [id number] CLINIC PROGRESS NOTE DATE OF VISIT: 01/28/2003 SUBJECTIVE: : 2000. See URI mirza dated 01/28/03. OBJECTIVE: ASSESSMENT: Otitis media. PLAN: Augmentin 400/5 cc, 3/4 teaspoon b.i.d. x10 days. Return if symptoms worsen or change or do not improve. Otherwise, follow up primary p.r.n. TT: CT: [id number] C: 01/29/03 13:45 DOCUMENT: [id number] Phone Note, Clinician - 01/23/2003 12:01 AM CST Phone Note filed by Clinician Phone Note at 03/01/11 105 Author: Clinician Phone Note Service: (none) Author Type: Resource Filed: 03/01/11 1052 Note Time: 01/23/03 0001 Status: Signed Stem Dryer Maintainer: Clinician Phone Note (Resource) TO: TURNER GHOSH FROM: GAVIN CRUZ LPN [phone] * PROVIDER MESSAGE: ROUTINE * 01/23/03 12:08PM * *WITHIN 4 HOURS * MESSAGE: Seen Monday with virus. Had * HOME PHONE:[phone] * rash on cheeks at that time and now * WORK PHONE:[phone] * has spread to trunk, arms. Daycare * CONTACT PHONE:[phone] * willing to take child but requires * mom at work * a note from . Fax to [facility] [phone] SUBJECTIVE: ALLERGIES/SENSITIVITIES... NKA; CURRENT MEDICATIONS... None 02 PERTINENT PAST HISTORY... OM x 1-ear re/ck on 10/21 negative WEIGHT: ASSESSMENT: NOTE FOR DAYCARE PLAN: DISPOSITION: NO DISPOSITION GIVEN CALL BY GAVIN CRUZ LPN 01/23/2003 12:06PM [phone] ADDENDUM: ITIONISTS Turner Ghosh MD - 01/21/2003 12:01 AM CST Progress Notes signed by Turner Ghosh MD at 08/28/03 6617 Author: Turner Ghosh Md, MD Service: (none) Author Type: Physician Filed: 03/03/11 1304 Note Time: 01/21/03 0001 Status: Signed Stem Dryer Maintainer: Turner Ghosh Md, MD (Physician) NAME: BLAYNE SIMON MR: [id number] ACCT: [id number] VISIT: [id number] DICTATING CLINICIAN: TURNER GHOSH MD JOB: [id number] CLINIC PROGRESS NOTE DATE OF VISIT: 01/21/2003 SUBJECTIVE: See written note in chart. OBJECTIVE: ASSESSMENT: Viral URI. PLAN: Symptomatic treatment. TT: CT: MUSIC PASTOR:[id number] C: 01/23/03 12:33 DOCUMENT: [id number] Sandra Guzman MD - 01/19/2003 12:01 AM CST Progress Notes signed by Sandra Guzman MD at 05/26/03 6633 Author: Sandra Guzman MD Service: (none) Author Type: Physician Filed: 03/03/11 1302 Note Time: 01/19/03 0001 Status: Signed Stem Dryer Maintainer: Sandra Guzman MD (Physician) NAME: BLAYNE SIMON MR: [id number] ACCT: [id number] VISIT: [id number] DICTATING CLINICIAN: ALAN GUZMAN MD JOB: [id number] CLINIC PROGRESS NOTE DATE OF VISIT: 01/19/2003 SUBJECTIVE: : 2000. See URI shingle dated 01/19/03. OBJECTIVE: ASSESSMENT: URI. PLAN: Treat symptomatically. Return if symptoms worsen, change or do not improve. Otherwise follow up p.r.n. TT: CT: [id number] C: 01/21/03 00:22 DOCUMENT: [id number] Turner Ghosh MD - 01/10/2003 12:01 AM CST Progress Notes signed by Turner Ghosh MD at 05/12/03 1741 Author: Turner Ghosh Md, MD Service: (none) Author Type: Physician Filed: 03/03/11 1253 Note Time: 01/10/03 0001 Status: Signed Stem Dryer Maintainer: Turner Ghosh Md, MD (Physician) NAME: BLAYNE SIMON MR: [id number] ACCT: [id number] VISIT: [id number] DICTATING CLINICIAN: TURNER GHOSH MD JOB: [id number] CLINIC PROGRESS NOTE SUBJECTIVE: : 02. See written note in chart. OBJECTIVE: ASSESSMENT: Right otitis media. PLAN: Cefzil 250 per 5, one teaspoon twice a day x10 days. FINAL IMPRESSION: Right otitis media. TT: CT: MUSIC PASTOR:[id number] C: 01/11/03 14:41 DOCUMENT: [id number] documented in this encounter Plan of Treatment Not on filedocumented as of this encounter Visit Diagnoses Not on filedocumented in this encounter Care Teams Second Mate Relationship Specialty Start Date End Date Marlena Olson MD PCP - General 02/13/11 06/28/[address] [place] [address] documented as of this encounter
--- OUTSIDE RECORDS SUMMARY | 2022-08-12 09:11 | XMS_ITS | Encounter Summary ---
:2000 Author Organization [facility] Address [address] [address] Care Team Providers Name Role Phone Marlena Choudhury MD Primary Care Provider Encounter Details Date Type Department Care Team Description 05/30/2003 PN Conversion Only [place] [address] [place] [address] Social History Tobacco Use Types Packs/Day Years [...] Diagnosis Comme nts STREP GROUP A Routine 05/30/2003 5:14 PM Results for this ANTIGEN TEST CDT procedure are i n the results section. BETA STREP FOLLOWUP Routine 05/30/2003 5:14 PM Re sults for this CDT procedure are i n the results section. documented in this encounter Results Strep Group A Antigen Test (05/30/2003 5:14 PM CDT) Analysis Performed At Patho logist Time Signature Strep Group A Negative Negative HP CONVERSION Antigen Test Comment: Culture to follow. Specimen (Source) Anatomical Collection Method Collection Time Re ceived Time Location / / Volume Laterality 05/30/2003 5:14 PM CDT Shawanda Boland MD LAB_1 Performing Organization Address City/State/ZIP Code Phon e Number HP CONVERSION Beta Strep Followup (05/30/2003 5:14 PM CDT) P athologist Signature Strep Screen SEE TEXT HP CONVERSION Comment: Patient: SUNNI SERNA Rapid Strep Follow up Culture @ ? Collected: ??[id number] ??1714 Source: Throat ?Processed: ??[id number] ??1715 ? 1V Final Report ------ ?[id number] ??1254 No beta hemolytic Strep group A isolated . @ = Rapid F/U Cult Performed at [address] [place] ?[address] Specimen (Source) Anatomical Collection Method Collection Time Re ceived Time Location / / Volume Laterality 05/30/2003 5:14 PM CDT Shawanda Boland MD LAB_1 Performing Organization Address City/State/ZIP Code Phon e Number HP CONVERSION documented in this encounter Visit Diagnoses Not on filedocumented in this encounter Care Teams Billiard Table Assembler Relationship Specialty Start Date End Date Marlena Choudhury MD PCP - General 02/13/11 06/28/21 [address] [address] [place] [address] documented as of this encounter
--- OUTSIDE RECORDS SUMMARY | 2022-08-12 09:11 | XMS_ITS | Encounter Summary ---
:2000 Author Organization [facility] Address [address] [place] [address] Care Team Providers Name Role Phone Marlena Choudhury MD Primary Care Provider Encounter Details Date Type Department Care Team Description 10/01/2004 Office Visit [facility] [place] [address] [place] [address] Social History Tobacco Use Types [...] documented as of this encounter Progress Notes Janis Batista MD - 10/01/2004 12:01 AM CST Progress Notes signed by Janis Batista MD at 11/29/04 8009 Author: Janis Batista MD Service: (none) Author Type: Physician Filed: 03/04/11 0135 Note Time: 10/01/04 0001 Status: Signed Manager Field Investigations: Janis Batista MD (Physician) NAME: SUNNI SERNA MR: [id number] ACCT: [id number] VISIT: [id number] DICTATING CLINICIAN: JANIS BATISTA MD JOB: [id number] CLINIC PROGRESS NOTE DATE OF VISIT: 10/01/2004 SUBJECTIVE: CHIEF COMPLAINT: FEver and vomiting since last night. HPI: 4-year-old here with mom. Last night she had a T max of 103.5 rectally. They have been using some Advil which seems to help. She is still eating okay. Appetite is down but she is taking fluids well. Last voided about an hour before she comes in. Had 5 emesis, the last was at 1pm. Has been exposed to strep at her daycare. No ear pain, runny nose or cough. NO one else in the family is ill. PAST MEDICAL HISTORY: PE tubes which were checked a week ago and were fine. MEDICATIONS: None. ADR/ALLERGIES: NONE. IMMUNIZATIONS Up-to-date. OBJECTIVE: VS: T: 100.3. P: 180. R: 32. Wt: 31.5 lb. Alert, she does appear fatigued but is alert and watching me throughout the exam. No ketones on the breath. Ears, TMs are normal. Oral cavity is pink and moist. There is no injection or exudate. NECK: Supple. CV: Regular rate and rhythm. No murmur. LUNGS: Clear to auscultation with good air exchange. No wheezes, rales or rhonchi. ABDOMEN: Soft. SKIN: Without a rash. Rapid strep is negative. ASSESSMENT: Gastritis. LIkely due to viral illness. Could also be strep and will treat if her culture is positive. PLAN: The nausea, vomiting, diarrhea handout was given and discussed. Reminded mom of those issues and should she have any concerns bring her back here to the ER for further evaluation and treatment. She verbalized understanding. SMG:[id number] C: 10/02/04 16:26 DOCUMENT: [id number] PED TOPPING MIXER documented in this encounter Plan of Treatment Not on filedocumented as of this encounter Visit Diagnoses Not on filedocumented in this encounter Care Teams Exhaust And Muffler Fitter Relationship Specialty Start Date End Date Marlena Choudhury MD PCP - General 02/13/11 06/28/21 [address] [place] [address] documented as of this encounter
--- OUTSIDE RECORDS SUMMARY | 2022-08-12 09:11 | XMS_ITS | Encounter Summary ---
:2000 [facility] Address [address] [address] Care Team Providers Name Role Phone Marlena Choudhury MD Primary Care Provider Encounter Details Date Type Department Care Team Description 01/23/2006 PN Conversion Only [place] [address] [address] [place] [address] (Wo rk) Social History Tobacco [...] Diagnosis Comme nts STREP GROUP A Routine 01/23/2006 4:38 PM Results for this ANTIGEN TEST RAILWAY SIGNALLING ENGINEER procedure are i n the results section. documented in this encounter Results Strep Group A Antigen Test (01/23/2006 4:38 PM RAILWAY SIGNALLING ENGINEER) Analysis Performed At Patho logist Time Signature Strep Group A Positive Negative HP CONVERSION Antigen Test Specimen (Source) Anatomical Collection Method Collection Time Re ceived Time Location / / Volume Laterality 01/23/2006 4:38 PM RAILWAY SIGNALLING ENGINEER Sari Medina MD LAB_1 Performing Organization Address City/State/ZIP Code Phon e Number HP CONVERSION documented in this encounter Visit Diagnoses Not on filedocumented in this encounter Care Teams Dental Practice Manager Relationship Specialty Start Date End Date Marlena Choudhury MD PCP - General 02/13/11 06/28/21 [address] [place] [id number] documented as of this encounter
--- OUTSIDE RECORDS SUMMARY | 2022-08-12 09:11 | XMS_ITS | Encounter Summary ---
:2000 Author Organization [facility] Address [address], [place] [address] Care Team Providers Name Role Phone Marlena Choudhury MD Primary Care Provider Encounter Details Date Type Department Care Team Description 03/29/2006 Office Visit [facility] Ear, Nose, Mehdi Marinelli MD and Throat [id number] [place], [place] [phone] (Wo rk) Social History Tobacco Use Types [...] encounter Progress Notes Mehdi Marinelli MD - 03/29/2006 12:01 AM CDT Progress Notes signed by Mehdi Marinelli MD at 04/19/06 0832 Author: Mehdi Marinelli MD Service: (none) Author Type: Physician Filed: 03/04/11 1205 Note Time: 03/29/06 0001 Status: Signed Associate Professor Of Violin: Mehdi Marinelli MD (Physician) NAME: SUNNI SERNA MR: [id number] ACCT: [id number] VISIT: [id number] DICTATING CLINICIAN: MEHDI MARINELLI MD JOB: [id number] CLINIC PROGRESS NOTE DATE OF VISIT: 03/29/2006 SUBJECTIVE: Sunni is a 6-year-old female here for follow-up of tubes. Doing well with no ear trouble since her last visit in 08/2005. Nosebleeds stopped for quite awhile, but now have picked up the pace again. Mom restarted her Bactroban once again. MEDICATIONS: None. ADR/ALLERGIES: NO KNOWN DRUG ALLERGIES. OBJECTIVE: Sunni is a very pleasant young lady. She is oriented. Her facial nerve is intact. Her right tube was in place and patent. The left tube is out lying in the canal in some wax. It appears that the drum is normal. Nose examined, no bleeding actively, no other abnormality. Oral cavity clear. Neck is negative. ASSESSMENT: Right tube in, left tube out lying in the canal, probably out of the drum. Patient with a history of nosebleeds and some nasal congestion. Discussed the findings with Sunni's mother. PLAN: At this point recommend removal of the right PE tube with a paper patch myringoplasty. Recommend examine under anesthesia of the left ear and removal of the old tube. Recommend a nasal endoscopy and possible cautery of the anterior septum, and lastly, recommend a adenoidectomy for her nasal obstructive symptoms. We discussed the risks, benefits and alternatives to surgery. Mom would like to proceed. Will schedule this at her convenience. DWW:[id number] C: 03/31/06 06:15 DOCUMENT: [id number] documented in this encounter Plan of Treatment Not on filedocumented as of this encounter Visit Diagnoses Not on filedocumented in this encounter Care Teams Dye Automation Operator Relationship Specialty Start Date End Date Marlena Choudhury MD PCP - General 02/13/11 06/28/21 [address] [place] [id number] documented as of this encounter
--- OUTSIDE RECORDS SUMMARY | 2022-08-12 09:11 | XMS_ITS | Encounter Summary ---
:2000 Author Organization [facility] Address [address], [place] [address] Care Team Providers Name Role Phone Marlena Choudhury MD Primary Care Provider Encounter Details Date Type Department Care Team Description 04/13/2005 Office Visit [facility] Ear, Nose, Mehdi Marinelli MD and Throat [address] [facility] [address], [place] [phone] (Wo rk) Social History Tobacco Use Types [...] encounter Progress Notes Mehdi Marinelli MD - 04/13/2005 12:01 AM CDT Progress Notes signed by Mehdi Marinelli MD at 04/27/05 0837 Author: Mehdi Marinelli MD Service: (none) Author Type: Physician Filed: 03/04/11 0515 Note Time: 04/13/05 0001 Status: Signed Pairer: Mehdi Marinelli MD (Physician) NAME: SUNNI SERNA MR: [id number] ACCT: [id number] VISIT: [id number] DICTATING CLINICIAN: MEHDI MARINELLI MD JOB: [id number] CLINIC PROGRESS NOTE DATE OF VISIT: 04/13/2005 SUBJECTIVE: : 2002. Sunni is a 5-year-old female here for followup of tubes, tubes were placed in 08/2003. She is doing well with no problems at all, excellent speech and language with no ear issues whatsoever. OBJECTIVE: On exam, right tube in place. Left tube probably in place, obscured partially by cerumen. ASSESSMENT: Tubes in place, bilaterally. PLAN: Recommend ear drops to the left ear only. Return to ENT Clinic in six months. DWW:[id number] C: 04/13/05 11:35 DOCUMENT: [id number] documented in this encounter Plan of Treatment Not on filedocumented as of this encounter Visit Diagnoses Not on filedocumented in this encounter Care Teams Drying Equipment Operator Relationship Specialty Start Date End Date Marlena Choudhury MD PCP - General 02/13/11 06/28/21 [address] [place] [address] documented as of this encounter
--- OUTSIDE RECORDS SUMMARY | 2022-08-12 09:11 | XMS_ITS | Encounter Summary ---
:2000 Author Organization [facility] Address [address], [place] [address] Care Team Providers Name Role Phone Marlena Choudhury MD Primary Care Provider Encounter Details Date Type Department Care Team Description 05/15/2006 PN Conversion Only [place] [address] [address] [place] [address] Social History Tobacco Use Types Packs/Day Years [...] on filedocumented in this encounter Care Teams Pictures Editor Relationship Specialty Start Date End Date Marlena Choudhury MD PCP - General 02/13/11 06/28/21 [address] [place] [id number] documented as of this encounter
--- OUTSIDE RECORDS SUMMARY | 2022-08-12 09:11 | XMS_ITS | Encounter Summary ---
:2002 Author Organization [facility] Address [address], [place] [address] Care Team Providers Name Role Phone Marlena Olson MD Primary Care Provider Encounter Details Date Type Department Care Team Description 01/08/2003 PN Conversion Only [facility] Marlena Olson, [address] [facility] [id number] [facility] [phone] [place], [place] [address] (Wo rk) Social History [...] encounter Progress Notes Marlena Olson MD - 01/08/2003 12:01 AM CST Progress Notes signed by Marlena Olson MD at 04/09/03 1251 Author: Marlena Olson MD Service: (none) Author Type: Physician Filed: 03/03/11 1251 Note Time: 01/08/03 0001 Status: Signed Munitions Handler Supervisor: Marlena Olson MD (Physician) NAME: BLAYNE SIMON MR: [id number] ACCT: [id number] VISIT: [id number] DICTATING CLINICIAN: MARLENA OLSON MD JOB: [id number] CLINIC PROGRESS NOTE DATE OF VISIT: 01/08/2003 SUBJECTIVE: : 2002. Blayne is a 58-ooxri-jfz who is here because of concerns about some extra skin near her anus. She is also here for an ear recheck. She has been doing extremely well. MEDICATIONS: She is on no medications. ADR/ALLERGIES: NO KNOWN DRUG ALLERGIES. REVIEW OF SYSTEMS: Otherwise negative. OBJECTIVE: HEENT: Atraumatic, normocephalic. TMs are clear and mobile bilaterally. PERRLA. Extraocular movements are intact. Nasal mucosa clear. Posterior pharynx is clear. LUNGS: Clear to auscultation. HEART: Regular rate and rhythm, S1 and S2 without a murmur. ABDOMEN: Soft, positive bowel sounds. Nondistended, nontender. Liver at the right costal margin in the midclavicular line. Spleen not palpable. SKIN: Otherwise negative. She does have a protubering, hemorrhoid-like lesion coming from her anus, but it is extremely minimal, 2 mm in diameter. Will continue to observe. ASSESSMENT: Resolved otitis. New onset hemorrhoid. PLAN: We will continue to observe for now. Stools have been soft, and mom will try and make sure they remain that way over the next couple of weeks in order to help Blayne relieve her condition. TT: CT: ED:[id number] C: 02/04/03 07:26 DOCUMENT: [id number] Marlena Olson MD - 2002 12:01 AM CST Progress Notes signed by at 01/02/03 4120 Author: Marlena Olson MD Service: (none) Author Type: Physician Filed: 03/03/11 1209 Note Time: 02 0001 Status: Signed Munitions Handler Supervisor: Marlena Olson MD (Physician) IMPRESSION: Cvdk-uqoko-hbh with a URI, right otitis, nasal pharyngitis, and early clinical pneumonitis. SUBJECTIVE: Blayne is a 9-month-old who has had now a low-grade fever that occurred for her 24 hours, five days ago. It now reoccurred last night to 100.7, and she has been running approximately 101 to 102 today. She has had an occasional cough, some clear rhinorrhea, and a decreased appetite. She is on no medications. ADR/ALLERGIES: NO KNOWN DRUG ALLERGIES. REVIEW OF SYSTEMS: Otherwise negative. OBJECTIVE: VS: T: 99.6. Wt: 19 lb. 11 oz. She is alert, well hydrated, in no acute distress. HEENT: Atraumatic and normocephalic. The right TM is erythematous and slightly purulent. The left TM is clear and mobile. PERRLA. Extraocular movements are intact. Nasal mucosa is erythematous with purulent rhinorrhea. Posterior oropharynx is also slightly erythematous. LUNGS: Have a few rales in the right lower lobe. Otherwise, good air flow. HEART: Regular rhythm. S1 and S2 without murmur. ABDOMEN: Soft. Positive bowel sounds, nondistended, nontender. ASSESSMENT: Apkg-jihkc-tev with a URI, right otitis, nasal pharyngitis, and early clinical pneumonitis. PLAN: Will treat with Augmentin 600 mg/5 ml, 3 cc p.o. b.i.d. times 10 days. Mom is to follow up if the fever does not resolve within 36 hours, or if she becomes worse. At the time, she appears bright-eyed, alert, attentive, smiling, and has been taking fluids extremely well. Will continue to follow. We will do more aggressive workup if, indeed, she does not respond or worsens within the next 24 hours. TT: CT: ED:[id number] C: 02 08:19 DOCUMENT: [id number] EACH EDUCATOR Marlena Olson MD - 2002 12:01 AM CST Progress Notes signed by Marlena Olson MD at 02 4583 Author: Marlena Olson MD Service: (none) Author Type: Physician Filed: 03/03/11 1151 Note Time: 02 0001 Status: Signed Munitions Handler Supervisor: Marlena Olson MD (Physician) IMPRESSION: Almost 9-month-old with normal growth and development. SUBJECTIVE: Blayne is an almost 9-month-old who is here for a physical exam. Parents have no specific concerns at this time. She is completing her Augmentin for her pneumonia and has been doing extremely well. She now totally asymptomatic. Her diet consists of formula plus a variety of baby foods. She is stooling daily, sleeping generally through the night. Breaks is appropriate per age. She is cruising furniture, babbling and extremely active. Hearing and vision are appropriate per observation. She is in a carseat. ADR/ALLERGIES: NO KNOWN DRUG ALLERGIES. No tobacco exposure. REVIEW OF SYSTEMS: Otherwise negative. OBJECTIVE: VS: Ht: 29, at the 92nd percentile. Wt: 19 lb. 6 oz, at the 60th percentile. OFC: 17-7/8 at the 85th percentile. She is alert, well hydrated in no acute distress. HEENT: Atraumatic, normocephalic. TMs are clear and mobile bilaterally. PERRLA. Extraocular movements intact. Nasal mucosa clear. Posterior oropharynx is clear. LUNGS: Clear to auscultation. HEART: Rate regular rhythm, S1, S2 without a murmur. ABD: Soft, positive bowel sounds, nondistended, nontender. Liver at the right costal margin, midclavicular line. Spleen not palpable. SKIN: Negative. NEURO: Negative. Normal genitalia. No hip click. EXTREMITIES: Negative. Spine is straight. ASSESSMENT: Almost 9-month-old with normal growth and development. PLAN: Risks and benefits of immunizations discussed. IPV and hepatitis B given. Anticipatory guidance given. Hemoglobin is pending at this time. Next physical at 12 months of age after their first birthday. TT: CT: ED:[id number] C: 02 09:08 DOCUMENT: [id number] EACH EDUCATOR Marlena Olson MD - 2002 12:01 AM CST Progress Notes signed by at 01/04/03 0001 Author: Marlena Olson MD Service: (none) Author Type: Physician Filed: 03/03/11 1138 Note Time: 11/19/022020 Status: Signed Munitions Handler Supervisor: Marlena Olson MD (Physician) IMPRESSION: Right, lower lobe pneumonitis. SUBJECTIVE: Blayne is an 8-month-old who is here for a recheck of an otitis and pneumonia. She has been doing extremely well during the day but coughing at night. Of note is that she was seen October 26 and treated with Omnicef. She currently has completed the medication. MEDICATIONS: Is currently on no medications. ADR/ALLERGIES: SHE HAS NO KNOWN DRUG ALLERGIES. OBJECTIVE: VS: Wt: 18 lb. 13 oz. She is alert, well hydrated, in no acute distress. HEENT: Atraumatic, normocephalic. TMs are clear and move bilaterally. PERRLA. Extraocular movements: Intact. Nasal mucosa: Clear. Posterior oropharynx is clear. Lungs had some rales at the right lower lobe. HEART: Rate: Regular rhythm. S1, S2 without a murmur. ABDOMEN: Soft. Positive bowel sounds. Nondistended, nontender. Liver at the right costal margin, midclavicular line. A chest x-ray was done, which did reveal a right lower lobe pneumonitis. ASSESSMENT: Right, lower lobe pneumonitis. PLAN: We will treat with Augmentin, 600 mg per 5 mL, 3 cc p.o. b.i.d. x 14 days. Follow up in two weeks. Of note is that her sister was along, who incidentally was also treated. There was not room for her in the schedule, so we just quickly looked and diagnosed with a left otitis, treated with Augmentin and Cortisporin; this was Blanca. TT: CT: ED:[id number] C: 02 12:15 DOCUMENT: [id number] EACH EDUCATOR Marlena Olson MD - 2002 12:01 AM CST Progress Notes signed by at 01/04/03 0001 Author: Marlena Olson MD Service: (none) Author Type: Physician Filed: 03/03/11 1113 Note Time: 02 0001 Status: Signed Munitions Handler Supervisor: Marlena Olson MD (Physician) IMPRESSION: Bilateral otitis, with right lower lobe pneumonitis. SUBJECTIVE: Blayne is an 8-month-old who had a fever of 104 times four days. She was seen Monday at [facility] in [facility] and diagnosed with bilateral otitis by Dr. Austin. She was seen the next day in the emergency room for followup at that time. She has been eating fairly poorly at this point, but overall is doing better than she was. MEDICATIONS: Omnicef. ADR/ALLERGIES: NO KNOWN DRUG ALLERGIES. OBJECTIVE: VS: T: 99.1. Wt: 17 lb 6 oz. She is alert, well-hydrated, in no acute distress. HEENT: Atraumatic, normocephalic. TMs are erythematous and bulging bilaterally. PERRLA. Extraocular movements intact. Nasal mucosa clear. Posterior oropharynx is clear. LUNGS: Have rales at the bases. HEART: Rate regular rhythm. S1, S2 without a murmur. ABDOMEN: Soft, positive bowel sounds, nondistended, nontender. Liver at the right costal margin midclavicular line. Spleen not palpable. Note is that I did review that when she was at the [place] emergency room a urine was taken and analyized at that point. A chest x-ray has not been done to date, so that was done at this point. Did reveal a right lower lobe pneumonitis. ASSESSMENT: Bilateral otitis, with right lower lobe pneumonitis. PLAN: Will continue the Omnicef again, since now at this time she has defervesced and is improved. We would like to do a followup chest x-ray to document clearing in the next six weeks. Reassurance was given. If she continues to be afebrile, she should have an ear check in two weeks, with a repeat chest x-ray in six weeks. TT: CT: ED:[id number] C: 02 13:19 DOCUMENT: [id number] EACH EDUCATOR Conversion, [facility] - 2002 12:01 AM CST Phone Note signed by at 02 1927 Author: Imr Conversion Service: (none) Author Type: (none) Filed: 03/03/11 1112 Note Time: 10/28/022020 Status: Signed Munitions Handler Supervisor: Mya Cortés IMPRESSION: Ear pain-(child)-triage guideline - TREATING PROVIDER: MARLENA OLSON - APPOINTMENT MADE WITH MARLENA * HOME PHONE:[phone] * [place] 2002 09:50AM * WORK PHONE:[phone] * SUBJECTIVE: PATIENT COMPLAINS OF... Ear pain, recurrent history of ear infections. Mother calling; Child was started on antibiotic for a double ear infection more than 48 hours ago. Child is still runing fevers and is fussy. Has seen no improvement in Sx. Decreased intake of fluids. Continues to make wet diapers. Is alert and responsive. ALLERGIES/SENSITIVITIES... NKA; CURRENT MEDICATIONS... None 02 PERTINENT PAST HISTORY... OM x 1-ear re/ck on 10/21 negative ASSESSMENT: Ear pain-(child)-triage guideline DISPOSITION: SEMI-URGENT PLAN: RECOMMENDED THE FOLLOWING... Referenced guideline Ear pain-(child)-triage guideline. Schedule appointment with provider within 24 hours -Apply warm compresses to the ear -Elevate head -Hold or rock in an upright position -Give acetaminophen as directed for discomfort Verbalizes understanding and agrees with phone care recommendation INFORMED PATIENT TO CALLBACK IF... Reasons to call back reviewed- caller verbalizes understanding of the need to call back for the following reasons: -Child is getting worse -Any other questions or concerns CALL BY YOU BRUCE RN 2002 07:18PM [phone] ADDENDUM: EACH EDUCATOR Milo Austin MD - 2002 12:01 AM CST Progress Notes signed by Milo Austin MD at 02 8286 Author: Milo Austin MD Service: (none) Author Type: Physician Filed: 03/03/11 110 Note Time: 02 0001 Status: Signed Munitions Handler Supervisor: Milo Austin MD (Physician) IMPRESSION: Bilateral otitis media, recently treated with amoxicillin. SUBJECTIVE: TYPE OF VISIT: Fever. OBJECTIVE: See handwritten note. ASSESSMENT: Bilateral otitis media, recently treated with amoxicillin. PLAN: Omnicef 125 mg p.o. q.d. x 10 days, recheck at nine month checkup. TT: CT: [facility]:[id number] C: 02 18:59 DOCUMENT: [id number] ESA Cortés [facility] - 2002 12:01 AM CST Phone Note signed by at 02 1110 Author: Mya Cortés Service: (none) Author Type: (none) Filed: 03/03/111108 Note Time: 02 0001 Status: Signed Munitions Handler Supervisor: Mya Cortés IMPRESSION: Fever-(3months to 3 years)-triage guideline SUBJECTIVE: PATIENT COMPLAINS OF... Fever, * HOME PHONE:[phone] * 102 rectal,took longer naps and * WORK PHONE:[phone] * more naps today,no other sx. Mom wondering if pt needs to be taken to MD now. ALLERGIES/SENSITIVITIES... NKA 02 CURRENT MEDICATIONS... None 02 PERTINENT PAST HISTORY... OM x 1-ear re/ck on 10/21 negative ASSESSMENT: Fever-(3months to 3 years)-triage guideline DISPOSITION: HOME CARE PLAN: RECOMMENDED THE FOLLOWING... Referenced guideline Fever-(3months to 3 years)-triage guideline. -Dress lightly -Encourage increased intake of clear liquids -Give acetaminophen as directed for discomfort Caregiver to observe appearance and behavior and call back if child remains uncomfortable or if symptoms worsen. Patient information given per Fever nurse guideline. Verbalizes understanding and agrees with phone care recommendation INFORMED PATIENT TO CALLBACK IF... Reasons to call back reviewed- caller verbalizes understanding of the need to call back for the following reasons: -Serious symptoms develop -Any other questions or concerns MISC COMMENTS... Mom will call for appt in AM if fever still present since that was her only sx with first ear infection. CALL BY BARRETT YEPEZ RN 2002 09:08PM [phone] ADDENDUM: <> 2002 08:49AM by CARLITA BARAJSA RN: Mother calling back to schedule an appt at pediatric urgent care. Twin daughter continues to have a fever of 102.8(R). Did have an episode of vomiting after she talked with nurse last nite but so did twin. Appointment made for this am. EACH EDUCATOR Turner Ghosh MD - 2002 12:01 AM CST Progress Notes signed by Turner Ghosh MD at 02 1314 Author: Turner Ghosh Md, MD Service: (none) Author Type: Physician Filed: 03/03/11 1100 Note Time: 02 0001 Status: Signed Munitions Handler Supervisor: Turner Ghosh Md, MD (Physician) IMPRESSION: Resolved otitis. SUBJECTIVE: Blayne comes in for ear recheck. She had an ear infection, doing much better now, finished up the medicine. See written note in chart. OBJECTIVE: N/A ASSESSMENT: Resolved otitis media. PLAN: Observe. TT: CT: TITLE I TEACHER:[id number] C: 02 11:16 DOCUMENT: [id number] ESA Cortés [facility] - 2002 12:01 AM CST Phone Note signed by at 02 193 Author: Mya Cortés Service: (none) Author Type: (none) Filed: 03/03/11 1049 Note Time: 10/11/022020 Status: Signed Munitions Handler Supervisor: Mya Cortés IMPRESSION: Ear pain-(child)-triage guideline SUBJECTIVE: PATIENT COMPLAINS OF... Mom thinks * HOME PHONE:[phone] * pt may have an ear infection * WORK PHONE:[phone] * because she is pulling at her ears, no fever which she's had before with OM. Has never pulled at ears before. Wondering if pt should be taken in. ALLERGIES/SENSITIVITIES... CURRENT MEDICATIONS... PERTINENT PAST HISTORY... ASSESSMENT: Ear pain-(child)-triage guideline DISPOSITION: NO DISPOSITION GIVEN PLAN: RECOMMENDED THE FOLLOWING... Referenced guideline Ear pain-(child)-triage guideline. Told mom usually OM is not an emergency sx. If has wakeful night and/ or fever, call tomorrow AM for appt with information technology administrator. CALL BY BARRETT YEPEZ RN 2002 07:24PM [phone] ADDENDUM: Turner Davidson MD - 2002 12:01 AM CST Progress Notes signed by Turner Ghosh MD at 02 0140 Author: Turner Ghosh Md, MD Service: (none) Author Type: Physician Filed: 03/03/11 1026 Note Time: 09/25/022020 Status: Signed Munitions Handler Supervisor: Turner Ghosh Md, MD (Physician) IMPRESSION: No dictation required. Right otitis media. SUBJECTIVE: Blayne comes in because she developed a fever today at daycare. It was up to 102.4. See written note in chart for details. OBJECTIVE: N/A ASSESSMENT: Right otitis media. PLAN: Amoxicillin, 250 per 5, 6 cc twice a day times seven days. TT: CT: TITLE I TEACHER:[id number] C: 02 20:50 DOCUMENT: [id number] EACH EDUCATOR Marlena Zapata, STAFFING RN, RESIDENCE LIFE COORDINATOR - 2002 12:01 AM CDT Progress Notes signed by at 01/04/032020 Author: ANNE Love Service: (none) Author Type: Nurse Practitioner Filed: 03/03/11 0957 Note Time: 09/05/022020 Status: Signed Munitions Handler Supervisor: ANNE Love (Nurse Practitioner) IMPRESSION: Right conjunctivitis. SUBJECTIVE: Blayne is a twin in with her sister because both have developed signs of pink eye. Mom has been a eunw-wb-mgqw mom until this week and just returned to work time study engineer. The girls are cared for in a [facility] daycare center. Blayne has no cold or cough symptoms. She has not had a fever. No night waking. Yesterday, mom noticed her right eye was more teary than usual and today it has been quite mattery. The mattering has redeveloped within 10 minutes of cleaning it throughout the morning. Daycare requested that she be picked up from daycare. This is Blayne's first illness. ADR/ALLERGIES: NONE. OBJECTIVE: VS: Wt: 15 lb 10 oz. Blayne is smiley, happy and content. Her left eye is clear. Bulbar conjunctiva is clear. Periorbital tissue clear. Right eye has moderate erythema and injection of the bulbar conjunctiva. There is stringy matter in the inner canthus as well as the outer corner of the eye. It is more teary than the left. Periorbital tissue is clear and free of any erythema or swelling. Nose patent, no drainage. Pharynx clear. NECK: Supple. LUNGS: Clear. ASSESSMENT: Right conjunctivitis. PLAN: Polytrim ophthalmic drops, one to two drops to affected eye t.i.d. until clear for two consecutive mornings. Hygiene and hand washing discussed. Will return to daycare in 24 hours per their guidelines. TT: CT: EAC:[id number] C: DOCUMENT: [id number] Marlena Lake MD - 2002 12:01 AM CDT Progress Notes signed by Marlena Olson MD at 02 1625 Author: Marlena Olson MD Service: (none) Author Type: Physician Filed: 03/03/11 0944 Note Time: 02 0001 Status: Signed Munitions Handler Supervisor: Marlena Olson MD (Physician) IMPRESSION: Normal 6-month-old, normal growth and development. SUBJECTIVE: Blayne is a normal 6-month-old here for physical exam. Her parents have no specific concerns at this time. She is half breast and half formula fed, eats a variety of baby foods at this time. She stools daily, sleeps through the night. Breaks is appropriate for age. She is extremely verbal. She is not sitting independently at this time but can balance fairly well. Hearing and vision are appropriate per observation. She is in a car seat. ADR/ALLERGIES: NO KNOWN DRUG ALLERGIES. No tobacco exposure. REVIEW OF SYSTEMS: Otherwise negative. OBJECTIVE: Ht: 27 in, at the 90th percentile. Wt: 15 lb. 10 oz., at the 50th percentile. OFC: 17 in., at the 70th percentile. She is alert, well hydrated, in no acute distress. HEENT: Atraumatic, normocephalic. TMs are clear and mobile bilaterally. PERRLA, extraocular movements intact. Nasal mucosa clear. Posterior oropharynx is clear. LUNGS: Clear to auscultation. HEART: Regular rhythm, S1, S2, without a murmur. ABDOMEN: Soft, positive bowel sounds, nondistended, nontender. Liver at the right costal margin, midclavicular line, spleen not palpable. SKIN: Negative. NEURO: Negative. Normal genitalia. EXTREMITIES: Negative. Spine straight. No hip click. ASSESSMENT: Normal 6-month-old, normal growth and development. PLAN: Risks and benefits of immunizations discussed. DTaP, HIB, hepatitis B, and Prevnar are given. Anticipatory guidance given. Next physical at nine months of age. TT: CT: ED:[id number] C: DOCUMENT: [id number] EACH EDUCATOR Marlena Olson MD - 2002 12:01 AM CDT Progress Notes signed by Marlena Olson MD at 02 1231 Author: Marlena Olson MD Service: (none) Author Type: Physician Filed: 03/03/11 0825 Note Time: 02 0001 Status: Signed Munitions Handler Supervisor: Marlena Olson MD (Physician) IMPRESSION: A 4-month-old, normal growth and development. SUBJECTIVE: Blayne is a 4-month-old who is here for a physical exam. Parents have no specific concerns at this time. Has had a combination of breast milk and Similac. Stools daily. Sleeps through the night. Eric is appropriate per age. Is rolling front to back. Hearing and vision are appropriate per observation. In a carseat. ADR/ALLERGIES: NO KNOWN DRUG ALLERGIES. No tobacco exposure. REVIEW OF SYSTEMS: Negative. She is on Poly-Vi-Twyla with iron vitamins. OBJECTIVE: VS: Ht: 25-1/2 at the 90th percentile. Wt: 13 lb. 8 oz, at the 50th percentile. OFC: 41.5, at the 70th percentile. He is alert, well hydrated in no acute distress. HEENT: Atraumatic, normocephalic. TMs are clear and mobile bilaterally. PERRLA. Extraocular movements intact. Nasal mucosa clear. Posterior oropharynx is clear. LUNGS: Clear to auscultation. HEART: Rate regular rhythm, S1, S2 without a murmur. ABD: Soft, positive bowel sounds, nondistended, nontender. Liver at the right costal margin, midclavicular line. Spleen not palpable. SKIN: Negative. NEURO: Negative. GENITALIA: Normal. EXTREMITIES: Negative. SPINE: Straight. ASSESSMENT: A 4-month-old, normal growth and development. PLAN: Risks and benefits of immunizations discussed. DTaP, Hib, IPV and Prevnar given. Anticipatory guidance given. Next physical at 6 months of age. TT: CT: ED:[id number] C: DOCUMENT: [id number] Marlena Olson MD - 2002 12:01 AM CDT Progress Notes signed by Marlena Olson MD at 02 1638 Author: Marlena Olson MD Service: (none) Author Type: Physician Filed: 03/03/11 0703 Note Time: 02 0001 Status: Signed Munitions Handler Supervisor: Marlena Olson MD (Physician) IMPRESSION: Mtr-abysn-alb, normal growth and development. SUBJECTIVE: Blayne is a 2-month-old who is here for a physical exam. Of note is that she has been doing extremely well. Her parents have no specific concerns at this time. She has been having predominantly breast milk but occasionally being supplemented about 8 oz of formula. She stools daily up to three times. Occasionally needs pear juice for harder stools. She gets up once at night for feeding. Breaks is appropriate per age. Hearing and vision are appropriate per observation. She is in a carseat. ADR/ALLERGIES: NO KNOWN DRUG ALLERGIES. No tobacco exposure. Entire review of systems negative. OBJECTIVE: VS/GEN: Ht: 23, at the 75th percentile. Wt: 10 lb 9-1/2 oz, at the 50th percentile. OFC: 39-1/2, at the 75th percentile. She is alert, well hydrated, in no acute distress. HEENT: Atraumatic, normocephalic. The TMs are clear and mobile bilaterally. PERRLA. Extraocular movements intact. Nasal mucosa: Clear. Posterior oropharynx is clear. LUNGS: Clear to auscultation. CV: Heart rate: Regular rhythm. S1, S2, without a murmur. ABD: Soft, positive bowel sounds, nondistended, nontender. Liver at the right costal margin, mid clavicular line. Spleen not palpable. : Normal genitalia. SKIN: Negative. EXTREMITIES: Negative. NEURO: Negative. MUSCULOSKELETAL: Spine straight. ASSESSMENT: Byz-bquei-qjp, normal growth and development. PLAN: Risks and benefits of immunizations discussed. DTaP, HIB, IPV, and Prevnar given. Anticipatory guidance given. Next physical at 4 months of age. TT: CT: ED:[id number] C: DOCUMENT: [id number] Marlena Olson MD - 2002 12:01 AM CDT Progress Notes signed by at 01/04/03 0001 Author: Marlena Olson MD Service: (none) Author Type: Physician Filed: 03/03/11 0611 Note Time: 02 0001 Status: Signed Munitions Handler Supervisor: Marlena Olson MD (Physician) IMPRESSION: Jdtf-hddz-gmb twin with normal growth and development. SUBJECTIVE: Blayne is a 4-week-old twin who has been doing extremely well. She is being fed a combination of breast milk and formula. She has been voiding frequently. She is on no medications. ADR/ALLERGIES: NO KNOWN DRUG ALLERGIES. Review of systems otherwise negative. Of note is that her weight on March 12 was 6 lb 7 oz. OBJECTIVE: VS/GEN: Wt: Her weight today is 7 lb 14 oz, at the 25th percentile. She has gained 21 oz in 15 days. She is alert, well hydrated, in no acute distress. HEENT: Atraumatic, normocephalic. TMs are clear and mobile bilaterally. PERRLA. Extraocular movements intact. Nasal mucosa: Clear. Posterior oropharynx is clear. LUNGS: Clear to auscultation. CV: Heart rate: Regular rhythm. S1, S2, without a murmur. ABD: Soft, positive bowel sounds, nondistended, nontender. Liver at the right costal margin, mid clavicular line. Spleen not palpable. Hemoglobin, hematocrit, iron, and reticulocyte were drawn. A hemoglobin is back at 11.7. ASSESSMENT: Gxfn-ieyk-ffl twin with normal growth and development. PLAN: They should continue to use Poly-Vi-Twyla with Iron, especially with the breast milk, and follow up in two weeks for a weight check. TT: CT: ED:[id number] C: DOCUMENT: [id number] EACH EDUCATOR Marlena Olson MD - 2002 12:01 AM CDT Progress Notes signed by Marlena Olson MD at 02 1202 Author: Marlena Olson MD Service: (none) Author Type: Physician Filed: 03/03/11 0552 Note Time: 02 0001 Status: Signed Munitions Handler Supervisor: Marlena Olson MD (Physician) IMPRESSION: Excellent weight gain in a 13-day-old twin. SUBJECTIVE: Blayne is a 13-day-old who has been alternating between breast and formula feeds every two to three hours and takes about 2-1/2 to 3 ounces. She has been having frequent yellow seedy stools and doing extremely well. MEDICATIONS: She is on no medications. ADR/ALLERGIES: NO KNOWN DRUG ALLERGIES. OBJECTIVE: VS/GEN: weight was 6 lb, 3 oz. Her weight today is 6 lb, 7 oz. She is up 9 oz in six days. She is alert, well-hydrated, in no acute distress. HEENT: Atraumatic, normocephalic. The TMs are clear and mobile bilaterally. PERRLA. Extraocular movements are intact. She has slight left subconjunctival bleed . Nasal mucosa clear. Posterior oropharynx is clear. LUNGS: Clear to auscultation. CV: Regular rate and rhythm, S1 and S2 without murmur. ABD: Soft, positive bowel sounds, nondistended, nontender. Liver at the right costal margin, midclavicular line. Spleen not palpable. SKIN: Negative. NEURO: Negative. ASSESSMENT: Excellent weight gain in a 13-day-old twin. PLAN: Will add Poly-Vi-Twyla one dropper p.o. per day. Have her follow up in two weeks, and we will check a hemoglobin at that point. She has been doing extremely well. TT: CT: ED:[id number] C: DOCUMENT: [id number] Marlena Olson MD - 2002 12:01 AM CDT Progress Notes signed by at 01/04/03 0001 Author: Marlena Olson MD Service: (none) Author Type: Physician Filed: 03/03/11 0543 Note Time: 02 0001 Status: Signed Munitions Handler Supervisor: Marlena Olson MD (Physician) IMPRESSION: Resolving feeding problems and jaundice in a . SUBJECTIVE: Blayne is a 7-day-old twin who is here for a recheck of her weight. Of note is that they have been having trouble getting Mom's milk supply to last for both twins and have not had any weight gain thus far. She returns today for a check. Of note is that the bilirubin had actually dropped on its own yesterday, and they have been doing extremely well. MEDICATIONS: She is on no medications. ADR/ALLERGIES: NO KNOWN DRUG ALLERGIES. OBJECTIVE: VS/GEN: Wt: 5 lb 14-1/4 oz, up 2-1/4 oz from yesterday. Blayne appears much less jaundiced. She is alert, energetic, and appears to be doing well. She is alert, well hydrated, in no acute distress. Only a brief exam was done observing her. We spent considerable time discussing feeding. They will continue now to bottle every other feed and then breast milk every other feed alternating between the twins. She seems to be doing much better, tolerating it well, and has a voracious appetite at this point. ASSESSMENT: Resolving feeding problems and jaundice in a . PLAN: Will follow up early next week for a weight check, earlier if there are any complications. TT: CT: ED:[id number] C: DOCUMENT: [id number] EACH EDUCATOR Marlena Olson MD - 2002 12:01 AM CDT Progress Notes signed by Marlena Olson MD at 02 1306 Author: Marlena Olson MD Service: (none) Author Type: Physician Filed: 03/03/11 0541 Note Time: 02 0001 Status: Signed Munitions Handler Supervisor: Marlena Olson MD (Physician) IMPRESSION: Six-day-old twin with poor weight gain. SUBJECTIVE: Blayne is a 6-day-old who has been breast feeding every 2-1/2 to 3 hours. She has also been supplemented with Similac with Iron. She was born at 38 weeks. Initially, her bilirubin had risen to a peak of 15.9l, but has now dropped to 14.6. weight was 6 pounds, 3 ounces. Discharge weight was 5 pounds, 12 ounces. Yesterday she was up to 5 pounds, 14 ounces. Today she once again has dropped to 5 pounds, 13 ounces. OBJECTIVE: VS/GEN: Wt: 19 lb, 5 oz at the 50th percentile. OFC: 34.5. She is alert, well-hydrated, in no acute distress. HEENT: Atraumatic, normocephalic. The TMs are clear and mobile bilaterally. PERRLA. Extraocular movements are intact. Nasal mucosa clear. Posterior oropharynx is clear. LUNGS: Clear to auscultation. CV: Regular rate and rhythm, S1 and S2 without murmur. ABD: Soft, positive bowel sounds, nondistended, nontender. Liver at the right costal margin, midclavicular line. Spleen not palpable. SKIN: Negative. NEURO: Negative. : Normal genitalia. EXTREMITIES: Negative. Spine straight. ASSESSMENT: Six-day-old twin with poor weight gain. PLAN: I emphasized supplementing breast feeding as tolerated. Parents did understand the importance of weight gain post delivery and will be encouraging both babies to nurse at least every three to four hours with no longer waits in between. She is to follow tomorrow and we will establish a recheck after that point. TT: CT: ED:[id number] C: DOCUMENT: [id number] documented in this encounter Plan of Treatment Not on filedocumented as of this encounter Procedures Procedure Name Priority Date/Time Associated Diagnosis Comme nts HEMOGLOBIN, BLOOD Routine 2002 5:23 PM Resu lts for this OUTREACH EDUCATOR procedure are i n the results section. XR CHEST PA WITH Routine 2002 3:17 PM Resul ts for this LATERAL OUTREACH EDUCATOR procedure are i n the results section. XR CHEST PA WITH Routine 2002 10:21 AM Resu lts for this LATERAL OUTREACH EDUCATOR procedure are i n the results section. IRON (NO IBC OR Routine 2002 2:50 PM Result s for this SAT) CDT procedure are i n the results section. HEMOGLOBIN, BLOOD Routine 2002 2:50 PM Resu lts for this CDT procedure are i n the results section. RETIC, MANUAL Routine 2002 2:50 PM Results for this CDT procedure are i n the results section. BILIRUBIN Routine 2002 9:01 AM Res ults for this CDT procedure are i n the results section. BILIRUBIN Routine 2002 1:18 PM Res ults for this CDT procedure are i n the results section. BILIRUBIN Routine 2002 11:10 AM Re sults for this CDT procedure are i n the results section. documented in this encounter Results Hemoglobin, Blood (2002 5:23 PM OUTREACH EDUCATOR) P athologist Signature Hemoglobin 11.8 10.5 - 13.5 HP CONVERSION gm/dL Specimen (Source) Anatomical Collection Method Collection Time Re ceived Time Location / / Volume Laterality 2002 5:23 PM OUTREACH EDUCATOR Marlena Olson MD LAB_1 Performing Organization Address City/State/ZIP Code Phon e Number HP CONVERSION XR Chest PA With Lateral (2002 3:17 PM OUTREACH EDUCATOR) Anatomical Region Laterality Modality Other Specimen (Source) Anatomical Location Collection Method / Collectio n Time Received Time / Laterality Volume Narrative 2002 3:17 PM OUTREACH EDUCATOR CLINICAL DATA: ?FOLLOW UP PNEUMONIA ?486 FINDINGS: ?LATERAL VIEW IS ROTATED. ??PA VIEW SHOWS SOME INFILTRATE AT ?THE RIGHT BASE MEDIALLY CONSISTENT WITH RIGHT LOWER LOBE ?PNEUMONIA. ?[id number]/Ranku TECH-ID : ? CJ TRANS-ID: ? EDR Procedure Note MegancarterJim alvarez - 01/19/2017 CLINICAL DATA: FOLLOW UP PNEUMONIA 486 FINDINGS: LATERAL VIEW IS ROTATED. PA VIEW SHOWS SOME INFILTRATE AT THE RIGHT BASE MEDIALLY CONSISTENT WITH RIGHT LOWER LOBE PNEUMONIA. [id number]/Ranku TECH-ID : CJC TRANS-ID: EDR Marlena Olson MD RAD GD XR Chest PA With Lateral (2002 10:21 AM OUTREACH EDUCATOR) Anatomical Region Laterality Modality Other Specimen (Source) Anatomical Location Collection Method / Collectio n Time Received Time / Laterality Volume Impressions 2002 10:21 AM OUTREACH EDUCATOR : ?? NORMAL CHEST. FINDINGS: ?? CH1 ?? THE CARDIOVASCULAR STRUCTURES APPEAR NORMAL. ?? NO EVIDENCE OF ACTIVE PULMONARY DISE ASE. TECH-ID : ? BAL TRANS-ID: Narrative 2002 10:21 AM OUTREACH EDUCATOR CLINICAL DATA: ?FEVER ?486 Procedure Note Ted Maya - 01/19/2017 CLINICAL DATA: FEVER 486 IMPRESSION : NORMAL CHEST. FINDINGS: CH1 THE CARDIOVASCULAR STRUCTURES APPEAR NO RMAL. NO EVIDENCE OF ACTIVE PULMONARY DISEASE . TECH-ID : BAL TRANS-ID: Marlena Olson MD RAD GD (ABNORMAL) Hemoglobin, Blood (2002 2:50 PM CDT) athologist Signature Hemoglobin 11.7 (LL) 12.5 - HP CONVERSION 20.5 gm/dL Specimen (Source) Anatomical Collection Method Collection Time Re ceived Time Location / / Volume Laterality 2002 2:50 PM CDT Marlena Olson MD LAB_1 Performing Organization Address City/[facility] Phon e Number HP CONVERSION (ABNORMAL) Retic, Manual (2002 2:50 PM CDT) Patholo gist Method Time Signature Reticulocyte % 0.8 (LL) 2.5 - 6.5 HP CONVERSION % Hematocrit N/A 39.0 - HP CONVERSION 63.0 % Retic Corrected N/A 2.5 - 6.5 HP CONVERSION Count % Specimen (Source) Anatomical Collection Method Collection Time Re ceived Time Location / / Volume Laterality 2002 2:50 PM CDT Marlena Olson MD LAB_1 Performing Organization Address City/[facility] Phon e Number HP CONVERSION Iron (no IBC or Sat) (2002 2:50 PM CDT) athologist Signature Iron, Serum 140 50 - 165 HP CONVERSION ug/dL Specimen (Source) Anatomical Collection Method Collection Time Re ceived Time Location / / Volume Laterality 2002 2:50 PM CDT Marlena Olson MD LAB_1 Performing Organization Address City/[facility] Phon e Number HP CONVERSION (ABNORMAL) Bilirubin (2002 9:01 AM CDT) Analysis Performed At Patho logist Time Signature <3 Weeks Old? Yes (A) No normal HP CONVERSION range 14.6 mg/dL HP CONVERSION Bilirubin Total Specimen (Source) Anatomical Collection Method Collection Time Re ceived Time Location / / Volume Laterality 2002 9:01 AM CDT Marlena Olson MD LAB_1 Performing Organization Address City/State/ZIP Code Phon e Number HP CONVERSION (ABNORMAL) Bilirubin (2002 1:18 PM CDT) Analysis Performed At Patho logist Time Signature <3 Weeks Old? Yes (A) No normal HP CONVERSION range Comment: CALLED BILN TO JOSEPHINE 02 13:55QW Bilirubin Total 15.8 mg/dL HP CO NVERSION Comment: CALLED BILN TO JOSEPHINE 02 13:55QW Specimen (Source) Anatomical Collection Method Collection Time Re ceived Time Location / / Volume Laterality 2002 1:18 PM CDT Marlena Olson MD LAB_1 Performing Organization Address City/[facility]/ZIP Code Phon e Number HP CONVERSION Bilirubin (2002 11:10 AM CDT) P athologist Signature 15.4 mg/dL HP CONVERSION Bilirubin Total Comment: CALLED BILN TO DANY.C 02 13:42 QW Specimen (Source) Anatomical Collection Method Collection Time Re ceived Time Location / / Volume Laterality 2002 11:10 AM CDT Marlena Olson MD LAB_1 Performing Organization Address City/State/ZIP Code Phon e Number HP CONVERSION documented in this encounter Visit Diagnoses Not on filedocumented in this encounter Care Teams Rubber Flap Cutter Relationship Specialty Start Date End Date Marlena Olson MD PCP - General 02/13/11 06/28/21 [address] [place]AN [place] [address] documented as of this encounter
--- OUTSIDE RECORDS SUMMARY | 2022-08-12 09:11 | XMS_ITS | Encounter Summary ---
:2002 Author Organization [email or web address] Address [address] [place] [address] Care Team Providers Name Role Phone Marlena Choudhury MD Primary Care Provider Encounter Details Date Type Department Care Team Description 07/07/2005 Office Visit [facility] [place] [id number] [place] [address] [id number] (Wo rk) Social History Tobacco Use Types [...] documented as of this encounter Progress Notes Radha Russell MD - 07/07/2005 12:01 AM CDT Progress Notes signed by Radha Russell MD at 07/22/05 1531 Author: Radha Russell MD Service: (none) Author Type: Physician Filed: 03/04/11 0647 Note Time: 07/07/05 0001 Status: Signed Lime Kiln Tender: Radha Russell MD (Physician) NAME: SUNNI SERNA MR: [id number] ACCT: [id number] VISIT: [id number] DICTATING CLINICIAN: RADHA RUSSELL MD JOB: [id number] CLINIC PROGRESS NOTE DATE OF VISIT: 07/07/2005 SUBJECTIVE: This 5-year-old girl comes to urgent care with cold symptoms over the past week and pinkeye since last night. No fever or chills. A slight runny nose and a mild cough. Eating and drinking normally. She is in daycare. MEDICATIONS: None. ADR/ALLERGIES: NONE. OBJECTIVE: VS: See urgent care shingle. She has mild diffuse conjunctival injection with a moderate amount of yellowish discharge at the lid margins. Right eye unremarkable. Normal appearing to funduscopy. She has mild nasopharyngitis, pearly de jesus tympanic membranes. NECK: Supple without adenopathy. LUNG GARCIA: Clear. ABDOMEN: Soft and nontender. No rashes present. ASSESSMENT: URI. Acute conjunctivitis. PLAN: Tobramycin eye drops prescribed as listed in LastWord, and I discussed symptomatic care and nutritious liquids. Return to daycare 24 hours after beginning treatment. RTC if any worsening or further problems or concerns. EHF:[id number] C: 07/07/05 19:13 DOCUMENT: [id number] documented in this encounter Plan of Treatment Not on filedocumented as of this encounter Visit Diagnoses Not on filedocumented in this encounter Care Teams Varnishing Machine Operator Relationship Specialty Start Date End Date Marlena Choudhury MD PCP - General 02/13/11 06/28/21 [address] [place] CHAN [place] [id number] documented as of this encounter
--- OUTSIDE RECORDS SUMMARY | 2022-08-12 09:11 | XMS_ITS | Encounter Summary ---
:2002 Author Organization [facility] Address [address] [address] Care Team Providers Name Role Phone Unassigned, Provider Primary Care Provider Unavailable Encounter Details Date Type Department Care Team Description 08/18/2003 Hospital Encounter CONV METH ODS Mehdi Marinelli MD [address] [facility] [place], [place] [id number] EXCELSI[address] Mehdi Estrada MD [address] [facility] [place] [address] [place] [address] Social History Tobacco Use Types Packs/Day Years [...] on file documented as of this encounter Procedure Notes Mehdi Marinelli MD - 08/18/2003 12:01 AM CDT OR Surgeon signed by Mehdi Marinelli MD at 09/01/03 9268 Author: Mehdi Marinelli MD Service: (none) Author Type: Physician Filed: 03/03/11 0620 Note Time: 08/18/03 075 Status: Signed Fisher Trawl Line: Mehdi Marinelli MD (Physician) NAME: SUNNI SERAN MR: [id number] ACCT: [id number] AUTHENTICATING CLINICIAN: MEHDI MARINELLI MD JOB: [id number] OPERATIVE REPORT DATE OF OPERATION: 08/18/2003 INDICATIONS FOR PROCEDURE: Sunni is a 26-hgtov-jna female with a history of recurrent ear infections, fluid noted on her last visit in May. She is here today for the above procedure. PREOPERATIVE DIAGNOSIS: Bilateral otitis media with effusion. POSTOPERATIVE DIAGNOSIS: Bilateral otitis media with effusion. PROCEDURE PERFORMED: Bilateral myringotomy with pressure equalization tube insertion. SURGEON: Mehdi Marinelli MD FINDINGS: DESCRIPTION OF OPERATION: The patient is brought to the operating room today. Under general anesthesia by mask, she is prepped and draped in the supine position for the above surgery. The right ear is examined with the operating microscope. Cerumen is removed from the ear canal. An incision is made in the anterior inferior quadrant. A scant serous effusion is suctioned. An Hughes grommet double ventilation tube is placed without difficulty. Floxin drops and a cotton ball were then instilled. The same procedure was performed on the left side. Wax was removed. An incision was made in the anterior inferior quadrant, a scan serous effusion is suctioned. The tube was placed without difficulty. Floxin drops and a cotton ball were then instilled. The patient was then aroused in the operating room, transported to the recovery room in stable condition. ESTIMATED BLOOD LOSS: None. IV FLUIDS: None. COMPLICATIONS: None. SPECIMENS: No specimens were sent for pathology. DWW:[id number] C: 08/18/03 09:00 DOCUMENT: [id number] documented in this encounter Miscellaneous Notes Miscellaneous - Mehdi Marinelli MD - 08/18/2003 12:01 AM CDT ICD-9-CM ICD-9-CM Narrative description Code ======== DIAGNOSES Principal: CHR NONSUP OM NOS/NEC 381.3 PROCEDURES Provider1 Date Principal: MYRINGOTOMY W INTUBATION MEHDI MARINELLI [id number] 20. Provider2: Provider3: SARANYA RIVERS Secondary: MYRINGOTOMY W INTUBATION MEHDI MARINELLI [id number] . Provider2: Provider3: SARANYA RIVERS documented in this encounter Plan of Treatment Not on filedocumented as of this encounter Visit Diagnoses Not on filedocumented in this encounter Care Teams Breaker Up Relationship Specialty Start Date End Date Unassigned, Provider PCP - General 02 02/12/11 [address] [place] [address] documented as of this encounter
--- OUTSIDE RECORDS SUMMARY | 2022-08-12 09:11 | XMS_ITS | Encounter Summary ---
:2002 Author Organization [facility] Address [address] [place] [address] Care Team Providers Name Role Phone Bettie Choudhury MD Primary Care Provider Encounter Details Date Type Department Care Team Description 09/06/2005 Office Visit [facility] [place] [address] [address] [place] [address] [place], [place] [id number] (Wo rk) Social History Tobacco Use Types [...] Sign Reading Time Taken Comments Blood Pressure 92/58 09/06/2005 10:26 AM CDT Pulse - - Temperature - - Respiratory Rate - - Oxygen Saturation - - Inhaled Oxygen Concentration - - Weight 15 kg (33 lb 1.8 oz) 09/06/2005 10:26 AM CDT C: 15.0kg Height 101.6 cm (3' 4) 09/06/2005 10:26 AM CDT C: 101. 6cm Jvqdoc-zkk-Ciocjm Percentile 24.41 % 09/06/2005 10:26 AM CDT Growth Chart: [facility] (Girls, 2-20 Years) Body Mass Index 14.55 09/06/2005 10:26 AM CDT Body Mass Index Percentile 19.62 % 09/06/2005 10:26 AM C DT Growth Chart: [facility] (Girls, 2-20 Years) documented in this encounter Progress Notes Bettie Choudhury MD - 09/06/2005 12:01 AM CDT H&P signed by Bettie Choudhury MD at 09/11/05 1430 Author: Bettie Choudhury MD Service: (none) Author Type: Physician Filed: 03/04/11 0756 Note Time: 09/06/05 0001 Status: Signed Channeler: Bettie Choudhury MD (Physician) NAME: SUNNI SERNA MR: [id number] ACCT: [id number] VISIT: [id number] DICTATING CLINICIAN: BETTIE CHOUDHURY MD JOB: [id number] CLINIC PHYSICAL DATE OF VISIT: 09/06/2005 SUBJECTIVE: Sunni is a 5-year-old who is here for a physical exam. She has been doing extremely well. She had had some chronic bloody noses of which they have been given a topical antibiotic to use. If they do persist, would then have cauterized in the spring. She is described as an excellent eater, with 2% milk. Sleeps 10 hours at night, and has been doing extremely well. MEDICATIONS: None. ADR/ALLERGIES: NO KNOWN ALLERGIES OR LATEX SENSITIVITIES. TOBACCO EXPOSURE: None. She is in day care. She is in a car seat. She is due for sibling within the next 14 days. OBJECTIVE: VS: Ht: 40, 85th percentile. Wt: 33.2, 50th percentile. She is alert, well hydrated, in no acute distress. HEENT: Atraumatic and normocephalic. TMs are clear and mobile bilaterally. PERRLA. Extraocular movements are intact. Nasal mucosa is clear. Posterior oropharynx is clear. LUNGS: Clear to auscultation. HEART: Regular rhythm. S1 and S2, without murmur. ABDOMEN: Soft. Positive bowel sounds, nondistended, nontender. Liver edge at the right costal margin midclavicular line. Spleen not palpable. SKIN: Negative. NEURO: Negative. GENITALIA: Normal. EXTREMITIES: Negative. SPINE: Straight. ASSESSMENT: A 5-year-old, normal growth and development. PLAN: 1. Vision tests were done, which was 20/20. 2. Risks and benefits of immunizations discussed. Influenza vaccine given. 3. She continues to have retained PE tubes; they are being followed currently by ENT. [place] was appropriate per age. Next physical in 1-2 years. ED:[id number] C: 09/07/05 12:02 DOCUMENT: [id number] WARE TEAM LEADER documented in this encounter Plan of Treatment Not on filedocumented as of this encounter Visit Diagnoses Not on filedocumented in this encounter Care Teams Marketing Operations Intern Relationship Specialty Start Date End Date Bettie Choudhury MD PCP - General 02/13/11 06/28/21 [address] [place] [address] documented as of this encounter
--- OUTSIDE RECORDS SUMMARY | 2022-08-12 09:11 | XMS_ITS | Encounter Summary ---
:2002 Author Organization [facility] Address [address], [place] [address] Care Team Providers Name Role Phone Marlena Choudhury MD Primary Care Provider Encounter Details Date Type Department Care Team Description 08/29/2003 PN Conversion Only [place] [address] [address] [place] [address] Social History Tobacco Use Types Packs/Day Years [...] on filedocumented in this encounter Care Teams Infant Teacher Relationship Specialty Start Date End Date Marlena Choudhury MD PCP - General 02/13/11 06/28/21 [address] [place] CHAN [place]stein [id number] documented as of this encounter
--- OUTSIDE RECORDS SUMMARY | 2022-08-12 09:11 | XMS_ITS | Encounter Summary ---
:2000 Author Organization Formerly [facility], [facility]–1983 Address [address], [place] [address] Care Team Providers Name Role Phone Marlena Choudhury MD Primary Care Provider Encounter Details Date Type Department Care Team Description 08/17/2005 Office Visit [facility] Ear, Nose, Mehdi Marinelli MD and Throat [address] [facility] [place] [phone] (Wo rk) Social History Tobacco Use Types [...] encounter Progress Notes Mehdi Marinelli MD - 08/17/2005 12:01 AM CDT Progress Notes signed by Mehdi Marinelli MD at 08/25/05 3420 Author: Mehdi Marinelli MD Service: (none) Author Type: Physician Filed: 03/04/11 0732 Note Time: 08/17/05 0001 Status: Signed Welding Machine Operator Arc: Mehdi Marinelli MD (Physician) NAME: SUNNI SERNA MR: [id number] ACCT: [id number] VISIT: [id number] DICTATING CLINICIAN: MEHDI MARINELLI MD JOB: [id number] CLINIC PROGRESS NOTE DATE OF VISIT: 08/17/2005 SUBJECTIVE: : 2000. Sunni is a 3-1/2-year-old female here for followup of tubes placed in 08/2003. She has done extremely well with no ear troubles, whatsoever. Mom is here, today, for followup. She has also some concerns about nosebleeds that Sunni has had now off-and-on for the past six to seven months. They did see my partner, Dr. Mari, for this. Apparently, it was a difficult visit with really nothing much accomplished, at that time, despite heroic efforts. Unfortunately, she continues to have nosebleeds. The last one was about two to three weeks ago. Had an episode of sound like impetigo a few months ago which was treated with oral antibiotics, other than that no other symptoms. OBJECTIVE: On exam, Sunni is very pleasant. She is not actively bleeding. Her TMs are examined. The left is obscured by cerumen, the tube is not clearly visualized. The right side shows the tube still in place and patent. Nose: Inspected. There is some mucus in the nose which is fairly clear. The septum appears midline with no masses specifically. Kiesselbach's plexus appears fairly normal with no evidence for active bleeding. Oral Cavity: Clear, her gum line is healthy. ASSESSMENT: Right tube still in place and patent. Left tube questionable, although probably still in. Epistaxis. Discussed the findings with the mom. PLAN: At this point, other than taking Sunni to the operating room to cauterize her nose, I do not have many suggestions in terms of stopping the nosebleeds. We could try Bactroban ointment twice a day for a week or two to see if this helps reduce staph colonization which may be causing the vessels to be a little friable. I suspect the moisturizing effect will help, as well. If the nosebleeds persist, consider again operative intervention. Regarding the tubes, at this point, really she has had no trouble at all, really no strong indication to intervene. They do attend a fairly large preschool and there is a fairly high likelihood that they will continue to have ear troubles during the winter months. I suggest that if we are thinking about removing the tubes, that we do this in the spring of 2005, and at the same time, if her nose continues to be an issue, we could cauterize it, at that time. All questions answered to their satisfaction. They concur with the above. We will see them back in six months. DWW:[id number] C: 08/17/05 16:17 DOCUMENT: [id number] documented in this encounter Plan of Treatment Not on filedocumented as of this encounter Visit Diagnoses Not on filedocumented in this encounter Care Teams Gage Maker Relationship Specialty Start Date End Date Marlena Choudhury MD PCP - General 02/13/11 06/28/21 [address] [place] CHAN Goldstein [address] documented as of this encounter
--- OUTSIDE RECORDS SUMMARY | 2022-08-12 09:11 | XMS_ITS | Encounter Summary ---
:[address] [facility] Address [address], [place] [address] Care Team Providers Name Role Phone Marlena Choudhury MD Primary Care Provider Encounter Details Date Type Department Care Team Description 11/17/2004 Office Visit [facility] Miguel Angel Garcia PA-C [address] [facility] [address] [place] [address] [place] [address] [phone] (Wo rk) Social History Tobacco Use Types [...] documented as of this encounter Progress Notes Miguel Angel Garcia PA-C - 11/17/2004 12:01 AM CST Progress Notes signed by Miguel Angel Garcia PA-C at 11/18/04 6362 Author: Miguel Angel Garcia PA-C Service: (none) Author Type: Physician Money Room Supervisor Filed: 03/04/11 0224 Note Time: 11/17/04 0001 Status: Signed Manager Of Application Development: Miguel Angel Garcia PA-C (Physician Money Room Supervisor) NAME: SUNNI SERNA MR: [id number] ACCT: [id number] VISIT: [id number] DICTATING CLINICIAN: BRENDA HAWKINS JOB: [id number] CLINIC PROGRESS NOTE DATE OF VISIT: 11/17/2004 SUBJECTIVE: A 4-year-old who is a twin presents to urgent care with her mother for evaluation of bilateral eye mattering, left greater than right, over the last couple of days. Some sinus congestion as well. A bit of a cough. No complaints of ear pain. Afebrile. ADR/ALLERGIES: NKDA. MEDICATIONS: None. PAST HISTORY: PE tubes. OBJECTIVE: VS: T: 97 axillary. P: 120. R: 24. AGE: 4. Wt: 33 lb. GENERAL: NAD. HEENT: Head normocephalic. Ears: TMs without erythema. Nose patent with some clear rhinorrhea. Eyes: Sclerae white. Conjunctivae injected bilaterally with purulent exudate, left greater than right. Mouth: Mucosa is moist. Uvula midline. Voice is resonant without hoarseness. NECK: Shows some anterior cervical lymphadenopathy. LUNGS: CTAP. No crackles, rubs, rhonchi, or wheezes. ASSESSMENT: 1. URI. 2. Bilateral conjunctivitis. PLAN: Hot soaks, handwashings. Tobramycin ophthalmic suspension one drop each eye q.i.d. over five days. Return p.r.n. TJL:[id number] C: 11/18/04 08:42 DOCUMENT: [id number] T HARVEST MACHINE OPERATOR documented in this encounter Plan of Treatment Not on filedocumented as of this encounter Visit Diagnoses Not on filedocumented in this encounter Care Teams Exhibit Carpenter Relationship Specialty Start Date End Date Marlena Choudhury MD PCP - General 02/13/11 06/28/21 [address] [place] CHAN Goldstein [address] documented as of this encounter
--- OUTSIDE RECORDS SUMMARY | 2022-08-12 09:11 | XMS_ITS | Encounter Summary ---
:2000 Author Organization [facility] Address [address] [place] [address] Care Team Providers Name Role Phone Marlena Choudhury MD Primary Care Provider Reason for Visit Reason Comments Other Encounter Details Date Type Department Care Team Description 11/24/2004 Telephone [facility] Alison Christiansen RN Other [address] [facility] [place] [address] Social History Tobacco Use Types Packs/Day Years [...] documented as of this encounter Progress Notes Alison Christiansen RN - 11/24/2004 5:59 PM CST Phone Note filed by Alison Christiansen RN at 02/28/11 2517 Author: Alison Christiansen RN Service: (none) Author Type: Registered Nurse Filed: 02/28/11 1605 Note Time: 11/24/04 5274 Status: Signed Research Support Specialist: Alison Christiansen RN (Registered Nurse) Mom calling about daughter who had goopy eyes a week ago and was on eye drops. Developed a temp with a cough several days ago. Temp has been 101-102. Yesterday developed a blotchy itchy rash which has disappeared but then came back today when her fever was going up. Mom thinks now that her lips looked a little puffy. Nurse referenced Cough and Hive information per Chivo Irby. Suggested child be seen tonight. Mom will probably take her to [facility] ER/UC. Created on 24Nov2004 5:59pm by ALISON CHRISTIANSEN documented in this encounter Plan of Treatment Not on filedocumented as of this encounter Visit Diagnoses Not on filedocumented in this encounter Care Teams Plant Scientist Relationship Specialty Start Date End Date Marlena Choudhury MD PCP - General 02/13/11 06/28/21 [address] [place] CHAN Goldstein [address] documented as of this encounter
--- OUTSIDE RECORDS SUMMARY | 2022-08-12 09:11 | XMS_ITS | Encounter Summary ---
:2000 Author Organization [facility] Address [address] [place] [address] Care Team Providers Name Role Phone Bettie Choudhury MD Primary Care Provider Encounter Details Date Type Department Care Team Description 07/11/[address] [facility] 38[address] Ear, Nose, Carmen Mari MD and Throat [address] [place], [place] [id number] Social History Tobacco Use Types Packs/Day Years [...] documented as of this encounter Progress Notes Carmen Mari MD - 07/11/2005 12:01 AM CDT Progress Notes signed by Carmen Mari MD at 07/28/05 1354 Author: Carmen Mari MD Service: (none) Author Type: Physician Filed: 03/04/11 0651 Note Time: 07/11/05 0001 Status: Signed Dial Refinisher: Carmen Mari MD (Physician) NAME: SUNNI SERNA MR: [id number] ACCT: [id number] VISIT: [id number] DICTATING CLINICIAN: CARMEN MARI MD JOB: [id number] CLINIC PROGRESS NOTE DATE OF VISIT: 07/11/2005 SUBJECTIVE: Sunni is a 3-1/2-year-old patient who is seen at the request of Dr. Bettie Choudhury because of recurrent nosebleeds. They seem to occur, over the last 6 to 7 months, more often from the right side than the left side, and they occur every 10 to 14 days. Sometimes they actually seem to spurt out of her nose. They have not observed nose picking. There is no family history of coagulopathy. There has been no blood in the urine or stool. Patient had previous tympanostomy and tube insertions by Dr. Mehdi Baugh in our department. The father states that he had nosebleeds when he was younger, I believe, if I am correct in my memory. OBJECTIVE: Sunni is an adorable 3-1/2-year-old. No active bleeding today. Examination of her right ear reveals a Lester tube in situ, left ear canal had some cerumen in it which I did not try to remove because I was more interested in getting a good look at her nose. In looking at her nose, there are scabs on either side of the nasal septum anteriorly, in the Kiesselbach area, but there are no blood clots visualized. Exam of the mouth revealed normal tonsils, palate configuration normal. No blood in the oropharynx. Examination of the neck revealed reactive jugulodigastric lymph node, about a cm in diameter bilaterally. Attempt was made to insert some topical 4% Xylocaine and some Eliezer-Synephrine on a small cottonoid, and Sunni was not able to cooperate despite the urging of her parents to the contrary. We really could not get a look at her nose or do anything to treat the suspected Kiesselbach plexus vessels that have been bleeding. ASSESSMENT: PLAN: I did instruct the parents in treatment of nosebleeds from a first aid standpoint, and advised that, at this point, I do not think the bleeds are severe enough to warrant having a general anesthetic to treat them, although if things change, that may also change. The parents, I believe, were appreciative of the interaction and attempts to really further evaluate Sunni, much to our frustration. I do not believe there was any psychological stress caused to Sunni today by our course of action. CC: BETTIE CHOUDHURY MD MLS:[id number] C: 07/12/05 10:03 DOCUMENT: [id number] documented in this encounter Plan of Treatment Not on filedocumented as of this encounter Visit Diagnoses Not on filedocumented in this encounter Care Teams Tip Out Worker Relationship Specialty Start Date End Date Bettie Choudhury MD PCP - General 02/13/11 06/28/21 [address] [place] CHAN Goldstein [address] documented as of this encounter
--- OUTSIDE RECORDS SUMMARY | 2022-08-12 09:11 | XMS_ITS | Encounter Summary ---
:2000 Author [facility] Address [address] [place] [address] Care Team Providers Name Role Phone Marlena Choudhury MD Primary Care Provider Encounter Details Date Type Department Care Team Description 01/23/2006 Office Visit [facility] [place] [id number] [place] [phone] (Wo rk) Social History Tobacco Use [...] Comments Blood Pressure - - Pulse 110 01/23/2006 2:39 PM CANNONEER Temperature 37 ??C (98.6 ??F) 01/23/2006 2:39 PM CANNONEER C: 37.0 C Respiratory Rate 20 01/23/2006 2:39 PM CANNONEER Oxygen Saturation - - Inhaled Oxygen Concentration - - Weight 16.8 kg (36 lb 15.9 oz) 01/23/2006 2:39 PM CANNONEER C : 16.8kg Height - - Body Mass Index - - documented in this encounter Progress Notes Shawn Medina MD - 01/23/2006 12:01 AM CST Progress Notes signed by Shawn Medina MD at 02/16/06 1026 Author: Shawn Medina MD Service: (none) Author Type: Physician Filed: 03/04/11 1045 Note Time: 01/23/06 0001 Status: Signed Ore Digger: Shawn Medina MD (Physician) NAME: SUNNI SERNA MR: [id number] ACCT: [id number] VISIT: [id number] DICTATING CLINICIAN: SHAWN MEDINA MD JOB: [id number] CLINIC PROGRESS NOTE DATE OF VISIT: 01/23/2006 SUBJECTIVE: Chief Complaint: Rash. HPI: This pleasant 5-year-old comes in today complaining of possible strep. Mother says she has noticed a rash all over her body, which is exactly what her twin sister had last week and was diagnosed with strep throat. She has had a mild sore throat. No fevers or chills. Has been active, good appetite. No stomachache. No headache. No diarrhea. PAST MEDICAL HISTORY: Healthy. PAST SURGICAL HISTORY: PE tubes. MEDICATIONS: None. ADR/ALLERGIES: NONE. SOCIAL HISTORY: The patient does attend daycare. FAMILY HISTORY: Her sister has strep. REVIEW OF SYSTEMS: Negative, except for previous. OBJECTIVE: VS: T: 98.6. P: 110. R: 20. GENERAL: Alert and orientated, in no apparent distress. Tympanic membranes reveal no sign of infection. Sinuses are nontender. Oropharynx is pink and moist. Mild pharyngitis, no exudate or petechiae. NECK: Reveals positive cervical lymphadenopathy. LUNGS: Clear. HEART: Regular. Strep screen is positive. ASSESSMENT: Strep pharyngitis. PLAN: Amoxicillin for 10 days and follow up if symptoms persist or worsen. VIRGILIOM:[id number] C: 01/24/06 15:24 DOCUMENT: [id number] documented in this encounter Plan of Treatment Not on filedocumented as of this encounter Visit Diagnoses Not on filedocumented in this encounter Care Teams Nuisance Wildlife Specialist Relationship Specialty Start Date End Date Marlena Choudhury MD PCP - General 02/13/11 06/28/21 [address] [place] CHAN Goldstein [address] documented as of this encounter
== END 2022-07-30 12:47 | disposition home or self-care (01) ==
LOC: NFLDREF 08-12 09:02
PROVIDERS: Visit Provider Nurse Practitioner Family
DX: R30.0 Dysuria (principal); N39.0 Urinary tract infection, site not specified
CPT/HCPCS: 87086